=== PATIENT | female | born 2000 | race Caucasian/White ===

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

== ENCOUNTER 2021-01-16 14:47 | Outpatient (REF) | payer MEDICAID, SELFPAY ==
[2021-01-18 14:45] LABS: Chlamydia Result Negative (Negative); GC Result Negative (Negative)
== END 2021-01-16 14:48 | disposition home or self-care (01) ==
LOC: LBN 14:47
PROVIDERS: PCP Family Medicine; Visit Provider Nurse Practitioner Family
DX: R35.0 Frequency of micturition (principal); N89.8 Other specified noninflammatory disorders of vagina; R10.9 Unspecified abdominal pain
CPT/HCPCS: 87491; 87591; 87086; 87480; 87510; 87660

== ENCOUNTER 2021-01-18 20:39 | Emergency (ER) | payer MEDICAID, SELFPAY ==
[2021-01-18 20:44] VITALS: BP 127/77; PULSE 104; RESP 16; TEMP 36.8; O2SAT 100
--- NOTE | 2021-01-18 21:11 | ED.GENADUL_ITS ---
Discharge Plan Disposition Patient Disposition: HOME Condition: Stable Discharge Details Clinical Impression: UTI (urinary tract infection) Primary Care Provider: Danya Pulido V ED Provider: Isabelle Albert Home Meds and New Rx's Prescriptions: New cephalexin 500 mg tablet 500 mg PO BID 7 Days Qty: 14 RF: 0 phenazopyridine [Pyridium] 100 mg tablet 100 mg PO TID PRNQty: 6 RF: 0 No Action albuterol sulfate [ProAir HFA] 200 PUFF HFA aerosol inhaler 2 puff Inhalation Q4H PRN PRNRF: 0 ondansetron HCl [Zofran] 4 mg Tablet 4 mg PO PRN PRNRF: 0 Flovent HFA 110 mcg/actuation HFA aerosol inhaler 2 puff INHALATION DAILY RF: 0 Discharge Instructions Instructions: Urinary Tract Infection in Women (ED) Additional Instructions: Your urinalysis showed evidence for urinary tract infection today. Take the antibiotic twice daily as directed for 7 days. You are given the first dose here in the department. Take Pyridium 3 times daily as needed for urinary tract pain. It will turn your urine bright orange. Please take Tylenol or Ibuprofen with food every 4-6 hours as needed for pain and swelling. Follow up with primary care provider in 3-5 days. Return to ED sooner if any worsening or concerns. Increase oral fluids. Referrals: Danya Pulido MD [Primary Care Provider] - Medical Decision Making 20-year-old female presents to the ER with pelvic pain and urinary symptoms which have been ongoing since Friday night. Patient was seen at urgent care on Friday was given Pyridium was reported to have a negative urinalysis. Patient reports since then she has had what she describes as pressure on her bladder. She has not had a bowel movement since 6 days ago. Last known menstrual period was a week ago. Patient does have a history of UTIs, GERD, asthma. She does have an IUD. Urinalysis and urine test ordered at this time. Urine hCG negative, urinalysis shows positive nitrites trace leukocytes large blood. Culture is pending at this time. Will place patient on cephalexin 500 mg twice daily and give Pyridium here in the department. Instructed to follow-up with PCP. This text was generated using [employer] system, please disregard any oddities of phrase or misspellings. HPI General Mode of arrival: ambulatory . Date/Time Provider Initiated Documentation: 01/18/21 20:40 . Limitations to Documentation: no limitations . Information obtained by: patient . HPI Narrative: 20-year-old female presents to the ER with pelvic pain and urinary symptoms which have been ongoing since Friday night. Patient was seen at urgent care on Friday was given Pyridium was reported to have a negative urinalysis. Patient reports since then she has had what she describes as pressure on her bladder. She has not had a bowel movement since 6 days ago. Last known menstrual period was a week ago. Patient does have a history of UTIs, GERD, asthma. She does have an IUD. Related Data Home Medications Medication Instructions Recorded Confirmed albuterol sulfate [ProAir HFA] 2 puff INHALATION Q4H PRN PRN 08/26/17 01/18/21 ondansetron HCl [Zofran] 4 mg PO PRN PRN 08/08/20 01/18/21 Flovent HFA 2 puff INHALATION DAILY 11/11/20 01/18/21 cephalexin 500 mg PO BID 7 Days #14 tab 01/18/21 phenazopyridine [Pyridium] 100 mg PO TID PRN #6 tab 01/18/21 Previous Rx's Medication Instructions Recorded cephalexin 500 mg PO BID 7 Days #14 tab 01/18/21 phenazopyridine [Pyridium] 100 mg PO TID PRN #6 tab 01/18/21 Allergies Allergy/AdvReac Type Severity Reaction Status Date / Time Sulfa (Sulfonamide Allergy Intermediate red and Unverified 01/18/21 20:50 Antibiotics) itchy General Stated Complaint: Urinary TAMI: 4 Review of Systems All systems reviewed & are unremarkable except as noted in HPI and below Genitourinary Genitourinary: Reports dysuria and Reports pelvic pain [facility] Medical History (Updated 01/18/21 @ 22:19 by Isabelle Albert) Asthma GERD (gastroesophageal reflux disease) Hearing loss Bilateral hearing aids History of anxiety Situational anxiety History of depression History of otitis media History of second hand smoke exposure History of skull fracture Surgical intervention @ 3 years old IUD surveillance Mirena inserted 10/01/18 Migraine headache without aura Surgical History History of foot surgery History of placement of ear tubes History of tonsillectomy and adenoidectomy [place] teeth extracted Family History Mother Asthma Father Seizure disorder PUD (peptic ulcer disease) Paternal Grandmother PUD (peptic ulcer disease) Social History Smoking/Tobacco Use Status: Current every day Tobacco Type: cigarettes and e- cigarettes Smoking risk assessment performed?: Yes Alcohol Intake: never Drug use: Never Substance use type: does not use Housing: apartment Communication Needs: Hard of Hearing Education Level: high school 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 Appears stated age. Normal body habitus. Head: Normocephalic, no trauma. Eyes: Pupils PERRLA, Red reflex noted, EOM's intact. Eyelids symmetrical without lesions, discharge, or swelling. ENT: Bilateral TM's WNL, External ear normal to inspection, no mastoid TTP, swelling, or erythema, Nasal turbinates WNL, no nasal discharge. Normal dentition, Posterior pharynx WNL, no exudate. Chest: RRR, Normal S1, S2, distal pulses intact. Resp: Lungs clear to auscultation bilaterally, no wheezes, rales, or rhonchi. Abdomen: Soft, nondistended tender to palpation suprapubically. Musculoskeletal: Normal gait, 5/5 strength to all four extremities. Skin: No suspicious rashes or lesions. Capillary refill less than 2 sec. Neurologic: Cranial nerves II-XII intact. Alert and oriented x 3. Hematologic/Lymphatic: No ecchymosis, no lymphadenopathy. Course Vital Signs Vital signs: Vital Signs Temperature 36.8 C 01/18/21 20:44 Pulse 104 H 01/18/21 20:44 Respiratory Rate 16 01/18/21 20:44 Blood Pressure 127/77 01/18/21 20:44 Pulse Oximetry 100 01/18/21 20:44 Temperature 36.8 C 01/18/21 20:44 Temperature Source Tympanic 01/18/21 20:44 Pulse 104 H 01/18/21 20:44 Respiratory Rate 16 01/18/21 20:44 Respiratory Effort Non-Labored 01/18/21 20:51 Blood Pressure 127/77 01/18/21 20:44 Blood Pressure Position Sitting 01/18/21 20:44 Pulse Oximetry 100 01/18/21 20:44 Oxygen Delivery Method Room Air 01/18/21 20:44 Oxygen Flow Rate 0 01/18/21 20:44 Pain Level 8 01/18/21 20:44
[2021-01-18 22:12] LABS: Bilirubin Negative (Negative); Blood Large (Negative); Clarity Cloudy (Clear); Glucose Negative (Negative); Ketones Negative (Negative); Leukocyte Esterase Trace (Negative); Nitrite Positive (Negative); Specific Gravity 1.025 (1.005-1.025); pH 7.5 (5-8)
[2021-01-18 22:18] LABS: Bacteria Many HPF (Negative); C & S Indicated? Yes; Casts Negative LPF (Negative); Crystals Negative HPF (Negative); Epithelial Cells Negative HPF (Negative); Mucus Heavy (Negative); RBC >50 HPF (0-2); WBC >50 HPF (0-5)
[2021-01-18] MEDS: Cephalexin 500 MG CAP, 2 CAPS/BTL PO (22:23)
[2021-01-18] MEDS: Phenazopyridine 100 MG TAB PO (22:23)
[2021-01-18] MEDS: Cephalexin 500 MG CAP PO (22:23)
[2021-01-18] MEDS: Phenazopyridine 100 MG TAB, 2 TABS/BTL PO (22:24)
== END 2021-01-18 22:27 | disposition home or self-care (01) ==
PROVIDERS: Emergency Provider Registered Nurse Emergency; PCP Family Medicine
DX: N39.0 Urinary tract infection, site not specified (principal); B96.20 Unspecified Escherichia coli [E. coli] as the cause of diseases classified elsewhere
CPT/HCPCS: 81025; 87077; 99283; 81003; 81015; 87086; 87186

== ENCOUNTER 2021-05-04 12:56 | Emergency (ER) | payer MEDICAID, SELFPAY ==
[2021-05-04 13:00] VITALS: BP 104/58; PULSE 102; RESP 16; TEMP 36.6; O2SAT 99
--- NOTE | 2021-05-04 13:33 | ED.GENADUL_ITS ---
Discharge Plan Disposition Patient Disposition: HOME Condition: Stable Discharge Details Clinical Impression: URI with cough and congestion Primary Care Provider: Danya Pulido V ED Provider: Isabelle Albert Home Meds and New Rx's Prescriptions: No Action prenat.vits,kelby,gnb-esnk-objoq Tablet 1 tab PO DAILY RF: 0 albuterol sulfate [ProAir HFA] 200 PUFF HFA aerosol inhaler 2 puff Inhalation Q4H PRN PRNRF: 0 ondansetron HCl [Zofran] 4 mg Tablet 4 mg PO PRN PRNRF: 0 Flovent HFA 110 mcg/actuation HFA aerosol inhaler 2 puff INHALATION DAILY RF: 0 Discharge Instructions Instructions: How to Stop Smoking (ED), Viral Syndrome (ED) Additional Instructions: Some fblc-tgf-cpstzil medications that are safe for include Benadryl, Mucinex, Tylenol and Claritin. Please take a vitamin. Consider getting vaccinated for Covid. Try to quit smoking. Strep swab today is negative. Please continue to quarantine until negative Covid test. Follow up with primary care provider in 3-5 days. Return to ED sooner if any worsening or concerns. Increase oral fluids. Stand Alone Forms: PENDING COVID-19 TESTING, Work Release Referrals: Danya Pulido MD [Primary Care Provider] - 1 week Medical Decision Making 21-year-old female presents to the ER with URI type symptoms for the last few days. She reports that for the last 5 days she has nasal congestion, cough. She reports that she is she is 1 para 0. She denies any vaginal discharge or bleeding. She states that she had a negative Covid test on Friday. She is not vaccinated for Covid and did not receive her flu shot this year. She does have a history of asthma. She is a daily smoker which she states that she is trying to cut back. Send out Covid swab and rapid strep swab ordered. Discussed home care including taking vkjw-ckn-ybvqobz Claritin or Benadryl or Mucinex what is safe in . Discussed increasing fluids and following up with PCP. At this time patient is nontoxic appearing in no acute distress. I do not feel like she needs a chest x-ray at this time due to radiation exposure. Patient is satting 99% on room air.. Strep negative. Patient discharged with home care and strict return instructions. Patient remained hemodynamically stable alert and oriented throughout stay. Insert dragon HPI General Mode of arrival: ambulatory . Date/Time Provider Initiated Documentation: 05/04/21 12:59 . Limitations to Documentation: no limitations . Information obtained by: patient, RN notes reviewed and old records reviewed . HPI Narrative: 21-year-old female presents to the ER with URI type symptoms for the last few days. She reports that for the last 5 days she has nasal congestion, cough. She reports that she is she is 1 para 0. She denies any vaginal discharge or bleeding. She states that she had a negative Covid test on Friday. She is not vaccinated for Covid and did not receive her flu shot this year. She does have a history of asthma. She is a daily smoker which she states that she is trying to cut back. Related Data Home Medications Medication Instructions Recorded Confirmed albuterol sulfate [ProAir HFA] 2 puff INHALATION Q4H PRN PRN 08/26/17 05/04/21 ondansetron HCl [Zofran] 4 mg PO PRN PRN 08/08/20 05/04/21 Flovent HFA 2 puff INHALATION DAILY 11/11/20 05/04/21 prenat.vits,kelby,tod-fvyz-fwffc 1 tab PO DAILY 04/17/21 05/04/21 Allergies Allergy/AdvReac Type Severity Reaction Status Date / Time Sulfa (Sulfonamide Allergy Intermediate red and Verified 05/04/21 13:10 Antibiotics) itchy General Stated Complaint: RespSymp TAMI: 3 Review of Systems All systems reviewed & are unremarkable except as noted in HPI and below Cardiovascular Cardiovascular: Denies dyspnea Respiratory Respiratory: Reports cough, Denies hemoptysis, Denies excessive phlegm production, Reports pain with cough and Denies dyspnea Gastrointestinal Gastrointestinal: Reports as per HPI, Denies abdominal pain, Denies diarrhea, Denies nausea and Denies vomiting Genitourinary Genitourinary: Denies menorrhagia, Denies pelvic pain, Denies vaginal discharge and Denies vaginal pruritus PFSH All Active Problems (Updated 05/04/21 @ 13:54 by Isabelle Albert) URI with cough and congestion (Acute) Ear pain, left (Acute) Concussion (Acute) Gastritis (Acute) Hordeolum (Acute) UTI (urinary tract infection) (Acute) Sensorineural hearing loss, childhood onset (Acute) Nausea & vomiting (Acute) Sensorineural hearing loss, bilateral (Acute 06/01/15) Migraine (Acute 09/26/17) without aura per Neuro Contraception (Acute 09/26/17) Anxiety (Acute 10/10/17) Abdominal pain (Acute) Migraine headache without aura (Acute) History of anxiety (Chronic) Situational anxiety History of otitis media (Chronic) History of second hand smoke exposure (Chronic) History of depression (Chronic) Hearing loss (Chronic) Bilateral hearing aids GERD (gastroesophageal reflux disease) (Chronic) Medical History (Updated 05/04/21 @ 13:54 by Isabelle Albert) Asthma IUD surveillance Mirena inserted 10/01/18 Surgical History History of tonsillectomy and adenoidectomy Family History Mother Asthma Father Seizure disorder PUD (peptic ulcer disease) Paternal Grandmother PUD (peptic ulcer disease) Social History Smoking/Tobacco Use Status: Current every day Tobacco Type: cigarettes and e- cigarettes Smoking risk assessment performed?: Yes Alcohol Intake: never Drug use: Never Substance use type: does not use Housing: apartment Communication Needs: Hard of Hearing Education Level: high school 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 Appears stated age. Normal body habitus. Head: Normocephalic, no trauma. Eyes: Pupils PERRL, Red reflex noted, EOM's intact. Eyelids symmetrical without lesions, discharge, or swelling. ENT: Bilateral TM's WNL, External ear normal to inspection, no mastoid TTP, swelling, or erythema, Nasal turbinates WNL, no nasal discharge. Normal dentition, Posterior pharynx WNL, no exudate. Chest: RRR, Normal S1, S2, distal pulses intact. Resp: Lungs clear to auscultation bilaterally, no wheezes, rales, or rhonchi. Abdomen: Soft, non-distended, Normoactive bowel sounds all 4 quads. Musculoskeletal: Normal gait, 5/5 strength to all four extremities. Skin: No suspicious rashes or lesions. Capillary refill less than 2 sec. Neurologic: Cranial nerves II-XII intact. Alert and oriented x 3. Motor: No deficits noted. Sensory: Intact bilaterally all 4 extremities. Reflexes: DTR's intact bilaterally.. Hematologic/Lymphatic: No ecchymosis, no lymphadenopathy. Course Vital Signs Vital signs: Vital Signs Temperature 36.6 C 05/04/21 13:00 Pulse 102 H 05/04/21 13:00 Respiratory Rate 16 05/04/21 13:00 Blood Pressure 104/58 L 05/04/21 13:00 Pulse Oximetry 99 05/04/21 13:00 Temperature 36.6 C 05/04/21 13:00 Temperature Source Skin 05/04/21 13:00 Pulse 102 H 05/04/21 13:00 Respiratory Rate 16 05/04/21 13:00 Respiratory Effort 05/04/21 13:09 Blood Pressure 104/58 L 05/04/21 13:00 Blood Pressure Position Sitting 05/04/21 13:00 Pulse Oximetry 99 05/04/21 13:00 Oxygen Delivery Method Room Air 05/04/21 13:00 Oxygen Flow Rate 0 05/04/21 13:00 Pain Level 0 05/04/21 13:00
[2021-05-04 14:04] VITALS: BP 104/58; PULSE 102; RESP 16; TEMP 36.6; O2SAT 99
[2021-05-05 12:07] LABS: COVID-19 RT-PCR UVMMC Result Negative (Negative)
== END 2021-05-04 14:05 | disposition home or self-care (01) ==
PROVIDERS: Emergency Provider Registered Nurse Emergency; PCP Family Medicine
DX: O99.511 Diseases of the respiratory system complicating pregnancy, first trimester (principal); O99.331 Smoking (tobacco) complicating pregnancy, first trimester; J06.9 Acute upper respiratory infection, unspecified; R05.1 Acute cough; R09.81 Nasal congestion; F17.210 Nicotine dependence, cigarettes, uncomplicated
CPT/HCPCS: 87880; 99282; U0003; 87081

== ENCOUNTER 2021-05-22 02:34 | Outpatient (CLI) | payer MEDICAID, SELFPAY ==
[2021-05-22 15:28] LABS: Kit/Specimen SENT
[2021-05-22 15:36] LABS: Abs Immature Grans 0.03 10^3/uL (0.0-0.06); Absolute Basophil Count 0.02 10^3/uL (0.0-0.2); Absolute Eosinophil Count 0.08 10^3/uL (0.0-0.7); Absolute Lymphocyte Count 1.44 10^3/uL (1.2-3.4); Absolute Monocyte Count 0.42 10^3/uL (0.1-0.8); Absolute Neutrophil Count 5.93 10^3/uL (1.2-6.7); Basophils % 0.3; HCT 34.4 % (36.0-46.0); HGB 11.5 g/dL (11.2-15.7); Immature Grans % 0.4; Lymphocytes % 18.2; MCH 27.3 pg (27.0-33.0); MCHC 33.4 % (32.0-36.0); MCV 81.7 fL (80-95); MPV 12.3 fL (8.0-11.0); Monocytes % 5.3; Neutrophils % 74.8; Nucleated RBC 0 %; Platelet Count 196 10^3/uL (130-400); RBC 4.21 10^6/uL (3.93-5.22); RDW 13.1 % (11.7-14.6); RDW-SD 38.6 fL; WBC 7.92 10^3/uL (4.4-10.8)
[2021-05-22 16:47] LABS: *AMPHETAMINES SCREEN URINE Negative (Negative); *BARBITURATES SCREEN URINE Negative (Negative); *BENZODIAZEPINES SCREEN URINE Negative (Negative); Cannabinoids THC Negative (Negative); Cocaine Screen,Urine Negative (Negative); METHADONE URINE SCREEN Negative (Negative); OPIATES URINE SCREEN Negative (Negative); Tricyclic Antidepressants Negative (Negative)
[2021-05-23 09:47] LABS: Hepatitis B Surface Ag Negative (Negative)
[2021-05-23 10:28] LABS: Hepatitis C Ab w Rflx HCV PCR Negative (Negative)
[2021-05-23 10:48] LABS: HIV-1/2 Ag & Ab Screen Negative (Negative)
[2021-05-23 11:00] LABS: Varicella IgG Antibody Positive (See Note)
[2021-05-23 11:07] LABS: Rubella IgG Ab (UVM) Negative (See Note)
[2021-05-23 14:50] LABS: Chlamydia Result Negative (Negative); GC Result Negative (Negative)
[2021-05-23 23:13] LABS: Syphilis Total Ab w/Reflex Nonreactive (Nonreactive)
[2021-05-25 10:55] LABS: Buprenorphine Negative ng/mL (Cutoff: 5.0); Norbuprenorphine Negative ng/mL (Cutoff: 2.5)
[2021-05-30 16:54] LABS: Result Summary NEGATIVE; Specimen WB Whole Blood
== END 2021-05-22 02:35 | disposition home or self-care (01) ==
LOC: LBO 02:35
PROVIDERS: PCP Family Medicine; Visit Provider Advanced Practice Midwife
DX: Z34.01 Encounter for supervision of normal first pregnancy, first trimester (principal)
CPT/HCPCS: 36415; 80307; 86787; 86803; 86850; 86900; 86901; 87340; 87389; 87491; 87591; 81220; 85025; 86762; 86780; 87086

== ENCOUNTER 2021-07-24 01:21 | Outpatient (CLI) | payer MEDICAID, SELFPAY ==
--- NOTE | 2021-07-24 07:00 | DI.US_ITS ---
Exam(s) US OB 2-3 TRIMESTER EXAM: US OB 2-3 TRIMESTER CLINICAL HISTORY: anatomy survey,z34.92. TECHNIQUE: Transabdominal obstetrical ultrasound performed. COMPARISON: No exams were available for comparison FINDINGS: Transabdominal obstetrical ultrasound performed. FINDINGS: Number of fetuses: One. position: Vertex. Placental grade: 1 Placental location: Anterior no evidence of previa. BIOMETRIC DATA: BPD: 44 millimeters, 19+ 1 weeks HC: 162 millimeters, 19+ 0 weeks AC: 129 millimeters, 18+ 4 weeks FL: 28 millimeters, 18+ 4 weeks Cisterna Magna: 3.3 millimeters Cerebellum: 1.7 cm EFW: 250 grms 26 % Composite Age: 18+ 6 weeks EDC by US: 19 December 2021 Heart Rate: 175BPM Amniotic fluid: Amount of fluid is visually within normal limits. ANATOMICAL SURVEY: Four-chambered heart: Unremarkable. LVOT: Unremarkable. RVOT: Unremarkable. Left-sided stomach: Unremarkable. urinary bladder: Unremarkable. Bilateral kidneys: Unremarkable. Three-vessel cord: Unremarkable. Cord insertion: Unremarkable. Umbilical artery velocity: Unremarkable. Posterior fossa:Unremarkable. ventricles: Unremarkable. nose: Unremarkable. lips: Unremarkable. palate: Unremarkable. spine: Unremarkable. Two arms and two legs: Unremarkable. IMPRESSION: 1. Single live intrauterine gestation as above. 2. Normal anatomic survey. DATA REPOSITORY:
== END 2021-07-24 01:41 ==
PROVIDERS: PCP Family Medicine; Visit Provider Advanced Practice Midwife
DX: Z34.92 Encounter for supervision of normal pregnancy, unspecified, second trimester (principal)
CPT/HCPCS: 76805

== ENCOUNTER 2021-09-18 02:18 | Outpatient (CLI) | payer MEDICAID, SELFPAY ==
[2021-09-18 11:14] LABS: HCT 34.6 % (36.0-46.0); HGB 11.3 g/dL (11.2-15.7); MCH 27.6 pg (27.0-33.0); MCHC 32.7 % (32.0-36.0); MCV 84 fL (80-95); MPV 12.6 fL (8.0-11.0); Platelet Count 139 10^3/uL (130-400); RDW 12.3 % (11.7-14.6); RDW-SD 37.3 fL; WBC 11.42 10^3/uL (4.4-10.8)
[2021-09-18 11:24] LABS: Glucose,1 Hr (Glucola) 93 mg/dL (80-140)
== END 2021-09-18 02:19 | disposition home or self-care (01) ==
LOC: LBO 02:19
PROVIDERS: Advanced Practice Midwife; PCP Family Medicine; Visit Provider Advanced Practice Midwife
DX: Z34.92 Encounter for supervision of normal pregnancy, unspecified, second trimester (principal); Z3A.27 27 weeks gestation of pregnancy
CPT/HCPCS: 36415; 82950; 85027

== ENCOUNTER 2021-09-20 09:24 | Outpatient (CLI) | payer MEDICAID, SELFPAY ==
[2021-09-20 14:20] VITALS: BP 100/51; PULSE 112; RESP 12; TEMP 36.9; O2SAT 97
[2021-09-20 15:31] VITALS: BP 100/50; PULSE 96; RESP 12; TEMP 36.9; O2SAT 98
== END 2021-09-20 09:25 | disposition home or self-care (01) ==
LOC: INF 09:28
PROVIDERS: PCP Family Medicine; Visit Provider Family Medicine
DX: U07.1 COVID-19 (principal)
CPT/HCPCS: 96374; Q0222

== ENCOUNTER 2021-09-22 09:49 | Emergency (ER) | payer MEDICAID, SELFPAY ==
[2021-09-22 09:55] VITALS: BP 99/51; PULSE 86; RESP 16; TEMP 36.1; O2SAT 100
--- NOTE | 2021-09-22 10:02 | ED.GENADUL_ITS ---
Discharge Plan Disposition Patient Disposition: HOME Condition: Stable Discharge Details Clinical Impression: Acute right otitis media Primary Care Provider: Danya Pulido V ED Provider: Donny Oviedo Home Meds and New Rx's Prescriptions: New amoxicillin 500 mg capsule 500 mg PO TID 9 Days Qty: 27 0RF Continued PrePlus 27 mg iron- 1 mg tablet 1 tab PO DAILY Qty: 90 3RF Rx Instructions: give with food (meal/snack) famotidine 20 mg tablet 20 mg PO DAILY Qty: 60 3RF aspirin 81 mg tablet,delayed release (DR/EC) 81 mg PO DAILY Qty: 60 4RF Rx Instructions: alternating 1 tab daily with 2 tabs every other day albuterol sulfate [ProAir HFA] 200 PUFF HFA aerosol inhaler 2 puff Inhalation Q4H PRN PRN ondansetron HCl [Zofran] 4 mg Tablet 4 mg PO PRN PRN Flovent HFA 110 mcg/actuation HFA aerosol inhaler 2 puff INHALATION DAILY Discharge Instructions Instructions: Ear Infection (ED) Additional Instructions: May use Benadryl 25 mg at bedtime to help with decongestion. This is safe for use in . Continue Tylenol if needed for pain. Follow-up with regular doctor if not improved in 5 to 7 days time. Take amoxicillin as prescribed until finished Medical Decision Making 21-year-old female presents from home with hours of right ear pain similar to previous otitis media. She has had a recent COVID illness with dry cough and runny nose. On exam she has an early right otitis media that I will treat with amoxicillin. The patient is 27 weeks . She has no OB complaints. She is stable and appropriate for outpatient management at this time HPI General Mode of arrival: ambulatory . Date/Time Provider Initiated Documentation: 09/22/21 09:53 . Limitations to Documentation: no limitations . Information obtained by: patient . History of Present Illness 21 year old F presents to the emergency department with the chief complaint of Right ear pain, described as moderate and similar to prior episodes, Quality is described as dull and constant, and is localized to the right. Patient reports no radiation. Patient started experiencing this hour(s) and it has been constant. No relieving factors improve symptom(s), No exacerbating factors reported . Patient notes other (Recent mild URI symptoms with cough and runny nose). Patient did receive the following treatments prior to arrival, none Related Data Home Medications Medication Instructions Recorded Confirmed albuterol sulfate 90 mcg/actuation 2 puff inhalation Q4H PRN PRN 08/26/17 09/22/21 aerosol inhaler (ProAir HFA) ondansetron HCl 4 mg tablet 4 mg PO PRN PRN 08/08/20 09/22/21 (Zofran) fluticasone propionate 110 2 puff inhalation DAILY 11/11/20 09/22/21 mcg/actuation HFA aerosol inhaler (Flovent HFA) vitamin with calcium 1 tab PO DAILY #90 tabs 07/24/21 09/22/21 no.72-iron 27 mg-folic acid 1 mg tablet (PrePlus) aspirin 81 mg tablet,delayed 81 mg PO DAILY #60 tabs 09/18/21 09/22/21 release famotidine 20 mg tablet 20 mg PO DAILY GERD #60 tabs 09/18/21 09/22/21 amoxicillin 500 mg capsule 500 mg PO TID 9 days #27 caps 09/22/21 Previous Rx's Medication Instructions Recorded vitamin with calcium 1 tab PO DAILY #90 tabs 07/24/21 no.72-iron 27 mg-folic acid 1 mg tablet (PrePlus) aspirin 81 mg tablet,delayed 81 mg PO DAILY #60 tabs 09/18/21 release famotidine 20 mg tablet 20 mg PO DAILY GERD #60 tabs 09/18/21 amoxicillin 500 mg capsule 500 mg PO TID 9 days #27 caps 09/22/21 Allergies Allergy/AdvReac Type Severity Reaction Status Date / Time Sulfa (Sulfonamide Allergy Intermediate red and Verified 09/22/21 10:02 Antibiotics) itchy General Stated Complaint: EarProblem TAMI: 4 Review of Systems Narrative: 27 weeks . No other complaints. See HPI. 6 systems reviewed and otherwise negative PFSH All Active Problems (Updated 09/22/21 @ 10:04 by Donny Oviedo MD) Acute right otitis media (Acute) COVID-19 virus infection (Acute) Left sided sciatica (Acute) (Acute) Current smoker (Acute) Hordeolum (Acute) Nausea & vomiting (Acute) Medical History Abdominal pain Anxiety (10/10/17) Asthma Concussion Contraception (09/26/17) Ear pain, left Gastritis GERD (gastroesophageal reflux disease) Hearing loss Bilateral hearing aids History of anxiety Situational anxiety History of depression History of otitis media History of second hand smoke exposure History of skull fracture Surgical intervention @ 3 years old IUD surveillance Mirena inserted 10/01/18 Migraine (09/26/17) without aura per Neuro Migraine headache without aura Sensorineural hearing loss, bilateral (06/01/15) Sensorineural hearing loss, childhood onset URI with cough and congestion UTI (urinary tract infection) Surgical History History of foot surgery History of placement of ear tubes History of tonsillectomy and adenoidectomy [place] teeth extracted Family History Mother Asthma Depression Father Seizure disorder PUD (peptic ulcer disease) Paternal Grandmother PUD (peptic ulcer disease) Diabetes Paternal Uncle Cancer recovered from unknown type Self Depression no meds, has good coping skills, did have counseling at [facility] Maternal Grandfather No problems noted. 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 Pleasant, well groomed, interactive. HEAD: Normocephalic, atraumatic ENT: Mucous membranes moist, oropharynx unremarkable, left tympanic membrane distended and erythematous, left tympanic membrane external ear exam unremarkable EYES: PERRL, EOMI NECK: Full ROM, no SUNSHINE, no menigismus CHEST/RESP: No respiratory distress ABDOMEN: Gravid EXT: Full ROM, no edema, no rash Neuro: Grossly normal neurologic exam, conversant, interactive. Psych: Speech fluent, thoughts congruent, affect normal Course Vital Signs Vital signs: Vital Signs Temperature 36.1 C L 09/22/21 09:55 Pulse 86 09/22/21 09:55 Respiratory Rate 16 09/22/21 09:55 Blood Pressure 99/51 L 09/22/21 09:55 Pulse Oximetry 100 09/22/21 09:55 Temperature 36.1 C L 09/22/21 09:55 Temperature Source Temporal Artery Scan 09/22/21 09:55 Pulse 86 09/22/21 09:55 Respiratory Rate 16 09/22/21 09:55 Respiratory Effort Non-Labored 09/22/21 10:00 Blood Pressure 99/51 L 09/22/21 09:55 Blood Pressure Position Sitting 09/22/21 09:55 Pulse Oximetry 100 09/22/21 09:55 Oxygen Delivery Method Room Air 09/22/21 09:55 Oxygen Flow Rate 0 09/22/21 09:55 Pain Level 8 09/22/21 10:00
[2021-09-22] MEDS: Amoxicillin 500 MG CAP PO ×2 (10:06)
== END 2021-09-22 10:10 | disposition home or self-care (01) ==
LOC: ER 10:07
PROVIDERS: Emergency Provider Emergency Medicine; PCP Family Medicine
DX: H66.91 Otitis media, unspecified, right ear (principal)
CPT/HCPCS: 99283

== ENCOUNTER 2021-10-03 11:40 | Outpatient (CLI) | payer MEDICAID, SELFPAY ==
[2021-10-03 11:57] VITALS: BP 102/59; PULSE 97; TEMP 36.8
[2021-10-03 12:01] VITALS: BP 102/59; PULSE 97
--- NOTE | 2021-10-03 12:30 | W.OBNST ---
Date of service: 10/03/21 Time of Service: 12:20 NST Evaluation Reason for NST Reasons for Nonstress Test: OTHER, SEE COMMENT Reason for NST Other: Left abd pain Gestational Age Gestational Age in Weeks and Days: 29 Weeks and 1Days Test and Monitor Explained Test/Monitor Explained: Test Explained, Monitor Explained and Patient Verbalized Understanding Vital Signs Blood Pressure: 102/59 Pulse: 97 Temperature: 98.2 F NST Information Date on Monitor: 10/03/21 Time on Monitor: 11:56 Date off Monitor: 10/03/21 Time off Monitor: 12:17 Total Time on Monitor: 21 NST Interventions: PO Hydration NST Evaluation Patient States Movement: Present FHR Baseline: 135 Variability: Moderate 6-25 bpm Accelerations: 15x15 Decelerations: None NST Results: Reactive Note NST Note Note: Bonnie was seen at for NST after calling [facility] today and discussing with CNM that she had left side stomach pain and some nausea and vomiting starting after 5pm yesterday. States she was able to sleep last night after she rested in bed and zahida to work today when she started to have more pain that made her cry. She denies contractions, bleeding or LOF. Baby is active. She has a reactive NST today. She has decreased pain at rest now. She will go home today and if not feeling better tomorrow she will call for note to be out of work another day. She is comfortable with this plan and is discharged to home in satisfactory condition. TANYA NST Reviewed and Verified by: Kenna Hanson
[2021-10-03 12:33] VITALS: BP 102/59; PULSE 97; TEMP 36.8
== END 2021-10-03 12:25 | disposition home or self-care (01) ==
LOC: BCD 11:47 → OBS 11:50
PROVIDERS: PCP Family Medicine; Visit Provider Advanced Practice Midwife
DX: O26.893 Other specified pregnancy related conditions, third trimester (principal); R10.9 Unspecified abdominal pain; Z3A.29 29 weeks gestation of pregnancy
CPT/HCPCS: 59025

== ENCOUNTER 2021-10-31 23:28 | Outpatient (CLI) | payer MEDICAID, SELFPAY ==
[2021-10-31 23:12] VITALS: BP 110/62; PULSE 88; TEMP 36.8
--- NOTE | 2021-11-01 10:17 | PDOC.NST_ITS ---
Date of service: 10/31/21 Time of Service: 23:45 NST Evaluation Reason for NST Reasons for Nonstress Test: OTHER, SEE COMMENT Reason for NST Other: Rule Out Labor Gestational Age Gestational Age in Weeks and Days: 33 Weeks and 1Days Test and Monitor Explained Test/Monitor Explained: Test Explained, Monitor Explained and Patient Verbalized Understanding Vital Signs Blood Pressure: 110/62 Pulse: 88 Temperature: 98.2 F Urine Results Urine Protein: Negative Urine Ketones: Negative Urine Glucose: Negative Urine Blood: Negative NST Information Date on Monitor: 10/31/21 Time on Monitor: 23:10 Date off Monitor: 10/31/21 Time off Monitor: 23:41 Total Time on Monitor: 31 NST Interventions: PO Hydration Contraction Frequency: 0 NST Evaluation Patient States Movement: Present FHR Baseline: 130 Variability: Absent Accelerations: 15x15 Decelerations: None NST Results: Reactive Note NST Note Note: Bonnie called at 2230 and reported lower abdominal pain. She was uncertain if she was experiencing contractions so she was instructed to come to the center for rule out labor. There was no evidence of uterine contractions. Bonnie reported lower abdominal discomfort. She was not in acute distress and was discharged with instriuctions to follow up at [facility] if dicomfort persisted. Signs of labor were reviewed. Urine dip was negative. NST Reviewed and Verified by: Kenna Chang
[2021-11-01 10:20] VITALS: BP 110/62; PULSE 88; TEMP 36.8
== END 2021-10-31 23:47 | disposition home or self-care (01) ==
LOC: BCD 23:29 → OBS 23:36
PROVIDERS: PCP Family Medicine; Visit Provider Advanced Practice Midwife
DX: O26.893 Other specified pregnancy related conditions, third trimester (principal); R10.9 Unspecified abdominal pain; Z3A.33 33 weeks gestation of pregnancy
CPT/HCPCS: 59025

== ENCOUNTER 2021-11-06 12:26 | Emergency (ER) | payer MEDICAID, SELFPAY ==
[2021-11-06 12:42] VITALS: BP 105/64; PULSE 97; RESP 16; TEMP 36.6; O2SAT 100
[2021-11-06 13:29] LABS: Source Nasal/Nares
[2021-11-06 13:37] VITALS: RESP 16
[2021-11-06 14:31] LABS: COVID-19 PCR POSITIVE (Negative)
--- NOTE | 2021-11-06 14:39 | ED.GENADUL_ITS ---
Discharge Plan Disposition Patient Disposition: HOME Condition: Stable Discharge Details Clinical Impression: , URI (upper respiratory infection) Primary Care Provider: Danya Pulido V ED Provider: Ana Pinedo Home Meds and New Rx's Prescriptions: Continued PrePlus 27 mg iron- 1 mg tablet 1 tab PO DAILY Qty: 90 3RF Rx Instructions: give with food (meal/snack) famotidine 20 mg tablet 20 mg PO DAILY Qty: 60 3RF aspirin 81 mg tablet,delayed release (DR/EC) 81 mg PO DAILY Qty: 60 4RF Rx Instructions: alternating 1 tab daily with 2 tabs every other day albuterol sulfate [ProAir HFA] 200 PUFF HFA aerosol inhaler 2 puff Inhalation Q4H PRN PRN ondansetron HCl [Zofran] 4 mg Tablet 4 mg PO PRN PRN fluticasone propionate [Flovent HFA] 110 mcg/actuation HFA aerosol inhaler 2 puff INHALATION DAILY No Action amoxicillin 500 mg capsule 500 mg PO TID Qty: 21 0RF Discharge Instructions Instructions: (ED), Upper Respiratory Infection (ED) Additional Instructions: You may take [id number] phenylephrine as needed for congestion Tylenol as needed for discomfort Follow-up with your [facility] in 1 to 2 days for reassessment and return earlier should you have new or worsening complaints Referrals: Danya Pulido MD [Primary Care Provider] - Discharge Data Discharge Date/Time-TO BE ENTERED AT DEPARTURE: 11/06/21 13:33 Medical Decision Making heart rate 156 No abdominal tenderness COVID swab pending Vitals stable No hypoxia No indication for antibiotics instructed to take phenylephrine at home as needed for congestion and follow-up with [facility] and primary care physician Medical Records Medical records reviewed: Yes I reviewed the patient's medical records. HPI General Date/Time Provider Initiated Documentation: 11/06/21 13:01 . HPI Narrative: This 21-year-old female presents 34 weeks with upper respiratory symptoms and fullness in right ear. Denies any chest pain or shortness of breath. Denies any vaginal bleeding or abdominal pain. Denies fever or chills. Related Data Home Medications Medication Instructions Recorded Confirmed albuterol sulfate 90 mcg/actuation 2 puff inhalation Q4H PRN PRN 04/24/18 07/05/22 aerosol inhaler (ProAir HFA) ondansetron HCl 4 mg tablet 4 mg PO PRN PRN 08/08/20 11/06/21 (Zofran) fluticasone propionate 110 2 puff inhalation DAILY 11/11/20 11/06/21 mcg/actuation HFA aerosol inhaler (Flovent HFA) vitamin with calcium 1 tab PO DAILY #90 tabs 07/24/21 11/06/21 no.72-iron 27 mg-folic acid 1 mg tablet (PrePlus) aspirin 81 mg tablet,delayed 81 mg PO DAILY #60 tabs 09/18/21 11/06/21 release famotidine 20 mg tablet 20 mg PO DAILY GERD #60 tabs 09/18/21 11/06/21 amoxicillin 500 mg capsule 500 mg PO TID #21 caps 11/06/21 Previous Rx's Medication Instructions Recorded vitamin with calcium 1 tab PO DAILY #90 tabs 07/24/21 no.72-iron 27 mg-folic acid 1 mg tablet (PrePlus) aspirin 81 mg tablet,delayed 81 mg PO DAILY #60 tabs 09/18/21 release famotidine 20 mg tablet 20 mg PO DAILY GERD #60 tabs 09/18/21 amoxicillin 500 mg capsule 500 mg PO TID #21 caps 11/06/21 Allergies Allergy/AdvReac Type Severity Reaction Status Date / Time Sulfa (Sulfonamide Allergy Intermediate red and Verified 11/06/21 12:48 Antibiotics) itchy General Stated Complaint: GenMedical TAMI: 4 Review of Systems All systems reviewed & are unremarkable except as noted in HPI and below PFSH All Active Problems (Updated 11/07/21 @ 07:43 by Nani Barton) COVID-19 affecting in third trimester (Acute) History of herpes genitalis (Acute) Left sided sciatica (Acute) (Acute) Current smoker (Acute) Hordeolum (Acute) Nausea & vomiting (Acute) Medical History (Updated 11/07/21 @ 07:43 by Nani Barton) Abdominal pain Anxiety (10/10/17) Asthma Concussion Contraception (09/26/17) COVID-19 virus infection Ear pain, left Gastritis GERD (gastroesophageal reflux disease) Hearing loss Bilateral hearing aids History of anxiety Situational anxiety History of depression History of otitis media History of second hand smoke exposure History of skull fracture Surgical intervention @ 3 years old IUD surveillance Mirena inserted 10/01/18 Lesion of labia Migraine (09/26/17) without aura per Neuro Migraine headache without aura Sensorineural hearing loss, bilateral (06/01/15) Sensorineural hearing loss, childhood onset URI (upper respiratory infection) URI with cough and congestion UTI (urinary tract infection) Surgical History History of foot surgery History of placement of ear tubes History of tonsillectomy and adenoidectomy [place] teeth extracted Family History Mother Asthma Depression Father Seizure disorder PUD (peptic ulcer disease) Paternal Grandmother PUD (peptic ulcer disease) Diabetes Paternal Uncle Cancer recovered from unknown type Self Depression no meds, has good coping skills, did have counseling at [facility] Maternal Grandfather No problems noted. 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: female Do you feel safe at home: Yes Do you feel safe in your relationship?: Yes Female Reproductive History Menstrual Age of Menarche: 11 control method: none History History 1 Para 0 Hx # Term Pregnancies 0 Multiple births 0 Hx # Pregnancies 0 Ectopic pregnancies 0 AB induced 0 Hx Number of Living Children 0 AB spontaneous 0 Exam Const General: cooperative, comfortable and no acute distress HENMT Other: Right TM with fullness without erythema Uvula midline, no maxillary sinus tenderness Eyes Pupils: PERRL Resp Effort & Inspection: normal respiratory effort Cardio Rate: regular rate GI Other: Nontender abdominal exam Neuro General: patient alert and patient oriented x3 Extrem Other: No peripheral edema Course Vital Signs Vital signs: Vital Signs Temperature 36.6 C 11/06/21 12:42 Pulse 97 H 11/06/21 12:42 Respiratory Rate 16 11/06/21 12:42 Blood Pressure 105/64 11/06/21 12:42 Pulse Oximetry 100 11/06/21 12:42 Temperature 36.6 C 11/06/21 12:42 Temperature Source Skin 11/06/21 12:42 Pulse 97 H 11/06/21 12:42 Respiratory Rate 16 11/06/21 13:37 Respiratory Effort 11/06/21 13:37 Respiratory Depth Normal 11/06/21 13:37 Respiratory Pattern Normal 11/06/21 13:37 Blood Pressure 105/64 11/06/21 12:42 Blood Pressure Position Sitting 11/06/21 12:42 Pulse Oximetry 100 11/06/21 12:42 Oxygen Delivery Method Room Air 11/06/21 12:42 Oxygen Flow Rate 0 11/06/21 12:42 Pain Level 7 11/06/21 13:15 Lab/Test Results Lab/Test Results: Laboratory Tests Range/Units 11/06/21 13:20 COVID-19 Source Nasal/Nares SARS-CoV-2 (PCR) (Negative) POSITIVE A*
== END 2021-11-06 13:33 | disposition home or self-care (01) ==
PROVIDERS: Emergency Provider Physician Assistant; PCP Family Medicine
DX: O99.513 Diseases of the respiratory system complicating pregnancy, third trimester (principal); J06.9 Acute upper respiratory infection, unspecified; O98.513 Other viral diseases complicating pregnancy, third trimester; U07.1 COVID-19; J45.909 Unspecified asthma, uncomplicated; O99.333 Smoking (tobacco) complicating pregnancy, third trimester; F17.210 Nicotine dependence, cigarettes, uncomplicated; F17.290 Nicotine dependence, other tobacco product, uncomplicated; Z3A.34 34 weeks gestation of pregnancy; Z79.51 Long term (current) use of inhaled steroids
CPT/HCPCS: 87635; 99282

== ENCOUNTER → 2021-11-13 01:45 | Outpatient (CLI) | payer MEDICAID, SELFPAY ==
--- NOTE | 2021-11-13 07:15 | DI.US_ITS ---
Exam(s) US OB VELIA WEIGHT EXAM: US OB VELIA WEIGHT CLINICAL HISTORY: covid infection in ,U07.1,z34.90. TECHNIQUE: Transabdominal obstetrical ultrasound performed. COMPARISON: US US OB 2-3 TRIMESTER from 07/24/2021 FINDINGS: Transabdominal obstetrical ultrasound performed. FINDINGS: Number of fetuses: One. position: Cephalic. Placental location: There is a grade 2 anterior placenta. No evidence of previa. BIOMETRIC DATA: BPD: 86 mm = 34 weeks 5 days HC: 302 mm = 33 weeks 4 days AC: 288 mm = 32 weeks 5 days FL: 69 mm = 35 weeks 1 day EFW: 2263 grms 16% Composite Age: 34 weeks EDC: 12/25/2021 Heart Rate: 147BPM Amniotic fluid index: 10.4 cm. Visually, amount of fluid is within normal limits. Umbilical artery Doppler: Values are between the 50th and 95th percentile. S/D: 2.5 RI: 0.6 PI: 1.07 IMPRESSION: 1. Single live intrauterine gestation as above. 2. Estimated weight is 2263gms. This is the 16 percentile. 3. Amniotic fluid index is 10.4 cm. Visually within normal limits. DATA REPOSITORY:
== END ==
PROVIDERS: PCP Family Medicine; Visit Provider Advanced Practice Midwife
DX: U07.1 COVID-19 (principal); O98.513 Other viral diseases complicating pregnancy, third trimester; Z3A.34 34 weeks gestation of pregnancy
CPT/HCPCS: 76816

== ENCOUNTER 2021-11-13 02:53 | Outpatient (CLI) | payer MEDICAID, SELFPAY ==
[2021-11-19 20:26] LABS: HSV Type 1 Ab, IgG Positive (Negative); HSV Type 2 Ab, IgG Equivocal (Negative)
== END 2021-11-13 02:54 | disposition home or self-care (01) ==
LOC: LBO 02:53
PROVIDERS: PCP Family Medicine; Visit Provider Advanced Practice Midwife
DX: N90.89 Other specified noninflammatory disorders of vulva and perineum (principal)
CPT/HCPCS: 36415; 86695; 86696

== ENCOUNTER 2021-11-20 14:39 | Outpatient (REF) | payer MEDICAID, SELFPAY | END 2021-11-20 14:40 | disposition home or self-care (01) | LOC: LBN 14:39 | PROVIDERS: PCP Family Medicine; Visit Provider Advanced Practice Midwife ==

== ENCOUNTER 2021-11-20 14:42 | Outpatient (REF) | payer MEDICAID, SELFPAY ==
[2021-11-20 14:24] LABS: *AMPHETAMINES SCREEN URINE Negative (Negative); *BARBITURATES SCREEN URINE Negative (Negative); *BENZODIAZEPINES SCREEN URINE Negative (Negative); Cannabinoids THC Negative (Negative); Cocaine Screen,Urine Negative (Negative); METHADONE URINE SCREEN Negative (Negative); OPIATES URINE SCREEN Negative (Negative)
[2021-11-20 14:31] LABS: Tricyclic Antidepressants Negative (Negative)
[2021-11-23 10:25] LABS: Buprenorphine Negative ng/mL (Cutoff: 5.0); Norbuprenorphine Negative ng/mL (Cutoff: 2.5)
== END 2021-11-20 14:43 | disposition home or self-care (01) ==
LOC: LBN 14:42
PROVIDERS: PCP Family Medicine; Visit Provider Advanced Practice Midwife
DX: Z34.93 Encounter for supervision of normal pregnancy, unspecified, third trimester (principal); Z36.85 Encounter for antenatal screening for Streptococcus B; Z3A.36 36 weeks gestation of pregnancy
CPT/HCPCS: 80307; 87081

== ENCOUNTER 2021-11-30 13:40 | Outpatient (CLI) | payer MEDICAID, SELFPAY ==
[2021-11-30 13:48] VITALS: BP 116/74; PULSE 81; TEMP 36.7
[2021-11-30 14:04] VITALS: BP 116/74; PULSE 81
--- NOTE | 2021-11-30 17:17 | W.OBNST ---
Date of service: 11/30/21 Time of Service: 14:00 NST Evaluation Reason for NST Reasons for Nonstress Test: FALSE LABOR Reason for NST Other: Rule out Gestational Age Gestational Age in Weeks and Days: 37 Weeks and 3Days Test and Monitor Explained Test/Monitor Explained: Test Explained, Monitor Explained and Patient Verbalized Understanding Vital Signs Blood Pressure: 116/74 Pulse: 81 Temperature: 98.1 F Urine Results Urine Protein: Negative Urine Ketones: Positive Urine Glucose: Negative Urine Blood: Negative NST Information Date on Monitor: 11/30/21 Time on Monitor: 14:03 Date off Monitor: 11/30/21 Time off Monitor: 14:47 Total Time on Monitor: 44 NST Interventions: PO Hydration and Meal Given Contraction Frequency: None NST Evaluation Patient States Movement: Present FHR Baseline: 140 Variability: Moderate 6-25 bpm Accelerations: 15x15 Decelerations: None NST Results: Reactive Note NST Note Note: Cvx closed/50% posterior, vtx -3 Ketonuria+ NST Reviewed and Verified by: Nani Barton
[2021-11-30 17:18] VITALS: BP 116/74; PULSE 81; TEMP 36.7
== END 2021-11-30 14:45 | disposition home or self-care (01) ==
LOC: BCD 13:41 → OBS 13:44
PROVIDERS: PCP Family Medicine; Visit Provider Advanced Practice Midwife
DX: O47.1 False labor at or after 37 completed weeks of gestation (principal); Z3A.37 37 weeks gestation of pregnancy
CPT/HCPCS: 59025

== ENCOUNTER 2021-12-04 18:31 | Outpatient (REF) | payer MEDICAID, SELFPAY | END 2021-12-04 18:32 | disposition home or self-care (01) | LOC: LBN 18:31 | PROVIDERS: PCP Family Medicine; Visit Provider Advanced Practice Midwife | DX: O26.893 Other specified pregnancy related conditions, third trimester (principal); N89.8 Other specified noninflammatory disorders of vagina; Z3A.38 38 weeks gestation of pregnancy | CPT/HCPCS: 87480; 87510; 87660 ==

== ENCOUNTER → 2021-12-12 02:00 | Outpatient (CLI) | payer MEDICAID, SELFPAY ==
--- NOTE | 2021-12-12 07:59 | DI.US_ITS ---
Exam(s) US OB VELIA WEIGHT EXAM: US OB VELIA WEIGHT CLINICAL HISTORY: covid infection in labor,)98.513,u07.1 TECHNIQUE: Ultrasound performed using standard protocol. COMPARISON: US US OB VELIA WEIGHT from 11/13/2021 FINDINGS: Ob ultrasound was performed utilizing 3rd trimester protocol. biometry is consistent with gest ational age of 38 weeks and an EDC of December 26. Estimated weight is 3587 grams which is at the 61st percentile for predicted gestational age. Placenta is anterior with no placenta previa. There is visually a normal quantity of amniotic fluid and the VELIA is 15. Fetus is in cephalic presentation. heart rate 136 BPM IMPRESSION: DATA REPOSITORY:
== END ==
PROVIDERS: PCP Family Medicine; Visit Provider Advanced Practice Midwife
DX: O98.513 Other viral diseases complicating pregnancy, third trimester (principal); U07.1 COVID-19
CPT/HCPCS: 76816

== ENCOUNTER 2021-12-13 17:47 | Outpatient (CLI) | payer MEDICAID, SELFPAY ==
[2021-12-13 18:07] VITALS: BP 128/75; PULSE 75; TEMP 36.9
--- NOTE | 2021-12-14 09:27 | W.OBNST ---
Date of service: 12/13/21 Time of Service: 19:00 NST Evaluation Reason for NST Reasons for Nonstress Test: DECREASED MOVEMENT Gestational Age Gestational Age in Weeks and Days: 39 Weeks and 2Days Test and Monitor Explained Test/Monitor Explained: Test Explained and Monitor Explained Vital Signs Blood Pressure: 128/75 Pulse: 75 Temperature: 98.4 F Urine Results Urine Protein: Negative Urine Ketones: Positive Urine Glucose: Negative Urine Blood: Positive NST Information Date on Monitor: 12/13/21 Time on Monitor: 18:09 Date off Monitor: 12/13/21 NST Interventions: PO Hydration NST Evaluation Patient States Movement: Absent FHR Baseline: 150 Variability: Moderate 6-25 bpm Accelerations: 15x15 Decelerations: None NST Results: Reactive Note NST Note Note: Bonnie caled and reported decreased movement. The baby was active. throughout test. baseline difficult to determine due to movement. Irregular mild contractions noted. Bonnie is aware of movement. Reactive NST. NST Reviewed and Verified by: Kenna Chang
[2021-12-14 09:29] VITALS: BP 128/75; PULSE 75; TEMP 36.9
== END 2021-12-13 19:37 | disposition home or self-care (01) ==
LOC: BCD 17:48 → OBS 17:51
PROVIDERS: PCP Family Medicine; Visit Provider Advanced Practice Midwife
DX: O36.8130 Decreased fetal movements, third trimester, not applicable or unspecified (principal); Z3A.39 39 weeks gestation of pregnancy
CPT/HCPCS: 59025

== ENCOUNTER 2021-12-17 16:00 | Outpatient (CLI) | payer MEDICAID, SELFPAY ==
[2021-12-17 16:12] VITALS: BP 121/69; PULSE 71; RESP 16; TEMP 36.6; O2SAT 98
[2021-12-17 16:13] VITALS: BP 121/69; PULSE 71
[2021-12-17 16:43] LABS: ROM Plus Negative
--- NOTE | 2021-12-17 17:26 | HPE_ITS ---
Date of service: 12/17/21 Time of Service: 17:26 Assessment and Plan Assessment and plan (1) Suspected rupture of membranes not found for normal first : Status: Acute Assessment and plan: Signs of labor and ROM reviewed. return with active labor. OB-HPI Labor/Delivery History of Present Illness Reason for Visit: NST Chief Complaint: Uterine Contractions; Suspected Rupture of Membranes (no) , Associated Signs and Symptoms of Suspected ROM: no. LYNDA Calculator Estimated Delivery Date Method Current WG Current Estimate 12/18/21 Ultrasound #1 39w 6d Other Estimates 12/10/21 LMP (Certain) 41w 0d Comments: Bonnie reports regular contractions at home and vomiting. She was able to drink fluids well here. She reported a wet spot on her clothing and ROM plus is negative today. Neg pooling. Cervix posterior and closed. Vertex -1. Signs of labor reviewed. Return with signs of active labor. History of Present Expected Delivery Route/Plan - CNM FOB - Daniel Freeman- hard of hearing Rubella Non-Immune, offer MMR - Amber Esposito support team: FOB Daniel, uncertain of having her adopted mother or not (Maritza) GBS negative Specific Issues/Plan 1. Asthma well controlled 1a. Pt COVID+ @ 27 wks, MAB 09/20/21; asthma sx increased, consider pulmonology consult 1b. 35 wk growth scan 11/13/21 growth 16%, VELIA 10.4, repeat 12/12/21: nml VELIA @ 15.4, EFW in 61st percentile 2. Panorama LR, female, CF negative 3. Hard of hearing as is Daniel, she wears hearing aid, communicates very clearly - genetic testing offered & declined 3a. [facility] telegenetics consult done, no f/up indicated 4. Mother with Pre-E and Nullip will start low dose ASA at 12 wks 5. Pt and FOB are not vaccinated and do not plan to be 6. Rubella Non-Immune, children's counselor pt, offer MMR 7. Depression and anxiety- stopped medications 8. Nausea and vomiting - taking ondansetron 8a. 06/29 - taking ondansetron 2 x weekly. 8b. weight loss - discussed small frequent meals and more frequent use of medication to control nausea. 9. Vulvar lesion reported 10/16- no lesion visible- History of HSV - Valtrex for prophylaxis at 36 wks, Rx sent 11/20: HSV I + HSV II equivocal 10. Recurrent ear infections, responds to Amoxicillin 11. Plans to express colostrum at 37 wks for storage, met with SHANIA 11/13 [facility] All Active Problems (Updated 12/17/21 @ 17:28 by Kenna Chang CNM) Suspected rupture of membranes not found for normal first (Acute) COVID-19 affecting in third trimester (Acute) History of herpes genitalis (Acute) Left sided sciatica (Acute) (Acute) Current smoker (Acute) Hordeolum (Acute) Nausea & vomiting (Acute) Medical History (Updated 12/17/21 @ 17:28 by Kenna Chang CNM) Abdominal pain Anxiety (10/10/17) Asthma Concussion Contraception (09/26/17) COVID-19 virus infection Ear pain, left Gastritis GERD (gastroesophageal reflux disease) Hearing loss Bilateral hearing aids History of anxiety Situational anxiety History of depression History of otitis media History of second hand smoke exposure History of skull fracture Surgical intervention @ 3 years old IUD surveillance Mirena inserted 10/01/18 Lesion of labia Migraine (09/26/17) without aura per Neuro Migraine headache without aura Sensorineural hearing loss, bilateral (06/01/15) Sensorineural hearing loss, childhood onset URI (upper respiratory infection) URI with cough and congestion UTI (urinary tract infection) Surgical History History of foot surgery History of placement of ear tubes History of tonsillectomy and adenoidectomy [place] teeth extracted Family History Mother Asthma Depression Father Seizure disorder PUD (peptic ulcer disease) Paternal Grandmother PUD (peptic ulcer disease) Diabetes Paternal Uncle Cancer recovered from unknown type Self Depression no meds, has good coping skills, did have counseling at [facility] Maternal Grandfather No problems noted. 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: female Do you feel safe at home: Yes Do you feel safe in your relationship?: Yes Female Reproductive History Menstrual Age of Menarche: 11 control method: none History History 1 Para 0 Hx # Term Pregnancies 0 Multiple births 0 Hx # Pregnancies 0 Ectopic pregnancies 0 AB induced 0 Hx Number of Living Children 0 AB spontaneous 0 Meds Allergies and Home Medications Allergies Allergy/AdvReac Type Severity Reaction Status Date / Time Sulfa (Sulfonamide Allergy Intermediate red and Verified 12/12/21 13:02 Antibiotics) itchy Home Medications Medication Instructions Recorded Confirmed Type albuterol sulfate 90 mcg/actuation 2 puff inhalation Q4H PRN PRN 08/26/17 12/12/21 History aerosol inhaler (ProAir HFA) fluticasone propionate 110 2 puff inhalation DAILY 11/11/20 12/12/21 History mcg/actuation HFA aerosol inhaler (Flovent HFA) vitamin with calcium 1 tab PO DAILY #90 tabs 07/24/21 12/12/21 Rx no.72-iron 27 mg-folic acid 1 mg tablet (PrePlus) aspirin 81 mg tablet,delayed 81 mg PO DAILY #60 tabs 09/18/21 12/12/21 Rx release famotidine 20 mg tablet 20 mg PO DAILY GERD #60 tabs 09/18/21 12/12/21 Rx ondansetron HCl 4 mg tablet 8 mg PO Q8H PRN nausea and 11/15/21 12/12/21 Rx vomiting #30 tabs valacyclovir 1 gram tablet 1,000 mg PO DAILY #30 tabs 11/20/21 12/12/21 Rx (Valtrex) Exam Physical Exam Vital signs: Temp Pulse Resp BP Pulse Ox 97.9 F 71 16 121/69 98 12/17/21 16:12 12/17/21 16:13 12/17/21 16:12 12/17/21 16:13 12/17/21 16:12 Detailed Labor and Delivery Exam Dilation: 0 Effacement (%): 50 station: -1 Cervix position: posterior Consistency: soft Haji Score: Cervical Points Exam 0 1 2 3 Dilation Closed 1-2cm 3-4 cm 5-6cm Effacement 0-30% 40-50% 60-70% 80% Consistency Firm Medium Soft Station -3 -2 -1,0 +1,+2 Position Posterior Mid Anterior Amniotic Membrane Status: Intact Contraction Frequency(min): irregular Contraction Duration(sec): 50 Contraction Intensity: Mild Fetus A Heart Rate Baseline: 130 Monitor Accelerations: 15 X 15 Monitor Decelerations: None Variability: Moderate (6-25 BPM) Presentation: Vertex Categories: Category I Est. Weight: 6 lb Risk Assessment Risk for Shoulder Dystocia Historical/Initial OB: NEGATIVE FOR: Pelvic Abnormality, Pre- BMI>30, Previous Shoulder Dystocia or Previous Macrosomia Date/Initial: 05/22/21 TANYA Delivery Plan @ 36wks: spont labor, Risk for Pre-Eclampsia Date Initiated/Initials: 05/22/21: TANYA Yes, if one or more: NEGATIVE FOR: Hx Pre-E/Gest HTN, Chronic HTN, Multiple Gestation, Pre-gestational DM, Renal Disease, Systemic Lupus or APA Syndrome Yes, if 2 or more: POSITIVE FOR: Nulliparity and Mother/Sister w/ Pre-E; NEGATIVE FOR: Age>= 35 yrs, >10yr btwn pregnancies, BMI>30, ethinicty or Previous IUGR Risk for Post- Hemorrhage Initial: NEGATIVE FOR: Multiple Gestation, Previous PPH, Known Clotting Deficiency, Grand Multiparity or Anticoagulation Risks Reviewed Risks Reviewed Upon Admission: Yes
--- NOTE | 2021-12-17 17:29 | DSE_ITS ---
Date of service: 12/17/21 Time of Service: 17:29 DS: Diagnosis Discharge Diagnosis (1) Suspected rupture of membranes not found for normal first : Status: Acute Asessment and Plan: Bonnie reports regular contractions at home and vomiting. She was able to drink fluids well here. No evidence of ROM or active labor. Signs of labor reviewed. Return with signs of active labor. Discharge Plan Disposition Patient Disposition: HOME Condition: Stable Discharge Details Reason For Visit: NST Attending Provider: Kenna Chang Primary Care Provider: Danya Pulido V Home Meds and New Rx's Prescriptions: No Action PrePlus 27 mg iron- 1 mg tablet 1 tab PO DAILY Qty: 90 3RF Rx Instructions: give with food (meal/snack) famotidine 20 mg tablet 20 mg PO DAILY Qty: 60 3RF aspirin 81 mg tablet,delayed release (DR/EC) 81 mg PO DAILY Qty: 60 4RF Rx Instructions: alternating 1 tab daily with 2 tabs every other day valacyclovir [Valtrex] 1 gram tablet 1,000 mg PO DAILY Qty: 30 1RF ondansetron HCl 4 mg tablet 8 mg PO Q8H PRN (Reason: nausea and vomiting) Qty: 30 0RF albuterol sulfate [ProAir HFA] 200 PUFF HFA aerosol inhaler 2 puff Inhalation Q4H PRN PRN fluticasone propionate [Flovent HFA] 110 mcg/actuation HFA aerosol inhaler 2 puff INHALATION DAILY Discharge Instructions Instructions: Early Labor Signs (GEN) Activity:: Activity as Tolerated Activity:: Activity as Tolerated Diet:: As Tolerated Discharge Data Discharge Date/Time-TO BE ENTERED AT DEPARTURE: 12/17/21 17:00 Discharge Physician: Kenna Chang DS: Summary Time Spent with Patient providing and/or coordinating discharge services: Less than 30 minutes Status at Discharge Functional status at discharge: independent ambulation Overall status at discharge: patient is back to baseline Mental Status: mental status grossly normal Speech and Movement: speech and movement normal Mood: congruent mood Affect: normal affect Exam Psych Mental Status: mental status grossly normal Speech and Movement: speech and movement normal Mood: congruent mood Affect: normal affect DS: Data Vitals/I&O Vitals and I&O: Vital Signs Temperature 97.9 F 12/17/21 16:12 Pulse 71 12/17/21 16:13 Pulse Rhythm Regular 12/17/21 16:12 Respiratory Rate 16 12/17/21 16:12 Blood Pressure 121/69 12/17/21 16:13 Pulse Oximetry 98 12/17/21 16:12 Oxygen Delivery Method Room Air 12/17/21 16:12 Oxygen Flow Rate 0 12/17/21 16:12 Pain Level 2 12/17/21 16:12 Intake & Output 12/16/21 12/17/21 12/17/21 23:59 11:59 23:59 Intake Total 100 / 100 Balance 100 / 100 Weight 165 lb 5.644 oz Intake: Oral 100 / 100 Other: Urine Color Yellow Data Completed and Pending Labs on day of discharge: Labs from last 24 hours 12/17/21 16:00 Membranes Rupture Negative PFSH All Active Problems (Updated 12/17/21 @ 17:28 by Kenna Chang CNM) Suspected rupture of membranes not found for normal first (Acute) COVID-19 affecting in third trimester (Acute) History of herpes genitalis (Acute) Left sided sciatica (Acute) (Acute) Current smoker (Acute) Hordeolum (Acute) Nausea & vomiting (Acute) Medical History (Updated 12/17/21 @ 17:28 by Kenna Chang CNM) Abdominal pain Anxiety (10/10/17) Asthma Concussion Contraception (09/26/17) COVID-19 virus infection Ear pain, left Gastritis GERD (gastroesophageal reflux disease) Hearing loss Bilateral hearing aids History of anxiety Situational anxiety History of depression History of otitis media History of second hand smoke exposure History of skull fracture Surgical intervention @ 3 years old IUD surveillance Mirena inserted 10/01/18 Lesion of labia Migraine (09/26/17) without aura per Neuro Migraine headache without aura Sensorineural hearing loss, bilateral (06/01/15) Sensorineural hearing loss, childhood onset URI (upper respiratory infection) URI with cough and congestion UTI (urinary tract infection) Surgical History History of foot surgery History of placement of ear tubes History of tonsillectomy and adenoidectomy [place] teeth extracted Family History Mother Asthma Depression Father Seizure disorder PUD (peptic ulcer disease) Paternal Grandmother PUD (peptic ulcer disease) Diabetes Paternal Uncle Cancer recovered from unknown type Self Depression no meds, has good coping skills, did have counseling at [facility] Maternal Grandfather No problems noted. 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
== END 2021-12-17 17:00 | disposition home or self-care (01) ==
LOC: BCD 16:00 → OBS 16:03
PROVIDERS: PCP Family Medicine; Visit Provider Advanced Practice Midwife
DX: N90.89 Other specified noninflammatory disorders of vulva and perineum (principal); O26.893 Other specified pregnancy related conditions, third trimester; Z3A.40 40 weeks gestation of pregnancy
CPT/HCPCS: 84112; G0378

== ENCOUNTER 2021-12-18 23:16 | Outpatient (CLI) | payer MEDICAID, SELFPAY ==
[2021-12-18 23:12] VITALS: BP 121/80; PULSE 93; RESP 18
--- NOTE | 2021-12-20 12:06 | PDOC.NST_ITS ---
Date of service: 12/19/21 Time of Service: 03:00 NST Evaluation Reason for NST Reasons for Nonstress Test: OTHER, SEE COMMENT Reason for NST Other: Rule out labor Gestational Age Gestational Age in Weeks and Days: 40 Weeks and 2Days NST Information Date on Monitor: 12/18/21 Time on Monitor: 23:11 Date off Monitor: 12/19/21 Time off Monitor: 00:34 Total Time on Monitor: 83 Contraction Frequency: 3-5 NST Evaluation FHR Baseline: 125 Variability: Moderate 6-25 bpm Accelerations: 15x15 Decelerations: None NST Results: Reactive Note NST Note Note: Bonnie reported contractions at home. She was evaluated and cervical exam performed. cervix 1 cm/ 70%/-1. No cervical change in 2 hours. Signs of labor reviewed. Follow up at [facility]. NST Reviewed and Verified by: Kenna Chang
== END 2021-12-19 01:40 | disposition home or self-care (01) ==
LOC: OBS 12-19 10:57 → BCD 01-15 10:21
PROVIDERS: PCP Family Medicine; Visit Provider Advanced Practice Midwife
DX: O47.1 False labor at or after 37 completed weeks of gestation (principal); Z3A.40 40 weeks gestation of pregnancy
CPT/HCPCS: 59025; G0378

== ENCOUNTER 2021-12-19 23:33 | Outpatient (CLI) | payer MEDICAID, SELFPAY ==
[2021-12-20 00:15] VITALS: BP 136/72; PULSE 61; TEMP 36.8
--- NOTE | 2021-12-20 00:21 | HPE_ITS ---
Date of service: 12/20/21 Time of Service: 00:21 Assessment and Plan Assessment and plan (1) Uterine contractions: Status: Acute Assessment and plan: A: 21 yo G1 @ 40+2 wks prodromal labor for >24 hrs intolerance of contraction pain, poor coping @ 1-2cm dilation GBS neg, Rh+, Rubella non-immune Low risk for SD or PPH HSV prophylaxis since 36 wks, no lesions evident P: Center observation overnight Therapeutic rest with Nubain Supportive positioning and reassurance Observe for progression to active labor (2) 40 weeks gestation of : Status: Acute OB-HPI Labor/Delivery History of Present Illness Reason for Visit: NST Chief Complaint: Uterine Contractions; Maternal Discomfort , Associated Signs and Symptoms of Maternal Discomfort: moaning and crying during contractions ; Suspected Labor. LYNDA Calculator Estimated Delivery Date Method Current WG Current Estimate 12/18/21 Ultrasound #1 40w 2d Other Estimates 12/10/21 LMP (Certain) 41w 3d Comments: Pt has been taking HSV prophylaxis medication since 36 wks, denies HSV symptoms or lesions Emesis x1 prior to arrival in unit Contractions have been 5-6 minutes apart at home but getting stronger and painful in lower abd No bleeding or ROM History of Present Expected Delivery Route/Plan - CNM FOB - Daniel Freeman- hard of hearing Rubella Non-Immune, offer MMR - Amber Esposito support team: LUISA Sanchez, uncertain of having her adopted mother or not (Maritza) GBS negative Specific Issues/Plan 1. Asthma well controlled 1a. Pt COVID+ @ 27 wks, MAB 09/20/21; asthma sx increased, consider pulmonology consult 1b. 35 wk growth scan 11/13/21 growth 16%, VELIA 10.4, repeat 12/12/21: nml VELIA @ 15.4, EFW in 61st percentile 2. Panorama LR, female, CF negative 3. Hard of hearing as is Daniel, she wears hearing aid, communicates very clearly - genetic testing offered & declined 3a. [facility] telegenetics consult done, no f/up indicated 4. Mother with Pre-E and Nullip will start low dose ASA at 12 wks 5. Pt and FOB are not vaccinated and do not plan to be 6. Rubella Non-Immune, domestic violence counselor pt, offer MMR 7. Depression and anxiety- stopped medications 8. Nausea and vomiting - taking ondansetron 8a. 06/29 - taking ondansetron 2 x weekly. 8b. weight loss - discussed small frequent meals and more frequent use of medication to control nausea. 9. Vulvar lesion reported 10/16- no lesion visible- History of HSV - Valtrex for prophylaxis at 36 wks, Rx sent 11/20: HSV I + HSV II equivocal 10. Recurrent ear infections, responds to Amoxicillin 11. Plans to express colostrum at 37 wks for storage, met with LC 11/13 Assessment: History Reviewed & Current Review of Systems Narrative: ROS reviewed and noncontributory other then HPI ENT Comments: known hearing loss Gastrointestinal Comments: vomited x1 earlier this evening Psychiatric Comments: Hx depression and anxiety, unmedicated during PFSH All Active Problems 40 weeks gestation of (Acute) Uterine contractions (Acute) Rubella non-immune status, antepartum (Acute) History of herpes genitalis (Acute) (Acute) Current smoker (Acute) Medical History (Updated 12/20/21 @ 00:34 by Nani Barton) Anxiety (10/10/17) Asthma Concussion COVID-19 affecting in third trimester COVID-19 virus infection GERD (gastroesophageal reflux disease) Hearing loss Bilateral hearing aids History of anxiety Situational anxiety History of depression History of otitis media History of second hand smoke exposure History of skull fracture Surgical intervention @ 3 years old IUD surveillance Mirena inserted 10/01/18 Left sided sciatica Migraine (09/26/17) without aura per Neuro Migraine headache without aura Sensorineural hearing loss, bilateral (06/01/15) Sensorineural hearing loss, childhood onset Surgical History History of foot surgery History of placement of ear tubes History of tonsillectomy and adenoidectomy [place] teeth extracted Family History Mother Asthma Depression Father Seizure disorder PUD (peptic ulcer disease) Paternal Grandmother PUD (peptic ulcer disease) Diabetes Paternal Uncle Cancer recovered from unknown type Self Depression no meds, has good coping skills, did have counseling at [facility] Maternal Grandfather No problems noted. 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: female Do you feel safe at home: Yes Do you feel safe in your relationship?: Yes Female Reproductive History Menstrual Age of Menarche: 11 control method: none History History 1 Para 0 Hx # Term Pregnancies 0 Multiple births 0 Hx # Pregnancies 0 Ectopic pregnancies 0 AB induced 0 Hx Number of Living Children 0 AB spontaneous 0 Meds Allergies and Home Medications Allergies Allergy/AdvReac Type Severity Reaction Status Date / Time Sulfa (Sulfonamide Allergy Intermediate red and Verified 12/18/21 14:10 Antibiotics) itchy Home Medications Medication Instructions Recorded Confirmed Type albuterol sulfate 90 mcg/actuation 2 puff inhalation Q4H PRN PRN 08/26/17 12/18/21 History aerosol inhaler (ProAir HFA) fluticasone propionate 110 2 puff inhalation DAILY 11/11/20 12/18/21 History mcg/actuation HFA aerosol inhaler (Flovent HFA) vitamin with calcium 1 tab PO DAILY #90 tabs 07/24/21 12/18/21 Rx no.72-iron 27 mg-folic acid 1 mg tablet (PrePlus) aspirin 81 mg tablet,delayed 81 mg PO DAILY #60 tabs 09/18/21 12/18/21 Rx release famotidine 20 mg tablet 20 mg PO DAILY GERD #60 tabs 09/18/21 12/18/21 Rx ondansetron HCl 4 mg tablet 8 mg PO Q8H PRN nausea and 11/15/21 12/18/21 Rx vomiting #30 tabs valacyclovir 1 gram tablet 1,000 mg PO DAILY #30 tabs 11/20/21 12/18/21 Rx (Valtrex) Exam Physical Exam Vital signs: BP-136/72, HR-61, temp 36.8 Vital Signs Reviewed: Yes Constitutional Constitutional: moderate distress, average body habitus and cooperative Detailed Labor and Delivery Exam Dilation: 2 (exam by RN at MT) Effacement (%): 70 station: -2 Cervix position: anterior Consistency: soft RAMIREZ Score(Cervical Ripeness Score): 8 Amniotic Membrane Status: Intact Contraction Frequency(min): q5-7 Contraction Duration(sec): 60-80 Contraction Intensity: Moderate Fetus A Heart Rate Baseline: 120 Monitor Accelerations: 15 X 15 Monitor Decelerations: None Variability: Moderate (6-25 BPM) Presentation: Cephalic Categories: Category I Est. Weight: 8 lb 2.514 oz Est. Weight: 3700 gms HEENT Exam HEENT Exam: Normal Neck Exam Neck Exam: Normal Chest/Brest/Axilla Exam Chest Exam: Normal Breast Exam Breast Exam: Normal Cardiovascular Exam Cardiovascular Exam: Normal Abdominal Exam Abdominal Exam: Normal (Gravid) Rectal Exam Rectal Exam: Normal Exam Exam: Normal (no visible lesions on vulva, vagina or cvx) Extremities Exam Extremities Exam: Normal Back/Spine/Pelvis Exam Back Exam: Normal Pelvis Adequate: Yes Skin Exam Skin Exam: Normal Neurological Exam Neurological Exam: Normal Psychiatric Exam Psychiatric Exam: Normal (moaning and crying during contractions) Results Results Group Beta Strep: Negative Blood Type: O+ Rubella Status: Nonimmune Varicella Immunity: Immune Risk Assessment Risk for Shoulder Dystocia Historical/Initial OB: NEGATIVE FOR: Pelvic Abnormality, Pre- BMI>30, Previous Shoulder Dystocia or Previous Macrosomia 40 Weeks: NEGATIVE FOR: EFW> 4500 gms, Maternal Weight Gain >40lb or Post Dates Increased Risk?: No Date/Initial: 05/22/21 Delivery Plan @ 36wks: spont labor, Delivery Plan @ 40 wks: spont labor, Risk for Pre-Eclampsia Daily Dose ASA Indicated: Yes Date Initiated/Initials: 05/22/21: Yes, if one or more: NEGATIVE FOR: Hx Pre-E/Gest HTN, Chronic HTN, Multiple Gestation, Pre-gestational DM, Renal Disease, Systemic Lupus or APA Syndrome Yes, if 2 or more: POSITIVE FOR: Nulliparity and Mother/Sister w/ Pre-E; NEGATIVE FOR: Age>= 35 yrs, >10yr btwn pregnancies, BMI>30, ethinicty or Previous IUGR Risk for Post- Hemorrhage Initial: NEGATIVE FOR: Multiple Gestation, Previous PPH, Known Clotting Deficiency, Grand Multiparity or Anticoagulation At Risk?: No Interventions: PNV with iron for mild anemia prescribed Counseled re: Active Management: Yes Risks Reviewed Risks Reviewed Upon Admission: Yes
[2021-12-20 00:23] VITALS: BP 136/72; PULSE 61; RESP 17; TEMP 36.8
--- NOTE | 2021-12-20 00:47 | NUR.NOTE ---
Pt was here yesterday for eval. No cervical change. Tonight has had small cervical change and is having moderate contractions with some regularity. CNM to evaluate.Nursing Note:
== END 2021-12-19 23:34 | disposition home or self-care (01) ==
LOC: BCD 23:35
PROVIDERS: PCP Family Medicine; Visit Provider Advanced Practice Midwife

== ENCOUNTER 2021-12-20 00:37 | Inpatient (IN) | payer MEDICAID, SELFPAY ==
[2021-12-20] VITALS (46 sets, daily range): BP systolic 95–137; BP diastolic 50–78; PULSE 49–104; RESP 16–17; TEMP 36.5–36.9; O2SAT 96–100; BMI 31.7
[2021-12-20] MEDS: Nalbuphine 10 MG/ML AMP 15 MG IM ×2 (01:35→04:21)
--- NOTE | 2021-12-20 01:48 | NUR.NOTE ---
Pt up to void. Coping better with contractions since pain medication. Encouraged to sleelpNursing Note:
--- NOTE | 2021-12-20 04:36 | NUR.NOTE ---
Pt awake. Drinking well (900ml in) Up to void. Medicated with Nubain 15 mg IM. Pt is awake on her phone and communicating with her boyfriend. Encouraged patient to sleep. Moaning with contractions. Nursing Note:
--- NOTE | 2021-12-20 06:04 | NUR.NOTE ---
Pt resting well this am. Stated she has increased mucous when using the bathroom. Found patient to be moaning less -spacing out of contractions. Nursing Note:
--- NOTE | 2021-12-20 07:10 | W.PM.OBNL1 ---
Date of service: 12/20/21 Time of Service: 07:10 Pelvic Exam Dilation: 3 Effacement (%): 90 station: -1 Position: LOP Cervix Position: anterior Consistency: medium BISHOPS Score(Cervical Ripeness Score): 10 Contractions Monitor Mode: External Contraction Frequency(min): irregular, 1 or 2 in 10 minutes Intensity: Mild/Moderate Fetus A Heart Rate Baseline: 120 Variability: Moderate (6-25 BPM) Categories: Category I Accelerations: 15 X 15 Decelerations: None Amniotic Membrane Status: Intact Assessment and Plan Assessment and plan (1) Uterine contractions: Status: Acute Assessment and plan: A: Prodromal phase of primiparous labor Minor but palpable cvx change Category 1 tracing, GBS neg P: continue observation status until active labor vs w/FHT check q4H when awake encourage rest/sleep regular diet, Zofran 4 mg PO prn Nubain 15 mg IM prn q3H Objective Temp Pulse Resp BP Pulse Ox 98.1 F 64 17 128/75 97 12/20/21 06:27 12/20/21 07:01 12/20/21 04:36 12/20/21 07:01 12/20/21 06:03 Vital Signs Reviewed: Yes Objective Narrative Objective Narrative: Repeat SVE after 6 hrs overnight reveals palpable cvx change Haji score has advanced from 8 to 10, now 3/90% Membranes remain intact, normotensive, afebrile Category 1 tracing Pt prefers standing at bedside, coping with irreg contractions has improved Subjective Interval history since last seen: Pt slept for a few hours after 1st dose of Nubain, 2nd dose given at 0430 though pt has been up pacing in her room since then, emesis x1, states contractions are more manageable but still hurt in lower abdomen, also reports increased mucous discharge during the night, no bleeding, no ROM. FOB has arrived to be support, and pt's step-mother has been bedside all night.
--- NOTE | 2021-12-20 13:09 | W.PM.OBNL1 ---
Date of service: 12/20/21 Time of Service: 13:09 Informed Consent Informed Consent: Risk,Benefits,Alternatives Discussed and Other (IV and IM narcotics discussed, nitrous oxide offered, reviewed AROM to bring on active labor) Pelvic Exam Dilation: 3.5 Effacement (%): 90 station: -1 Position: LOP Cervix Position: anterior Consistency: medium Vaginal Exam Presentation: Cephalic Fetus A Monitor: External (US) Heart Rate Baseline: 115 Variability: Moderate (6-25 BPM) Categories: Category I Decelerations: None Amniotic Membrane Status: Intact Assessment and Plan Assessment and plan (1) Uterine contractions: Status: Acute Assessment and plan: A: Prodromal sx, approaching active status Poor tolerance of labor pains Maternal fatigue P: Change from obs to inpt status Pain management options discussed Pt advised PO intake is important, consider IV hydration Pt declines regional anesthesia Will try nitrous, agrees to AROM, Consider IM or IV Stadol if pt desires Anticipate Objective Temp Pulse Resp BP Pulse Ox 98.4 F 76 16 118/56 L 97 12/20/21 07:07 12/20/21 11:43 12/20/21 07:07 12/20/21 11:43 12/20/21 06:03 Vital Signs Reviewed: Yes Objective Narrative Objective Narrative: Pt in bed, states she is very tired, Vocalizes and breathes with contractions Encouraged to drink fluids, pt declines solid food Advised if she is unable to take in adequate oral fluid IV hydration is recommended Stepmother and FOB at bedside Vital signs are stable, cat 1 FHT Subjective Interval history since last seen: Ate breakfast and has been sipping water, contractions are getting stronger again and would like to discuss pain medication options, states she does not want to have an epidural, being in the tub or shower is helpful.
[2021-12-20 13:41] LABS: Source Nasal/Nares
[2021-12-20 13:44] LABS: HCT 33.3 % (36.0-46.0); HGB 10.4 g/dL (11.2-15.7); MCHC 31.2 % (32.0-36.0); MCV 77 fL (80-95); Platelet Count 167 10^3/uL (130-400); RBC 4.33 10^6/uL (3.93-5.22); RDW 13.8 % (11.7-14.6); RDW-SD 38.4 fL; WBC 11.11 10^3/uL (4.4-10.8)
[2021-12-20 14:03] LABS: MPV 13.3 fL (8.0-11.0)
[2021-12-20 14:17] LABS: COVID-19 PCR Negative (Negative)
--- NOTE | 2021-12-20 15:28 | PGE_ITS ---
Date of service: 12/20/21 Time of Service: 15:28 Informed Consent Informed Consent: Augmentation of Labor, Regional Anesthesia and Risk,Benefits,Alternatives Discussed Pelvic Exam Dilation: 4 Effacement (%): 90 station: -1 Position: LOP Cervix Position: anterior Contractions Monitor Mode: External Contraction Frequency(min): q5-7 Contraction Duration(sec): 60-80 Intensity: Moderate Fetus A Monitor: External (US) Heart Rate Baseline: 120 Variability: Moderate (6-25 BPM) Categories: Category I Accelerations: Present Decelerations: None Amniotic Membrane Status: Ruptured Rupture Method: Artifical Amniotic Fluid: Clear Assessment and Plan Assessment and plan (1) Uterine contractions: Status: Acute Assessment and plan: A: Inadequate labor pattern after AROM Need for pain management Pt now requesting epidural anesthesia P: Begin IV fluids, 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 Paged Pitocin augmentation when pt is more comfortable Anticipate Objective Abnormal lab results 12/20/21 Range/Units 13:27 WBC 11.11 H (4.4-10.8) 10^3/uL Hgb 10.4 L (11.2-15.7) g/dL Hct 33.3 L (36.0-46.0) % MCV 77 L (80-95) fL MCH 24.0 L (27.0-33.0) pg MCHC 31.2 L (32.0-36.0) % MPV 13.3 H (8.0-11.0) fL Temp Pulse Resp BP Pulse Ox 97.9 F 50 L 16 134/78 97 12/20/21 13:18 12/20/21 13:46 12/20/21 13:18 12/20/21 13:46 12/20/21 06:03 Laboratory Results WBC 11.11 10^3/uL (4.4-10.8) H 12/20/21 13:27 RBC 4.33 10^6/uL (3.93-5.22) 12/20/21 13:27 Hgb 10.4 g/dL (11.2-15.7) L 12/20/21 13:27 Hct 33.3 % (36.0-46.0) L 12/20/21 13:27 MCV 77 fL (80-95) L 12/20/21 13:27 MCH 24.0 pg (27.0-33.0) L 12/20/21 13:27 MCHC 31.2 % (32.0-36.0) L 12/20/21 13:27 RDW 13.8 % (11.7-14.6) 12/20/21 13:27 Plt Count 167 10^3/uL (130-400) 12/20/21 13:27 MPV 13.3 fL (8.0-11.0) H 12/20/21 13:27 COVID-19 Source Nasal/Nares 12/20/21 13:25 SARS-CoV-2 (PCR) Negative (Negative) 12/20/21 13:25 Patient ABO/Rh O Positive 12/20/21 13:27 Antibody Screen NEGATIVE 12/20/21 13:27 Objective Narrative Objective Narrative: Loud vocalization with contractions, Requesting pain medication, Has decided she would like an epidural Subjective Patient Reports: New Complaints Interval history since last seen: Contractions are getting stronger and more regular since AROM was done. Nitrous makes her nauseated, would like an epidural Results Hemoglobin/Hematocrit: Hgb 10.4 g/dL (11.2-15.7) L 12/20/21 13:27 Hct 33.3 % (36.0-46.0) L 12/20/21 13:27 Abnormal Lab Findings: Abnormal Labs 12/20/21 13:27 WBC 11.11 H Hgb 10.4 L Hct 33.3 L MCV 77 L MCH 24.0 L MCHC 31.2 L MPV 13.3 H
[2021-12-20] MEDS: Lactated Ringers 1,000 ML 125 ML IV (15:56)
--- NOTE | 2021-12-20 16:04 | W.ANESPRE ---
General Info Date of Service Date Performed: 12/20/21 Height: 5 ft 1 in Weight: 76.204 kg Body Mass Index (BMI): 31.7 Meds Allergies and Home Medications Allergies Allergy/AdvReac Type Severity Reaction Status Date / Time Sulfa (Sulfonamide Allergy Intermediate red and Verified 12/20/21 00:58 Antibiotics) itchy Home Medication Medication Instructions Recorded albuterol sulfate 90 mcg/actuation 2 puff inhalation Q4H PRN PRN 08/26/17 aerosol inhaler (ProAir HFA) fluticasone propionate 110 2 puff inhalation DAILY 11/11/20 mcg/actuation HFA aerosol inhaler (Flovent HFA) vitamin with calcium 1 tab PO DAILY #90 tabs 07/24/21 no.72-iron 27 mg-folic acid 1 mg tablet (PrePlus) aspirin 81 mg tablet,delayed 81 mg PO DAILY #60 tabs 09/18/21 release famotidine 20 mg tablet 20 mg PO DAILY GERD #60 tabs 09/18/21 ondansetron HCl 4 mg tablet 8 mg PO Q8H PRN nausea and 11/15/21 vomiting #30 tabs valacyclovir 1 gram tablet 1,000 mg PO DAILY #30 tabs 11/20/21 (Valtrex) Current Visit Medications: Current Medications Generic Name Dose Route Start Last Admin Trade Name Freq PRN Reason Stop Dose Admin Bupivacaine HCl 0 ml 12/20/21 16:01 Bupivacaine 0.25% Pres-Free 10 Ml Vial EP 12/20/21 16:02 NOW ONE Bupivacaine HCl 0 ml 12/20/21 16:03 Bupivacaine 0.25% Pres-Free 10 Ml Vial EP 12/20/21 16:04 NOW ONE Fentanyl 0 mcg 12/20/21 16:01 Fentanyl 100 Mcg/2 Ml Vial EP 12/20/21 16:02 NOW ONE Fentanyl 0 mcg 12/20/21 16:03 Fentanyl 100 Mcg/2 Ml Vial EP 12/20/21 16:04 NOW ONE Fentanyl/Ropivacaine 200 ml 12/20/21 16:15 Fentanyl/Ropivacaine 2 Mcg/Ml And 0.1% 200 Ml Cadd Cassette EP DIRECTED [facility] Fentanyl/Ropivacaine 200 ml 12/20/21 16:15 Fentanyl/Ropivacaine 2 Mcg/Ml And 0.1% 200 Ml Cadd Cassette EP DIRECTED [facility] Ringer's Solution 1,000 mls @ 125 mls/hr 12/20/21 15:30 12/20/21 15:56 IV 125 mls/hr INFUSION STEFFI Administration Sodium Chloride 500 mls @ 0 mls/hr 12/20/21 15:25 Saline 500ml Bag IV PRN PRN As Directed Oxytocin/Sodium Chloride 30 unit in 500 mls @ 2 mls/hr 12/20/21 15:30 Pitocin/Normal Saline IV INFUSION STEFFI Protocol 2 MILLIUNITS/MIN Ringer's Solution 500 mls @ 500 mls/hr 12/20/21 16:01 IV 12/20/21 17:00 BOLUS ONE Ringer's Solution 500 mls @ 500 mls/hr 12/20/21 16:03 IV 12/20/21 17:02 BOLUS ONE IV Miscellaneous Supplies 1 each 12/20/21 15:30 Iv Access IV DIRECTED STEFFI Ondansetron HCl 4 mg 12/20/21 07:31 Ondansetron O.D.T. 4 Mg Tabef PO Q6H PRN PRN Sodium Chloride 0 ml 12/20/21 15:25 Normal Saline Flush 10 Ml Syr IVP PRN PRN PFSH Active Problems Active Problems: Problem Status Onset Code 40 weeks gestation of Z3A.40 Uterine contractions O47.9 Rubella non-immune status, antepartum O09.899, Z28.39 History of herpes genitalis Z86.19 Z34.90 Current smoker F17.200 Medical History Medical History (Updated 12/20/21 @ 00:34 by Nani Barton) Anxiety (10/10/17) Asthma Concussion COVID-19 affecting in third trimester COVID-19 virus infection GERD (gastroesophageal reflux disease) Hearing loss Bilateral hearing aids History of anxiety Situational anxiety History of depression History of otitis media History of second hand smoke exposure History of skull fracture Surgical intervention @ 3 years old IUD surveillance Mirena inserted 10/01/18 Left sided sciatica Migraine (09/26/17) without aura per Neuro Migraine headache without aura Sensorineural hearing loss, bilateral (06/01/15) Sensorineural hearing loss, childhood onset Surgical History Surgical History History of foot surgery History of placement of ear tubes History of tonsillectomy and adenoidectomy [place] teeth extracted Tobacco Smoking/Tobacco Use Status: Never Alcohol Alcohol Intake: never Substance Use Substance use: Never Substance use type: does not use Prental History History 1 Para 0 Hx # Term Pregnancies 0 Multiple births 0 Hx # Pregnancies 0 Ectopic pregnancies 0 AB induced 0 Hx Number of Living Children 0 AB spontaneous 0 Vital Signs and Lab Results Vital Signs Most Recent Vital Signs in EMR: Most Recent Vital Signs Temp Pulse Resp BP Pulse Ox 36.6 C 50 L 16 134/78 97 12/20/21 13:18 12/20/21 13:46 12/20/21 13:18 12/20/21 13:46 12/20/21 06:03 Lab Results Result Diagrams: 12/20/21 13:27 Blood Type / Crossmatch: Patient ABO/Rh O Positive 12/20/21 Antibody Screen NEGATIVE 12/20/21 Complete Blood Count: White Blood Count 11.11 10^3/uL (4.4-10.8) H 12/20/21 13:27 Red Blood Count 4.33 10^6/uL (3.93-5.22) 12/20/21 13:27 Hemoglobin 10.4 g/dL (11.2-15.7) L 12/20/21 13:27 Hematocrit 33.3 % (36.0-46.0) L 12/20/21 13:27 Platelet Count 167 10^3/uL (130-400) 12/20/21 13:27 Complete Metabolic Panel: No Data to Display Liver Function Panel: No Data to Display Coagulation Panel: No Data to Display Cardiac Panel: No Data to Display Arterial Blood Gas: No Data to Display Venous Blood Gas: No Data to Display Pancreas Panel: No Data to Display Thyroid Panel: No Data to Display Infectious Disease: Coronavirus (COVID-19)(PCR) Negative (Negative) 12/20/21 13:25 Coronavirus 2019 Source Nasal/Nares 12/20/21 13:25 Blood Cultures: No Data to Display Toxicology Panel: No Data to Display Panel: No Data to Display Anesthesia Assessment and Plan Anesthesia History Personal History: No History of Anesthesia Complications Family History: No Family History of Anesthesia Complications Exercise Tolerance Exercise Tolerance: Metabolic Equivalents>4 Pertinent Negatives Pertinent Negatives: No Symptoms of GERD and No Major Pulmonary Symptoms or Complaints Cardiac & Pulmonary Exam Cardiac Exam: Normal S1/S2 Heart Sounds Pulmonary Exam: Clear Bilateral Breath Sounds Implantable Cardiac Device Does patient have a Pacemaker or an ICD?: No Airway Exam Known Difficult Airway: No Mallampati Class: 2 Mouth Opening: Normal (> 3cm) Thyromental Distance: Greater than 3 cm Neck Range of Motion: Full ROM Neck Circumference: Normal Teeth Condition: Normal Dentition ASA Classification ASA Score: ASA 2 Emergency Case?: No NPO Status NPO Status: Full Stomach Status Status: Confirmed Anesthesia Plan Resuscitation Status: Full Code Anesthesia Technique: Epidural Anesthesia Airway Planned: Natural Airway Pain Management: Epidural Monitors Used: Standard Monitors
--- NOTE | 2021-12-20 17:00 | W.ANESNEU ---
Epidural/Spinal Catheter Date Performed: 12/20/21 Procedure Start: 16:21 Procedure Stop: 16:55 Requesting Provider: Nani Barton Procedure Location: Obstetrics Reason Performed: Labor Epidural Standard Monitors Applied: ECG, Blood Pressure, SpO2 and See EMR for corresponding vital signs Patient Position: Sitting Sedation Given (Indicate Dose Given): No Sedation given Patient Mental Status: Awake Sterility: Hand Hygiene, Surgical Cap, Surgical Mask, Sterile Gloves, Sterile Drape/Sheet and Chlorhexidine Procedure Location: L2-L3 Interspace Epidural Needle: Tuohy 17 Guage Needle Length: 3.5 Inch Needle Approach: Midline Epidural Procedure: Skin Prepped, Sterile Drape Placed, 1% Lidocaine to skin and subcutaneous tissue with 25G needle, Tuohy Needle placed, SUSAN to Saline Used, Epidural Catheter Placed, Negative Heme, Negative CSF Flow and Tuohy Needle Removed Catheter Placed?: Catheter Placed Test Dose (Indicate Dose Given): 3ml 1.5% Lidocaine with 1:200K Epinephrine Given and Negative Test Dose Loss of Resistance Depth (cm): 7 Catheter depth at skin (cm): 12 Dressing: Tegaderm Applied, Mastisol Used and Dressing reinforced with Tape Epidural Provider Bolus (Indicate Dose Given): Total bolus dose given in 3-5 ml divided doses and Total Bupivacaine 0.25% Given (ml) Dose:: 6 ml Additives (Indicate Dose Given ): Fentanyl PF Dose:: 100 mcg Infusion Medication: Medication Infusion Began Medication Infusion: Ropivacaine 0.1% with Fentanyl 2mcg/ml Maintenance Infusion Rate (ml/hour): 10 PCEA Bolus Dose (ml): 5 Block Level: N/A Paresthesia: None Ultrasound: Not Used Number of Attempts (See previous attempts in note section): 2 Procedure Tolerated: No Complications Procedure Outcome: Successful Procedure Comment:: first attempt encountered bone despite repositioning Performed By: Leena Ochoa Supervised By: Sarah Cowan
[2021-12-20] MEDS: FentaNYL/ROPIvacaine 2 mcg/ml and 0.1% 200 ML CADD Cassette EP (17:12)
--- NOTE | 2021-12-20 18:26 | W.PM.OBNL1 ---
Date of service: 12/20/21 Time of Service: 18:26 Informed Consent Informed Consent: Augmentation of Labor Contractions Contraction Frequency(min): Q4-7 Intensity: Moderate Fetus A Heart Rate Baseline: 120 Variability: Moderate (6-25 BPM) Categories: Category I Accelerations: Present Decelerations: None Amniotic Membrane Status: Ruptured Assessment and Plan Assessment and plan (1) Uterine contractions: Status: Acute Assessment and plan: A: Inadequate pain relief Inadequate contraction pattern Early active labor in primipara Prolonged first stage; cat 1 FHT P: Consultation with JUNIOR ACCOUNT EXECUTIVE done: will d/c epidural Begin Pitocin augmentation Fentanyl 50 mcg IVP q1-2 hrs prn pain FOB & stepmother remain at bedside Pt's and family's questions addressed, options discussed Anticipate Objective Straight cath for 300 ml clear yellow urine Subjective Interval history since last seen: Epidural has not provided the relief the patient wanted, vocalizing and crying with contractions which remain irregular, now requesting the epidural be discontinued and removed, requesting IV narcotic analgesia. Results Hemoglobin/Hematocrit: Hgb 10.4 g/dL (11.2-15.7) L 12/20/21 13:27 Hct 33.3 % (36.0-46.0) L 12/20/21 13:27 Abnormal Lab Findings: Abnormal Labs 12/20/21 13:27 WBC 11.11 H Hgb 10.4 L Hct 33.3 L MCV 77 L MCH 24.0 L MCHC 31.2 L MPV 13.3 H
[2021-12-20] MEDS: Oxytocin/Normal Saline 30 UNIT/500 ML BAG 2 UNITS IV (18:41)
[2021-12-20] MEDS: fentaNYL 100 MCG/2 ML VIAL 50 MCG IVP ×3 (19:04→21:10)
[2021-12-20] MEDS: Oxytocin 10 UNITS/ML VIAL IM (22:15)
--- NOTE | 2021-12-20 22:45 | OBVDS_ITS ---
Date of service: 12/20/21 Time of Service: 22:45 OB Labor/ Delivery Information Baby A Delivery Delivery Method: Spontaneaous Presentation: Cephalic Cephalic Position: Vertex Vertex Position: Left Occipital Anterior Breech Position: N/A Cord Description-Baby A: 3 Vessels Amniotic Fluid: Clear Estimated Blood Loss: 200 ml Delivery Outcome: Liveborn Transferred: Remains with Mother Note: After epidural was d/c'ed, pt given fentanyl 50 mcg IV and pitocin augmentation begun. Pt received a total of 3 doses of fentanyl IVP, pitocin up to 10 units/min to acheive and maintain adequate contraction pattern, category 1 tracing throughout. Pt shifting between bed and commode as her control over leg movements returned, began pushing during contractions while on the commode saying she had to have a BM. SVE revealed vtx @ +2 and cvx 8 cm at 2145. Manipulation of cvx during involuntary pushing through subsequent contractions facilitated dilation rapidly over 15 minutes to full dilation. 2nd stage huddle completed, preparations in place for increased risk of PPH due to long first stage of labor, of a vigorous female infant over intact perineum accomplished shortly thereafter. Infant bulb suctioned on field then placed in mother's arms. Pitocin IV bolus started and 10 units also given IM, cord ceased pulsations and was clamped then cut by FOB, cord blood collected, Rodriguez placenta intact with 3VC, fundus firm below umbilicus. Strong family bonding observed, with good latch by 25 minutes of age. Apgars 9/9, weight 3215 gms. Providers Nurse Mc Kay Machine Operator: Nani Barton Nurse: Fiordaliza Mc Nurse: Alisha Robertson Labor/Delivery Information Number of Babies in Womb: 1 Steroids Given: None Reason Steroids Not Administered: N/A Group Beta Strep: Negative Antibiotics Administered: No Rubella Status: Nonimmune Blood Type: O+ Varicella Immunity: Immune Shoulder Dystocia: No Stages of Labor Onset of Labor Date: 12/20/21 Onset of Labor Time: 07:07 Complete Dilatation Date: 12/20/21 Complete Dilatation Time: 22:01 Labor - Stage 1 Duration: 0 minutes ROM Baby A: 12/20/21 ROM Baby A: 13:42 ROM Total Time- Baby A: [id number] Infant Delivery Date-Baby A: 08/18/22 Infant Delivery Time-Baby A: 22:06 Labor Stage 2 Duration: 5 minutes Placenta Delivery Date-Baby A: 12/20/21 Placenta Delivery Time-Baby A: 22:12 Labor-Stage 3 Duration: 6 minutes Total Length of Labor-Baby A: 14 hours and 59 minutes Placenta Status: Delivered Baby A Infant Gender: Female Gestational Status: Term (39-41.6 wks) Gestational Age in Weeks/Days: 40 Weeks and 2 Days weight: 7 lb 1.406 oz Weight Comment: 3215 gms Score-1 Minute Interval(Baby A) Heart Rate-1 minute: 100 BPM or Greater Respiratory Effort- 1 minute: Spontaneous/Strong Cry Muscle Tone-1 minute: Active Movement Reflex Response-1 minute: Prompt Response Color-1 minute: Bluish Hands or Feet Total Score-1 minute: 9 Score-5 Minute Interval(Baby A) Heart Rate- 5 minute: 100 BPM or Greater Respiratory Effort-5 minute: Spontaneous/Strong Cry Muscle Tone-5 minute: Active Movement Reflex Response-5 minute: Prompt Response Color-5 minute: Bluish Hands or Feet Total Score- 5 minute: 9
[2021-12-21 00:17] VITALS: BP 114/54; PULSE 48
[2021-12-21 01:18] VITALS: BP 92/51; PULSE 51; RESP 17; TEMP 36.8
[2021-12-21 01:39] VITALS: BP 120/61; PULSE 51; RESP 17; TEMP 36.6; O2SAT 99
--- NOTE | 2021-12-21 07:08 | W.PM.OBPNV1 ---
Date of service: 12/21/21 Time of Service: 07:09 Assessment and Plan Assessment and plan (1) Term delivered: Status: Acute Assessment and plan: A: PPD#1, nml recovery off to a good start Satisfied with experience P: Expect discharge tomorrow Rtne PP care and support MMR ordered Pt desires Nexplanon insertion at 2 wk PP appt Subjective Subjective Patient comments: No complaints, Pain well controlled, Incisional pain, Tolerating diet and Flatus present Patient's Mood: tired, happy baby status: Doing well, Nursing well, Rooming in and Strong Bonding Observed feeding status: Exclusively breast feeding Exam Physical Exam Vital signs: Temp Pulse Resp BP Pulse Ox 97.9 F 51 L 17 120/61 99 12/21/21 01:39 12/21/21 01:39 12/21/21 01:39 12/21/21 01:39 12/21/21 01:39 Vital Signs Reviewed: Yes Constitutional Constitutional: no acute distress, average body habitus and cooperative HEENT Exam HEENT Exam: Normal Neck Exam Neck Exam: Normal Breast Exam Bilateral: Breast Exam: Normal and Soft Nipple Exam: Normal and Uninjured Respiratory Exam Respiratory Exam: Normal Cardiovascular Exam Cardiovascular Exam: Normal Abdominal Exam Abdomen: Other (soft, nontender) Fundal Exam Fundus: Below Umbilicus and Firm Rectal Exam Rectal Exam: Normal Exam Perineum: Intact and Normal Extremities Exam Extremity Exam: Normal, Full ROM and Warm to Touch Back/Spine/Pelvis Exam Back Exam: Normal Skin Exam Skin Exam: Normal Neurological Exam Neurological Exam: Normal Psychiatric Exam Psychiatric Exam: Normal
[2021-12-21 07:20] VITALS: BP 103/61; PULSE 68; RESP 16; TEMP 36.9; O2SAT 95
[2021-12-21] MEDS: Docusate Sodium 100 MG CAP PO ×2 (07:29→18:14)
[2021-12-21] MEDS: Ibuprofen 600 MG TAB PO ×2 (07:29→18:15)
[2021-12-21 12:15] VITALS: BP 115/77; PULSE 74; RESP 16; TEMP 36.7; O2SAT 100
--- NOTE | 2021-12-21 14:16 | W.ANESPOSTOP ---
Postoperative Evaluation Date, Time and Location Date Performed: 12/21/21 Time Performed: 14:17 Patient Location: Obstetrics Assessment Mental Status: Awake (Alert & Oriented to Patient Baseline) Airway and Respiratory Function: Patent airway with normal (patient baseline) respiratory exam Cardiovascular Function: Hemodynamically Stable Hydration Status: Adequately Hydrated Nausea & Vomiting: No Nausea or Vomiting Pain: Pt. Denies Any Pain Peripheral Nerve Block: Other (Epidural appropriately resolved, denied complaint, denied headache, denied backpain. Per RN catheter removed with tip intact.)
[2021-12-21] MEDS: Acetaminophen 325 MG TAB 650 MG PO (18:14)
[2021-12-21] MEDS: Measles, Mumps, & Rubella Vaccine 0.5 ML VIAL SC (18:48)
[2021-12-22 00:05] VITALS: BP 110/77; PULSE 65; RESP 17; TEMP 36.8; O2SAT 99
[2021-12-22] MEDS: Acetaminophen 325 MG TAB 650 MG PO (04:45)
[2021-12-22] MEDS: Ibuprofen 600 MG TAB PO (04:45)
[2021-12-22 08:50] VITALS: BP 108/72; PULSE 68; RESP 16; TEMP 36.6; O2SAT 99
[2021-12-22] MEDS: Docusate Sodium 100 MG CAP PO (08:59)
--- NOTE | 2021-12-22 10:22 | W.PM.OBDISCH ---
Date of service: 12/22/21 Time of Service: 10: DS: Diagnosis Discharge Diagnosis (1) Term delivered: Status: Acute Asessment and Plan: Caring for baby independently. Pain is managed well with oral analgesics. Voiding without difficulty. well. A - stable mother and baby , Post day 2, history of anxiety and depression. Good family and partner support. P - Discharge to home. Routine post instructions. [facility] signs of post depression and baby blues reviewed Discharge Plan Disposition Patient Disposition: HOME Condition: Good Discharge Details Reason For Visit: R/O Labor at Term Admit Date/Time: 12/20/21 13:08 Admit Provider: Nani Barton Attending Provider: Nani Barton Primary Care Provider: Danya Pulido V Home Meds and New Rx's Prescriptions: No Action PrePlus 27 mg iron- 1 mg tablet 1 tab PO DAILY Qty: 90 3RF Rx Instructions: give with food (meal/snack) famotidine 20 mg tablet 20 mg PO DAILY Qty: 60 3RF aspirin 81 mg tablet,delayed release (DR/EC) 81 mg PO DAILY Qty: 60 4RF Rx Instructions: alternating 1 tab daily with 2 tabs every other day valacyclovir [Valtrex] 1 gram tablet 1,000 mg PO DAILY Qty: 30 1RF ondansetron HCl 4 mg tablet 8 mg PO Q8H PRN (Reason: nausea and vomiting) Qty: 30 0RF albuterol sulfate [ProAir HFA] 200 PUFF HFA aerosol inhaler 2 puff Inhalation Q4H PRN PRN fluticasone propionate [Flovent HFA] 110 mcg/actuation HFA aerosol inhaler 2 puff INHALATION DAILY Discharge Instructions Stand Alone Forms: Instructions, Post Vaginal Deliver Activity:: Activity as Tolerated Equipment/Supplies:: No Equipment Needed Diet:: As Tolerated Discharge Orders Discharge Orders: Discharge Order (Routine); Ordered 12/22/21 Ordered By: Kenna Chang OB:DS Summary Summary Vaginal Delivery Method: Spontaneaous Episiotomy Description: None Laceration Description: None Laceration Extension: N/A Contraception Discussed Contraception Discussed: Yes Contraceptive Plan: Undecided, [place] Infant Gender-Baby A: Female weight: 7 lb 1.406 oz Status at Discharge Functional status at discharge: independent ambulation Overall status at discharge: patient is back to baseline Mental Status: mental status grossly normal Speech and Movement: speech and movement normal Mood: congruent mood Affect: normal affect Exam Physical Exam Vital signs: Temp Pulse Resp BP Pulse Ox 98.2 F 65 17 110/77 99 12/22/21 00:05 12/22/21 00:05 12/22/21 00:05 12/22/21 00:05 12/22/21 00:05 Respiratory Exam Respiratory Exam: Normal Cardiovascular Exam Cardiovascular Exam: Normal Abdominal Exam Comments: nontender Fundal Exam Fundus: Below Umbilicus Exam Comments: intact perineum Extremities Exam Extremity Exam: Normal Skin Exam Skin Exam: Normal Psychiatric Exam Psychiatric Exam: Normal PFSH All Active Problems Term delivered (Acute) Rubella non-immune status, antepartum (Acute) History of herpes genitalis (Acute) Current smoker (Acute) Medical History (Updated 12/21/21 @ 07:11 by Nani Barton) 40 weeks gestation of Anxiety (10/10/17) Asthma Concussion COVID-19 affecting in third trimester COVID-19 virus infection GERD (gastroesophageal reflux disease) Hearing loss Bilateral hearing aids History of anxiety Situational anxiety History of depression History of otitis media History of second hand smoke exposure History of skull fracture Surgical intervention @ 3 years old IUD surveillance Mirena inserted 10/01/18 Left sided sciatica Migraine (09/26/17) without aura per Neuro Migraine headache without aura Sensorineural hearing loss, bilateral (06/01/15) Sensorineural hearing loss, childhood onset Uterine contractions Surgical History History of foot surgery History of placement of ear tubes History of tonsillectomy and adenoidectomy [place] teeth extracted Family History Mother Asthma Depression Father Seizure disorder PUD (peptic ulcer disease) Paternal Grandmother PUD (peptic ulcer disease) Diabetes Paternal Uncle Cancer recovered from unknown type Self Depression no meds, has good coping skills, did have counseling at [facility] Maternal Grandfather No problems noted. 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: female Do you feel safe at home: Yes Do you feel safe in your relationship?: Yes Female Reproductive History Menstrual Age of Menarche: 11 control method: none History History 1 Para 0 Hx # Term Pregnancies 0 Multiple births 0 Hx # Pregnancies 0 Ectopic pregnancies 0 AB induced 0 Hx Number of Living Children 0 AB spontaneous 0 DS: Data Vitals/I&O Vitals and I&O: Vital Signs Temperature 98.2 F 12/22/21 00:05 Pulse 65 12/22/21 00:05 Pulse Rhythm Regular 12/21/21 19:30 Respiratory Rate 17 12/22/21 00:05 Respiratory Depth Normal 12/20/21 13:18 Blood Pressure 110/77 12/22/21 00:05 Blood Pressure Mean 88 12/22/21 00:05 Pulse Oximetry 99 12/22/21 00:05 Oxygen Delivery Method Room Air 12/20/21 13:18 Oxygen Flow Rate 0 12/20/21 13:18 Pain Level 5 12/21/21 18:15 Comment 12/20/21 06:27 Intake & Output 12/21/21 12/21/21 12/22/21 11:59 23:59 11:59 Output Total 960 / 960 Balance -960 / -960 Output: Urine 800 / 800 Blood 160 / 160 Other: Urine Color Pale
== END 2021-12-22 12:15 | disposition home or self-care (01) | DRG 806 ==
PROVIDERS: Admitting Provider Advanced Practice Midwife; PCP Family Medicine; Visit Provider Advanced Practice Midwife
DX: O98.32 Other infections with a predominantly sexual mode of transmission complicating childbirth (principal); O99.354 Diseases of the nervous system complicating childbirth; Z37.0 Single live birth; O63.0 Prolonged first stage (of labor); A60.00 Herpesviral infection of urogenital system, unspecified; O99.334 Smoking (tobacco) complicating childbirth; F17.210 Nicotine dependence, cigarettes, uncomplicated; F17.290 Nicotine dependence, other tobacco product, uncomplicated; Z3A.40 40 weeks gestation of pregnancy; J45.909 Unspecified asthma, uncomplicated; G43.009 Migraine without aura, not intractable, without status migrainosus; F41.8 Other specified anxiety disorders; F41.9 Anxiety disorder, unspecified; F32.A Depression, unspecified; K21.9 Gastro-esophageal reflux disease without esophagitis; M54.32 Sciatica, left side; Z86.16 Personal history of COVID-19; O99.52 Diseases of the respiratory system complicating childbirth; O99.62 Diseases of the digestive system complicating childbirth; O99.344 Other mental disorders complicating childbirth
CPT/HCPCS: 36415; 85027; 86850; 86900; 86901; 87635; J2590; J3010; J3490

== ENCOUNTER 2022-02-16 20:15 | Emergency (ER) | payer MEDICAID, SELFPAY ==
--- OUTSIDE RECORDS SUMMARY | 2022-02-16 20:19 | XMS_ITS | Encounter Summary ---
:2000 Author Organization [facility] [place] [address] Care Team Providers Name Role Phone Danya Pulido MD Primary Care Provider Encounter Details Date Type Department Care Team Description 08/25/2019 Telephone Gastroenterology at [facility] [place] [address] Social History Tobacco Use Types Packs/Day Years Used Date Current Every Day Smoker 0.25 Smokeless Tobacco: Never Used Sex Assigned at Date Recorded Not on file documented as of this encounter Miscellaneous Notes Telephone Encounter - Estefanía Lyn - 08/31/2019 8:34 AM EDT Attempted X 3 to contact the patient but had to leave a voice message. A reminder letter is being sent to the patient. Telephone Encounter - Estefanía Lyn - 08/30/2019 9:02 AM EDT Left message for patient to contact the office to a schedule one month telephone conference per Tracia IB but no voicemail picked up Telephone Encounter - Estefanía Lyn - 08/25/2019 3:28 PM EDT Attempted phoning patient to schedule one month telephone conference per Tracia IB but no voicemail picked up. documented in this encounter Plan of Treatment Not on filedocumented as of this encounter Visit Diagnoses Not on filedocumented in this encounter Care Teams Elementary School Teacher Relationship Specialty Start Date End Date Danya Pulido MD PCP - General 03/27/10 [address] [place] [address] documented as of this encounter
--- OUTSIDE RECORDS SUMMARY | 2022-02-16 20:19 | XMS_ITS | Encounter Summary ---
:2000 Author Organization [facility] [place] [address] Care Team Providers Name Role Phone Danya Pulido MD Primary Care Provider Encounter Details Date Type Department Care Team Description 06/05/2018 Telephone [place] [facility] [place] [address] Social History Tobacco Use Types Packs/Day Years Used Date Never Assessed Sex Assigned at Date Recorded Not on file documented as of this encounter Miscellaneous Notes Telephone Encounter - Celeste Rouse - 06/05/2018 4:46 PM EST I tried calling family to schedule HAF appointment, keep getting message stat there are calling restrictions on this number preventing the completions of this call. Sending letter in mail with appointment information. documented in this encounter Plan of Treatment Not on filedocumented as of this encounter Visit Diagnoses Not on filedocumented in this encounter Care Teams Instructional Facilitator Relationship Specialty Start Date End Date Danya Pulido MD PCP - General 03/27/10 [address] [place] [address] documented as of this encounter
--- OUTSIDE RECORDS SUMMARY | 2022-02-16 20:19 | XMS_ITS | Encounter Summary ---
:2000 Author Organization [facility] [place] [address] Care Team Providers Name Role Phone Dnaya Pulido MD Primary Care Provider Encounter Details Date Type Department Care Team Description 06/19/2018 Telephone Otolaryngology at [facility] [place] [address] Social History Tobacco Use Types Packs/Day Years Used Date Never Assessed Sex Assigned at Date Recorded Not on file documented as of this encounter Plan of Treatment Not on filedocumented as of this encounter Visit Diagnoses Not on filedocumented in this encounter Care Teams Disaster Recovery Consultant Relationship Specialty Start Date End Date Danya Pulido MD PCP - General 03/27/10 [address] [place] [address] documented as of this encounter
--- OUTSIDE RECORDS SUMMARY | 2022-02-16 20:19 | XMS_ITS | Encounter Summary ---
:2000 [place] [address] Care Team Providers Name Role Phone Danya Pulido MD Primary Care Provider Encounter Details Date Type Department Care Team Description 06/26/[address] [facility] [place] Shankar [facility] [place] [address] AUDIOLOGY DEPT [phone] [place], [place] [address] (Wo rk) Social History Tobacco Use Types Packs/Day Years Used Date Never Assessed Sex Assigned at Date Recorded Not on file documented as of this encounter Miscellaneous Notes Telephone Encounter - Genna Shankar MEd - 06/26/2018 10:58 AM EST Audiology Section: Returned call to Nadege Chamorro from [facility]; release of info on file. We reviewed the planfor new HAFitting and that family had moved their fitting appt to August. Don't anticipate any problems with their health insurance covering the hearing aids/Connectclip request. Nadege is aware the FM is replaced/updated through school and that we had advised after the new hearing aid fitting; suggested she connect with Ayana Tripp [facility] to talk further about that. Nadege mentioned inher role with [facility] there may be funds available to purchase things as well should Bonnie need them for work, school, etc. documented in this encounter Plan of Treatment Not on filedocumented as of this encounter Visit Diagnoses Not on filedocumented in this encounter Care Teams Record Retrieval Specialist Relationship Specialty Start Date End Date Danya Pulido MD PCP - General 03/27/10 [address] [place] [address] documented as of this encounter
--- OUTSIDE RECORDS SUMMARY | 2022-02-16 20:19 | XMS_ITS | Encounter Summary ---
:2000 Author Organization [facility] [place] [address] Care Team Providers Name Role Phone Danya Pulido MD Primary Care Provider Reason for Visit Reason Comments Family History Bonnie and Daniel are both hard of hearing Consultation (Routine) - Authorized Specialty Diagnoses / Procedures Referred By Contact Refer red To Contact Obstetrics and Diagnoses Sensorineural hearing loss, bilateral , unspecified gestational age Kenna Chang, [facility] Compilation Clerk 5l Gynecology [address] [place] [id number] Referral ID Status Reason Start Date Expiration Visits Visits Date Requested Authorized [id number] Authorized Consult, 08/22/2021 08/22/2022 6 6 Test & Treat Encounter Details Date Type Department Care Team Description 08/27/2021 TH Visit Obstetrics and Juan Mena Encounter for (TeleHealth) Gynecology at [facility] M, [facility] procreative genetic [facility] [address] [place] OBSTETRICS & [id number] GYNECOLOGY [phone] [place], [place] [address] Social History Tobacco Use Types Packs/Day Years Used Date Current Every Day Smoker 0.25 Smokeless Tobacco: Never Used Sex Assigned at Date Recorded Not on file documented as of this encounter Progress Notes Trina Juan Александр, [facility] - 08/27/2021 10:00 AM EDT Reproductive Genetic Counseling Bonnie Wu is a 21 y.o. female currently at 23w6d gestation. I met with Bonnie for a 60 minute telehealth video visit. She was located in [place] at the time of the visit. Her boyfriend, Elver ( 11/28/1998), was present for parts of the visit. Referring Provider: Kenna Chang, [facility] [address] [place] [address] Chief Concern Patient presents with ??? Family History Bonnie and Daniel are both hard of hearing Patient Active Problem List Diagnosis ??? Wears hearing aid Overview Note: bilateral ??? Sensorineural hearing loss, bilateral Overview Note: Bonnie presents with bilateral, moderate to moderate-severe, sensorineural hearing loss for which she uses two hearing aids. Her hearing loss was identified in 2002 (age 3 years) but is suspected to becongenital having referred upon her hearing screen. She has a previous history of PE tubes (2002 and 2003; extruded). She communicates via spoken [place]. Past Medical History: Diagnosis Date ??? Head injury due to trauma 12/06/2004 Right posterior fossa epidural hematoma ??? History of recurrent urinary tract infection 04/15/2007 Normal renal ultrasound and [facility] ??? Myopia of both eyes Moderate (-4.5 diopters) ??? Sensorineural hearing loss, bilateral 10/07/2002 history: Bonnie reports that her mother stopped drinking alcohol with a positive test (gestation age unknown) but continued to use drugs (type unknown) during the . Bonnie isunaware of any or infections. She was born at 32+6/7 weeks after her mother was involved in a motor vehicle accident that resulted in labor. Her course was complicated by hyperbilirubinemia treated with phototherapy and failed hearing screening. Past Surgical History: Procedure Laterality Date ??? ADENOIDECTOMY 10/31/2003 ??? CRANIECTOMY Right 12/07/2004 Right posterior fossa craniectomy and evacuation of epidural hematoma ??? TYMPANOSTOMY TUBE PLACEMENT Bilateral 12/17/2002 ??? TYMPANOSTOMY TUBE PLACEMENT Bilateral 10/31/2003 Family History Problem (# of Occurrences) Relation (Name,Age of Onset) Allergic Rhinitis (1) Paternal Grandmother Asthma (2) Mother, Paternal Grandmother Autism Spectrum Disorder (1) Maternal Half-Brother Cataracts (1) Father (42): unilateral Celiac Disease (1) Maternal Half-Sister Myopia (2) Father, Mother Bonnie's boyfriend, Daniel, is 22 years old ( 11/28/1998). He is also hard of hearing. His medical records are not available for review. Daniel reports that he was diagnosed with high-frequency hearing loss in 2005 (age 6-7 years). He states that the hair follicles in my ears are too short. His last evaluation was in 2011. He does not currently wear hearing aids because his last pair [facility]. Bonnie reports that her mother has a patch of unpigmented hair, but she is certain that it was not congenital and that the roots were permanently damaged by the direct application of bleach. Daniel reports that his sister has worn glasses since the age of two years. The reported family history was otherwise unremarkable for pigmentary abnormalities, external ear anomalies, ear tumors, vision loss, cleftpalate, renal anomalies, limb anomalies, precocious arthritis, thyroid disease (specifically goiter), arrhythmia, sudden cardiac , or SIDS. OB History # Outcome Date GA Lbr Lb/2nd Weight Sex Delivery Anes PTL Lv 1 Current Estimated Date of Delivery: 12/18/2021 based on ultrasound dating. Screening Results Test Result ??? Aneuploidy screen (Panorama) Low Risk ??? Cystic fibrosis carrier screen Negative ??? Spinal muscular atrophy carrier screen Declined ??? Thalassemia carrier screen Within normal limits (MCV 81.7 fL) Assessment 1. Hearing loss: In developed countries, approximately 20% of prelingual hearing loss is due to environmental (acquired) causes. Acquired hearing loss in children commonly results from or infections. In developed countries, the most common environmental cause of congenital sensorineural hearing loss is cytomegalovirus (CMV) infection. The diagnosis of CMV hearing loss can be difficult to make and often goes unrecognized as the majority of affected individuals are otherwise asymptomatic. Approximately 80% of prelingual hearing loss is genetic. More than 400 genetic syndromes that include hearing loss have been described. However, most causes of hereditary hearing loss are nonsyndromic,with no visible abnormalities of the external ear or malformation/medical problems of other organ systems. I do not recognize any hearing loss syndrome based on the couple's self-reported personal and medical histories. About 80% of nonsyndromic hereditary hearing loss is inherited in an autosomal recessive manner. The remaining 20% is mostly autosomal dominant, with about 1% due to other modes of inheritance (X-linked, mitochondrial, etc.). The empiric recurrence risk to the children of one or two parents with congenital hearing loss is 10-15%. In order to determine if specific risks are available for this couple, they could consider evaluation by a stick welder and a molecular genetic testing panel targeted to the numerous causes of hereditary hearing loss. Jeanmarie Nicole declines a medical genetics consult and genetic hearing loss panel. She is aware that hearing screening is recommended for all newborns. documented in this encounter Plan of Treatment Scheduled Referrals Name Type Priority Associated Diagnoses Order S chedule Referral to Outpatient Referral Routine Sensorineural hearing Ordered: Maternal loss, bilateral 08/22/2021 Medicine , unspecified gestational age documented as of this encounter Visit Diagnoses Diagnosis Encounter for procreative genetic ghada kelley documented in this encounter Care Teams Production Control Clerk Relationship Specialty Start Date End Date Danya Pulido MD PCP - General 03/27/10 [address] [place] [address] documented as of this encounter
--- OUTSIDE RECORDS SUMMARY | 2022-02-16 20:19 | XMS_ITS | Encounter Summary ---
:2000 Author Organization [facility] [place] [address] Care Team Providers Name Role Phone Danya Pulido MD Primary Care Provider Reason for Visit Consultation (Routine) - Specialty Diagnoses / Procedures Referred By Contact Refer red To Contact Gastroenterology Diagnoses Cyclical vomiting, in migraine, not intractable Danya Pulido MD [facility] [address] [place] [address] [place] [address] Phone: Fax: Referral ID Status Reason Start Date Expiration Date Visits V isits Requested Authorized [id number] Consult, Test 06/23/2019 12/22/2019 [facility] PCP Updated and/or Approved Encounter Details Date Type Department Care Team Description 08/25/2019 TH Visit G[place]ology [place] [facility] Pranay Gray, Dyspepsia (TeleHealth) [facility] [place] [address] [facility] [phone] GASTROENTEROLOGY DEPT. [place], [place] [address] Social History Tobacco Use Types Packs/Day Years Used Date Current Every Day Smoker 0.25 Smokeless Tobacco: Never Used Sex Assigned at Date Recorded Not on file documented as of this encounter Progress Notes Pranay Gray, RN - 08/25/2019 10:00 AM EDT Section of Gastroenterology and Hepatology [address] [place], [place] [id number] .Bonnie Wu : 2000 Patient is here for further evaluation of gastrointestinal symptoms at the request of Danya Pulido. HPI: The patient is being referred for n/v and weight loss. Sx began about 5 months ago. No changes at that time. Was having daily sx but now she is having n/v, every other day. Sx occur randomly. No correlation with eating/foods. Pt is taking zofran 8mg qd. She finds helpful at times. At times vomitus can be food she has eaten hours prior. No symptoms during the night. She has unintentionally has lost 49 pounds in the last 3 months. She indicates one episode of blood in vomit. Went to local ED. Was given ativan prn. At times has early satiety. No post-prandial distention or bloating. Hx of nsaid use. She stopped about one month ago. Now takes tylenol. Per pt; she is having the mirena removed. her and pcp are wondering if sx due to control. Ihave been on four different ones for the last 2.5 years. Hx of heartburn. Use to have sx qd. Sx began 4 years ago. Omeprazole was helpful. She stopped ppi assx improved. She has heartburn at least 3 times per week. No dysphagia, odynophagia. 2019 abdominal u/s, normal exam. Smokes mj; twice a month. No correlation with n/v and heartburn or constipation. Hx of constipation. Can go a few days without a bowel movement. miralax with no relief. Stools are hard. Some straining. At times some lower abdominal cramping. Sometimes improve with passage of stool or flatus. No blood in stool. Taking metamucil qd. 1 capsule qd; no relief. Social History Socioeconomic History ??? Marital status: Single Spouse name: Not on file ??? Number of children: Not on file ??? Years of education: Not on file ??? Highest education level: Not on file Occupational History ??? Not on file Social Needs ??? Financial resource strain: Not on file ??? Food insecurity Worry: Not on file Inability: Not on file ??? Transportation needs Medical: Not on file Non-medical: Not on file Tobacco Use ??? Smoking status: Current Every Day Smoker Packs/day: 0.25 ??? Smokeless tobacco: Never Used Substance and Sexual Activity ??? Alcohol use: Not on file ??? Drug use: Not on file ??? Sexual activity: Not on file Lifestyle ??? Physical activity Days per week: Not on file Minutes per session: Not on file ??? Stress: Not on file Relationships ??? Social connections Talks on phone: Not on file Gets together: Not on file Attends buddhism service: Not on file Active member of club or organization: Not on file Attends meetings of clubs or organizations: Not on file Relationship status: Not on file ??? Intimate partner violence Fear of current or ex partner: Not on file Emotionally abused: Not on file Physically abused: Not on file Forced sexual activity: Not on file Other Topics Concern ??? Not on file Social History Narrative ??? Not on file Medical History: migraines; gerd; asthma; depression, anxiety Surgical History: tonsillectomy Family History: no gi etiologies Allergies Allergen Reactions ??? Sulfa (Sulfonamide Antibiotics) Current Outpatient Medications: ??? DULoxetine DR (Cymbalta) 60 mg Capsule, Delayed Release(E.C.), Take 60 mg by mouth daily., Disp:, Rfl: ??? omeprazole (PriLOSEC) 20 mg Capsule, Delayed Release(E.C.), Take 20 mg by mouth daily., Disp: , Rfl: ??? ondansetron ODT (Zofran-ODT) 8 mg Tablet, Rapid Dissolve, Take 8 mg by mouth every 8 hours as needed., Disp: , Rfl: ??? ProAir HFA 90 mcg/actuation HFA Aerosol Inhaler, Inhale 2 puffs into the lungs every 6 hours as needed for Wheezing, Shortness of Breath or Cough., Disp: , Rfl: ??? triamcinolone (NASACORT or NASACORT OTC) 55 mcg Aerosol, Mantoloking, 2 sprays by Nasal route daily., Disp: 1 Inhaler, Rfl: 12 Review of Systems - negative except General: Cardiac: Resp: GI: see above : MS: Neuro: Skin: Psyche: Sleep: Endo: Impression: 1. Dyspepsia: Sx are slowly improving. She stopped nsaids about a month ago. ?correlation. She continues with frequent heartburn. ?correlation with sx. Begin omeprazole 20mg bid, 30 minutes before breakfast and supper. gerd diet and lifestyle modifications. Small frequent meals. After covid threat consider an upper endoscopy. Then from there and after trying above, consider the role of gastric and small bowel testing. 2. Constipation: not clear if correlates with sx. pericolace 1-2 tablets qhs. 3. F/u telephone call in one month I spent a total of 52 minute telephone call with this patient; pt aware phone call billable. 31 minutes were spent counseling the patient in the medical problems described above. Sincerely, Pranay Gray NP Section of Gastroenterology and Hepatology documented in this encounter Plan of Treatment Not on filedocumented as of this encounter Visit Diagnoses Diagnosis Dyspepsia Dyspepsia and other specified disorders of function of stomach documented in this encounter Care Teams Liner Reroll Tender Relationship Specialty Start Date End Date Danya Pulido MD PCP - General 03/27/10 [address] [place] [address] documented as of this encounter
--- OUTSIDE RECORDS SUMMARY | 2022-02-16 20:19 | XMS_ITS | Encounter Summary ---
:2000 Author Organization [facility] [place] [address] Care Team Providers Name Role Phone Danya Pulido MD Primary Care Provider Reason for Visit Reason Comments Childhood Sensorineural Hearing Loss Encounter Details Date Type Department Care Team Description 06/02/2017 Office Visit Audiology at [facility] Genna Shankar Sensorineural hearing [facility] S, MEd loss, bilateral [facility] [address] AUDIOLOGY DEPT [phone] [place], [place] [address] Social History Tobacco Use Types Packs/Day Years Used Date Never Assessed Sex Assigned at Date Recorded Not on file documented as of this encounter Progress Notes Genna Shankar MEd - 06/02/2017 10:15 AM EST Please see report of the same date 06/02/17. documented in this encounter Plan of Treatment Not on filedocumented as of this encounter Visit Diagnoses Diagnosis Sensorineural hearing loss, bilateral documented in this encounter Care Teams Self Defense Instructor Relationship Specialty Start Date End Date Danya Pulido MD PCP - General 03/27/10 [address] [place] [address] documented as of this encounter
--- OUTSIDE RECORDS SUMMARY | 2022-02-16 20:19 | XMS_ITS | Encounter Summary ---
:2000 Author Organization [facility] [place] [address] Care Team Providers Name Role Phone Danya Pulido MD Primary Care Provider Encounter Details Date Type Department Care Team Description 10/07/2018 Office Visit Audiology at [facility] Alma Richardson, Sensorineural hearing [facility] AUD loss, bilateral [place], [place] CENTER [address] AUDIOLOGY DEPT [phone] [place], [place] [address] Social History Tobacco Use Types Packs/Day Years Used Date Never Assessed Sex Assigned at Date Recorded Not on file documented as of this encounter Progress Notes Alma Richardson, AUD - 10/07/2018 12:00 PM EDT AUDIOLOGY SECTION [facility] Name: Bonnie Wu Age: 18 years Managing design maintenance engineer: Genna Shankar Reason for Visit: she would like the right aid adjusted to turn down construction noise happening atschool. She reports that she cannot hear well in class because of the competing noise and she would prefer not to wait until her next scheduled appointment on October 20 to address it. Note: Her left aid is out for repair. Actions taken: ?? Added a second program with a fixed dmic. Advised her that she will not hear well from the rear and the sides when she is in the second program. ?? During the listening check, there appeared to be third program in the rotation. This was not apparent in the programming. It could be that the Oticon aid makes a third indicator tone to indicate it is sending the user back to the home setting. We were not certain and did not have time to call Oticon. Bonnie was advised to disregard that third program indicator tone until the next visit. EQUIPMENT TABLE: HEARING AID RIGHT LEFT Make/Model/Style Oticon Opn 3 13 BTE PP Oticon Opn 3 13 BTE PP Casing Color Chroma beige Chroma beige Serial Number [id number] Battery Size 13 13 Invoice number / date [id number] 07/27/18 [id number] 07/27/18 PROGRAM/SETTINGS Fitting Algorithm DSL child DSL child Verification Method REM; post repair SREM REM; post repair SREM Programs Everyday Everyday Disabled Features jingle jingle Other Volume on; auto MT on Volume on; auto MT on HEARING AID WARRANTY Original Fit Date 08/07/18 08/07/18 Current Status 09/02/20 09/02/20 EARMOLD (if BTE MCKEON) Lab [facility] Earmold specifics 1/2 shell/otoblast/purple & blue swyrl/ med canal / no vent / 13T thru??tube/ red dot 1/2 shell/otoblast/purple & blue swyrl/ med canal / no vent / 13T thru??tube/ blue dot Impression Date 06/05/18 06/05/18 Invoice # ACCESSORIES Make/Model FM capable battery doors ConnectClip Color Chroma Beige Serial Number [id number] Warranty date 09/03/19 Invoice number/date [id number] 07/27/18 HEARING AID??back ups RIGHT?? LEFT?? Make/Model/Style?? Oticon Sensei Pro BTE?? Oticon Sensei Pro BTE?? Casing Color?? red?? red?? Serial Number?? [id number]?? Invoice number / date?? [id number]?? 05/01/15?? 05/01/15?? PROGRAM/SETTINGS? Fitting Algorithm?DSL child DSL child Verification Method?? REM; SREM for post repair REM; SREM for post repair Programs?>P1=Basic (auto tri mode; NR on) >Auto phone (M) >P1=Basic (auto tri mode; NR on) >Auto phone (M) Other?? Active volume control?? Active volume control ACCESSORIES? Make/Model?Oticon Streamer ? Color?n/a ? Serial Number?[id number] ?Warranty date?06/30/16 per Lauren Dobsonwell ? FM EQUIP - SCHOOL: [employer] ?? TRANSMITTER ?? HOG KILLER #1 ?? HOG KILLER #2 ?? MAKE/MODEL ?? Phonak / Inspiro ?? Phonak / MLxi ?? Phonak / MLxi ?? SERIAL NUMBER ?? [id number] ?? [id number] (missing) [id number] (missing) CHANNEL ?? N02 ?? N02 ?? N02 ?? FM SETTINGS ? TATE / AUDIO SHOE ?? [place] Tate ?? Oticon FM9 ?? Oticon FM9 ?? VERIFICATION DATE ?? 01/08/2013 ?? 01/08/2013 ?? 01/08/2013 ?? FIT DATE ? OTHER/COMMENTS ? documented in this encounter Plan of Treatment Not on filedocumented as of this encounter Visit Diagnoses Diagnosis Sensorineural hearing loss, bilateral documented in this encounter Care Teams Mussel Opener Relationship Specialty Start Date End Date Danya Pulido MD PCP - General 03/27/10 [address] [place] [address] documented as of this encounter
--- OUTSIDE RECORDS SUMMARY | 2022-02-16 20:19 | XMS_ITS | Encounter Summary ---
:2000 Author Organization [facility] [place] [address] Care Team Providers Name Role Phone Danya Pulido MD Primary Care Provider Encounter Details Date Type Department Care Team Description 06/05/2018 Office Visit Audiology at [facility] Genna Shankar Sensorineural hearing [facility] S, MEd loss, bilateral [facility] [address] AUDIOLOGY DEPT [phone] [place] [address] Social History Tobacco Use Types Packs/Day Years Used Date Never Assessed Sex Assigned at Date Recorded Not on file documented as of this encounter Progress Notes Genna Shankar, MEd - 06/05/2018 8:00 AM EST AUDIOLOGY SECTION HISTORY: Name: Bonnie Wu Age: 18 years Date of Visit: 06/05/2018 Reason for Visit: audiologic re-evaluation and check of hearing aids; hearing aid selection Accompanied by: grandmother, Li Odonnell, who, along with Bonnie, contributed to the followinginformation: Bonnie presents with bilateral moderate to severe sensorineural hearing loss for which she uses two hearing aids (since May 2003). Her most recent audiologic evaluation was in May 2017. Hearing loss wasidentified in 2002 (age 3 years) but is suspected to be congenital having referred upon her hearing screen. History includes PE tubes (2002 and 2003; known extruded). Please refer to patient's medical record for any additional background information as needed. Educational Supports and Services: Bonnie attends 11th grade at the [employer] in [place], [place], with a 504 [address]. This is a change in schools from last year; Bonnie shares that it is [employer] and things are going well. Bonnie is unsure if hearing supports are provided through [facility]-it appears the mining consultant for [facility] should be Ayana Tripp. Bonnie explains she has been unable to use her FM equipment as the audio shoes and receivers were lost (as well as the pair of hearing aids that her previous school had purchased for Bonnie) when she changed schoolsas of Dec 2017. We will have the [facility]'s Minibus Driver, Chanda Schaefer,touch base with school to help tease out what is in place, and make sure school understands the needfor FM equipment to hear well in distance and competing noise situations. Once the FM equipment is back in place and Bonnie has been fit with her new hearing aids, the FM system would be due for verification. Interim information: ?? Bonnie has been in good general health save for episodes of ear infections and strep throat in Apr 2018. The question has been raised about whether she is a candidate for having her tonsils out. A change in hearing was not suspected. ?? The hearing aids are working well; however Bonnie is currently missing her right one. 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 Bonnie's earmolds are due for replacement and she is eligible for updated hearing aid technology. ?? Bonnie has been connected with the [place] [facility] program. She has plans to begin classes at [employer] next year when she is a senior, and shares that she has interest in speech therapy. EVALUATION: (see audiogram) ?? Audiologic evaluation - results consistent with bilateral, moderate to severe hearing loss, stable. Tympanograms were consistent with normal middle ear compliance bilaterally, with some negative earpressure noted on the left side. Hearing Aid Check: See EQUIPMENT TABLE below: ?? Earmolds: Bonnie is due for replacement earmolds. She has preferred the half shell molds and wantsto stay with them. Binaural ear impressions were taken with the canals clear pre/post. The new moldswill be mailed home; we discussed they should contact us if there is any concern about fit or retention. The current left earmold was re-tubed. ?? A hearing aid selection was completed in light of the missing right hearing aid and that Bonnie was eligible at this time. Please see 'Amplification Selection' below. ?? Hearing aids: verification of programmed settings was done via simulated real-ear measures (SREM)using today's audiological results. The frequency responses of the hearing aids nicely approximated the Desired Sensation Level (DSL) aided response targets without exceeding the maximum output limits as programmed. Bonnie desired no fine tuning adjustments today. ?? Functional aided benefit - not assessed in the absence of two working hearing aids; will do following the fitting of new hearing aids. Amplification selection: Discussion of current hearing aid technology was completed briefly with thefamily. We are going to request Oticon Opn 3 BTE 13 PP hearing aids; Bonnie chose chroma beige for the hearing aid case colors. A Connect Clip was also requested for Bluetooth acess to various inputs. Ap pointments for hearing aid fitting have been requested. Today's findings were shared with the familyand the following recommendations made: RECOMMENDATIONS: 1. Continue medical management. Return for a hearing aid fitting as planned. 2. Resume regular use of binaural hearing aids full-time during waking hours save for water activities (e.g. Bathing, swimming). Family encouraged to ask PCP's office for an annual prescription for size 13 hearing aid batteries (12 packages per aid, per year for a total of 24 packages). 3. Return to audiology in one year for ongoing monitoring of hearing and amplification; sooner if concerns arise before that time (reminder requested for Jun 2019). 4. Given this student's educationally significant hearing loss, it is recommended that a co founder and chairman and/or educational administration teacher be part of their educational program through consultative and/or direct services. These professionals provide services that may include the following: observation, consultation, training to the school staff on technology, recommendations for acoustical modifications and best practices in educating students with hearing loss, technical support for equipment, whenneeded, and/or direct instruction to the student. 5. Although Bonnie benefits from using amplification, it is important to remember that hearing aids do not restore hearing to normal. With this in mind, strategies to aid in communication access, along with consistent hearing aid use, are recommended including: ?? preferential seating in all settings, near to the teacher/speaker, and away from sources of noise(e.g. ventilation blowers/fans, open windows/doorways). ?? reduction in overall classroom background noise and reverberation levels. ?? re/direction of attention toward the speaker before a spoken message is given. ?? use of visual cues/ visual language to supplement spoken communication. ?? positioning of speakers [id number] with listener. ?? use of FM amplification to address difficulties of listening in background noise, reverberation and across distance, particularly while in the classroom; FM technology should be verified annually and can be arranged at [facility] upon receipt of a purchase order for the service. Please contact us with questions regarding today's visit. Genna Shankar M.Ed., [facility] [place] [phone] (v) / [phone] (f) Attachment: audiogram CC: ?? Family of Bonnie Wu [address] [facility] [address] DANYA PULIDO MD / PCP [facility], attn: [place] Singh [address] [facility] [address] [place] [address], attn: Ayana Tripp [address] [place] [id number] [place] [facility], attn: Nadege Chamorro [address], [address] [place] [id number] EQUIPMENT TABLE: HEARING AID?? RIGHT?? LEFT?? Make/Model/Style?? Oticon Sensei Pro BTE?? Oticon Sensei Pro BTE?? Casing Color?? red?? red?? Serial Number?? [id number]?? Battery Size?? 13?? 13?? Invoice number / date?? [id number]?? 05/01/15?? 05/01/15?? PROGRAM/SETTINGS? Fitting Algorithm?DSL child DSL child Verification Method?? REM; SREM for post repair REM; SREM for post repair Programs?>P1=Basic (auto tri mode; NR on) >Auto phone (M) >P1=Basic (auto tri mode; NR on) >Auto phone (M) Disabled Features?LED LED Other?? Active volume control?? Active volume control HEARING AID WARRANTY? Original Fit Date?? 05-24-15 05-24-15 Current Status?? 06-01-18 repair??only, L/D Used?? 06-01-18?? EARMOLD (if BTE MCKEON)? Lab?? [facility] Earmold specifics?? 1/2 shell/otoblast/purple & blue swyrl/ med canal / no vent / 13T thru??tube/ red dot 1/2 shell/otoblast/purple & blue swyrl/ med canal / no vent / 13T thru tube/ blue dot Impression Date?? 06/05/18 06/05/18 Invoice #? ACCESSORIES? Make/Model?Oticon Streamer ? Color?n/a ? Serial Number?[id number] ?Warranty date?06/30/16 per Lauren Jaramillo ? Invoice number/date? FM EQUIP - SCHOOL: [employer] ?? TRANSMITTER ?? BURNER TECHNICIAN #1 ?? BURNER TECHNICIAN #2 ?? MAKE/MODEL ?? Phonak / Inspiro ?? Phonak / MLxi ?? Phonak / MLxi ?? SERIAL NUMBER ?? [id number] ?? [id number] (missing) [id number] (missing) CHANNEL ?? N02 ?? N02 ?? N02 ?? FM SETTINGS ? TATE / AUDIO SHOE ?? [place] [employer] ?? Oticon FM9 ?? Oticon FM9 ?? VERIFICATION DATE ?? 01/08/2013 ?? 01/08/2013 ?? 01/08/2013 ?? FIT DATE ? OTHER/COMMENTS ? documented in this encounter Plan of Treatment Not on filedocumented as of this encounter Procedures Procedure Name Priority Date/Time Associated Comments Diagnosis COMPREHENSIVE HEARING Routine 06/05/2018 8:30 AM Results for this TEST EST procedure are i n the results section. documented in this encounter Results Comprehensive hearing test (06/05/2018 8:30 AM EST) Specimen (Source) Anatomical Collection Method Collection Time Re ceived Time Location / / Volume Laterality 06/05/2018 8:30 AM EST Narrative [facility] - 06/05/2018 8:30 AM EST 17 yo female seen for monitoring of hear ing and amplification needs; please see report. Procedure Note Unknown - 06/08/2018Formatting of this n ote might be different from the original. 17 yo female seen for monitoring of hear ing and amplification needs; please see report. Unknown AUDIOLOGY SERVICES ORDERABLE S Performing Organization Address City/State/ZIP Code Phon e Number [facility] documented in this encounter Visit Diagnoses Diagnosis Sensorineural hearing loss, bilateral documented in this encounter Care Teams Plastic Surgery Assistant Relationship Specialty Start Date End Date Danya Pulido MD PCP - General 03/27/10 [address] [place] [address] documented as of this encounter
--- OUTSIDE RECORDS SUMMARY | 2022-02-16 20:19 | XMS_ITS | Clinical Summary ---
:2000 Author Organization [facility] [place] [address] Care Team Providers Name Role Phone Danya Pulido MD Primary Care Provider Allergies Active Allergy Reactions Severity Noted Date Comments Sulfa (Sulfonamide Antibiotics) 0 Medications Medication Sig Dispensed Refills Start Date End Date Status DULoxetine DR Take 60 mg by 0 04/23/2019 A ctive (Cymbalta) 60 mg mouth daily. Capsule, Delayed Release(E.C.) ondansetron ODT Take 8 mg by mouth 0 05/20/2019 Active (Zofran-ODT) 8 mg every 8 hours as Tablet, Rapid Dissolve needed. ProAir HFA 90 Inhale 2 puffs 0 07/15/2019 Active mcg/actuation HFA into the lungs Aerosol Inhaler every 6 hours as needed for Wheezing, Shortness of Breath or Cough. triamcinolone 2 sprays by Nasal 1 Inhaler 12 07/23/2019 Active (NASACORT or NASACORT route daily. OTC) 55 mcg Aerosol, SprayIndications: Chronic rhinitis Additional Information Patient not taking. Reported on 08/25/2019 omeprazole (PriLOSEC) 20 mg Take 1 capsule by 60 capsule 11 Active Capsule, Delayed mouth 2 times daily. Release(E.C.) senna-docusate (Pericolace) Take 1-2 tablets by 60 tablet 11 Active 8.6-50 mg Tablet mouth daily. Active Problems Problem Noted Date Wears hearing aid 02/09/2014 Overview: bilateral Sensorineural hearing loss, bilateral 04/05/2011 Overview: Bonnie presents with bilateral, moderate to moderate-severe, sensorineural hearing loss for which she uses two hearing aids. Her hearing loss was identified in 2002 (age 3 years) but is suspected to be c ongenital having referred upon her olivier rn hearing screen. She has a previous history of PE tubes (2002 and 2003; extruded). She communicates via spoken [place]. Estimated Date of Delivery Comments Yes 12/18/2021 Family History Medical History Relation Comments Cataracts Father unilateral Autism Spectrum Disorder Maternal Half-Brother Celiac Disease Maternal Half-Sister Asthma Mother Allergic Rhinitis Paternal Grandmother Asthma Paternal Grandmother Relation Status Comments Father Alive Maternal Half-Brother Alive Maternal Half-Sister Alive Mother Alive Paternal Grandmother Social History Tobacco Use Types Packs/Day Years Used Date Current Every Day Smoker 0.25 Smokeless Tobacco: Never Used Estimated Date of Delivery Comments Yes 12/18/2021 Sex Assigned at Date Recorded Not on file Last Filed Vital Signs Vital Sign Reading Time Taken Comments Blood Pressure 111/55 07/23/2019 11:15 AM EDT Pulse 65 07/23/2019 11:15 AM EDT Temperature 37 ??C (98.6 ??F) 07/23/2019 11:15 AM EDT Respiratory Rate - - Oxygen Saturation 100% 07/23/2019 11:15 AM EDT Inhaled Oxygen Concentration - - Weight 64.8 kg (142 lb 12.8 oz) 07/23/2019 11:15 AM EDT Height 154.9 cm (5' 1) 07/23/2019 11:15 AM EDT Body Mass Index 26.98 07/23/2019 11:15 AM EDT Plan of Treatment Health Maintenance Due Date Last Done Comments Covid-19 Vaccine (#1) 2001 Pneumococcal Vaccine: At-Risk 5-64yrs (1 - PCV) 2007 HPV vaccine (1 - 2-dose series) 02/28/2012 Chlamydia Screening, female 15-25 02/28/2016 HIV screen 2019 Hepatitis C Screening 2019 Lipid Screening 2019 Tdap adult 02/28/2020 Tetanus vaccine 02/28/2020 Influenza (Flu) vaccine (1 of 1 - Influenza standard 01/03/2022 series) Insurance Payer Benefit Plan / Subscriber ID Effective Dates Phone Addre ss Type [place] [id number] 2016-Ab [phone] [address] [facility] [place], [place] [id number] [employer] Sales Consultant Relationship Specialty Start Date End Date Danya Pulido MD PCP - General 03/27/10 [address] [place], [place] [id number]
--- OUTSIDE RECORDS SUMMARY | 2022-02-16 20:19 | XMS_ITS | Encounter Summary ---
:2000 Author Organization [facility] [place] [address] Care Team Providers Name Role Phone Danya Pulido MD Primary Care Provider Encounter Details Date Type Department Care Team Description 07/23/2019 [place] [facility] Nabil, Chronic rhinitis; [facility] Court Nieto MD Nausea and vomiting, intractability of v omiting not specified, unspecified vomiting type Drive [facility] [id number] ALLERGY DEPT [phone] [place] [id number] Social History Tobacco Use Types Packs/Day Years Used Date Current Every Day Smoker 0.25 Smokeless Tobacco: Never Used Sex Assigned at Date Recorded Not on file documented as of this encounter Last Filed Vital Signs Vital Sign Reading [...] Mass Index 26.98 07/23/2019 11:15 AM EDT Body Mass Index Percentile 88.82 % 07/23/2019 11:15 AM EDT Growth Chart: CDC (Girls, 2-20 Years) documented in this encounter Patient Instructions Patient InstructionsCourt Bernabe MD - 07/23/2019 11:30 AM EDT Start triamcinolone nasal spray 2 sprays per nostril daily documented in this encounter Progress Notes Court Bernabe MD - 07/23/2019 11:30 AM EDT Images from the original note were not included. [facility] Section of Allergy and Clinical Immunology Primary Care Provider: Danya Pulido MD Patient Age: 19 y.o. Patient : 2000 Reason for Evaluation: vomiting Historian: self and mother Subjective: Patient ID: Bonnie Wu is a 19 y.o. female seen for consultation regarding possible food allergies. She reports having nausea/vomting since January. Her paternal grandmother accompanied her today. Bonnie reports she has lost 46 pounds unintentionally since then due to the nausea/vomting/early satiety. She is awaiting a GI consult. On Friday, around 11:30 am, the patient reports she had emesis. She last recalled eating ramen the night before. She did not have any nausea after ingestion of ramen. She has not had much of an appetite. On Friday, she did not feel ill after ingestion of peanut and jelly sandwich. She also had pizza on without issue. She recalls there was a period of timing when she had daily GI symptoms. She reports a history of cracking her skull at the age of 2.5 years old. She had cracked her head off back of toilet. She had a headache last week, but it is not associated with her vomiting episodes. She denies any abdominal pain, and no diarrhea. She is no longer on carafate. When she was a child, she developed urticaria and angioedema after ingesting a sulfa antibiotic. She has been smoking for the past 3 months, about 1/2 pack a day. Outpatient Medications Marked as Taking for the 07/23/19 encounter (Office Visit) with Court Bernabe MD Medication Sig Dispense Refill ??? DULoxetine DR (Cymbalta) 60 mg Capsule, Delayed Release(E.C.) Take 60 mg by mouth daily. ??? omeprazole (PriLOSEC) 20 mg Capsule, Delayed Release(E.C.) Take 20 mg by mouth daily. ??? ondansetron ODT (Zofran-ODT) 8 mg Tablet, Rapid Dissolve Take 8 mg by mouth every 8 hours as needed. ??? ProAir HFA 90 mcg/actuation HFA Aerosol Inhaler Inhale 2 puffs into the lungs every 6 hours as needed for Wheezing, Shortness of Breath or Cough. Allergies Allergen Reactions ??? Sulfa (Sulfonamide Antibiotics) No family history on file. Social History Tobacco Use ??? Smoking status: Current Every Day Smoker Packs/day: 0.25 ??? Smokeless tobacco: Never Used Substance Use Topics ??? Alcohol use: Not on file ??? Drug use: Not on file Review of Systems Constitutional: Positive for appetite change and unexpected weight change. HENT: Positive for hearing loss. Eyes: Negative. Respiratory: Negative. Cardiovascular: Negative. Gastrointestinal: Positive for diarrhea, nausea and vomiting. Heartburn Endocrine: Negative. Genitourinary: Negative. Musculoskeletal: Negative. Neurological: Positive for headaches. Hematological: Negative. Psychiatric/Behavioral: Positive for dysphoric mood. Environmental History: Pets in the home: fish Objective: BP 111/55 (BP Location (NBP): Right arm, Patient Position: Sitting, BP Cuff Sizes: Adult (25-34 cm)) Pulse 65 Temp 37 ??C (98.6 ??F) (Oral) Ht 154.9 cm (5' 1) Wt 64.8 kg (142 lb 12.8 oz) SpO2 100% BMI 26.98 kg/m?? No flowsheet data found. Wt Readings from Last 3 Encounters: 07/23/19 64.8 kg (142 lb 12.8 oz) (77 %)* * Growth percentiles are based on CDC (Girls, 2-20 Years) data. Physical Exam Vitals signs reviewed. Constitutional: Appearance: She is not toxic-appearing. HENT: Head: Normocephalic and atraumatic. Mouth/Throat: Mouth: Mucous membranes are moist. Pharynx: Oropharynx is clear. Eyes: Extraocular Movements: Extraocular movements intact. Conjunctiva/sclera: Conjunctivae normal. Pupils: Pupils are equal, round, and reactive to light. Neck: Musculoskeletal: Normal range of motion and neck supple. No muscular tenderness. Cardiovascular: Rate and Rhythm: Normal rate and regular rhythm. Pulses: Normal pulses. Heart sounds: Normal heart sounds. Pulmonary: Effort: Pulmonary effort is normal. Abdominal: General: Bowel sounds are normal. There is distension. Palpations: Abdomen is soft. Musculoskeletal: Normal range of motion. Skin: General: Skin is warm and dry. Neurological: General: No focal deficit present. Mental Status: She is alert and oriented to person, place, and time. Review of Medical Records: I reviewed records from [facility] Labs: 06/02/2019 Ref Range & Units Value Tissue Transglutaminase Antibody IGA <4.0 U/mL <1.2 Comment: A negative result may be due to IgA deficiency and does not rule out celiac disease. ? Negative: ??<4.0 U/mL ? Weak Positive: ??4.0 - 10.0 U/mL ? Positive: ??>10.0 U/mL Results were obtained with the 1Cast QUANTA Lite R h-tTG IgA SLIVANO assay on the [employer] DSX. IgA 61 - 348 mg/dL 139 Assessment and Plan: Bonnie Wu is a 19 y.o. female with a history of nausea/vomiting and chronic rhinitis. For chronic rhinitis, start generic Nasacort (triamincinolone) 2 sprays per nostril daily. Regarding her episodes of early satiety, nausea/vomiting, I agree with a symptom diary. It is unclear if it specifically food triggered. I recommend GI consultation. All questions were answered, and the patient and her grandmother expressed understanding of the plan. Thank you for the opportunity to participate in the care of your patient. Ongoing follow-up with thepatient's primary care physician is recommended and encouraged. If I can provide any further assistance, please do not hesitate to contact me. Next visit (studies planned): 2 months follow-up visit Court Ferrer MD [facility], Allergy [place] [address] [email or web address] documented in this encounter Plan of Treatment Not on filedocumented as of this encounter Procedures Procedure Name Priority Date/Time Associated Diagnosis Comme nts HC ALLERGEN (IGE), Routine 07/23/2019 12:41 Chronic rhinitis R esults for this LEVEL 1 PM EDT procedure are i n the results section. HC ALLERGEN (IGE), Routine 07/23/2019 12:41 Chronic rhinitis R esults for this LEVEL 1 PM EDT procedure are i n the results section. HC IGE, TOTAL Routine 07/23/2019 12:41 Chronic rhinitis Result s for this PM EDT procedure are i n the results section. HC ALLERGEN (IGE), Routine 07/23/2019 12:41 Chronic rhinitis R esults for this LEVEL 1 PM EDT procedure are i n the results section. HC ALLERGEN (IGE), Routine 07/23/2019 12:41 Chronic rhinitis R esults for this LEVEL 1 PM EDT procedure are i n the results section. HC ALLERGEN (IGE), Routine 07/23/2019 12:41 Chronic rhinitis R esults for this LEVEL 1 PM EDT procedure are i n the results section. HC ALLERGEN (IGE), Routine 07/23/2019 12:41 Chronic rhinitis R esults for this LEVEL 1 PM EDT procedure are i n the results section. HEMOGRAM Routine 07/23/2019 12:41 Nausea and vomiting, Res ults for this PM EDT intractability of procedure are in vomiting not specified, the results unspecified vomiting section . type DIFFERENTIAL, Routine 07/23/2019 12:41 Nausea and vomiting, Re sults for this AUTOMATED PM EDT intractability of procedure are in vomiting not specified, the results unspecified vomiting section . type HC ALLERGEN (IGE), Routine 07/23/2019 12:41 Chronic rhinitis R esults for this LEVEL 1 PM EDT procedure are i n the results section. HC ALLERGEN (IGE), Routine 07/23/2019 12:41 Chronic rhinitis R esults for this LEVEL 1 PM EDT procedure are i n the results section. HC ALLERGEN (IGE), Routine 07/23/2019 12:41 Chronic rhinitis R esults for this LEVEL 1 PM EDT procedure are i n the results section. HC ALLERGEN (IGE), Routine 07/23/2019 12:41 Chronic rhinitis R esults for this LEVEL 1 PM EDT procedure are i n the results section. HC ALLERGEN (IGE), Routine 07/23/2019 12:41 Chronic rhinitis R esults for this LEVEL 1 PM EDT procedure are i n the results section. HC ALLERGEN (IGE), Routine 07/23/2019 12:41 Chronic rhinitis R esults for this LEVEL 1 PM EDT procedure are i n the results section. HC ALLERGEN (IGE), Routine 07/23/2019 12:41 Chronic rhinitis R esults for this LEVEL 1 PM EDT procedure are i n the results section. HC ALLERGEN (IGE), Routine 07/23/2019 12:41 Chronic rhinitis R esults for this LEVEL 1 PM EDT procedure are i n the results section. HC ALLERGEN (IGE), Routine 07/23/2019 12:41 Chronic rhinitis R esults for this LEVEL 1 PM EDT procedure are i n the results section. HC ALLERGEN (IGE), Routine 07/23/2019 12:41 Chronic rhinitis R esults for this LEVEL 1 PM EDT procedure are i n the results section. HC ALLERGEN (IGE), Routine 07/23/2019 12:41 Chronic rhinitis R esults for this LEVEL 1 PM EDT procedure are i n the results section. HC ALLERGEN (IGE), Routine 07/23/2019 12:41 Chronic rhinitis R esults for this LEVEL 1 PM EDT procedure are i n the results section. HC ALLERGEN (IGE), Routine 07/23/2019 12:41 Chronic rhinitis R esults for this LEVEL 1 PM EDT procedure are i n the results section. HC ALLERGEN (IGE), Routine 07/23/2019 12:41 Chronic rhinitis R esults for this LEVEL 1 PM EDT procedure are i n the results section. HC ALLERGEN (IGE), Routine 07/23/2019 12:41 Chronic rhinitis R esults for this LEVEL 1 PM EDT procedure are i n the results section. HC ALLERGEN (IGE), Routine 07/23/2019 12:41 Chronic rhinitis R esults for this LEVEL 1 PM EDT procedure are i n the results section. HC ALLERGEN (IGE), Routine 07/23/2019 12:41 Chronic rhinitis R esults for this LEVEL 1 PM EDT procedure are i n the results section. HC ALLERGEN (IGE), Routine 07/23/2019 12:41 Chronic rhinitis R esults for this LEVEL 1 PM EDT procedure are i n the results section. HC CBC,PLT & AUTO Routine 07/23/2019 12:41 Nausea and vomiting , DIFF PM EDT intractability of vomiting not specified, unspecified vomiting type documented in this encounter Results Differential, Automated (07/23/2019 12:41 PM EDT) athologist Signature Neutrophils % 65.3 % [facility] Neutr Abs (ANC) 3.82 1.70 - [facility] 6.10 [facility] x10(3)/[facility] LABORATORY Lymphocytes % 25.1 % [facility] Lymphocytes Abs 1.5 0.9 - 3.2 [facility] x10(3)/[facility] LABORATORY Monocytes % 7.5 % [facility] Monocyte Abs 0.4 0.3 - 0.9 [facility] x10(3)/[facility] LABORATORY Eosinophils % 1.7 % [facility] Eosinophils Abs 0.1 0.0 - 0.4 [facility] x10(3)/[facility] LABORATORY Basophils % 0.2 % [facility] Basophils Abs 0.0 0.0 - 0.1 [facility] x10(3)/[facility] LABORATORY Immature Gran % 0.20 % [facility] Comment: Immature granulocytes(IG's)percentage an d absolute count will include metamyelocytes, myelocytes, and promyelo cytes. Blood smears from CBCs yielding IG's will be scanned manually for concor dance. If this scan disagrees with the automated IG or if promyelocytes are not ed, a manual differential will be performed. Mary Gran Abs 0.01 0.00 - 0.04 x10(3)/[facility] Specimen Anatomical Collection Method Collection Time Receive d Time (Source) Location / / Volume Laterality Blood specimen 07/23/2019 12:41 0 (specimen) PM EDT 12:44 PM EDT Resulting Agency Comment Spec In Lab Court Ferrer MD HEMATOLOGY ORDERABLES Performing Organization Address City/State/ZIP [place] [address] Hemogram (07/23/2019 12:41 PM EDT) P athologist Signature WBC 5.8 4.0 - 9.5 [facility] LAB[facility]ATORY RBC 4.77 4.00 - ANNY BHAKTI 5.21 [facility] x10(6)/[facility] LABORATORY Hemoglobin 13.8 11.7 [facility] 15.[facility] gm/dL [facility] Hematocrit 42.5 35.7 [facility] 45.8 % [facility] MCV 89.1 82.6 [facility] 94.4 [facility] LABORATORY MCH 28.9 27.1 - NANY BHAKTI 32.0 pg [facility] MCHC 32.5 31.7 - NANY BHAKTI 35.0 gm/dL [facility] Platelets 197 145 - 357 [facility] x10(3)/[facility] LABORATORY RDWSD 39.5 37.0 - NANY BHAKTI 46.0 [facility] LABORATORY RDWCV 12.0 11.5 - [facility] BHAKTI 14.1 % [facility] MPV 12.0 7.6 - 12.9 [facility] LABORATORY nRBC % Auto 0.0 % [facility] nRBC Abs Auto 0.000 0.000 - [facility] BHAKTI 0.000 [facility] x10(3)/[facility] LABORATORY Specimen Anatomical Collection Method Collection Time Receive d Time (Source) Location / / Volume Laterality Blood specimen 07/23/2019 12:41 0 (specimen) PM EDT 12:44 PM EDT Resulting Agency Comment Spec In Lab Court Ferrer MD HEMATOLOGY ORDERABLES Performing Organization Address City/State/ZIP [place] [address] Immunoglobulin E (IgE) (07/23/2019 12:41 PM EDT) athologist Signature IgE 7 <=101 kU/L [facility] Comment: Pediatric age-specific reference ranges are reflected in result ranges. Adult reference ranges: <25 kU/L ??Normal 25-100 kU/L Equivocal >100 kU/L ??Elevated Specimen Anatomical Collection Method Collection Time Receive d Time (Source) Location / / Volume Laterality Blood specimen 07/23/2019 12:41 0 7:31 (specimen) PM EDT AM EDT Resulting Agency Comment Spec In Lab Court Ferrer MD IMMUNOLOGY ORDERABLES Performing Organization Address City/[facility]/ZIP [place] [address] Rere Grass IgE (07/23/2019 12:41 PM EDT) athologist Signature Rere grass, <0.35 kU/L [facility] LABORATORY Comment: Reference Ranges <0.35 kU/L Class 0: ??Normal 0.35-0.69 kU/L Class 1: ??Low level of allergy, indicat pedro of ongoing sensitization 0.70-3.49 kU/L Class 2: ??Moderate level of allergy, in dicative of stronger ongoing sensitization 3.50-17.49 kU/L Class 3: ??High level of allergy, indica tive of high level sensitization 17.5-49.9 kU/L Class 4: Very high level of allergy, ind icative of very high level sensitization 50.0-100 kU/L Class 5: Very high level of allergy, ind icative of very high level sensitization >100 kU/L Class 6: Very high level of allergy, ind icative of very high level sensitization Specimen Anatomical Collection Method Collection Time Receive d Time (Source) Location / / Volume Laterality Blood specimen 07/23/2019 12:41 0 7:31 (specimen) PM EDT AM EDT Resulting Agency Comment Spec In Lab Court Ferrer MD IMMUNOLOGY ORDERABLES Performing Organization Address City/[facility]/ZIP [place] [address] F[place], IgE (07/23/2019 12:41 PM EDT) athologist Signature Connie IgE <0.35 kU/L [facility] Comment: Reference Ranges <0.35 kU/L Class 0: ??Normal 0.35-0.69 kU/L Class 1: ??Low level of allergy, indicat pedro of ongoing sensitization 0.70-3.49 kU/L Class 2: ??Moderate level of allergy, in dicative of stronger ongoing sensitization 3.50-17.49 kU/L Class 3: ??High level of allergy, indica tive of high level sensitization 17.5-49.9 kU/L Class 4: Very high level of allergy, ind icative of very high level sensitization 50.0-100 kU/L Class 5: Very high level of allergy, ind icative of very high level sensitization Specimen Anatomical Collection Method Collection Time Receive d Time (Source) Location / / Volume Laterality Blood specimen 07/23/2019 12:41 0 7:31 (specimen) PM EDT AM EDT Resulting Agency Comment Spec In Lab Court Ferrer MD IMMUNOLOGY ORDERABLES Performing Organization Address City/State/ZIP Code Phon e Number [place] [phone] HOSPITAL LAB[address] Drive Nepali Plantain, IgE (07/23/2019 12:41 PM EDT) athologist Signature Nepali <0.35 kU/L [facility] LABORATORY Comment: Reference Ranges <0.35 kU/L Class 0: ??Normal 0.35-0.69 kU/L Class 1: ??Low level of allergy, indicat pedro of ongoing sensitization 0.70-3.49 kU/L Class 2: ??Moderate level of allergy, in dicative of stronger ongoing sensitization 3.50-17.49 kU/L Class 3: ??High level of allergy, indica tive of high level sensitization 17.5-49.9 kU/L Class 4: Very high level of allergy, ind icative of very high level sensitization 50.0-100 kU/L Class 5: Very high level of allergy, ind icative of very high level sensitization Specimen Anatomical Collection Method Collection Time Receive d Time (Source) Location / / Volume Laterality Blood specimen 07/23/2019 12:41 0 7:31 (specimen) PM EDT AM EDT Resulting Agency Comment Spec In Lab Court Ferrer MD IMMUNOLOGY ORDERABLES Performing Organization Address City/[facility]/ZIP Code Phon e Number [address] Samson's Quarter IgE (07/23/2019 12:41 PM EDT) P athologist Signature Samson's Manuel <0.35 kU/L [facility] LABORATORY Comment: Reference Ranges <0.35 kU/L Class 0: ??Normal 0.35-0.69 kU/L Class 1: ??Low level of allergy, indicat pedro of ongoing sensitization 0.70-3.49 kU/L Class 2: ??Moderate level of allergy, in dicative of stronger ongoing sensitization 3.50-17.49 kU/L Class 3: ??High level of allergy, indica tive of high level sensitization 17.5-49.9 kU/L Class 4: Very high level of allergy, ind icative of very high level sensitization 50.0-100 kU/L Class 5: Very high level of allergy, ind icative of very high level sensitization Specimen Anatomical Collection Method Collection Time Receive d Time (Source) Location / / Volume Laterality Blood specimen 07/23/2019 12:41 0 7:31 (specimen) PM EDT AM EDT Resulting Agency Comment Spec In Lab Court Ferrer MD IMMUNOLOGY ORDERABLES Performing Organization Address City/[facility]/ZIP Code Phon e Number [address] Pigweed, Rough IgE (07/23/2019 12:41 PM EDT) P athologist Signature Rough Pigweed <0.35 kU/L [facility] LABORATORY Comment: Reference Ranges <0.35 kU/L Class 0: ??Normal 0.35-0.69 kU/L Class 1: ??Low level of allergy, indicat pedro of ongoing sensitization 0.70-3.49 kU/L Class 2: ??Moderate level of allergy, in dicative of stronger ongoing sensitization 3.50-17.49 kU/L Class 3: ??High level of allergy, indica tive of high level sensitization 17.5-49.9 kU/L Class 4: Very high level of allergy, ind icative of very high level sensitization 50.0-100 kU/L Class 5: Very high level of allergy, ind icative of very high level sensitization Specimen Anatomical Collection Method Collection Time Receive d Time (Source) Location / / Volume Laterality Blood specimen 07/23/2019 12:41 0 7:31 (specimen) PM EDT AM EDT Resulting Agency Comment Spec In Lab Court Ferrer MD IMMUNOLOGY ORDERABLES Performing Organization Address City/[facility] Phon e Number [address] Mugwort IgE (07/23/2019 12:41 PM EDT) P athologist Signature Mugwort IgE <0.35 kU/L [facility] Comment: Reference Ranges <0.35 kU/L Class 0: ??Normal 0.35-0.69 kU/L Class 1: ??Low level of allergy, indicat pedro of ongoing sensitization 0.70-3.49 kU/L Class 2: ??Moderate level of allergy, in dicative of stronger ongoing sensitization 3.50-17.49 kU/L Class 3: ??High level of allergy, indica tive of high level sensitization 17.5-49.9 kU/L Class 4: Very high level of allergy, ind icative of very high level sensitization 50.0-100 kU/L Class 5: Very high level of allergy, ind icative of very high level sensitization >100 kU/L Class 6: Very high level of allergy, ind icative of very high level sensitization Specimen Anatomical Collection Method Collection Time Receive d Time (Source) Location / / Volume Laterality Blood specimen 07/23/2019 12:41 0 7:31 (specimen) PM EDT AM EDT Resulting Agency Comment Spec In Lab Court Ferrer MD IMMUNOLOGY ORDERABLES Performing Organization Address City/[facility] Phon e Number [address] Helminthosporium Halodes, IgE (07/23/2019 12:41 PM EDT) athologist Signature H halodes, IgE <0.35 kU/L [facility] Comment: Reference Ranges <0.35 kU/L Class 0: ??Normal 0.35-0.69 kU/L Class 1: ??Low level of allergy, indicat pedro of ongoing sensitization 0.70-3.49 kU/L Class 2: ??Moderate level of allergy, in dicative of stronger ongoing sensitization 3.50-17.49 kU/L Class 3: ??High level of allergy, indica tive of high level sensitization 17.5-49.9 kU/L Class 4: Very high level of allergy, ind icative of very high level sensitization 50.0-100 kU/L Class 5: Very high level of allergy, ind icative of very high level sensitization >100 kU/L Class 6: Very high level of allergy, ind icative of very high level sensitization Specimen Anatomical Collection Method Collection Time Receive d Time (Source) Location / / Volume Laterality Blood specimen 07/23/2019 12:41 0 7:31 (specimen) PM EDT AM EDT Resulting Agency Comment Spec In Lab Court Ferrer MD IMMUNOLOGY ORDERABLES Performing Organization Address City/State/ZIP Code Phon e Number [address] Penicillium IgE (07/23/2019 12:41 PM EDT) athologist Signature Penicillium IgE <0.35 kU/L [facility] Comment: Reference Ranges <0.35 kU/L Class 0: ??Normal 0.35-0.69 kU/L Class 1: ??Low level of allergy, indicat pedro of ongoing sensitization 0.70-3.49 kU/L Class 2: ??Moderate level of allergy, in dicative of stronger ongoing sensitization 3.50-17.49 kU/L Class 3: ??High level of allergy, indica tive of high level sensitization 17.5-49.9 kU/L Class 4: Very high level of allergy, ind icative of very high level sensitization 50.0-100 kU/L Class 5: Very high level of allergy, ind icative of very high level sensitization >100 kU/L Class 6: Very high level of allergy, ind icative of very high level sensitization Specimen Anatomical Collection Method Collection Time Receive d Time (Source) Location / / Volume Laterality Blood specimen 07/23/2019 12:41 0 7:31 (specimen) PM EDT AM EDT Resulting Agency Comment Spec In Lab Court Ferrer MD IMMUNOLOGY ORDERABLES Performing Organization Address City/[facility] [place] [address] Cladosporium IgE (07/23/2019 12:41 PM EDT) athologist Signature Cladospor IgE <0.35 kU/L [facility] Comment: Reference Ranges <0.35 kU/L Class 0: ??Normal 0.35-0.69 kU/L Class 1: ??Low level of allergy, indicat pedro of ongoing sensitization 0.70-3.49 kU/L Class 2: ??Moderate level of allergy, in dicative of stronger ongoing sensitization 3.50-17.49 kU/L Class 3: ??High level of allergy, indica tive of high level sensitization 17.5-49.9 kU/L Class 4: Very high level of allergy, ind icative of very high level sensitization 50.0-100 kU/L Class 5: Very high level of allergy, ind icative of very high level sensitization >100 kU/L Class 6: Very high level of allergy, ind icative of very high level sensitization Specimen Anatomical Collection Method Collection Time Receive d Time (Source) Location / / Volume Laterality Blood specimen 07/23/2019 12:41 0 7:31 (specimen) PM EDT AM EDT Resulting Agency Comment Spec In Lab Court Ferrer MD IMMUNOLOGY ORDERABLES Performing Organization Address City/[facility] [place] [address] Aspergillus fumigatus IgE (07/23/2019 12:41 PM EDT) athologist Signature A Fumigatus <0.35 kU/L [facility] LABORATORY Comment: Reference Ranges <0.35 kU/L Class 0: ??Normal 0.35-0.69 kU/L Class 1: ??Low level of allergy, indicat pedro of ongoing sensitization 0.70-3.49 kU/L Class 2: ??Moderate level of allergy, in dicative of stronger ongoing sensitization 3.50-17.49 kU/L Class 3: ??High level of allergy, indica tive of high level sensitization 17.5-49.9 kU/L Class 4: Very high level of allergy, ind icative of very high level sensitization 50.0-100 kU/L Class 5: Very high level of allergy, ind icative of very high level sensitization >100 kU/L Class 6: Very high level of allergy, ind icative of very high level sensitization Specimen Anatomical Collection Method Collection Time Receive d Time (Source) Location / / Volume Laterality Blood specimen 07/23/2019 12:41 0 7:31 (specimen) PM EDT AM EDT Resulting Agency Comment Spec In Lab Court Ferrer MD IMMUNOLOGY ORDERABLES Performing Organization Address City/State/ZIP Code Phon e Number [address] Alternaria Tenuis, IgE (07/23/2019 12:41 PM EDT) athologist Signature Alt Tenuis IgE <0.35 kU/L [facility] LABORATORY Comment: Reference Ranges <0.35 kU/L Class 0: ??Normal 0.35-0.69 kU/L Class 1: ??Low level of allergy, indicat pedro of ongoing sensitization 0.70-3.49 kU/L Class 2: ??Moderate level of allergy, in dicative of stronger ongoing sensitization 3.50-17.49 kU/L Class 3: ??High level of allergy, indica tive of high level sensitization 17.5-49.9 kU/L Class 4: Very high level of allergy, ind icative of very high level sensitization 50.0-100 kU/L Class 5: Very high level of allergy, ind icative of very high level sensitization >100 kU/L Class 6: Very high level of allergy, ind icative of very high level sensitization Specimen Anatomical Collection Method Collection Time Receive d Time (Source) Location / / Volume Laterality Blood specimen 07/23/2019 12:41 0 7:31 (specimen) PM EDT AM EDT Resulting Agency Comment Spec In Lab Court Ferrer MD IMMUNOLOGY ORDERABLES Performing Organization Address City/[facility]/ZIP Code Phon e Number [address] House Dust Mites/D.P., IgE (07/23/2019 12:41 PM EDT) P athologist Signature Mites/D.P. IgE <0.35 kU/L [facility] LABORATORY Comment: Reference Ranges <0.35 kU/L Class 0: ??Normal 0.35-0.69 kU/L Class 1: ??Low level of allergy, indicat pedro of ongoing sensitization 0.70-3.49 kU/L Class 2: ??Moderate level of allergy, in dicative of stronger ongoing sensitization 3.50-17.49 kU/L Class 3: ??High level of allergy, indica tive of high level sensitization 17.5-49.9 kU/L Class 4: Very high level of allergy, ind icative of very high level sensitization 50.0-100 kU/L Class 5: Very high level of allergy, ind icative of very high level sensitization >100 kU/L Class 6: Very high level of allergy, ind icative of very high level sensitization Specimen Anatomical Collection Method Collection Time Receive d Time (Source) Location / / Volume Laterality Blood specimen 07/23/2019 12:41 0 7:31 (specimen) PM EDT AM EDT Resulting Agency Comment Spec In Lab Court Ferrer MD IMMUNOLOGY ORDERABLES Performing Organization Address City/[facility]/ZIP [facility] [place], [place] Phon e Number [address] House Dust Mites/D.F., IgE (07/23/2019 12:41 PM EDT) athologist Signature Mites/D.F. IgE <0.35 kU/L [facility] LABORATORY Comment: Reference Ranges <0.35 kU/L Class 0: ??Normal 0.35-0.69 kU/L Class 1: ??Low level of allergy, indicat pedro of ongoing sensitization 0.70-3.49 kU/L Class 2: ??Moderate level of allergy, in dicative of stronger ongoing sensitization 3.50-17.49 kU/L Class 3: ??High level of allergy, indica tive of high level sensitization 17.5-49.9 kU/L Class 4: Very high level of allergy, ind icative of very high level sensitization 50.0-100 kU/L Class 5: Very high level of allergy, ind icative of very high level sensitization >100 kU/L Class 6: Very high level of allergy, ind icative of very high level sensitization Specimen Anatomical Collection Method Collection Time Receive d Time (Source) Location / / Volume Laterality Blood specimen 07/23/2019 12:41 0 7:31 (specimen) PM EDT AM EDT Resulting Agency Comment Spec In Lab Court Ferrer MD IMMUNOLOGY ORDERABLES Performing Organization Address City/State/ZIP Code Phon e Number [place] [phone] Ragweed, short/ common IgE (07/23/2019 12:41 PM EDT) athologist Signature Ragweed IgE <0.35 kU/L [facility] LABOR[facility]ORY Comment: Reference Ranges <0.35 kU/L Class 0: ??Normal 0.35-0.69 kU/L Class 1: ??Low level of allergy, indicat pedro of ongoing sensitization 0.70-3.49 kU/L Class 2: ??Moderate level of allergy, in dicative of stronger ongoing sensitization 3.50-17.49 kU/L Class 3: ??High level of allergy, indica tive of high level sensitization 17.5-49.9 kU/L Class 4: Very high level of allergy, ind icative of very high level sensitization 50.0-100 kU/L Class 5: Very high level of allergy, ind icative of very high level sensitization >100 kU/L Class 6: Very high level of allergy, ind icative of very high level sensitization Specimen Anatomical Collection Method Collection Time Receive d Time (Source) Location / / Volume Laterality Blood specimen 07/23/2019 12:41 0 7:31 (specimen) PM EDT AM EDT Resulting Agency Comment Spec In Lab Court Ferrer MD IMMUNOLOGY ORDERABLES Performing Organization Address City/[facility]/ZIP Code Phon e Number [address] Tyrese Grass IgE (07/23/2019 12:41 PM EDT) athologist Signature Tyrese Grass <0.35 kU/L [facility] LABORATORY Comment: Reference Ranges <0.35 kU/L Class 0: ??Normal 0.35-0.69 kU/L Class 1: ??Low level of allergy, indicat pedro of ongoing sensitization 0.70-3.49 kU/L Class 2: ??Moderate level of allergy, in dicative of stronger ongoing sensitization 3.50-17.49 kU/L Class 3: ??High level of allergy, indica tive of high level sensitization 17.5-49.9 kU/L Class 4: Very high level of allergy, ind icative of very high level sensitization 50.0-100 kU/L Class 5: Very high level of allergy, ind icative of very high level sensitization >100 kU/L Class 6: Very high level of allergy, ind icative of very high level sensitization Specimen Anatomical Collection Method Collection Time Receive d Time (Source) Location / / Volume Laterality Blood specimen 07/23/2019 12:41 0 7:31 (specimen) PM EDT AM EDT Resulting Agency Comment Spec In Lab Court Ferrer MD IMMUNOLOGY ORDERABLES Performing Organization Address City/[facility]/ZIP Code Phon e Number [address] Dog Epithelium IgE (07/23/2019 12:41 PM EDT) P athologist Signature Dog Epi IgE <0.35 kU/L [facility] LABORATORY Comment: Reference Ranges <0.35 kU/L Class 0: ??Normal 0.35-0.69 kU/L Class 1: ??Low level of allergy, indicat pedro of ongoing sensitization 0.70-3.49 kU/L Class 2: ??Moderate level of allergy, in dicative of stronger ongoing sensitization 3.50-17.49 kU/L Class 3: ??High level of allergy, indica tive of high level sensitization 17.5-49.9 kU/L Class 4: Very high level of allergy, ind icative of very high level sensitization 50.0-100 kU/L Class 5: Very high level of allergy, ind icative of very high level sensitization >100 kU/L Class 6: Very high level of allergy, ind icative of very high level sensitization Specimen Anatomical Collection Method Collection Time Receive d Time (Source) Location / / Volume Laterality Blood specimen 07/23/2019 12:41 0 7:31 (specimen) PM EDT AM EDT Resulting Agency Comment Spec In Lab Court Ferrer MD IMMUNOLOGY ORDERABLES Performing Organization Address City/State/ZIP Code Phon e Number [place] [phone] Cat Epithelium IgE (07/23/2019 12:41 PM EDT) P athologist Signature Cat Epi IgE <0.35 kU/L [facility] LABORATORY Comment: Reference Ranges <0.35 kU/L Class 0: ??Normal 0.35-0.69 kU/L Class 1: ??Low level of allergy, indicat pedro of ongoing sensitization 0.70-3.49 kU/L Class 2: ??Moderate level of allergy, in dicative of stronger ongoing sensitization 3.50-17.49 kU/L Class 3: ??High level of allergy, indica tive of high level sensitization 17.5-49.9 kU/L Class 4: Very high level of allergy, ind icative of very high level sensitization 50.0-100 kU/L Class 5: Very high level of allergy, ind icative of very high level sensitization >100 kU/L Class 6: Very high level of allergy, ind icative of very high level sensitization Specimen Anatomical Collection Method Collection Time Receive d Time (Source) Location / / Volume Laterality Blood specimen 07/23/2019 12:41 0 7:31 (specimen) PM EDT AM EDT Resulting Agency Comment Spec In Lab Court Ferrer MD IMMUNOLOGY ORDERABLES Performing Organization Address City/[facility]/ZIP Code Phon e Number [address] Beech IgE (07/23/2019 12:41 PM EDT) P athologist Signature Beech IgE <0.35 kU/L [facility] LABORATORY Comment: Reference Ranges <0.35 kU/L Class 0: ??Normal 0.35-0.69 kU/L Class 1: ??Low level of allergy, indicat pedro of ongoing sensitization 0.70-3.49 kU/L Class 2: ??Moderate level of allergy, in dicative of stronger ongoing sensitization 3.50-17.49 kU/L Class 3: ??High level of allergy, indica tive of high level sensitization 17.5-49.9 kU/L Class 4: Very high level of allergy, ind icative of very high level sensitization 50.0-100 kU/L Class 5: Very high level of allergy, ind icative of very high level sensitization >100 kU/L Class 6: Very high level of allergy, ind icative of very high level sensitization Specimen Anatomical Collection Method Collection Time Receive d Time (Source) Location / / Volume Laterality Blood specimen 07/23/2019 12:41 0 7:31 (specimen) PM EDT AM EDT Resulting Agency Comment Spec In Lab Court Ferrer MD IMMUNOLOGY ORDERABLES Performing Organization Address City/[facility]/ZIP Code Phon e Number [address] Elm IgE (07/23/2019 12:41 PM EDT) P athologist Signature Elm IgE <0.35 kU/L [facility] LABORATORY Comment: Reference Ranges <0.35 kU/L Class 0: ??Normal 0.35-0.69 kU/L Class 1: ??Low level of allergy, indicat pedro of ongoing sensitization 0.70-3.49 kU/L Class 2: ??Moderate level of allergy, in dicative of stronger ongoing sensitization 3.50-17.49 kU/L Class 3: ??High level of allergy, indica tive of high level sensitization 17.5-49.9 kU/L Class 4: Very high level of allergy, ind icative of very high level sensitization 50.0-100 kU/L Class 5: Very high level of allergy, ind icative of very high level sensitization >100 kU/L Class 6: Very high level of allergy, ind icative of very high level sensitization Specimen Anatomical Collection Method Collection Time Receive d Time (Source) Location / / Volume Laterality Blood specimen 07/23/2019 12:41 0 7:31 (specimen) PM EDT AM EDT Resulting Agency Comment Spec In Lab Court Ferrer MD IMMUNOLOGY ORDERABLES Performing Organization Address City/[facility]/ZIP [place] [address] [place]ckard IgE (07/23/2019 12:41 PM EDT) athologist Signature [place]ard IgE <0.35 kU/L [facility] LABOR[facility]ORY Comment: Reference Ranges <0.35 kU/L Class 0: ??Normal 0.35-0.69 kU/L Class 1: ??Low level of allergy, indicat pedro of ongoing sensitization 0.70-3.49 kU/L Class 2: ??Moderate level of allergy, in dicative of stronger ongoing sensitization 3.50-17.49 kU/L Class 3: ??High level of allergy, indica tive of high level sensitization 17.5-49.9 kU/L Class 4: Very high level of allergy, ind icative of very high level sensitization 50.0-100 kU/L Class 5: Very high level of allergy, ind icative of very high level sensitization >100 kU/L Class 6: Very high level of allergy, ind icative of very high level sensitization Specimen Anatomical Collection Method Collection Time Receive d Time (Source) Location / / Volume Laterality Blood specimen 07/23/2019 12:41 0 7:31 (specimen) PM EDT AM EDT Resulting Agency Comment Spec In Lab Court Ferrer MD IMMUNOLOGY ORDERABLES Performing Organization Address City/[facility]/ZIP [place] [address] Ratna Roche IgE (07/23/2019 12:41 PM EDT) athologist Signature Ratna Roche <0.35 kU/L [facility] LABORATORY Comment: Reference Ranges <0.35 kU/L Class 0: ??Normal 0.35-0.69 kU/L Class 1: ??Low level of allergy, indicat pedro of ongoing sensitization 0.70-3.49 kU/L Class 2: ??Moderate level of allergy, in dicative of stronger ongoing sensitization 3.50-17.49 kU/L Class 3: ??High level of allergy, indica tive of high level sensitization 17.5-49.9 kU/L Class 4: Very high level of allergy, ind icative of very high level sensitization 50.0-100 kU/L Class 5: Very high level of allergy, ind icative of very high level sensitization >100 kU/L Class 6: Very high level of allergy, ind icative of very high level sensitization Specimen Anatomical Collection Method Collection Time Receive d Time (Source) Location / / Volume Laterality Blood specimen 07/23/2019 12:41 0 7:31 (specimen) PM EDT AM EDT Resulting Agency Comment Spec In Lab Court Ferrer MD IMMUNOLOGY ORDERABLES Performing Organization Address City/State/ZIP Code Phon e Number [address] Ratna Marte IgE (07/23/2019 12:41 PM EDT) athologist Signature Ratna Marte IgE <0.35 kU/L [facility] LABORATORY Comment: Reference Ranges <0.35 kU/L Class 0: ??Normal 0.35-0.69 kU/L Class 1: ??Low level of allergy, indicat pedro of ongoing sensitization 0.70-3.49 kU/L Class 2: ??Moderate level of allergy, in dicative of stronger ongoing sensitization 3.50-17.49 kU/L Class 3: ??High level of allergy, indica tive of high level sensitization 17.5-49.9 kU/L Class 4: Very high level of allergy, ind icative of very high level sensitization 50.0-100 kU/L Class 5: Very high level of allergy, ind icative of very high level sensitization >100 kU/L Class 6: Very high level of allergy, ind icative of very high level sensitization Specimen Anatomical Collection Method Collection Time Receive d Time (Source) Location / / Volume Laterality Blood specimen 07/23/2019 12:41 0 7:31 (specimen) PM EDT AM EDT Resulting Agency Comment Spec In Lab Court Ferrer MD IMMUNOLOGY ORDERABLES Performing Organization Address City/State/ZIP Code Phon e Number [address] Radha / [place] IgE (07/23/2019 12:41 PM EDT) athologist Signature Box <0.35 kU/L [facility] LABORATORY Comment: Reference Ranges <0.35 kU/L Class 0: ??Normal 0.35-0.69 kU/L Class 1: ??Low level of allergy, indicat pedro of ongoing sensitization 0.70-3.49 kU/L Class 2: ??Moderate level of allergy, in dicative of stronger ongoing sensitization 3.50-17.49 kU/L Class 3: ??High level of allergy, indica tive of high level sensitization 17.5-49.9 kU/L Class 4: Very high level of allergy, ind icative of very high level sensitization 50.0-100 kU/L Class 5: Very high level of allergy, ind icative of very high level sensitization >100 kU/L Class 6: Very high level of allergy, ind icative of very high level sensitization Specimen Anatomical Collection Method Collection Time Receive d Time (Source) Location / / Volume Laterality Blood specimen 07/23/2019 12:41 0 7:31 (specimen) PM EDT AM EDT Resulting Agency Comment Spec In Lab Court Ferrer MD IMMUNOLOGY ORDERABLES Performing Organization Address City/[facility]/ZIP Code Phon e Number [address] christal Mcnair IgE (07/23/2019 12:41 PM EDT) athologist Signature Christal Mcnair <0.35 kU/L [facility] LABORATORY Comment: Reference Ranges <0.35 kU/L Class 0: ??Normal 0.35-0.69 kU/L Class 1: ??Low level of allergy, indicat pedro of ongoing sensitization 0.70-3.49 kU/L Class 2: ??Moderate level of allergy, in dicative of stronger ongoing sensitization 3.50-17.49 kU/L Class 3: ??High level of allergy, indica tive of high level sensitization 17.5-49.9 kU/L Class 4: Very high level of allergy, ind icative of very high level sensitization 50.0-100 kU/L Class 5: Very high level of allergy, ind icative of very high level sensitization >100 kU/L Class 6: Very high level of allergy, ind icative of very high level sensitization Specimen Anatomical Collection Method Collection Time Receive d Time (Source) Location / / Volume Laterality Blood specimen 07/23/2019 12:41 0 7:31 (specimen) PM EDT AM EDT Resulting Agency Comment Spec In Lab Court Ferrer MD IMMUNOLOGY ORDERABLES Performing Organization Address City/State/ZIP Code Phon e Number [place] [phone] documented in this encounter Visit Diagnoses Diagnosis Chronic rhinitis Nausea and vomiting, intractability of v omiting not specified, unspecified vomiting type documented in this encounter Care Teams Promotions Intern Relationship Specialty Start Date End Date Danya Pulido MD PCP - General 03/27/10 [address] [place] [address] documented as of this encounter
--- OUTSIDE RECORDS SUMMARY | 2022-02-16 20:19 | XMS_ITS | Encounter Summary ---
:2000 Author Organization [facility] [place] [address] Care Team Providers Name Role Phone Danya Pulido MD Primary Care Provider Encounter Details Date Type Department Care Team Description 11/29/2016 Office Visit Audiology [place] [facility] [place]na Shankar Sensorineural hearing [facility] S, MEd loss, bilateral Drive [facility] [id number] AUDIOLOGY DEPT [phone] [place] [id number] Social History Tobacco Use Types Packs/Day Years Used Date Never Assessed Sex Assigned at Date Recorded Not on file documented as of this encounter Progress Notes Genna Shankar MEd - 11/29/2016 9:30 AM EDT AUDIOLOGY SECTION HISTORY: Name: Bonnie Wu Age: 16 years Date of Visit: 11/29/2016 Reason for Visit: earmold impressions Accompanied by: grandmother, Li Nicole presents with bilateral moderate to moderate-severe sensorineural hearing loss for which she uses two hearing aids (since May 2003). Her most recent audiologic evaluation was in May 2016 with some interim contact for her amplification needs. Hearing loss was identified in 2002 (age 3 years) but is suspected to be congenital having referred upon her hearing screen. History includes PE tubes (2002 and 2003; known extruded). Please refer to patient's medical record for any additional background information as needed. Educational Supports and Services: (not updated today) Bnonie begins 10th grade in the fall at the [employer] in [place], [place], with an IEP in place. This was a new school for Bonnie this past year and things went well overall after some social challenges at the beginning of the year. Hearing supports are provided through [facility]; the trial consultant was Zenaida Doyle. Bonine got new FM receivers last year. We discussed at the last visit that it was unclear when the FM equipment was last verified (possibly 2012?); annual verification of FM equipment to the student's hearing aids is recommended.??Family also known to [facility] Merchandise Presentation Manager in Audiology. Updated releases were sent home. Interim information: ?? Bonnie contacted our office as she is in need of new earmolds; she is noticing some unexplained feedback from her hearing aids. Hearing Aid Check: See EQUIPMENT TABLE below: ?? Otoscopic inspection was unremarkable; there was no redness or broken skin visible in either ear. ?? Earmolds: impressions were taken for each ear with the canals clear pre and post; the new earmolds will be sent to the family at home and we reminded Bonnie she should contact us with any concerns about fit. Family would like to order two pair of molds. RECOMMENDATIONS: 1. Continue medical management. 2. Keep up the good work with regular use of binaural hearing aids full-time during waking hours save for water activities (e.g. Bathing, swimming). Family has been encouraged last visit to ask PCP's office for a prescription for size 13 hearing aid batteries (2 packages per month, with 11 refills). 3. Return to audiology annually for ongoing monitoring of hearing and amplification; sooner if concerns arise before that time (reminder pending for May 2017). 4. Given this student's educationally significant hearing loss, it is recommended that a administrative supervisor and/or bean weigher be part of their educational program through [...] supplement spoken communication. ?? positioning of speakers [id number] with listener. ?? use of FM amplification to address difficulties of listening in background noise, reverberation and across distance, particularly while in the classroom; FM technology should be verified annually and can be arranged at [facility] Audiology upon receipt of a purchase order for the service. Please contact us with questions regarding today's visit. Genna Shankar M.Ed., ALPA-A Weed Science Research Technician [place] [phone] (v) / [phone] (f) CC: ?? Parents of Bonnie Wu [address] [place] [address] DANYA PULIDO MD / PCP [facility] attn: Jossy Mejias, Epic Kaleidoscope Analyst [address] [place] [address] [facility], attn: Zenaida Doyle [address] [place] [address] EQUIPMENT TABLE: HEARING AID?? RIGHT?? LEFT?? Make/Model/Style?? Oticon Sensei Pro BTE?? Oticon Sensei Pro BTE?? Casing Color?? red?? red?? Serial Number?? [id number]?? Battery Size?? 13?? 13?? Invoice number / date?? [id number]?? 05/01/15?? 05/01/15?? PROGRAM/SETTINGS? Fitting Algorithm?DSL child DSL child Verification Method?? REM; SREM for post repair REM; SREM for post repair Programs?>P1=Basic (auto tri mode; NR on) >Auto phone (M) >P1=Basic (auto tri mode; NR on) >Auto phone (M) Disabled Features?LED LED Other? HEARING AID WARRANTY? Original Fit Date?05-24-15 05-24-15 Current Status?? 06-01-18?? 06-01-18?? EARMOLD (if BTE MCKEON)? Lab?? [facility]??(2 pair) [facility]??(2 pair) Earmold specifics?? 1/2 shell/otoblast/hot pinkcat-eye/ med canal / no vent / 13T thru?? 1/2 shell/otoblast/hot pinkcat-eye/ med canal / no vent / 13T thru Impression Date?? 11/29/16 11/29/16?? Invoice #? ACCESSORIES? Make/Model?Oticon Streamer ?? Color?n/a ?? Serial Number?[id number] ? Warranty date?06/30/16 per Lauren Jaramillo ?? Invoice number/date? HEARING AID ([place]) RIGHT ?? LEFT ?? Make/Model/Style ?? Oticon Sensei P ?? Oticon Sensei P ?? Casing Color ?? purple ?? purple ?? Serial Number ?? [id number] ?? [id number] ?? Battery Size ?? 13 ?? 13 ?? Invoice number / date ?? [id number] 04/14/14 ?? [id number] 04/14/14 ?? PROGRAM/SETTINGS ? Fitting Algorithm ?? DSL child ?? same ?? Verification Method ?? SREM w/personal RECD (updated 02.09.2014); SREM on file ?? same ?? Programs ?? >P1=Basic (dir ant tri mode; NR on) >Auto phone (M) ?? same ?? Disabled Features ?? lights ?? same ?? Other ? HEARING AID WARRANTY ? Original Fit Date ?? 04/18/14 ?? 04/18/14 ?? Current Status ?? 05/15/17 ?? 05/15/17 ? HEARING AID (personal)?? RIGHT ?? LEFT ?? MAKE/MODEL/STYLE ?? Oticon / Safari 600 P / BTE ?? Oticon / Safari 600 P / BTE ?? CASING COLOR ?? Parkin ?? Parkin ?? SERIAL NUMBER ?? [id number] (missing x 6 mo)?? [id number] ?? BATTERY SIZE ?? 13 ?? 13 ?? PROGRAM/SETTINGS ? FITTING ALGORITHM ?? DSL Child ?? same ?? VERIFICATION METHOD ?? REM w/personal RECD (updated 02.09.2014); SREM on file ?? same ?? PROGRAMS ?? >P1=Basic (dir ant tri mode; NR on) >Auto phone (M) ?? same ?? DISABLED FEATURES ?? lights ?? same ?? OTHER COMMENTS ?? >VC active (sync) >low battery and change battery indicator ?? same ?? WARRANTY ? ORIGINAL FIT DATE ?? 05/11/12 ?? 05/11/12 ?? CURRENT STATUS ?? 05/23/15-Repair only ?? 05/23/15 ?? FM EQUIP - SCHOOL: [place], [place] ?? TRANSMITTER ?? FIELD SAMPLING TECHNICIAN #1 ?? FIELD SAMPLING TECHNICIAN #2 ?? MAKE/MODEL ?? Phonak / Inspiro ?? Phonak / MLxi ?? Phonak / MLxi ?? SERIAL NUMBER ?? [id number] ?? [id number] ?? [id number] ?? CHANNEL ?? N02 ?? N02 ?? N02 ?? FM SETTINGS ? ANT / AUDIO SHOE ?? [place] Ant ?? Oticon FM9 ?? Oticon FM9 ?? VERIFICATION DATE ?? 01/08/2013 ?? 01/08/2013 ?? 01/08/2013 ?? FIT DATE ? OTHER/COMMENTS ? documented in this encounter Plan of Treatment Not on filedocumented as of this encounter Visit Diagnoses Diagnosis Sensorineural hearing loss, bilateral documented in this encounter Care Teams Senior Sales Assistant Relationship Specialty Start Date End Date Danya Pulido MD PCP - General 03/27/10 [address] [place] [address] documented as of this encounter
--- OUTSIDE RECORDS SUMMARY | 2022-02-16 20:19 | XMS_ITS | Encounter Summary ---
:2000 [place] [address] Care Team Providers Name Role Phone Danya Pulido MD Primary Care Provider Reason for Visit Reason Comments Childhood Sensorineural Hearing Loss Encounter Details Date Type Department Care Team Description 06/02/2017 Office Visit Audiology at [facility] Genna Shankar Sensorineural hearing [facility] S, MEd loss, bilateral [place], [place] [address] AUDIOLOGY DEPT [phone] [place] [id number] Social History Tobacco Use Types Packs/Day Years Used Date Never Assessed Sex Assigned at Date Recorded Not on file documented as of this encounter Progress Notes Genna Shankar, MEd - 06/02/2017 9:30 AM EST AUDIOLOGY SECTION HISTORY: Name: Bonnie Wu Age: 17 years Date of Visit: 06/02/2017 Reason for Visit: audiologic re-evaluation and check of hearing aids Accompanied by: grandmother, Li Odonnell, who, along with Bonnie, contributed to the followinginformation: Bonnie presents with bilateral moderate to moderate-severe sensorineural hearing loss for which she uses two hearing aids (since May 2003). Her most recent audiologic evaluation was in May 2016 with some interim contact for her amplification needs. Hearing loss was identified in 2002 (age 3 years) but is suspected to be congenital having referred upon her hearing screen. History includes PE tubes (2002 and 2004; known extruded). Please refer to patient's medical record for any additional background information as needed. Educational Supports and Services: attends 10th grade at the [employer] in [place], [place], with an IEP in place. She relays things are going well now after some social challenges at the beginning of the year. Hearing supports are provided through [facility]; the last sales and service consultant on recordis Zenaida Doyle. It is unclear when the FM equipment was last verified (possibly 2012?) but Bonnie reported it is working well. She brought it with her but we had no purchase order on file nor an appointment for its verification. Annual verification of FM equipment to the student's hearing aids recommended.??Family known to [facility] Airplane Pilot Helper in Audiology. Interim information: ?? Bonnie has been in good overall health; a change in hearing was not suspected. She does note intermittent unexplained feedback from the hearing aids left more than right, to the point she has been evaluated for severe headaches. ?? 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 Previously she used a Bluetooth Streamer but it has been out of use since the family left a previous home (it is thought still there). Bonnie's earmolds are due for replacement. She also noted that her school hearing aids are in need of fine tuning as they are too soft compared to the home ones. EVALUATION: (see audiogram) ?? Audiologic evaluation - results consistent with bilateral, moderate to moderate-severe hearing loss, stable. Tympanograms were consistent with normal middle ear function bilaterally. Hearing Aid Check: See EQUIPMENT TABLE below: ?? Earmolds: Bonnie is due for replacement earmolds. She has preferred the half shell molds. Binauralear impressions were taken with the canals clear pre/post. The new molds will be mailed home; we discussed they should contact us if there is any concern about fit or retention. The current earmolds were re-tubed and the left earhook replaced. ?? Hearing aids: verification of programmed settings was done via real-ear measures using today's audiological results. The frequency responses of the hearing aids nicely approximated the Desired Sensation Level (DSL) aided response targets without exceeding the maximum output limits as programmed. Min or fine tuning adjustments were made and the feedback network operations manager run. Post repair SREMs were also completed. ?? Functional aided benefit - see audiogram: (completed in the binaural condition prior to the hearing aid adjustments; not repeated due to time constraints); good functional gain with aided word recognition ability at 100% in quiet when recorded speech was presented at an 'average' conversational level (45 dBHL); this diminished to 73% when assessed in competing noise (+5dB signal:noise), which helps illustrate the continued need for using the FM system regularly in school. ?? Bonnie's school hearing aids: verification of programmed settings was done via real-ear measures using today's audiological results and compared with her own aids. Minor fine tuning adjustments were made; the frequency responses of the hearing aids nicely approximated the Desired Sensation Level (DSL) aided response targets without exceeding the maximum output limits as programmed. Bonnie found these to be improved and more comparable to her regularly worn instruments. RECOMMENDATIONS: 1. Continue medical management. 2. Keep up the good work with regular use of new hearing aids full-time during waking hours save forwater activities (e.g. Bathing, swimming). Family encouraged to ask PCP's office for a prescription for size 13 hearing aid batteries (12 packages per aid, per year for a total of 24 packages). 3. Return to audiology in one year for ongoing monitoring of hearing and amplification; sooner if concerns arise before that time (reminder requested for May 2018). 4. Given this student's educationally significant hearing loss, it is recommended that a balance wheel hand filer and/or forest firefighter be part of their educational program through [...] supplement spoken communication. ?? positioning of speakers [id number] with listener. ?? use of FM amplification to address difficulties of listening in background noise, reverberation and across distance, particularly while in the classroom; FM technology should be verified annually and can be arranged at [facility] Audiology upon receipt of a purchase order for the service. Please contact us with questions regarding today's visit. Genna Shankar M.Ed., CCC-A Business Education Instructor [place] [phone] (v) / [phone] (f) Attachment: audiogram CC: ?? Parents of Bonnie Wu [address] [place] [address] DANYA PULIDO MD / PCP (signed release of info forms rec'd 06/10/17:) [facility] attn: Jossy Mejias/Chilo , Cardiac Cath Lab Radiology Technologist [address] [place] [id number] [place] [address], attn: Zenaida Doyle [address] [place] [address] EQUIPMENT TABLE: HEARING AID?? RIGHT?? LEFT?? Make/Model/Style?? Oticon Sensei Pro BTE?? Oticon Sensei Pro BTE?? Casing Color?? red?? red?? Serial Number?? [id number]?? Battery Size?? 13?? 13?? Invoice number / date?? [id number]?? 05/01/15?? 05/01/15?? PROGRAM/SETTINGS? Fitting Algorithm?DSL child DSL [...] Used?? 06-01-18?? EARMOLD (if BTE MCKEON)? Lab?? [facility]??(2 pair) [facility]??(2 pair) Earmold specifics?? 1/2 shell/otoblast/purple & pink swyrl/ med canal / no vent / 13T thru?? 1/2shell/otoblast/purple & pink swyrl/ med canal / no vent / 13T thru Impression Date?? 06/02/17 06/02/17?? Invoice #? ACCESSORIES? Make/Model?Oticon Streamer ? Color?n/a ? Serial Number?[id number] ?Warranty date?06/30/16 per Lauren Jaramillo ? Invoice number/date? HEARING AID ([employer] Secretary [employer]) RIGHT ?? LEFT ?? Make/Model/Style ?? Oticon Sensei P ?? Oticon Sensei P ?? Casing Color ?? purple ?? purple ?? Serial Number ?? [id number] ?? [id number] ?? Battery Size ?? 13 ?? 13 ?? Invoice number / date ?? [id number] 04/14/14 ?? [id number] 04/14/14 ?? PROGRAM/SETTINGS ? Fitting Algorithm ?? [...] ?? Current Status ?? 05/15/17 ?? 05/15/17 ?? EARMOLD (if BTE MCKEON) ? Lab ?? [facility] ?? [facility] ?? Earmold specifics ?? 6/ otoblast (cateye green) / med canal / no vent / 13T thru ?? 6/ otoblast (cateyegreen) / med canal / no vent / 13T thru ?? Impression Date ?? 02/09/14 ?? 02/09/14 ?? Invoice # ? ACCESSORIES ? FM EQUIP - SCHOOL: [employer] [place], [place] ?? TRANSMITTER ?? COPYHOLDER #1 ?? COPYHOLDER #2 ?? MAKE/MODEL ?? Phonak / Inspiro ?? Phonak / MLxi ?? Phonak / MLxi ?? SERIAL NUMBER ?? [id number] ?? [id number] ?? [id number] ?? CHANNEL ?? N02 ?? N02 ?? N02 ?? FM SETTINGS ? ANT / AUDIO SHOE ?? [place] Ant ?? Oticon FM9 ?? Oticon FM9 ?? VERIFICATION DATE ?? 01/08/2013 ?? 01/08/2013 ?? 01/08/2013 ?? FIT DATE ? OTHER/COMMENTS ? documented in this encounter Plan of Treatment Not on filedocumented as of this encounter Procedures Procedure Name Priority Date/Time Associated Comments Diagnosis COMPREHENSIVE HEARING Routine 06/02/2017 9:57 AM Results for this TEST EST procedure are i n the results section. documented in this encounter Results Comprehensive hearing test (06/02/2017 9:57 AM EST) Specimen (Source) Anatomical Collection Method Collection Time Re ceived Time Location / / Volume Laterality 06/02/2017 9:57 AM EST Narrative [facility] - 06/02/2017 9:57 AM EST 17 yo female seen for monitoring of hear ing and amplification needs; please see report. Procedure Note Unknown - 06/02/2017Formatting of this n ote might be different from the original. 17 yo female seen for monitoring of hear ing and amplification needs; please see report. Unknown AUDIOLOGY SERVICES ORDERABLE S Performing Organization Address City/State/ZIP Code Phon e Number [facility] documented in this encounter Visit Diagnoses Diagnosis Sensorineural hearing loss, bilateral documented in this encounter Care Teams Mural Artist Relationship Specialty Start Date End Date Danya Pulido MD PCP - General 03/27/10 [address] [place] [address] documented as of this encounter
--- OUTSIDE RECORDS SUMMARY | 2022-02-16 20:19 | XMS_ITS | Encounter Summary ---
:2000 Author Organization [facility] [place] [address] Care Team Providers Name Role Phone Danya Pulido MD Primary Care Provider Reason for Visit Audiology Exam (Routine) - Closed Specialty Diagnoses / Procedures Referred By Contact Refer red To Contact Audiology Diagnoses Return for HAF Danya Pulido MD Mosenthal, Leah S, MEd Procedures HEARING AID FITTING [address] [facility] [place] [place] [address] [place] [address] Phone: Fax: Referral ID Status Reason Start Date Expiration Date Visits Requ ested Visits Authorized [id number] Closed 07/16/2018 07/16/2019 1 1 Encounter Details Date Type Department Care Team Description 08/07/2018 Office Visit Audiology at [facility] Genna Shankar Sensorineural hearing [facility] S MEd loss, bilateral [address] [place], [place] [address] AUDIOLOGY DEPT [phone] [place], [place] [address] Social History Tobacco Use Types Packs/Day Years Used Date Never Assessed Sex Assigned at Date Recorded Not on file documented as of this encounter Progress Notes Genna Shankar MEd - 08/07/2018 9:30 AM EDT AUDIOLOGY SECTION HISTORY: Name: Bonnie Wu Age: 18 years Date of Visit: 06/05/2018 Reason for Visit: fitting/orientation of new hearing aids Accompanied by: grandmother, Li Nicole presents with bilateral moderate to severe sensorineural hearing loss for which she uses two hearing aids (since May 2003). Her most recent audiologic evaluation was in Jun 2018. Hearing loss wasidentified in 2002 (age 3 years) but is suspected to be congenital having referred upon her hearing screen. History includes PE tubes (2002 and 2003; known extruded). Please refer to patient's medical record for any additional background information as needed. Educational Supports and Services: (from last visit) Bonnie attends 11th grade at the [employer] in [place], [place], with a [address]. This is a change in schools from last year; she shares that it is a small school and things are going well. Bonnie was unsure if hearing supports were provided through [facility]- the business sales consultant for [facility] is Ayana Tripp. Last visit Bonnie explained she had been unable to use her FM equipment as the audio shoes and receivers were lost (as well as the pair of hearing aids that her previous school had purchased for Bonnie) when she changed schools as of Dec 2017. [facility] Pediatric Audiology's Heritage Consultant, Chanda Schaefer, touched base with school to help tease out what was in place, and make sure school understoodthe need for FM equipment to hear well in distance and competing noise situations. Bonnie reports theaudio shoes were replaced but not yet the bottom part (receivers?). Of note, given the new hearing aid fitting, the audio shoe size is now FM10; likely these would need to be ordered (in chroma beige) if not already done. Also, Bonnie is due for FM/DM verification if not yet planned. Interim information: ?? Bonnie got her tonsils out on Friday of this week; she is just starting to get her voice back. A change in hearing was not suspected. Hearing Aid Fitting: See EQUIPMENT TABLE below ?? Bonnie's new earmolds fit well; the tubing was trimmed. ?? The Oticon Opn 3 PP hearing aids were programmed ahead of time via simulated real-ear measures using the most recent audiological results with??average RECD applied to the measure. Fine tuning adjustments were completed using real-ear measures during today's visit. The frequency responses of the hearing aids nicely approximated the Desired Sensation Level (DSL) aided response targets without exceeding the maximum output limits as programmed. A post repair SREM was completed. There was no concern for loudness discomfort nor unexplained feedback. However, later family called to tell us there was intermittent squealing coming from the right aid-initially in the car and then in other settings too. We had not noticed that during our visit. An in trial check appointment was requested to try and determine what the problem might be. ?? Bonnie was counseled briefly regarding the use, care, and maintenance of the hearing aids; as a previous user, much of this was familiar. The percussion welding machine operator's instructional booklets were given. Family is familiar with warnings regarding battery ingestion. The Ozsale courtesy kit was given. The warranty was reviewed with the family and paperwork completed. ?? We briefly reviewed the ConnectClip accessory which Bonnie may use as desired for listening to music, TV/movies/computer, and the phone. It can also serve as a remote control device for the hearing aids and for partner listening. We paired to the hearing aids and did a demonstration of the remote microphone feature (which has a 60 foot range of distance). Family will review the manual to get betteracquainted with it at home; there are also online demonstration videos available. RECOMMENDATIONS: 1. Continue medical management. 2. Begin regular use of the new hearing aids full-time during waking hours save for water activities(e.g. Bathing, swimming). 3. Return to audiology in one year for ongoing monitoring of hearing and amplification; sooner if concerns arise before that time (reminder requested for Jun 2019). 4. Given this student's educationally significant hearing loss, it is recommended that a header setup operator and/or transmission system operator be part of their educational program through [...] supplement spoken communication. ?? positioning of speakers qylb-[id number]-hryl with listener. ?? use of FM/DM amplification to address difficulties of listening in background noise, reverberation and across distance, particularly while in the classroom; FM/DM technology should be verified annually and can be arranged at [facility] Audiology upon receipt of a purchase order for the service. Please contact us with questions regarding today's visit. Genna Shankar M.Ed., CCC-A Housekeeper Manager [place] [phone] (v) / [phone] (f) CC: ?? Family of Bonnie Wu [address] [facility] [address] DANYA PULIDO MD / PCP [facility] [employer], attn: [place] Singh [address] [facility] [id number] [place] [address], attn: Ayana Tripp [address] [place] [address] [place] [facility], attn: Nadege Chamorro [address], [address] [facility] [address] EQUIPMENT TABLE: HEARING AID RIGHT LEFT Make/Model/Style Oticon Opn 3 13 BTE PP Oticon Opn 3 13 BTE PP Casing Color Chroma beige Chroma beige Serial Number [id number] Battery Size 13 13 Invoice number / date [id number] 07/27/18 [id number] 07/27/18 PROGRAM/SETTINGS Fitting Algorithm DSL child DSL child Verification Method REM; post repair SREM REM; post repair SREM Programs Everyday Everyday Disabled Features waylongle alex Other Volume on; auto MT on Volume on; auto MT on HEARING AID WARRANTY Original Fit Date 08/07/18 08/07/18 Current Status 09/02/20 09/02/20 EARMOLD (if BTE MCKEON) Lab [facility] Earmold specifics 1/2 shell/otoblast/purple & blue swyrl/ med canal / no vent / 13T thru??tube/ red dot 1/2 shell/otoblast/purple & blue swyrl/ med canal / no vent / 13T thru??tube/ blue dot Impression Date 06/05/18 06/05/18 Invoice # ACCESSORIES Make/Model FM capable battery doors ConnectClip Color Chroma Beige Serial Number [id number] Warranty date 09/03/19 Invoice number/date [id number] 07/27/18 HEARING AID??back ups RIGHT?? LEFT?? Make/Model/Style?? Oticon Sensei Pro BTE?? Oticon Sensei Pro BTE?? Casing Color?? red?? red?? Serial Number?? [id number]?? Invoice number / date?? [id number]?? 05/01/15?? 05/01/15?? PROGRAM/SETTINGS? Fitting Algorithm?DSL child DSL child Verification Method?? REM; SREM for post repair REM; SREM for post repair Programs?>P1=Basic (auto tri mode; NR on) >Auto phone (M) >P1=Basic (auto tri mode; NR on) >Auto phone (M) Other?? Active volume control?? Active volume control ACCESSORIES? Make/Model?Oticon Streamer ? Color?n/a ? Serial Number?[id number] ?Warranty date?06/30/16 per Lauren Jaramillo ? FM EQUIP - SCHOOL: [employer], [place] ?? TRANSMITTER ?? CHIEF INTERNAL AUDITOR #1 ?? CHIEF INTERNAL AUDITOR #2 ?? MAKE/MODEL ?? Phonak / Inspiro ?? Phonak / MLxi ?? Phonak / MLxi ?? SERIAL NUMBER ?? [id number] ?? [id number] (missing) [id number] (missing) CHANNEL ?? N02 ?? N02 ?? N02 ?? FM SETTINGS ? TATE / AUDIO SHOE ?? Avella Tate ?? Oticon FM9 ?? Oticon FM9 ?? VERIFICATION DATE ?? 01/08/2013 ?? 01/08/2013 ?? 01/08/2013 ?? FIT DATE ? OTHER/COMMENTS ? documented in this encounter Plan of Treatment Not on filedocumented as of this encounter Visit Diagnoses Diagnosis Sensorineural hearing loss, bilateral documented in this encounter Care Teams Assembly Mechanic Relationship Specialty Start Date End Date Danya Pulido MD PCP - General 03/27/10 [address] [place] [address] documented as of this encounter
--- OUTSIDE RECORDS SUMMARY | 2022-02-16 20:19 | XMS_ITS | Encounter Summary ---
:2001 Author Organization [facility] [place] [address] Care Team Providers Name Role Phone Danya Pulido MD Primary Care Provider Reason for Referral Consultation (Routine) - Authorized Specialty Diagnoses / Procedures Referred By Contact Refer red To Contact Obstetrics and Diagnoses Sensorineural hearing loss, bilateral , unspecified gestational age Kenna Chang, [facility] Buffer Copper 5l Gynecology [address] [place] [id number] Referral ID Status Reason Start Date Expiration Visits Visits Date Requested Authorized [id number] Authorized Consult, 08/22/2021 08/22/2022 6 6 Test & Treat Encounter Details Date Type Department Care Team Description 08/22/2021 Transcribe Orders eDH Incoming Krystle Changineu ral hearing loss, bilateral; Referrals CALEB Pierson , unspecified gestational age [phone] [place] [address] [address] [place] [place], [place] [phone] Social History Tobacco Use Types Packs/Day Years Used Date Current Every Day Smoker 0.25 Smokeless Tobacco: Never Used Sex Assigned at Date Recorded Not on file documented as of this encounter Plan of Treatment Scheduled Referrals Name Type Priority Associated Diagnoses Order S chedule Referral to Outpatient Referral Routine Sensorineural hearing Ordered: Maternal loss, bilateral 08/22/2021 Medicine , unspecified gestational age documented as of this encounter Visit Diagnoses Diagnosis Sensorineural hearing loss, bilateral , unspecified gestational age documented in this encounter Care Teams Satellite Instruction Facilitator Relationship Specialty Start Date End Date Danya Pulido MD PCP - General 03/27/10 [address] [place] [address] documented as of this encounter
--- OUTSIDE RECORDS SUMMARY | 2022-02-16 20:19 | XMS_ITS | Encounter Summary ---
:2001 Author Organization [facility] [place] [address] Care Team Providers Name Role Phone Danya Pulido MD Primary Care Provider Encounter Details Date Type Department Care Team Description 10/20/2018 Office Visit Audiology at [facility] Genna Shankar Sensorineural hearing [facility] S, MEd loss, bilateral Drive [facility] [address] AUDIOLOGY DEPT [phone] [place] [address] Social History Tobacco Use Types Packs/Day Years Used Date Never Assessed Sex Assigned at Date Recorded Not on file documented as of this encounter Progress Notes Genna Shankar, MEd - 10/20/2018 7:30 AM EDT AUDIOLOGY SECTION HISTORY: Name: Bonnie Wu Age: 18 years Date of Visit: 10/20/2018 Reason for Visit: hearing aid check Accompanied by: grandmother, Li Nicole presents with [...] as needed. Educational Supports and Services: Bonnie just completed 11th grade at the [employer] in [place], [place], with a [address]; she begins her senior year in the fall. This was a change in schools from last year; it is a small school and things went well; Bonnie noted she begins college courses next year. She had been unsure if hearing supports were provided through [facility]-the trial consultant for [facility] is Ayana Tripp. In addition to the hearing aid problems, Bonnie came today with her FM/DM equipment, explaining that the receivers were not connecting properly and wondered if I could look into it. We did not have a purchase order for the equipment's verification and gave information how school can pursue this though the Audiology department if desired. Otherwise, given the hearing aids are going in for service, we hoped this might resolve the problem. We can do a brief listening check at the follow up visit, or an FM/DM verification can be arranged. [facility] Pediatric Audiology's Consulting Services Manager, Chanda Schaefer, can help answer questions if school is unsure what is needed. Hearing Aid Check: See EQUIPMENT TABLE below ?? Bonnie was fit with new hearing aids in Jun 2018, and family came to [facility] earlier in October for a work-in check with my colleague, Jaron Stacy, to try and address construction noise in school. Today, Bonnie explained that the left instrument has been making an intermittent staticky noise pretty much since the fitting. Also, the left aid sounds louder than the right but when using the ConnectClip, sounds softer and doesn't seem to adjust using the volume. ?? The Oticon Opn 3 PP hearing aids were re-programmed which Bonnie found helpful and they sounded more balanced. However, they were not streaming properly and consistently with the Bluetooth/ConnectClip, even when trouble shooting with our clinic stock device. Unpairing and repairing the device did not resolve the problem. Ultimately, we felt it was important the hearing aids go in for repair. We would like to have Bonnie return for a hearing aid check to verify the equipment is working well togetherfollowing the repair. ?? Loaner Oticon Sensei Pro BTE hearing aids were programmed for Bonnie and paperwork completed. RECOMMENDATIONS: 1. Continue medical management. 2. Resume regular use of the new hearing aids post repair (using loaners in the interim), full-time during waking hours save for water activities (e.g. bathing, swimming). 3. Return to audiology in one year for ongoing monitoring of hearing and amplification needs; soonerif concerns arise before that time (reminder requested for Jun 2019). 4. Given this student's educationally significant hearing loss, it is recommended that a traffic police officer and/or educational sign language interpreter be part of their educational program through [...] supplement spoken communication. ?? positioning of speakers xtvi-or-ekbj with listener. ?? use of FM/DM amplification to address difficulties of listening in background noise, reverberation and across distance, particularly while in the classroom; FM/DM technology should be verified annually and can be arranged at [facility] Audiology upon receipt of a purchase order for the service. Please contact us with questions regarding today's visit. Genna Shankar M.Ed., [facility]-[place] [address] (v) / [phone] (f) CC: ?? Family of Bonnie Wu [address] [facility] [address] DANYA PULIDO MD / PCP [facility], attn: Florida Singh [address] [place] [address] [facility], attn: Ayana Tripp [address] [facility] [address] [place] [employer], attn: Nadege Chamorro [address], [address] [facility] [address] EQUIPMENT TABLE: HEARING AID RIGHT LEFT Make/Model/Style Oticon Opn 3 13 BTE PP Oticon Opn 3 13 BTE PP Casing Color Chroma beige Chroma beige Serial Number [id number] Battery Size 13 13 Invoice number / date [id number] 07/27/18 [id number] 07/27/18 PROGRAM/SETTINGS Fitting Algorithm DSL child DSL child Verification Method REM; post repair SREM REM; post repair SREM Programs Default-Everyday P1-speech in noise Default-Everyday P1-speech in noise Disabled Features Jingle off Jingle off Other Volume on; auto MT on Volume on; auto MT on HEARING AID WARRANTY Original Fit Date 08/07/18 08/07/18 Current Status 09/02/20 09/02/20 EARMOLD (if BTE MCKEON) Lab [facility] Earmold specifics 1/2 shell/otoblast/purple & blue swyrl/ med canal / no vent / 13T thru??tube/ red dot 1/2 shell/otoblast/purple & blue swyrl/ med canal / no vent / 13T thru??tube/ blue dot Impression Date 06/05/18 06/05/18 Invoice # ACCESSORIES Make/Model FM capable battery doors ConnectClip Color Chroma Beige Serial Number [id number] Warranty date 09/03/19 Invoice number/date [id number] 07/27/18 HEARING AID??back ups RIGHT?? LEFT?? Make/Model/Style?? Oticon Sensei Pro BTE?? Oticon Sensei Pro BTE?? Casing Color?? red?? red?? Serial Number?? [id number]?? Invoice number / date?? [id number]?? 05/01/15?? 05/01/15?? PROGRAM/SETTINGS? Fitting Algorithm?DSL child DSL child Verification Method?? REM; SREM for post repair REM; SREM for post repair Programs?>P1=Basic (auto tri mode; NR on) >Auto phone (M) >P1=Basic (auto tri mode; NR on) >Auto phone (M) Other?? Active volume control?? Active volume control ACCESSORIES? Make/Model?Oticon Streamer ? Color?n/a ? Serial Number?[id number] ?Warranty date?06/30/16 per Lauren Lowerydwell ? FM EQUIP - SCHOOL: [employer] ?? TRANSMITTER ?? ADMINISTRATIVE NURSING SUPERVISOR #1 ?? ADMINISTRATIVE NURSING SUPERVISOR #2 ?? MAKE/MODEL ?? Phonak / Inspiro ?? Phonak / MLxi ?? Phonak / MLxi ?? SERIAL NUMBER ?? [id number] ?? [id number] (missing) [id number] (missing) CHANNEL ?? N02 ?? N02 ?? N02 ?? FM SETTINGS ? TATE / AUDIO SHOE ?? Hayden Tate ?? Oticon FM9 ?? Oticon FM9 ?? VERIFICATION DATE ?? 01/08/2013 ?? 01/08/2013 ?? 01/08/2013 ?? FIT DATE ? OTHER/COMMENTS ? documented in this encounter Plan of Treatment Not on filedocumented as of this encounter Visit Diagnoses Diagnosis Sensorineural hearing loss, bilateral documented in this encounter Care Teams Warehouse Order Selector Relationship Specialty Start Date End Date Danya Pulido MD PCP - General 03/27/10 [address] [place] [address] documented as of this encounter
--- OUTSIDE RECORDS SUMMARY | 2022-02-16 20:19 | XMS_ITS | Encounter Summary ---
:2001 Author Organization [facility] [place] [address] Care Team Providers Name Role Phone Danya Pulido MD Primary Care Provider Encounter Details Date Type Department Care Team Description 07/10/2020 Office Visit Audiology at [facility] Genna Shankar Sensorineural hearing [facility] S, MEd loss, bilateral Drive [facility] [address] AUDIOLOGY DEPT [phone] [place] [id number] Social History Tobacco Use Types Packs/Day Years Used Date Current Every Day Smoker 0.25 Smokeless Tobacco: Never Used Sex Assigned at Date Recorded Not on file documented as of this encounter Progress Notes Genna Shankar MEd - 07/10/2020 8:00 AM EST AUDIOLOGY SECTION HISTORY: Name: Bonnie Wu Age: 20 years Date of Visit: 07/10/2020 Reason for Visit: audiologic re-assessment and hearing aid check Bonnie presents with bilateral moderate to severe sensorineural hearing loss for which she has used two hearing aids (since May 2003). Her most recent audiologic evaluation was in Jun 2018. Hearing losswas identified in 2002 (age 3 years) but is suspected to be congenital having referred upon her hearing screen. History includes PE tubes (2002 and 2003; known extruded). Please refer to patient's medical record for any additional background information as needed. Interim information: ?? Bonnie has been in good overall health; a change in hearing was not suspected. She notes occasional ear pain, occasional tinnitus right more than left; no ear infections or drainage. ?? Bonnie continues to wear binaural hearing aids though had some difficulty with a previous job's headset requiring her to remove a hearing aid from one ear. 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 Bonnie denied loudness discomfort or problems with unexplained hearing aid feedback. On occasion Bonnie has been seen for in office hearing aid repairs at a local provider in [facility], where she can pursue updated hearing aid technology through her health insurance. ?? Bonnie graduated from [employer] in [place], [place], where she had a 504 [address] in [address]. During her senior year, she began an online college course through [employer], though did notquite complete it. She has been connected with [employer] and [place] [facility] locally, and has some interest in pursuing in person college through [employer] as discussed with [facility] (not working with this program at present but aware of it as a resource). Evaluation: (see audiogram) ?? Bonnie's hearing appears stable with moderate to severe sensorineural hearing loss bilaterally; very good word recognition when presented via recorded MEEI words at comfortable levels in quiet; and normal tympanograms bilaterally. Hearing Aid Check: See EQUIPMENT TABLE below ?? Bonnie's earmolds appeared small; they were cleaned and we noted the right has had its tubing replaced recently; we re-tubed the left today. Ultimately we took binaural ear impressions with canals clear pre/post for replacement half shell earmolds. These will be sent to Bonnie at home; she was advised to contact us with any fit concerns. ?? Visual inspection and listening check of Bonnie's hearing aids was satisfactory. The OtRazorsight Opn 3 PP hearing aids were fine tuned on ear via real- ear measures to Desired Sensation Level (DSL) aided response and maximum output targets. The feedback information technology account manager was run and fine tuning adjustments completed, which Bonnie tolerated without difficulty. When asked Bonnie noted she does not use the Speech in Noise program and this was removed; the tcoil+ant option remained. ?? Bonnie is due for updated hearing aid technology and has plans to pursue that locally in [place], [place]. Toward that end she asked for her last few audiograms/reports which was printed for her to bring, along with today's audiogram. RECOMMENDATIONS: 1. Continue medical management. Pursue updated hearing aid technology as planned more locally. 2. 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 Bonnie is due to updated amplification technology at this time. 3. Ongoing monitoring of hearing and amplification needs is advised (locally) on an annual basis; sooner if concerns arise before that time. 4. Although Bonnie benefits from using amplification, it is important to remember that hearing aids do not restore hearing to normal. With this in mind, strategies to aid in communication access, along with consistent hearing aid use, are recommended including: ?? preferential seating in all settings, near to the teacher/speaker, and away from sources of noise(e.g. ventilation blowers/fans, open windows/doorways). ?? reduction in overall background noise and reverberation levels. ?? re/direction of attention toward the speaker before a spoken message is given. ?? use of visual cues/ visual language to supplement spoken communication. ?? positioning of speakers [id number] with listener. ?? use of hearing assistive technology (HAT) to address difficulties of listening in background noise, reverberation and across distance, particularly while in the classroom/other setting. Please contact us with questions regarding today's visit. Genna Shankar M.Ed., [facility] Gas Or [place] [address] (v) / [phone] (f) CC: ?? Bonnie Wu, [address] [place] [address], [place] [address] DANYA PULIDO MD / PCP EQUIPMENT TABLE: HEARING AID RIGHT LEFT Make/Model/Style Oticon Opn 3 13 BTE PP Oticon Opn 3 13 BTE PP Casing Color Chroma beige Chroma beige Serial Number [id number] Battery Size 13 13 Invoice number / date [id number] 07/27/18 [id number] 07/27/18 PROGRAM/SETTINGS Fitting Algorithm DSL child DSL child Verification Method REM; post repair SREM REM; post repair SREM Programs Default-Everyday P1-tcoil+ant Default-Everyday P1-tcoil+ant Speech Intelligibility Index (SII) Unaided: 8/100; aided: 61/100 Unaided: 8/100; aided: 63/100 Disabled Features Jingle off Jingle off Other Volume on; auto MT on; Bluetooth paired directly through yaya Volume on; auto MT on; Bluetooth paired directly through yaya HEARING AID WARRANTY Original Fit Date 08/07/18 08/07/18 Current Status 09/02/20 09/02/20 EARMOLD (if BTE MCKEON) Lab [facility] Earmold specifics #8, 1/2 shell/otoblast/red, clear & pink swyrl/ med canal / no vent / 13T thru??tube/ red dot #8, 1/2 shell/otoblast/red, clear & pink swyrl/ med canal / no vent / 13T thru??tube/ blue dot Impression Date 07/10/20 07/10/20 Comments 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 documented in this encounter Results Comprehensive hearing test (07/10/2020 8:33 AM EST) Specimen (Source) Anatomical Collection Method Collection Time Re ceived Time Location / / Volume Laterality 07/10/2020 8:33 AM EST Narrative AUDBASE COMP - 07/10/2020 8:33 AM EST 20 yo female seen for monitoring of hearing and amplification needs. 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 Occasional right tinnitus; reviewed coping strategies; occasional ear pain b ut reports no infections/otorrhea. Graduated from high school; began some college online throug h [employer]; may resume in person through [employer] as has discussed with [place] [facility] though not working with them presently. Plans to pursue updated amplification locally which we e johnie, as well. Today moderate to severe bilateral senso rineural hearing loss stable; very good word recognition when assessed at comfortable listening levels in quiet; normal tympanograms bilaterally. Advise pursuing updated amp lification technology locally as planned; then annual monitoring of hearing and amplification needs. Procedure Note Unknown - 07/10/2020Formatting of this n ote might be different from the original. 20 yo female seen for monitoring of hear ing and amplification needs. 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 Occasional right tinnitus; reviewed coping strategies; occasional ear pain b ut reports no infections/otorrhea. Graduated from high school; began some college [facility] [employer]; may resume in person through [employer] as has discussed with [place] [facility] though not working with them presently. Plans to pursue updated amplification locally which we e johnie, as well. Today moderate to severe bilateral senso rineural hearing loss stable; very good word recognition when assessed at comfortable listening levels in quiet; normal tympanograms bilaterally. Advise pursuing updated amp lification technology locally as planned; then annual monitoring of hearing and amplification needs. Unknown AUDIOLOGY SERVICES ORDERABLE S Performing Organization Address City/State/ZIP Code Phon e Number AUDBASE COMP documented in this encounter Visit Diagnoses Diagnosis Sensorineural hearing loss, bilateral documented in this encounter Care Teams Grand Scribe Relationship Specialty Start Date End Date Danya Pulido MD PCP - General 03/27/10 [address] [place] [address] documented as of this encounter
--- OUTSIDE RECORDS SUMMARY | 2022-02-16 20:19 | XMS_ITS | Encounter Summary ---
:2001 Author Organization [facility] [place] [address] Care Team Providers Name Role Phone Danya Pulido MD Primary Care Provider Reason for Visit Reason Onset Date Comments Prior Authorization 08/30/2019 Encounter Details Date Type Department Care Team Description 08/30/2019 Telephone Gastroenterology at [facility] Leslie Hines Prior Authorization [facility] [place] [address] Social History Tobacco Use Types Packs/Day Years Used Date Current Every Day Smoker 0.25 Smokeless Tobacco: Never Used Sex Assigned at Date Recorded Not on file documented as of this encounter Miscellaneous Notes [facility]30[facility] 2:40 PM EDT Medication Prior Authorization 4L Gastroenterology / [place] [address] Subscriber Insurance: [place] Medicaid Phone: Fax: Physician: Pranay Gray Return Pharmacy: Phone: Fax: Medication Requested: Omeprazole Strength: 20mg Frequency: Take 1 capsule by mouth 2 times daily Disp.: 60 Refills: 11 Currently taking: Diagnosis for this medication: GERD, Heartburn ICD-10 code: (K21.9) Prior medications trialed in this patient: Omeprazole 20mg once daily Medication: Outcome/Adverse Reactions:Treatment Failure Decision: Approved Tracking number/Case number/Reference number:[id number] Effective date: Start: 08/30/2019 End:11/29/2019 documented in this encounter Plan of Treatment Not on filedocumented as of this encounter Visit Diagnoses Not on filedocumented in this encounter Care Teams University Relations Recruiter Relationship Specialty Start Date End Date Danya Pulido MD PCP - General 03/27/10 [address] [place] [address] documented as of this encounter
--- OUTSIDE RECORDS SUMMARY | 2022-02-16 20:19 | XMS_ITS | Encounter Summary ---
:2001 [place] [address] Care Team Providers Name Role Phone Danya Pulido MD Primary Care Provider Encounter Details Date Type Department Care Team Description 09/30/2018 Telephone [place] [facility] [place] [address] Social History Tobacco Use Types Packs/Day Years Used Date Never Assessed Sex Assigned at Date Recorded Not on file documented as of this encounter Plan of Treatment Not on filedocumented as of this encounter Visit Diagnoses Not on filedocumented in this encounter Care Teams Bar Steward Relationship Specialty Start Date End Date Danya Pulido MD PCP - General 03/27/10 [address] [place] [address] documented as of this encounter
--- OUTSIDE RECORDS SUMMARY | 2022-02-16 20:19 | XMS_ITS | Encounter Summary ---
:2001 Author Organization [facility] [place] [address] Care Team Providers Name Role Phone Danya Pulido MD Primary Care Provider Encounter Details Date Type Department Care Team Description 11/17/2018 Office Visit Audiology at [facility] Genna Shankar Sensorineural hearing [facility] S, MEd loss, bilateral Drive [facility] [address] AUDIOLOGY DEPT [phone] [place] [id number] Social History Tobacco Use Types Packs/Day Years Used Date Never Assessed Sex Assigned at Date Recorded Not on file documented as of this encounter Progress Notes Genna Shankar, MEd - 11/17/2018 9:45 AM EDT AUDIOLOGY SECTION HISTORY: Name: Bonnie Wu Age: 18 years Date of Visit: 11/17/2018 Reason for Visit: post repair hearing aid check Accompanied by: grandmother, Li [...] needed. Educational Supports and Services: (not updated today, save for Bonnie confirming she has the updatedFM 10 audio shoes to connect the FM/DM to her new hearing aids) Bonnie completed 11th grade at the [employer] in [place], [place], with a 504 [address]; she begins her senior year in the fall. This was a change in schools from last year; it is a small school and things went well; Bonnie mccarty begins college courses next year. She had been unsure if hearing supports were provided through [employer]-the it security consultant for [facility] is Ayana Tripp. Bonnie brought her FM/DM equipment, explaining that the receivers were not connecting properly last visit. We did not have a purchase order for the equipment's verification and gave information how school can pursue this though the Audiology department if desired. Otherwise, given the hearing aids are going in for service, we hoped this might resolve the problem. We can do a brief listening check at the follow up visit, or an FM/DM verification can be arranged. [facility] Pediatric Audiology's Printing Roller Polisher, Chanda Schaefer, can help answer questions if school is unsure what is needed. Hearing Aid Check: See EQUIPMENT TABLE below ?? Bonnie's hearing aids had been sent for repair given problems with an intermittent staticky noise and problems when using the ConnectClip. ?? The Oticon Opn 3 PP hearing aids were fine tuned on ear via real-ear measures. Then we tried to check they were pairing and streaming properly and consistently with the Bluetooth/ConnectClip using our clinic stock device as Bonnie left hers home. Ultimately we had to clear the ConnectClip and then re- pair the device per Oticon Audiology support which resolved the problem. ?? The loaner Oticon Sensei Pro BTE hearing aids were returned in good condition. RECOMMENDATIONS: 1. Continue medical management. 2. Resume regular use of the new hearing aids full-time during waking hours save for water activities (e.g. bathing, swimming). Bonnie will contact us if she has any trouble with pairing her hearing aids to her ConnectClip at home. 3. Return to audiology in one year for ongoing monitoring of hearing and amplification needs; soonerif concerns arise before that time (reminder requested for Jun 2019). 4. Given this student's educationally significant hearing loss, it is recommended that a meat processing center manager and/or rn psychiatric be part of their educational program through [...] supplement spoken communication. ?? positioning of speakers [id number]-hz-[id number] with listener. ?? use of FM/DM amplification to address difficulties of listening in background noise, reverberation and across distance, particularly while in the classroom; FM/DM technology should be verified annually and can be arranged at [facility] Audiology upon receipt of a purchase order for the service. Please contact us with questions regarding today's visit. Genna Shankar M.Ed., CCC-A [place] [address] (v) / [phone] (f) CC: ?? Family of Bonnie Wu [address] [facility] [address] DANYA PULIDO MD / PCP [facility] [facility], attn: Florida Singh [address] [facility] [place] [facility] [id number] [place] [address], attn: Ayana Tripp [address] [place] [address] [place] [facility], attn: Nadege Chamorro [address], [address] [facility] [address] EQUIPMENT TABLE: HEARING AID RIGHT LEFT Make/Model/Style Oticon Opn 3 13 BTE PP Oticon Opn 3 13 BTE PP Casing Color Chroma beige Chroma beige Serial Number [id number] Battery Size 13 13 Invoice number / date [id number] 07/27/18 [id number] 07/27/18 PROGRAM/SETTINGS Fitting Algorithm DSL child DSL child Verification Method REM; post repair SREM REM; post repair SREM Programs Default-Everyday P1-speech in noise Default-Everyday P1-speech in noise Disabled Features Jingle off Jingle off Other Volume on; auto MT on Volume on; auto MT on HEARING AID WARRANTY Original Fit Date 08/07/18 08/07/18 Current Status 09/02/20 09/02/20 EARMOLD (if BTE MCKEON) Lab [facility] Earmold specifics 1/2 shell/otoblast/purple & pink swyrl/ med canal / no vent / 13T thru??tube/ red dot 1/2 shell/otoblast/purple & pink swyrl/ med canal / no vent / 13T thru??tube/ blue dot Impression Date 11/17/18 11/17/18 Invoice # ACCESSORIES Make/Model FM capable battery doors ConnectClip Color Chroma Beige Serial Number [id number] Warranty date 09/03/19 Invoice number/date [id number] 07/27/18 HEARING AID??back ups RIGHT?? LEFT?? Make/Model/Style?? Oticon Sensei Pro BTE?? Oticon Sensei Pro BTE?? Casing Color?? red?? red?? Serial Number?? [id number]?? Invoice number / date?? [id number]?? 05/01/15?? 05/01/15?? PROGRAM/SETTINGS? Fitting Algorithm?DSL child DSL child Verification Method?? REM; SREM for post repair REM; SREM for post repair Programs?>P1=Basic (auto tri mode; NR on) >Auto phone (M) >P1=Basic (auto tri mode; NR on) >Auto phone (M) Other?? Active volume control?? Active volume control ACCESSORIES? Make/Model?Oticon Streamer ? Color?n/a ? Serial Number?[id number] ?Warranty date?06/30/16 per Lauren Jaramillo ? FM EQUIP - SCHOOL: [employer], [place] ?? TRANSMITTER ?? RECREATIONAL THERAPY TECHNICIAN #1 ?? RECREATIONAL THERAPY TECHNICIAN #2 ?? MAKE/MODEL ?? Phonak / Inspiro ?? Phonak / MLxi ?? Phonak / MLxi ?? SERIAL NUMBER ?? [id number] ?? [id number] (missing) [id number] (missing) CHANNEL ?? N02 ?? N02 ?? N02 ?? FM SETTINGS ? TATE / AUDIO SHOE ?? [place] Tate ?? Oticon FM9 ?? Oticon FM9 ?? VERIFICATION DATE ?? 01/08/2013 ?? 01/08/2013 ?? 01/08/2013 ?? FIT DATE ? OTHER/COMMENTS ? documented in this encounter Plan of Treatment Not on filedocumented as of this encounter Visit Diagnoses Diagnosis Sensorineural hearing loss, bilateral documented in this encounter Care Teams Faucets Assembler Relationship Specialty Start Date End Date Danya Pulido MD PCP - General 03/27/10 [address] [place] [address] documented as of this encounter
--- OUTSIDE RECORDS SUMMARY | 2022-02-16 20:19 | XMS_ITS | Encounter Summary ---
:2001 Author Organization [facility] [place] [address] Care Team Providers Name Role Phone Danya Pulido MD Primary Care Provider Encounter Details Date Type Department Care Team Description 06/05/2018 Office Visit Audiology at [facility] Genna Shankar Sensorineural hearing [facility] S MEd loss, bilateral Drive [facility] [address] AUDIOLOGY DEPT [phone] [place], [place] [address] Social History Tobacco Use Types Packs/Day Years Used Date Never Assessed Sex Assigned at Date Recorded Not on file documented as of this encounter Progress Notes Genna Shankar MEd - 06/05/2018 8:45 AM EST Please see report of the same date Jun 05, 2018. documented in this encounter Plan of Treatment Not on filedocumented as of this encounter Visit Diagnoses Diagnosis Sensorineural hearing loss, bilateral documented in this encounter Care Teams Meat Stuffer Relationship Specialty Start Date End Date Danya Pulido MD PCP - General 03/27/10 [address] [place] [address] documented as of this encounter
--- OUTSIDE RECORDS SUMMARY | 2022-02-16 20:20 | XMS_ITS | Encounter Summary ---
:2001 Author Organization [facility] [place] [address] Care Team Providers Name Role Phone Danya Pulido MD Primary Care Provider Encounter Details Date Type Department Care Team Description 06/03/2013 Telephone Otolaryngology at [facility] [place] [address] Social History Tobacco Use Types Packs/Day Years Used Date Never Assessed Sex Assigned at Date Recorded Not on file documented as of this encounter Miscellaneous Notes Telephone Encounter - Hosea Segundo - 06/03/2013 8:26 AM EST Reminder List Notes: SENT CARD 04/12/2013 01:58PM [email or web address] 3RD CARD 05/06/2013 12:53PM WHITEIsaias documented in this encounter Plan of Treatment Not on filedocumented as of this encounter Visit Diagnoses Not on filedocumented in this encounter Care Teams Dba Developer Relationship Specialty Start Date End Date Danya Pulido MD PCP - General 03/27/10 [address] [place] [address] documented as of this encounter
--- OUTSIDE RECORDS SUMMARY | 2022-02-16 20:20 | XMS_ITS | Encounter Summary ---
:2001 Author Organization [facility] [place] [address] Care Team Providers Name Role Phone Danya Pulido MD Primary Care Provider Encounter Details Date Type Department Care Team Description 03/26/2013 Notes Only Audiology at [facility] Dea Merino [facility] [place] [address] Social History Tobacco Use Types Packs/Day Years Used Date Never Assessed Sex Assigned at Date Recorded Not on file documented as of this encounter Progress Notes Dea Merino - 03/26/2013 11:38 AM EST Left loaner was programmed to patient's settings and verified via S-REM. Loaner form was signed by the patient's father at the websphere commerce consultant desk. The patient's left hearing aid was sent in for repair. Mail the repaired hearing aid to the patient's school and then the school will mail back the loaner. School address is: [address] [address]. HEARING AID RIGHT LEFT MAKE/MODEL/STYLE Oticon Safari 600 P Oticon Safari 600 P CASING COLOR [place] SERIAL NUMBER [id number] BATTERY SIZE 13 13 PROGRAM/SETTINGS FITTING ALGORITHM DSL Child DSL Child VERIFICATION METHOD SREM w/RECD; REM SREM w/RECD; REM PROGRAMS P1=Basic P2= P3= P1=Basic P2= P3= DISABLED FEATURES Limited Volume range Limited Volume range OTHER COMMENTS WARRANTY ORIGINAL FIT DATE 05/11/12 05/11/12 CURRENT STATUS 05/23/15 05/23/15 EARMOLD/COUPLING (if BTE) LAB [facility] EM (style / material / vent / color) 6/Shell/Otoblast/[place]&Green S 6/Shell/Otoblast/[place]&Green IMPRESSION DATE 11/30/12 11/30/12 INVOICE # TUBE/RICKY (length / dome size) 13 13 FM EQUIPMENT - SCHOOL: [place], [place] FM EQUIPMENT TRANSMITTER OIL MIXER #1 OIL MIXER #2 MAKE/MODEL Phonak Inspiro MLxi MLxi SERIAL NUMBER [id number] CHANNEL 2 2 2 FM SETTINGS TATE / AUDIO SHOE [place] Tate Oticon FM9 Oticon FM9 VERIFICATION DATE FIT DATE OTHER/COMMENTS documented in this encounter Plan of Treatment Not on filedocumented as of this encounter Visit Diagnoses Not on filedocumented in this encounter Care Teams J2Ee Android Developer Relationship Specialty Start Date End Date Danya Pulido MD PCP - General 03/27/10 [address] [place] [address] documented as of this encounter
--- OUTSIDE RECORDS SUMMARY | 2022-02-16 20:20 | XMS_ITS | Encounter Summary ---
:2001 Author Organization [place] [address] Care Team Providers Name Role Phone Danya Pulido MD Primary Care Provider Encounter Details Date Type Department Care Team Description 01/31/2014 Procedure visit Audiology at [facility] Mireya Alas Unspecified hearing loss (Pr imary Dx); [facility] A Sensorine ural [place] [id number] Social History Tobacco Use Types Packs/Day Years Used Date Never Assessed Sex Assigned at Date Recorded Not on file documented as of this encounter Progress Notes Mireya Alas A - 01/31/2014 4:44 PM EDT AUDIOLOGY - AMPLIFICATION REPAIR NOTE REPAIR WORK HEARING AID (right, left or both) Right SERIAL NUMBER CHANGED? Yes WARRANTY CHANGED? Yes REPAIR WORK PERFORMED? (repair company/invoice number) Replacement under Loss & Damage. Oticon [id number] 01/28/14 CHARGE TO PATIENT? Yes S-REM VERIFICATION PERFORMED? RE-PROGRAMMED? ([facility] session date) PROGRAMS AND V/C STATUS CHANGED? PHYSICAL AND ACOUSTIC INSPECTION PERFORMED? DELIVERY (patient pick-up, patient seen, aid mailed or handed off) Given to Front Window Cashier [facility] LOANER OUT? OTHER HEARING AID RIGHT LEFT MAKE/MODEL/STYLE Oticon Safari 600 P Oticon Safari 600 P CASING COLOR [place] SERIAL NUMBER [id number] BATTERY SIZE 13 13 PROGRAM/SETTINGS FITTING ALGORITHM DSL Child DSL Child VERIFICATION METHOD SREM w/RECD; REM SREM w/RECD; REM PROGRAMS P1=Basic P2= P3= P1=Basic P2= P3= DISABLED FEATURES Limited Volume range Limited Volume range OTHER COMMENTS WARRANTY ORIGINAL FIT DATE 05/11/12 05/11/12 CURRENT STATUS 05/23/15-Repair only 05/23/15 EARMOLD/COUPLING (if BTE) LAB [facility] Nusrat EM (style / material / vent / color) 6/Shell/Otoblast/[place]&Green S 6/Shell/Otoblast/[place]&Green IMPRESSION DATE 11/30/12 11/30/12 INVOICE # TUBE/RICKY (length / dome size) 13 13 FM EQUIPMENT - SCHOOL: [place], [place] FM EQUIPMENT TRANSMITTER SECURITY ASSURANCE ANALYST #1 SECURITY ASSURANCE ANALYST #2 MAKE/MODEL Phonak Inspiro MLxi MLxi SERIAL NUMBER [id number] CHANNEL 2 2 2 FM SETTINGS TATE / AUDIO SHOE Charlotte Tate Oticon FM9 Oticon FM9 VERIFICATION DATE FIT DATE OTHER/COMMENTS documented in this encounter Plan of Treatment Not on filedocumented as of this encounter Visit Diagnoses Diagnosis Unspecified hearing loss - Primary Sensorineural hearing loss, bilateral documented in this encounter Care Teams Master Steam Yacht Relationship Specialty Start Date End Date Danya Pulido MD PCP - General 03/27/10 [address] [place] [address] documented as of this encounter
--- OUTSIDE RECORDS SUMMARY | 2022-02-16 20:20 | XMS_ITS | Encounter Summary ---
:2001 Author Organization [facility] [place] [address] Care Team Providers Name Role Phone Danya Pulido MD Primary Care Provider Reason for Visit Reason Onset Date Comments Prior Authorization 05/12/2015 HEARING AID BENEFITS Encounter Details Date Type Department Care Team Description 05/12/[address] [facility] Genna Shankar, Prior Authorization [facility] MEd (HEARING AID BENEFITS) [place] [address] AUDIOLOGY DEPT [place], [place] [address] Social History Tobacco Use Types Packs/Day Years Used Date Never Assessed Sex Assigned at Date Recorded Not on file documented as of this encounter Miscellaneous Notes Telephone Encounter - Ariane Barrow - 05/12/2015 7:41 AM EST Per [place] Medicaid website: patient has active coverage. Fit code V5011, dispensing code V5160 and MCKEON code V5261 are covered on the plan. No auth required. documented in this encounter Plan of Treatment Not on filedocumented as of this encounter Visit Diagnoses Not on filedocumented in this encounter Care Teams Landcare Facilitator Relationship Specialty Start Date End Date Danya Pulido MD PCP - General 03/27/10 [address] [place], [place] [address] documented as of this encounter
--- OUTSIDE RECORDS SUMMARY | 2022-02-16 20:20 | XMS_ITS | Encounter Summary ---
:2001 [place] [address] Care Team Providers Name Role Phone Danya Pulido MD Primary Care Provider Encounter Details Date Type Department Care Team Description 01/10/2014 Telephone Audiology at [facility] Dea Merino [facility] [place] [address] Social History Tobacco Use Types Packs/Day Years Used Date Never Assessed Sex Assigned at Date Recorded Not on file documented as of this encounter Miscellaneous Notes Telephone Encounter - AngeliqueRigoDea - 01/10/2014 11:05 AM EDT Received a phone call from Destiny [facility]ver[facility] regarding the patient's hearing aids. School is concerned that the patient is using one back- up hearing aid at this time, which is not utilizing FM. The family thought that [facility] had her hearing aids, which I reported was not correct. The school would like to schedule a follow-up appointment on behalf of the family so the patient can use her hearing aids and FM. I encouraged Destiny to have the family contact the clinic should the hearing aids be lost, so we can process and loss claim. She will provide a few possible appointment dates to the family to have them confirm with the clinic when they can come in. HEARING AID RIGHT LEFT MAKE/MODEL/STYLE Oticon Safari 600 P Oticon Safari 600 P CASING COLOR [place] Kap[place]ua SERIAL NUMBER [id number] BATTERY SIZE 13 13 PROGRAM/SETTINGS FITTING ALGORITHM DSL Child DSL Child VERIFICATION METHOD SREM w/RECD; REM SREM w/RECD; REM PROGRAMS P1=Basic P2= P3= P1=Basic P2= P3= DISABLED FEATURES Limited Volume range Limited Volume range OTHER COMMENTS WARRANTY ORIGINAL FIT DATE 05/11/12 05/11/12 CURRENT STATUS 05/23/15 05/23/15 EARMOLD/COUPLING (if BTE) LAB [facility] Westone EM (style / material / vent / color) 6/Shell/Otoblast/[place]&Green S 6/Shell/Otoblast/[place]&Green IMPRESSION DATE 11/30/12 11/30/12 INVOICE # TUBE/RICKY (length / dome size) 13 13 FM EQUIPMENT - SCHOOL: [place], [place] FM EQUIPMENT TRANSMITTER VIDEO SOFTWARE ENGINEER #1 VIDEO SOFTWARE ENGINEER #2 MAKE/MODEL Phonak Inspiro MLxi MLxi SERIAL NUMBER [id number] CHANNEL 2 2 2 FM SETTINGS TATE / AUDIO SHOE [place] Tate Oticon FM9 Oticon FM9 VERIFICATION DATE FIT DATE OTHER/COMMENTS documented in this encounter Plan of Treatment Not on filedocumented as of this encounter Visit Diagnoses Not on filedocumented in this encounter Care Teams Grades 1 Thru 6 Home Teacher Relationship Specialty Start Date End Date Danya Pulido MD PCP - General 03/27/10 [address] [place] [address] documented as of this encounter
--- OUTSIDE RECORDS SUMMARY | 2022-02-16 20:20 | XMS_ITS | Encounter Summary ---
:2001 Author Organization [facility] [place] [address] Care Team Providers Name Role Phone Danya Pulido MD Primary Care Provider Encounter Details Date Type Department Care Team Description 12/09/2012 Notes Only Audiology at [facility] Dea Merino [facility] [place] [address] Social History Tobacco Use Types Packs/Day Years Used Date Never Assessed Sex Assigned at Date Recorded Not on file documented as of this encounter Progress Notes Dea Merino - 12/09/2012 4:43 PM EDT FM transmitter and receivers sent to [place] Attn: PCR department for repair. The FM equipment is owned by the [facility] and under warranty. Hearing Aid Information: HEARING AID RIGHT LEFT Make/Model/Style Oticon Safari 600 P Same for all Casing Color pink Serial Number [id number] Battery Size 13; year's supply dispensed 05/11/12 Other Care Kit PROGRAM/SETTINGS Fitting Algorithm DSL child Same for all Verification Method SREM w/ RECD; REM Programs basic Disabled Features Limited volume range Other HEARING AID WARRANTY Original Fit Date 05/11/2012 05/11/2012 Current Status 05/23/2015 05/23/2015 EARMOLD (if BTE MCKEON) Lab [facility] Same for all Earmold specifics 6/shell/Otoblast/pink&green swyrl Impression Date 11/30/2012 Invoice # OTHER FM Verification: School: [place], [place] FM EQUIPMENT TRANSMITTER RIGHT SORORITY MOTHER LEFT SORORITY MOTHER MAKE Phonak Phonak Phonak MODEL Inspiro MLxi MLxi SERIAL NUMBER [id number] triangle (new) [id number] triangle (new) CHANNEL 02 02 02 AUDIOSHOES -- Oticon FM9 Oticon FM9 OTHER/ COMMENTS William cain Not able to assess today. documented in this encounter Plan of Treatment Not on filedocumented as of this encounter Visit Diagnoses Not on filedocumented in this encounter Care Teams Contact Center Rep Relationship Specialty Start Date End Date Danya Pulido MD PCP - General 03/27/10 [address] [place] [address] documented as of this encounter
--- OUTSIDE RECORDS SUMMARY | 2022-02-16 20:20 | XMS_ITS | Encounter Summary ---
:2001 [place] [address] Care Team Providers Name Role Phone Danya Pulido MD Primary Care Provider Reason for Visit Reason Comments Childhood Sensorineural Hearing Loss Encounter Details Date Type Department Care Team Description 05/31/2015 Office Visit Audiology at [facility] Genna Shankar Sensorineural hearing [facility] S, MEd loss, bilateral [place], [place] CENTER [address] AUDIOLOGY DEPT [phone] [place] [id number] Social History Tobacco Use Types Packs/Day Years Used Date Never Assessed Sex Assigned at Date Recorded Not on file documented as of this encounter Progress Notes Genna Shankar S, MEd - 05/31/2015 1:11 PM EST AUDIOLOGY SECTION HISTORY: Name: Bonnie Wu Age: 14 years Date of Visit: 05/31/2015 Reason for Visit: in trial check after fitting of new hearing aids last week Accompanied by: father, Matthew Nicole presents with bilateral moderate to moderate-severe, sensorineural hearing loss for which she uses two hearing aids (beginning May 2003). Her most recent audiologic evaluation was in Feb 2015 with some interim contact for her amplification needs. Her hearing loss was identified in 2002 (age 3 years) but is suspected to be congenital having referred upon her hearing screen. She has a previous history of PE tubes (2002 and 2003; known extruded).?? Please refer to patient's medical recordfor any additional background information as needed. ?? Educational Supports and Services: attends 8th grade at the [employer] in [place], [place], with an IEP in place; Bonnie transitions to [employer] next year for 9th grade. wine consultant service supports are now offered through [employer] [facility] [employer]; the account consultant for [employer] is thought to be Diana Reyes. Bonnie continues to use her FM system with good success in school; it is unclear when the FM equipment was last verified (possibly 2012?); annual verification of FM equipment to the student's hearing aids is recommended.??Family also known to [facility] Hydro Pneumatic Tester [employer], Irene Soares.?? Hearing Aid Check: See EQUIPMENT TABLE below ?? Bonnie's new earmolds fit well left, however the right is causing a sore spot in the helix area. Aright impression was taken with the canal clear pre/post; this will be sent to the family at home who will contact us with any continued problems with discomfort. In the interim, we trimmed off the helix area on the right mold and Bonnie found this to be an improvement. ?? Overall, Bonnie likes her new hearing aids very much. One thing she has noticed is that when doinglaundry, her hearing aids seem to make a quick 'beep- beep' sound and temporarily turn down when the sound of the water pump (a loud shushing) comes on; the 'beep-beep' tone repeats when the aids revertback to their primary setting. We checked in with Oticon audiology support what this might be as Bonnie has only one program in her hearing aids settings. None of the automated settings explain this phenomena (directionality or noise management). We did inactivate the auto-phone setting to be sure thiswas not in any way contributing, though it would not be expected to. We also increased MPO settings in case the aid seemed to be going into compression in an unexpected way. We will touch base by phonein a few weeks to see if these changes have helped resolve the issue. ?? Bonnie inquired if there was a means to connect her cell phone to her hearing aids because at present, she takes an aid out to use an ear bud and is afraid she may lose one. We had an Oticon StreamerPro in house that she could take home to try. We reviewed that it needed charged, the neck loop antenna, and the written instructions for how to pair with phone and music (up to 7 Blue tooth devices) were briefly reviewed and sent home with her. We will ask how this has gone during our phone call in afew weeks, and if Bonnie likes it, we can order one for her through her insurance. RECOMMENDATIONS: 1. Continue medical management. 2. Begin use of new hearing aids full-time during [...] arise before that time (reminder requested for November 2015 to try and complete during the summerto avoid missing school). 4. Given this student's educationally significant hearing loss, it is recommended that a pharmacy benefits coordinator and/or security consultant be part of their educational program through [...] supplement spoken communication. ?? positioning of speakers [id number] with listener. ?? use of FM amplification to address difficulties of listening in background noise, reverberation and across distance, particularly while in the classroom; FM technology should be verified annually and can be arranged at [facility] Aud[facility] upon receipt of a purchase order for the service. Please contact us with questions regarding today's visit. Genna Shankar M.Ed., CCC-[place] [address] (v) / [phone] (f) CC: ?? Parents of Bonnie Wu [address] [place] [address] DANYA PULIDO MD / PCP [employer] [facility] attn: Mrs. Mejias, Dormitory Supervisor; and Lily Cherise [address] [place], [place] [id number] [place] [address], attn: Diana Reyes [address] [place] [phone] ? EQUIPMENT TABLE: HEARING AID? RIGHT? LEFT? Make/Model/Style? Oticon Sensei Pro BTE? Oticon Sensei Pro BTE? Casing Color? red? red? Serial Number? [id number]? [id number]? Battery Size? 13? 13? Invoice number / date? [id number]?? 05/01/15? 05/01/15? PROGRAM/SETTINGS? Fitting Algorithm?DSL child?? DSL child?? Verification Method? REM; SREM for post repair?? REM; SREM for post repair?? Programs?>P1=Basic (auto tri mode; NR on) >P1=Basic (auto tri mode; NR on) Disabled Features?LED, auto phone LED, auto phone Other? HEARING AID WARRANTY? Original Fit Date?05-24-15?? 05-24-15?? Current Status? 06-01-18? 06-01-18? EARMOLD (if BTE MCKEON)? Lab? [facility]? [facility]? Earmold specifics? 3/4 or 1/2 shell/ otoblast (blue cat-eye) / med canal / no vent / 13T thru?6// otoblast (blue cat-eye) / med canal / no vent / 13T thru? Impression Date? 05/31/15 02/20/15? Invoice #? [id number] / 2015? ACCESSORIES? Make/Model? Color? Serial Number? Warranty date? Invoice number/date? HEARING AID (Buzzoola's)?? RIGHT ? LEFT ? Make/Model/Style ? Oticon Sensei P ? Oticon Sensei P ? Casing Color ? purple ? purple ? Serial Number ? [id number] ? [id number] ? Battery Size ? 13 ? 13 ? Invoice number / date ? [id number] 04/14/14 ? [id number] 04/14/14 ? PROGRAM/SETTINGS ? Fitting Algorithm ? DSL child ? same ? Verification Method ? SREM w/personal RECD (updated 02.09.2014); SREM on file ? same ? Programs ? >P1=Basic (dir tate tri mode; NR on) >Auto phone (M) ? same ? Disabled Features ? lights ? same ? Other ? HEARING AID WARRANTY ? Original Fit Date ? 04/18/14 ? 04/18/14 ? Current Status ? 05/15/17 ? 05/15/17 ? EARMOLD (if BTE MCKEON) ? Lab ? [facility] ? [facility] ? Earmold specifics ? 6/ otoblast (cateye green) / med canal / no vent / 13T thru ? 6/ otoblast (cateyegreen) / med canal / no vent / 13T thru ? Impression Date ? 02/09/14 ? 02/09/14 ? Invoice # ? ACCESSORIES ? HEARING AID (personal)? RIGHT ? LEFT ? MAKE/MODEL/STYLE ? Oticon / Safari 600 P / BTE ? Oticon / Safari 600 P / BTE ? CASING COLOR ? [place] ? SERIAL NUMBER ? [id number] (missing x 6 mo)? [id number] ? BATTERY SIZE ? 13 ? 13 ? PROGRAM/SETTINGS ? FITTING ALGORITHM ? DSL Child ? same ? VERIFICATION METHOD ? REM w/personal RECD (updated 02.09.2014); SREM on file ? same ? PROGRAMS ? >P1=Basic (dir tate tri mode; NR on) >Auto phone (M) ? same ? DISABLED FEATURES ? lights ? same ? OTHER COMMENTS ? >VC active (sync) >low battery and change battery indicator ? same ? WARRANTY ? ORIGINAL FIT DATE ? 05/11/12 ? 05/11/12 ? CURRENT STATUS ? 05/23/15-Repair only ? 05/23/15 ? EARMOLD/COUPLING (if BTE) ? LAB ? [facility] ? same ? EM (style / material / vent / color) ? 6/ otoblast (blue cat-eye) / med canal / no vent / 13T thru ? Same ? IMPRESSION DATE ? 02.20.15? same ? INVOICE # ? OTHER COMMENTS ? same ? FM EQUIP - SCHOOL: [employer] ? TRANSMITTER ? MOBILITY ARCHITECT MANAGER #1 ? MOBILITY ARCHITECT MANAGER #2 ? MAKE/MODEL ? Phonak / Inspiro ? Phonak / MLxi ? Phonak / MLxi ? SERIAL NUMBER ? [id number] ? [id number] ? [id number] ? CHANNEL ? N02 ? N02 ? N02 ? FM SETTINGS ? TATE / AUDIO SHOE ? Roscoe Tate ? Oticon FM9 ? Oticon FM9 ? VERIFICATION DATE ? 01/08/2013 ? 01/08/2013 ? 01/08/2013 ? FIT DATE ? OTHER/COMMENTS ? documented in this encounter Plan of Treatment Not on filedocumented as of this encounter Visit Diagnoses Diagnosis Sensorineural hearing loss, bilateral documented in this encounter Care Teams Tooth Cutter Clutch Relationship Specialty Start Date End Date Danya Pulido MD PCP - General 03/27/10 [address] [place] [address] documented as of this encounter
--- OUTSIDE RECORDS SUMMARY | 2022-02-16 20:20 | XMS_ITS | Encounter Summary ---
:2001 Author Organization [facility] [place] [address] Care Team Providers Name Role Phone Danya Pulido MD Primary Care Provider Encounter Details Date Type Department Care Team Description 02/16/2015 Telephone Audiology [place] [facility] [place] [address] Social History Tobacco Use Types Packs/Day Years Used Date Never Assessed Sex Assigned at Date Recorded Not on file documented as of this encounter Miscellaneous Notes Telephone Encounter - Celeste Rouse - 02/16/2015 8:34 AM EDT Tricia Pappas ([facility] nurse/ [facility] nurse) called. Bonnie has an appointment on Thursday 12/21 w/ Genna Shankar. The school needs to send the hearing aids to here for the visit. Debstates she will bring the hearing aids to [facility] and have the public affairs director pick them up to deliverto [employer]. She got our data reviewer desk and the freight dispatcher and the Manufacturing Engineer Chief names. Someone from should bring them up here. After the Appointment Tricia states the Hearing aids should bebrought back down to [employer] to have delivered back to [place], [place]. documented in this encounter Plan of Treatment Not on filedocumented as of this encounter Visit Diagnoses Not on filedocumented in this encounter Care Teams Beading Installer Relationship Specialty Start Date End Date Danya Pulido MD PCP - General 03/27/10 [address] [place] [address] documented as of this encounter
--- OUTSIDE RECORDS SUMMARY | 2022-02-16 20:20 | XMS_ITS | Encounter Summary ---
:2000 [place] [address] Care Team Providers Name Role Phone Danya Pulido MD Primary Care Provider Reason for Visit Reason Comments Childhood Sensorineural Hearing Loss Encounter Details Date Type Department Care Team Description 05/11/2012 Office Visit Audiology at [facility] Genna Shankar Sensorineural hearing [facility] S, MEd loss, bilateral Drive [facility] (Primary Dx) [place], [place] CENTER [address] AUDIOLOGY DEPT [phone] [place], [place] [address] Social History Tobacco Use Types Packs/Day Years Used Date Never Assessed Sex Assigned at Date Recorded Not on file documented as of this encounter Progress Notes Genna Shankar MEd - 05/11/2012 12:02 PM EST AUDIOLOGY SECTION Background Information: Bonnie Wu, 12 years of age, was seen in the Audiology Department at [facility] on May 11, 2012 for fitting/orientation of her new hearing aids; she wasalso scheduled for verification of the educational FM however family did not have the equipment withthem as the new audio shoes had not yet come in at school. Bonnie was accompanied by her father, Matthew Wu, who served as informant, and sister Sonja. History includes: Bonnie was last seen for her audiologic follow up in Apr 2012. verification of her educational FM was done in Mar 13; Bonnie is known to [facility] Otolaryngology. Today, family reports: Bonnie arrived not wearing her left hearing aid as she has been having some discomfort in that ear and wonders if she may be getting an ear infection. See below. For additional background information, please refer to the previous report. Educational Supports/Services: (reviewed last visit) Bonnie attends 5th grade at the [place], [place], where she has an IEP in place. Family has been happy with her support and Bonnie has been having a good school year. Educational support services were thought to include speech therapy, 1:1 academic support and periodic [facility] (clarified today witha member of the school team that this was a one time check in at the start of the school year; thereare not plans for a contract but they may have one more check in after the new hearing aids and FM are in place). Bonnie has been a successful user of an educational FM system in the past; we discussed that the system would need verification upon fitting of the new hearing aids. We reviewed with the school team by phone how they can order the new FM9 audio shoes (through Phonak or Oticon). Of note, family has met with our Passport Support Manager for [facility] Audiology, Irene Soares, previously; we would lik e to have her touch base with the school team regarding the hearing support services. For further background information, please refer to the medical record. Hearing Aid Information: HEARING AID RIGHT LEFT Make/Model/Style Oticon Safari 600 P Same for all Casing Color pink Serial Number [id number] Battery Size 13; year's supply dispensed 05/11/12 Other Care Kit PROGRAM/SETTINGS Fitting Algorithm DSL child Same for all Verification Method SREM w/ RECD; REM Programs basic Disabled Features Limited volume range Other HEARING AID WARRANTY Original Fit Date 05/11/2012 05/11/2012 Current Status 05/23/2015 05/23/2015 EARMOLD (if BTE MCKEON) Lab [place] Same for all Earmold specifics 6/shell/Otoblast/cat-eye with bright pink Impression Date 04/17/2012 Invoice # [id number] OTHER Hearing Aid Fitting: Simulated real-ear measures were used to set both instruments ahead of time using the most recent audiological results with personal real-ear to apron worker measures. The frequency responses of the hearingaids nicely approximated the Desired Sensation Level (DSL) aided response targets without exceeding the maximum output targets as programmed. Minor changes were made to address Bonnie's subjective preferences regarding overall loudness and loudness for high pitch sounds such as a whistle. Bonnie was counseled briefly regarding the use, care, and maintenance of the hearing aids; as a previous user, much of this was familiar. The faculty head's instructional booklets were given. Family is familiar with warnings regarding battery ingestion. A pediatric hearing aid supply kit was given, as well as the Oticon courtesy kit. The warranty was reviewed with the family. Otoscopic inspection noted the left ear to appear pink but without drainage or broken skin; tympanometry revealed reduced eardrum compliance. Family was advised to limit hearing aid use in the left earto school hours for the next few days, and to follow up with their PCP if the ear does not feel better within a few days. Aided audiologic assessment revealed good aided benefit. Word recognition was good when in quiet butdiminished by about 50% when in competing noise; this emphasizes the importance of consistent FM usein the educational setting. An in trial hearing aid check appointment was not yet scheduled; we discussed completing the hearingaid check in conjunction with verification of the educational FM system at the follow up as family did not have the transmitter with them. This was able to be scheduled on 06/02/2012; we discussed the option of sending the FM with Bonnie's new hearing aids as family may find it to be a financial hardship to return to [facility] so soon, even with the assistance of a gas card from [employer]. We discussed that Bonnie's old hearing aids may be stored without batteries for back up use; in lightof their condition, service would be appropriate once the FM verification is completed so they are available for back up use in the event that the equipment is mailed. SUMMARY: As previously reviewed, Bonnie presents with bilateral hearing loss which is both communicatively and educationally significant. Given the configuration of the hearing loss, in the unaided condition, Bonnie may detect that speech is taking place but the accuracy or clarity will be greatly reduced. While Bonnie is expected to have better access to speech with the consistent use of optimally programmed hearing aids, they will not 'restore' her hearing to 'normal' nor will they prevent further hearing loss. Even with consistent use of amplification, Bonnie will rely upon visual cues to fill in the gaps of that which is not audible in running speech. When communicating with Bonnie, it is important to first get her attention, face her and speak in a well-projected yet clear voice. Reductions in background noise and reverberation (echoes) levels are critical as these further degrade the speech signal. Bonnie should receive preferential seating in all settings; close to the person speaking and away from any obvious noise sources (e.g. ventilation blowers/fans, open windows/doorways). In school, FM amplification provides improved access to the teacher's voice in the classroom setting. The following recommendations were shared. Recommendations: 1. Continue medical management; in the event the left ear does not feel better within a few days, family should follow up with their PCP regarding it. 2. Return for hearing aid check/FM verification as planned on Jun 02, 2012, unless arrangements are made to ship the FM and new hearing aids to us in time for that appt. 3. Begin trial with use of new binaural hearing aids, multimedia services manager during waking hours with the exception of water activities. We did discuss limiting the left ear hearing aid use to in school until the ear is feeling better. 4. Return to monitor hearing and hearing aid function in 12 months, or sooner if a concern arises about a decrease in hearing or hearing aid function (appt request submitted). 5. Avoid noise exposure; use hearing protection when in excessive noise. 6. Continue educational support services given the educationally significant hearing loss including use of an FM system use, as well as monitoring support from the [place] real estate listing consultant. Results of hearing support consultation explore classroom acoustics, provide staff inservicing, and monitor Bonnie's FM system needs for addressing listening in distance and message competition situations. Please feel free to contact me with questions regarding test results or recommendations. Genna Shankar M.Ed., [facility] Clinical Clinical Research Administrator cc: Dr. Danya Pulido-[employer], [address], [facility] [address] family of Bonnie Wu [facility]ianne Gupta, [address] [facility] [place] [address] [facility], attn: Shira Valverde, [address] [address] Irene Soares M.Ed., Passport Support Manager documented in this encounter Plan of Treatment Not on filedocumented as of this encounter Visit Diagnoses Diagnosis Sensorineural hearing loss, bilateral - Primary documented in this encounter Care Teams Gag Writer Relationship Specialty Start Date End Date Danya Pulido MD PCP - General 03/27/10 [address] [place] [address] documented as of this encounter
--- OUTSIDE RECORDS SUMMARY | 2022-02-16 20:20 | XMS_ITS | Encounter Summary ---
:2001 Author Organization [facility] [place] [address] Care Team Providers Name Role Phone Danya Pulido MD Primary Care Provider Encounter Details Date Type Department Care Team Description 01/06/2013 Notes Only Audiology at [facility] [place] [address] Social History Tobacco Use Types Packs/Day Years Used Date Never Assessed Sex Assigned at Date Recorded Not on file documented as of this encounter Progress Notes Mireya Alas - 01/06/2013 2:58 PM EDT AUDIOLOGY - AMPLIFICATION REPAIR NOTE REPAIR WORK HEARING AID (right, left or both) [facility] SERIAL NUMBER CHANGED? Yes WARRANTY CHANGED? No REPAIR WORK PERFORMED? (repair company/invoice number) Electronics replaced Phonak [id number] 01/05/13 CHARGE TO PATIENT? No S-REM VERIFICATION PERFORMED? N/A RE-PROGRAMMED? ([facility] session date) Given to Drapery Examiner PROGRAMS AND V/C STATUS CHANGED? PHYSICAL AND ACOUSTIC INSPECTION PERFORMED? DELIVERY (patient pick-up, patient seen, aid mailed or handed off) [facility] LOANER OUT? OTHER HEARING AID RIGHT LEFT MAKE/MODEL/STYLE Oticon Safari 600 P Oticon Safari 600 P CASING COLOR Naper Naper SERIAL NUMBER [id number] BATTERY SIZE 13 13 PROGRAM/SETTINGS FITTING ALGORITHM DSL Child DSL Child VERIFICATION METHOD SREM w/RECD; REM SREM w/RECD; REM PROGRAMS P1=Basic P2= P3= P1=Basic P2= P3= DISABLED FEATURES Limited Volume range Limited Volume range OTHER COMMENTS WARRANTY ORIGINAL FIT DATE 05/11/12 05/11/12 CURRENT STATUS 05/23/15 05/23/15 EARMOLD/COUPLING (if BTE) LAB Nusrat Silverio EM (style / material / vent / color) 6/Shell/Otoblast/Naper&Green S 6/Shell/Otoblast/Naper&Green IMPRESSION DATE 11/30/12 11/30/12 INVOICE # TUBE/RICKY (length / dome size) 13 13 FM EQUIPMENT - SCHOOL: [place], [place] FM EQUIPMENT TRANSMITTER CLEANER AND PRESSER #1 CLEANER AND PRESSER #2 MAKE/MODEL Phonak Inspiro MLxi MLxi SERIAL NUMBER [id number] CHANNEL 2 2 2 FM SETTINGS TATE / AUDIO SHOE Palco Tate Oticon FM9 Oticon FM9 VERIFICATION DATE FIT DATE OTHER/COMMENTS documented in this encounter Plan of Treatment Not on filedocumented as of this encounter Visit Diagnoses Not on filedocumented in this encounter Care Teams Friction Welding Machine Operator Relationship Specialty Start Date End Date Danya Pulido MD PCP - General 03/27/10 [address] [place] [address] documented as of this encounter
--- OUTSIDE RECORDS SUMMARY | 2022-02-16 20:20 | XMS_ITS | Encounter Summary ---
:2001 Author Organization [facility] [address] Care Team Providers Name Role Phone Danya Pulido MD Primary Care Provider Encounter Details Date Type Department Care Team Description 02/22/2015 External Results Otolaryngology at [facility] Genna Shankar, [facility] [place] [address] [facility] [phone] AUDIOLOGY [place], [place] [address] (Wo rk) Social History Tobacco Use Types Packs/Day Years Used Date Never Assessed Sex Assigned at Date Recorded Not on file documented as of this encounter Plan of Treatment Not on filedocumented as of this encounter Procedures Procedure Name Priority Date/Time Associated Diagnosis Comme nts AUDIOLOGY SCAN Routine 02/20/2015 documented in this encounter Results Scan Doc: Audiology (02/20/2015) Narrative This result has an attachment that is no t available. Genna Shankar MEd MEDIA MGR SCAN EXT ORDR/RSLT documented in this encounter Visit Diagnoses Not on filedocumented in this encounter Care Teams Vp Care Management Relationship Specialty Start Date End Date Danya Pulido MD PCP - General 03/27/10 [address] [place] [address] documented as of this encounter
--- OUTSIDE RECORDS SUMMARY | 2022-02-16 20:20 | XMS_ITS | Encounter Summary ---
:2001 Author Organization [facility] [place] [place] [address] Care Team Providers Name Role Phone Danya Pulido MD Primary Care Provider Encounter Details Date Type Department Care Team Description 05/12/2012 External Results Audiology at [facility] Genna Shankar, [facility] [place] [address] [facility] [phone] AUDIOLOGY [place], [place] [address] (Wo rk) Social History Tobacco Use Types Packs/Day Years Used Date Never Assessed Sex Assigned at Date Recorded Not on file documented as of this encounter Plan of Treatment Not on filedocumented as of this encounter Procedures Procedure Name Priority Date/Time Associated Diagnosis Comme nts AUDIOLOGY SCAN Routine 05/11/2012 documented in this encounter Results Scan Doc: Audiology (05/11/2012) Narrative This result has an attachment that is no t available. Genna Shankar MEd MEDIA MGR SCAN EXT ORDR/RSLT documented in this encounter Visit Diagnoses Not on filedocumented in this encounter Care Teams Forming Tube Selector Relationship Specialty Start Date End Date Danya Pulido MD PCP - General 03/27/10 [address] [place] [address] documented as of this encounter
--- OUTSIDE RECORDS SUMMARY | 2022-02-16 20:20 | XMS_ITS | Encounter Summary ---
:2001 Author Organization [facility] Address [facility] [place] [address] Care Team Providers Name Role Phone Danya Pulido MD Primary Care Provider Encounter Details Date Type Department Care Team Description 02/21/2014 Orders Only Otolaryngology at [facility] Denisa De La Cruz Sensorineural hearing loss, bilateral; [facility] Carolee Aguiar RN [place] [address] Social History Tobacco Use Types Packs/Day Years Used Date Never Assessed Sex Assigned at Date Recorded Not on file documented as of this encounter Plan of Treatment Not on filedocumented as of this encounter Visit Diagnoses Diagnosis Sensorineural hearing loss, bilateral Wears hearing aid Other postprocedural status documented in this encounter Care Teams Regulatory Compliance Manager Relationship Specialty Start Date End Date Dayna Pulido MD PCP - General 03/27/10 [address] [place] [address] documented as of this encounter
--- OUTSIDE RECORDS SUMMARY | 2022-02-16 20:20 | XMS_ITS | Encounter Summary ---
:2001 Author Organization [facility] [place] [address] Care Team Providers Name Role Phone Danya Pulido MD Primary Care Provider Encounter Details Date Type Department Care Team Description 05/13/2016 Notes Only Care Management Jayne Colon, [place] [address] Social History Tobacco Use Types Packs/Day Years Used Date Never Assessed Sex Assigned at Date Recorded Not on file documented as of this encounter Progress Notes Jayne Colon MSW - 05/13/2016 11:10 AM EST Office of Care Management/Outpatient Social Work Note Patient: 16 yo female Pt. Father mentioned at appt last week that her SSDI had been cut off. Relevant Information: Ryan Quinonez, I???m the relatively new Cathodic Protection Technician with Pediatric Audiology Miguel Shankar asked that I get in touch with you regarding your daughter???s Social Security. I left you a message on your telephone just now but also think it???s probably best that I send the attached to you. My experience tells me that finding one???s way through the insurance maze is usually best done in person with 1 of the Social Security staff. My understanding from other families that calling to make a time and coming in with all the documents they will need will help make the process somewhat easier! Good luck and if there is anything else you think I might be able to help with just get in touch. Plan: Letter sent today as copied in above. PLACIDO Hillman Cathodic Protection Technician, Care Management Pediatric Audiology, Diabetes, Nephrology [phone] documented in this encounter Plan of Treatment Not on filedocumented as of this encounter Visit Diagnoses Not on filedocumented in this encounter Care Teams Asset Specialist Relationship Specialty Start Date End Date Danya Pulido MD PCP - General 03/27/10 [address] [place] [address] documented as of this encounter
--- OUTSIDE RECORDS SUMMARY | 2022-02-16 20:20 | XMS_ITS | Encounter Summary ---
:2000 [place] [address] Care Team Providers Name Role Phone Danya Pulido MD Primary Care Provider Encounter Details Date Type Department Care Team Description 01/08/2013 Procedure visit Audiology at [facility] Genna Shankar Sensorineural hearing [facility] S, MEd loss, bilateral Drive [facility] (Primary Dx) [place], [place] CENTER [address] AUDIOLOGY DEPT [phone] [place] [address] Social History Tobacco Use Types Packs/Day Years Used Date Never Assessed Sex Assigned at Date Recorded Not on file documented as of this encounter Progress Notes Genna Shankar, MEd - 01/08/2013 9:22 AM EDT AUDIOLOGY SECTION Summary: Bonnie Wu, 12 years of age, is followed by the Audiology Department at [facility] for management of her bilateral mild to moderate hearing loss for which she uses two hearing aids. Her FM equipment was seen for re-verification post repair by Rachana. Of note, this FM equipment, owned by the [facility], has been serviced repeatedly since Jun of this year. In Jun 2012 the receivers electronics were replaced with a repair warranty to Jun 2013; in July and October 2012 the service note read 'clean/service'; and in December 2012 game trapper electronics were replaced again. This was reviewed with Julianne Reich FM support, and Shira Valverde of the [facility]. FM Verification: School: [place], [place] FM EQUIPMENT TRANSMITTER RIGHT MEDICAL REGISTRAR LEFT MEDICAL REGISTRAR MAKE Phonak Phonak Phonak MODEL Inspiro MLxi MLxi SERIAL NUMBER [id number] triangle (new) [id number] triangle (new) CHANNEL 02 02 02 AUDIOSHOES -- Oticon FM9 Oticon FM9 OTHER/ COMMENTS [place] [facility] Listening check: of each FM game trapper with each FM 9 audio shoe was satisfactory when checked with L'Idealist 600 clinic loaner aid. Electroacoustic check: Neither game trapper required any gain adjustment to meet transparency today. Adequate function of FM system. The equipment was mailed back to school and a message left to this effect. CC: [facility], attn: Destiny Valverde, [address] [place] [phone] documented in this encounter Plan of Treatment Not on filedocumented as of this encounter Visit Diagnoses Diagnosis Sensorineural hearing loss, bilateral - Primary documented in this encounter Care Teams Heavy Line Technician Relationship Specialty Start Date End Date Danya Pulido MD PCP - General 03/27/10 [address] [place] [address] documented as of this encounter
--- OUTSIDE RECORDS SUMMARY | 2022-02-16 20:20 | XMS_ITS | Encounter Summary ---
:2001 Author Organization [facility] [place] [address] Care Team Providers Name Role Phone Danya Pulido MD Primary Care Provider Reason for Visit Reason Comments Childhood Sensorineural Hearing Loss Encounter Details Date Type Department Care Team Description 07/28/2012 Procedure [address] Audiology at [facility] Genna Shankar MEd [facility] [place] [address] Sensorineural hearing [facility] Carlton Villegas MD [facility] [place] [address] loss, bilateral Drive (Primary Dx) [place] [address] Social History Tobacco Use Types Packs/Day Years Used Date Never Assessed Sex Assigned at Date Recorded Not on file documented as of this encounter Progress Notes Genna Shankar MEd - 07/28/2012 2:19 PM EDT AUDIOLOGY SECTION Visit Summary: Bonnie Wu, 12 years of age, is followed by the Audiology Department at [facility] for management of her bilateral mild to moderate hearing loss for which she uses two hearing aids. Her hearing aids and FM equipment were dropped off on July 28, 2012 for re-verification of the educational FM following repair of the receivers. See below. FM Verification: School: [place], [place] FM EQUIPMENT TRANSMITTER RIGHT HYPERBARIC TECHNOLOGIST LEFT HYPERBARIC TECHNOLOGIST MAKE Phonak Phonak Phonak MODEL Inspiro MLxi MLxi SERIAL NUMBER [id number] ([id number] old) [id number] triangle (new) [id number] triangle (old) [id number] triangle (new) CHANNEL 01 05 05 AUDIOSHOES -- Oticon FM9 Oticon FM9 OTHER/COMMENTS Superior ant ?? Listening check: of the hearing aids alone was satisfactory for both instruments, as was electroacoustic evaluation using the Audioscan Verifit. ?? Electroacoustic check: formal electroacoustic evaluation was satisfactory (one mechanical facilities technician ([id number] triangle) required no gain adjustment; the other mechanical facilities technician ([id number] triangle) required a plus 8 gain adjustment to meet transparency). ?? Adequate FM function; FM and hearing aids left for staff roller picker at 4F biochemistry technologist. CC: [facility]-Julianne Gupta, [address] [place] [address] [place] [id number] [facility], attn: Destiny Valverde, [address] [place] [address] documented in this encounter Plan of Treatment Not on filedocumented as of this encounter Visit Diagnoses Diagnosis Sensorineural hearing loss, bilateral - Primary documented in this encounter Care Teams Engagement Manager Relationship Specialty Start Date End Date Danya Pulido MD PCP - General 03/27/10 [address] [place] [address] documented as of this encounter
--- OUTSIDE RECORDS SUMMARY | 2022-02-16 20:20 | XMS_ITS | Encounter Summary ---
:2001 Author Organization [facility] [place] [address] Care Team Providers Name Role Phone Danya Pulido MD Primary Care Provider Encounter Details Date Type Department Care Team Description 05/29/2015 External Results Otolaryngology at [facility] Genna Shankar, [facility] [place] [address] [facility] [phone] AUDIOLOGY [place], [place] [address] (Wo rk) Social History Tobacco Use Types Packs/Day Years Used Date Never Assessed Sex Assigned at Date Recorded Not on file documented as of this encounter Plan of Treatment Not on filedocumented as of this encounter Procedures Procedure Name Priority Date/Time Associated Diagnosis Comme nts AUDIOLOGY SCAN Routine 05/24/2015 documented in this encounter Results Scan Doc: Audiology (05/24/2015) Narrative This result has an attachment that is no t available. Genna Shankar MEd MEDIA MGR SCAN EXT ORDR/RSLT documented in this encounter Visit Diagnoses Not on filedocumented in this encounter Care Teams Front Office Secretary Relationship Specialty Start Date End Date Danya Pulido MD PCP - General 03/27/10 [address] [place] [address] documented as of this encounter
--- OUTSIDE RECORDS SUMMARY | 2022-02-16 20:20 | XMS_ITS | Encounter Summary ---
:2001 [place] [address] Care Team Providers Name Role Phone Danya Pulido MD Primary Care Provider Encounter Details Date Type Department Care Team Description 03/04/2011 Abstract Audiology at [facility] [place] [place] [address] Social History Tobacco Use Types Packs/Day Years Used Date Never Assessed Sex Assigned at Date Recorded Not on file documented as of this encounter Progress Notes Irene Soares MEd - 03/04/2011 4:34 PM EDT AUDIOLOGY SECTION SENIOR UI SOFTWARE ENGINEER - AUDIOLOGY PHONE CONSULT [place], [place] Patient: Bonnie Wu Date: March 04, 2011 On March 04, 2011 , I spoke with Zuleima Jackson, educational manager concerning Bonnie Wu Regarding issues with her equipment. She reported that Bonnie has a broken hearing aid, her ear molds need to be replaced, and her father told them he can not afford to take her to [facility]. I spoke with Bonnie's kitchen help handyman, Genna Shankar who said the family could mail us the hearing aids and have earmolds made locally. Bonnie is due to be seen by Genna on 04/05/11 for her yearly check-up. I also suggested that the family investigate transportation using their Medicaid support. Zuleima said the family said Fridays were the best day for them to come to [facility]. She will investigate all options and get backto us with a response from the family. I did tell her that Genna had limited time on Fridays but Bonnie could be seen by other audiologists as soon as this week. Follow-up activities agreed to were: Zuleima will get back to me on 03/05/11. Zuleima called me back on 03/05, 03/07, and I called her on 03/12. Zuleima has still not received a response from the parents about scheduling an appointment with Genna sooner than 04/15/11. Zuleima did say thatBonnie is wearing both of her hearing aids at school and they believe they do have enough batteries to last until early April. Madelyn Mendoza Ed., Direct [place] [address] (direct line) [phone] (office), (fax) [email or web address] documented in this encounter Plan of Treatment Not on filedocumented as of this encounter Visit Diagnoses Not on filedocumented in this encounter Care Teams Timber Deadener Relationship Specialty Start Date End Date Danya Pulido MD PCP - General 03/27/10 [address] [place] [address] documented as of this encounter
--- OUTSIDE RECORDS SUMMARY | 2022-02-16 20:20 | XMS_ITS | Encounter Summary ---
:2001 [place] [address] Care Team Providers Name Role Phone Danya Pulido MD Primary Care Provider Reason for Visit Reason Comments Childhood Sensorineural Hearing Loss Encounter Details Date Type Department Care Team Description 02/20/2015 Clinical Support Aud[facility] [place] [facility] [place]na Shankar Sensorineural hearing [facility] S, MEd loss, bilateral [facility] [address] AUDIOLOGY DEPT [phone] [place] [address] Social History Tobacco Use Types Packs/Day Years Used Date Never Assessed Sex Assigned at Date Recorded Not on file documented as of this encounter Progress Notes Genna Shankar MEd - 02/20/2015 10:49 AM EDT See report of the same date 02/20/15. documented in this encounter Plan of Treatment Not on filedocumented as of this encounter Visit Diagnoses Diagnosis Sensorineural hearing loss, bilateral documented in this encounter Care Teams Camp Tender Relationship Specialty Start Date End Date Danya Pulido MD PCP - General 03/27/10 [address] [place] [address] documented as of this encounter
--- OUTSIDE RECORDS SUMMARY | 2022-02-16 20:20 | XMS_ITS | Encounter Summary ---
:2001 Author Organization [facility] [place] [address] Care Team Providers Name Role Phone Danya Pulido MD Primary Care Provider Reason for Visit Reason Onset Date Comments Prior Authorization 05/07/2012 Covered benefit Encounter Details Date Type Department Care Team Description 05/07/2012 Telephone Audiology at [facility] Genna Shankar, Prior Authorization [facility] MEd (Covered benefit) [place] [address] AUDIOLOGY DEPT [place], [place] [address] Social History Tobacco Use Types Packs/Day Years Used Date Never Assessed Sex Assigned at Date Recorded Not on file documented as of this encounter Miscellaneous Notes Telephone Encounter - Corie Cohn - 05/07/2012 1:01 PM EST The patient currently has active coverage with [place] Medicaid with aid category A6 which does cover hearing aids. Per the [place] Medicaid fee schedule cpt:V5261 does not require prior authorization. documented in this encounter Plan of Treatment Not on filedocumented as of this encounter Visit Diagnoses Not on filedocumented in this encounter Care Teams Stack Supervisor Relationship Specialty Start Date End Date Danya Pulido MD PCP - General 03/27/10 [address] [place] [address] documented as of this encounter
--- OUTSIDE RECORDS SUMMARY | 2022-02-16 20:20 | XMS_ITS | Encounter Summary ---
:2001 Author Organization [facility] [place] [address] Care Team Providers Name Role Phone Danya Pulido MD Primary Care Provider Encounter Details Date Type Department Care Team Description 05/07/2015 Telephone Audiology at [facility] [place] Portillo AUD [facility] [place] [address] AUDIOLOGY DEPT [phone] [place], [place] [address] (Wo rk) Social History Tobacco Use Types Packs/Day Years Used Date Never Assessed Sex Assigned at Date Recorded Not on file documented as of this encounter Miscellaneous Notes Telephone Encounter - [place] Portillo MA - 05/07/2015 12:24 PM EST Friday05.07.2014 - Called patient's home to relayed that appt tomorrow with managing analog ic design architect, Genna Shankar, will need to be rescheduled due to her being out of the clinic given a family need. Although I suspect that our scheduling staff will attempt to contact the family to reschedule, I did request that the family also contact the department next week to reschedule. documented in this encounter Plan of Treatment Not on filedocumented as of this encounter Visit Diagnoses Not on filedocumented in this encounter Care Teams Building Admin Relationship Specialty Start Date End Date Danya Pulido MD PCP - General 03/27/10 [address] [place] [address] documented as of this encounter
--- OUTSIDE RECORDS SUMMARY | 2022-02-16 20:20 | XMS_ITS | Encounter Summary ---
:2001 [place] [address] Care Team Providers Name Role Phone Danya Pulido MD Primary Care Provider Reason for Visit Reason Comments Childhood Sensorineural Hearing Loss Encounter Details Date Type Department Care Team Description 05/08/2016 Office Visit Audiology at [facility] Genna Shankar Sensorineural hearing [facility] S, MEd loss, bilateral [place], [place] [facility]ENTER [address] AUDIOLOGY DEPT [phone] [place] [id number] Social History Tobacco Use Types Packs/Day Years Used Date Never Assessed Sex Assigned at Date Recorded Not on file documented as of this encounter Progress Notes Genna Shankar, MEd - 05/08/2016 9:45 AM EST AUDIOLOGY SECTION HISTORY: Name: Bonnie Wu Age: 16 years Date of Visit: 05/08/2016 Reason for Visit: audiologic re-evaluation and check of hearing aids Accompanied by: grandmother, Li Wu who, along with Bonnie, contributed to the following information: Bonnie presents with bilateral moderate to moderate-severe [...] as needed. Educational Supports and Services: attends 9th grade at the [employer] in [place], [place], with an IEP in place. This is a new school for Bonnie and things are going well now after some social challenges at the beginning of the year. Hearing supports are provided through [facility]; the business intelligence consultant is Zenaida Doyle. Bonnie explained the receivers from her FM system went missing and have just recently been replaced. She thought we would need to program her hearing aids for them but we clarified that is not needed with her model hearing aids. It is unclear when the FM equipment was last verified (possibly 2012?); annual verification of FM equipment to the student's hearing aids is recommend ed.??Family also known to [facility] Laborer in Audiology. Interim information: ?? Bonnie has been in good overall health; a change in hearing was not suspected. She did note her left ear sometimes hurts when she swallows, and she's had a little stuffy nose. ?? 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 Her earmolds are due for replacement. The right mold has continued to rub in the helix area of her ear. We discussed trying half shell molds this time around to try and avoid that area in the future. When asked, Bonnie explained the cord for her Streamer was damaged by the cat; we will see if we can order a new one. ?? 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 She has interest in fashion as a possible career and likes to sew. EVALUATION: (see audiogram) ?? Audiologic evaluation - results consistent with bilateral, moderate to moderate-severe hearing loss, stable. Tympanograms were consistent with normal middle ear function bilaterally. Hearing Aid Check: See EQUIPMENT TABLE below: ?? Earmolds: Bonnie is due for replacement earmolds. She noted the right one continues to rub (in thehelix area) and we discussed trying half shell molds this time around. Binaural ear impressions weretaken with the canals clear pre/post. The new molds will be mailed home (family to send us the new mailing address); we discussed they should contact us if there is any concern about fit or retention. The current left earmold was re-tubed. ?? Hearing aids: verification of programmed settings was done via real-ear measures using today's audiological results. The frequency responses of the hearing aids nicely approximated the Desired Sensation Level (DSL) aided response targets without exceeding the maximum output limits as programmed. Min or fine tuning adjustments were made to maximize gain around 3k-6k Hz which Bonnie tolerated without difficulty. She had no difficulty with feedback or loudness tolerance. ?? Functional aided benefit - see audiogram: (completed in the binaural condition prior to the hearing aid adjustments; not repeated due to time constraints); good functional gain with aided word recognition ability at 100% in quiet when recorded speech was presented at an 'average' conversational level (45 dBHL); this diminished to 80% when assessed in competing noise (+5dB signal:noise), which helps illustrate the continued need for using the FM system regularly in school. RECOMMENDATIONS: 1. Continue medical management. 2. Keep [...] before that time (reminder requested for May 2017). 4. Given this student's educationally significant hearing loss, it is recommended that a pipelaying fitter and/or string studies director be part of their educational program through [...] supplement spoken communication. ?? positioning of speakers [id number] with listener. ?? use of FM amplification to address difficulties of listening in background noise, reverberation and across distance, particularly while in the classroom; FM technology should be verified annually and can be arranged at [facility] Audiology upon receipt of a purchase order for the service. Please contact us with questions regarding today's visit. Genna Shankar M.Ed., [facility] Prosthetic Dentist [place] [phone] (v) / [phone] (f) Attachment: audiogram CC: ?? Parents of Bonnie Wu [address] [facility] [address] DANYA PULIDO MD / PCP [facility] attn: Jossy Mejias, Bull Driver [address] [place] [address] [facility], attn: Zenaida Doyle [address] [place] [address] EQUIPMENT TABLE: HEARING AID?? RIGHT?? LEFT?? Make/Model/Style?? Oticon Sensei Pro BTE?? Oticon Sensei Pro BTE?? Casing Color?? red?? red?? Serial Number?? [id number]?? [id number]?? Battery Size?? 13?? 13?? Invoice number / date?? [id number]?? 05/01/15?? 05/01/15?? PROGRAM/SETTINGS? Fitting Algorithm?DSL child DSL child Verification Method?? REM; SREM for post repair REM; SREM for post repair Programs?>P1=Basic (auto tri mode; NR on) >Auto phone (M) >P1=Basic (auto tri mode; NR on) >Auto phone (M) Disabled Features?LED LED Other? HEARING AID WARRANTY? Original Fit Date?05-24-15 05-24-15 Current Status?? 06-01-18?? 06-01-18?? EARMOLD (if BTE [facility])? Lab?? [facility]?? Earmold specifics?? 1/2 shell/ otoblast (camo cat-eye) / med canal / no vent / 13T thru?? /2 shell/otoblast (camo cat-eye) / med canal / no vent / 13T thru?? Impression Date?? 05/08/16 05/08/16?? Invoice #? ACCESSORIES? Make/Model?Oticon Streamer ?? Color?n/a ?? Serial Number?[id number] ? Warranty date?06/30/16 per Lauren Jaramillo ?? Invoice number/date? HEARING AID ([place]) RIGHT ?? LEFT ?? Make/Model/Style ?? Oticon Sensei P ?? Oticon Sensei P ?? Casing Color ?? purple ?? purple ?? Serial Number ?? [id number] ?? [id number] ?? Battery Size ?? 13 ?? 13 ?? Invoice number / date ?? [id number] 04/14/14 ?? [id number] 04/14/14 ?? PROGRAM/SETTINGS ? Fitting Algorithm ?? [...] 02/09/14 ?? Invoice # ? ACCESSORIES ? HEARING AID (personal)?? RIGHT ?? LEFT ?? MAKE/MODEL/STYLE ?? Oticon / Safari 600 P / BTE ?? Oticon / Safari 600 P / BTE ?? CASING COLOR ?? Markle ?? Markle ?? SERIAL NUMBER ?? [id number] (missing x 6 mo)?? [id number] ?? BATTERY SIZE ?? 13 ?? 13 [...] STATUS ?? 05/23/15-Repair only ?? 05/23/15 ?? EARMOLD/COUPLING (if BTE) ? LAB ?? [facility] ?? same ?? EM (style / material / vent / color) ?? 6/ otoblast (blue cat-eye) / med canal / no vent / 13T thru ?? Same ?? IMPRESSION DATE ?? 02.20.15?? same ?? INVOICE # ? OTHER COMMENTS ? same ?? EQUIP - SCHOOL: [place], [place] ?? TRANSMITTER ?? KINDER TEACHER #1 ?? KINDER TEACHER #2 ?? MAKE/MODEL ?? Phonak / Inspiro ?? Phonak / MLxi ?? Phonak / MLxi ?? SERIAL NUMBER ?? [id number] ?? [id number] ?? [id number] ?? CHANNEL ?? N02 ?? N02 ?? N02 ?? FM SETTINGS ? ANT / AUDIO SHOE ?? [place] Ant ?? Oticon FM9 ?? Oticon FM9 ?? VERIFICATION DATE ?? 01/08/2013 ?? 01/08/2013 ?? 01/08/2013 ?? FIT DATE ? OTHER/COMMENTS ? documented in this encounter Plan of Treatment Not on filedocumented as of this encounter Procedures Procedure Name Priority Date/Time Associated Comments Diagnosis COMPREHENSIVE HEARING Routine 05/08/2016 10:31 Re sults for this TEST AM EST procedure are i n the results section. documented in this encounter Results Comprehensive hearing test (05/08/2016 10:31 AM EST) Specimen (Source) Anatomical Collection Method Collection Time Re ceived Time Location / / Volume Laterality 05/08/2016 10:31 AM EST Narrative [facility] - 05/08/2016 10:31 AM EST 16 yo seen for audiologic re-evaluation and hearing aid check; stable sensorineural hearing loss; good function gain with hearing ai ds. See report. Procedure Note Unknown - 05/08/2016Formatting of this n ote might be different from the original. 16 yo seen for audiologic re-evaluation and hearing aid check; stable sensorineural hearing loss; good function gain with hearing ai ds. See report. Unknown AUDIOLOGY SERVICES ORDERABLE S Performing Organization Address City/State/ZIP Code Phon e Number [facility] documented in this encounter Visit Diagnoses Diagnosis Sensorineural hearing loss, bilateral documented in this encounter Care Teams Tufting Creeler Relationship Specialty Start Date End Date Danya Pulido MD PCP - General 03/27/10 [address] [place] [address] documented as of this encounter
--- OUTSIDE RECORDS SUMMARY | 2022-02-16 20:20 | XMS_ITS | Encounter Summary ---
:2001 [place] [address] Care Team Providers Name Role Phone Danya Pulido MD Primary Care Provider Encounter Details Date Type Department Care Team Description 05/07/2010 [place] [facility] [place] [address] AUDIOLOGY DEPT [phone] [place], [place] [address] (Wo rk) Social History Tobacco Use Types Packs/Day Years Used Date Never Assessed Sex Assigned at Date Recorded Not on file documented as of this encounter Plan of Treatment Not on filedocumented as of this encounter Visit Diagnoses Not on filedocumented in this encounter Care Teams Conservation Educator Relationship Specialty Start Date End Date Danya Pulido MD PCP - General 03/27/10 [address] [place] [address] documented as of this encounter
--- OUTSIDE RECORDS SUMMARY | 2022-02-16 20:20 | XMS_ITS | Encounter Summary ---
:2001 [place] [address] Care Team Providers Name Role Phone Danya Pulido MD Primary Care Provider Encounter Details Date Type Department Care Team Description 03/05/2012 Notes Only Audiology at [facility] [place] [place] [address] Social History Tobacco Use Types Packs/Day Years Used Date Never Assessed Sex Assigned at Date Recorded Not on file documented as of this encounter Progress Notes Irene Soares MEd - 03/05/2012 9:08 AM EDT AUDIOLOGY SECTION PET NUTRITION SPECIALIST - AUDIOLOGY PHONE CONSULT [place], [place] Patient: Bonnie Wu Date: March 05, 2012 On March 05, 2012 , I spoke with Shira Valverde, Suction Dredge Dumping Supervisor at the [facility] concerning Bonnie Wu concerning the upcoming appointment for Bonnie for FM verification on 03/09/12. I had discovered on 03/04/12 that Bonnie had an appointment but we had not received a purchase order for the verification. Our scheduling carpentry foreman called Bonnie's father who confirmed thathe would be bringing Bonnie to the appointment on 03/09/12 and she needed assistance with her equipment. On 03/05/12, I first called the [employer] [facility] and was told that Bonnie had moved. Shira reported thatBonnie was using an FM system that had been previously used by another student. It was only working sporadically and they thought it was due to excessive moisture in her hearing aids. (Bonnie's father told Shira that he could not find the dry aid kits for her hearing aids and hoped to get a new kit whenhe came on 03/09/12.) I explained the FM verification process and Shira agreed to have a purchase order faxed to us as soon as possible. (In fact it arrived within minutes of our phone call.) We also discussed how the FM system could get to us by Friday afternoon. She was considering mailing it to us but I counseled her that there was very limited time between now and Friday and maybe sending it with the family or her accompanying them to the visit were more timely options. (Note: In a later phone call, Shira said they would be sending it with the family.) Shira also reported that Bonnie was doing very well in school this year. Her reading skills were close to age appropriate and her math skills were also much improved. She receives speech/language therapy three times a week and daily support from Shira in reading and math but her in-class support has been decreased as she is doing much better in the smaller school with smaller classes. Shira also shared that she hopes that Bonnie will remain at their school as there are issues at home and she is not sure where Bonnie and her father will live. Reportedly, Bonnie's father and his girlfriend are splitting up but can not afford to make any housing changes at this time so they are still living in the same apartment. Follow-up activities agreed to were: New school contact information is: Shira Valverde, [place] [address] Madelyn Mendoza Ed., Airbrush [place] [address] (direct line) [phone] (office), (fax) [email or web address] documented in this encounter Plan of Treatment Not on filedocumented as of this encounter Visit Diagnoses Not on filedocumented in this encounter Care Teams Crime Scene Analyst Relationship Specialty Start Date End Date Danya Pulido MD PCP - General 03/27/10 [address] [place] [address] documented as of this encounter
--- OUTSIDE RECORDS SUMMARY | 2022-02-16 20:20 | XMS_ITS | Encounter Summary ---
:2001 Author Organization [facility] [place] [address] Care Team Providers Name Role Phone Danya Pulido MD Primary Care Provider Encounter Details Date Type Department Care Team Description 04/20/2012 External Results Audiology at [facility] Genna Shankar, [facility] [place] [address] [facility] [phone] AUDIOLOGY [place], [place] [address] (Wo rk) Social History Tobacco Use Types Packs/Day Years Used Date Never Assessed Sex Assigned at Date Recorded Not on file documented as of this encounter Plan of Treatment Not on filedocumented as of this encounter Procedures Procedure Name Priority Date/Time Associated Diagnosis Comme nts AUDIOLOGY SCAN Routine 04/17/2012 documented in this encounter Results Scan Doc: Audiology (04/17/2012) Narrative This result has an attachment that is no t available. Genna Shankar MEd MEDIA MGR SCAN EXT ORDR/RSLT documented in this encounter Visit Diagnoses Not on filedocumented in this encounter Care Teams Manager Family Relationship Specialty Start Date End Date Danya Pulido MD PCP - General 03/27/10 [address] [place] [address] documented as of this encounter
--- OUTSIDE RECORDS SUMMARY | 2022-02-16 20:20 | XMS_ITS | Encounter Summary ---
:2000 [place] [address] Care Team Providers Name Role Phone Danya Pulido MD Primary Care Provider Encounter Details Date Type Department Care Team Description 01/19/2014 Telephone Audiology at [facility] Genna Shankar [address] [place] [address] AUDIOLOGY DEPT [phone] [place], [place] [address] (Wo rk) Social History Tobacco Use Types Packs/Day Years Used Date Never Assessed Sex Assigned at Date Recorded Not on file documented as of this encounter Miscellaneous Notes Telephone Encounter - Genna Shankar MEd - 01/19/2014 4:16 PM EDT 01/19/14 Audiology Phone Note: Received a phonecall from Shira Valvered of the [employer] in [place], [place], where pt attends([phone]). She explained that pt has not come to school w/ her regular hearing aids but is using an old one that is not loud enough and can't be used w/ her FM equipment; hearing aids are presumedlost. Shira is aware from having called our HIS team that the aids are under warranty for loss, but t hat family has to call to report them lost. School feels she is not able to access her education andwould like to buy a back up set of aids; they asked for a quote. I faxed it along with a release of info for family to sign as ours is outdated. I also informed her that I have appts available from having put a day back into the schedule on Jan 27 if there's anyway family could come. Our office called home to offer this and school will send a note home as well. Info faxed to: [phone]. documented in this encounter Plan of Treatment Not on filedocumented as of this encounter Visit Diagnoses Not on filedocumented in this encounter Care Teams Detective And Intelligence Analyst Relationship Specialty Start Date End Date Danya Pulido MD PCP - General 03/27/10 [address] [place] [address] documented as of this encounter
--- OUTSIDE RECORDS SUMMARY | 2022-02-16 20:20 | XMS_ITS | Encounter Summary ---
:2000 [place] [address] Care Team Providers Name Role Phone Danya Pulido MD Primary Care Provider Reason for Visit Reason Comments Childhood Sensorineural Hearing Loss Encounter Details Date Type Department Care Team Description 06/02/2012 Office Visit Audiology at [facility] Genna Shankar Sensorineural hearing [facility] Center S, MEd loss, bilateral Drive [facility] (Primary Dx) [place], [place] CENTER [address] AUDIOLOGY DEPT [phone] [place] [id number] Social History Tobacco Use Types Packs/Day Years Used Date Never Assessed Sex Assigned at Date Recorded Not on file documented as of this encounter Progress Notes Genna Shankar, MEd - 06/03/2012 9:24 AM EST AUDIOLOGY SECTION Background Information: Bonnie Wu, 12 years of age, was seen in the Audiology Department at [facility] on Jun 02, 2012 for verification of the educational FM. She was accompanied by her father, Matthew Wu. History includes: Bonnie was last seen for her audiologic follow up in Apr 2012, and new hearing aid fitting in May 2012. verification of her educational FM was last done in Mar 13. Bonnie is known to [facility] Otol[facility]ology. Today, family reports: Father noted last visit and today that the repeated travel to [facility] is a financial hardship; we discussed that in the future, many equipment-only issues can be handled through the mail or via staff drop-off as was arranged with today's FM equipment. Bonnie has at least one back-up hearing aid at home rem aining of her older instruments. For additional background information, please refer to the previous report. Educational Supports/Services: Bonnie attends 5th grade at the [employer] in [place], [place], where she has an IEP in place. Family has been happy with her support and Bonnie has been having a good school year. Educational support services were thought to include speech therapy, 1:1 academic supportand periodic monitoring by [facility] (clarified at a previous visit that this was a one time check-in at the start of the school year; there are not plans for a contract but they may have one more check-in after the new hearing aids and FM are in place). Bonnie has been a successfuluser of an educational FM system in the past; she has reported ongoing issues with her FM not working properly this year which had been attributed to the poor condition (broken battery compartments) ofher older hearing aids. Now that she has new hearing aids in place, the function of the FM can be explored as arranged for today. Family has met with our Autographer for [facility] Audiology, Irene Soares. For further background information, please refer to the medical record. Hearing Aid Information: HEARING AID RIGHT LEFT Make/Model/Style Oticon Safari 600 P Same for all Casing Color pink Serial Number [id number] Battery Size 13; year's supply dispensed 05/11/12 Other Care Kit PROGRAM/SETTINGS Fitting Algorithm DSL child Same for all Verification Method SREM w/ RECD; REM Programs basic Disabled Features Limited volume range Other HEARING AID WARRANTY Original Fit Date 05/11/2012 05/11/2012 Current Status 05/23/2015 05/23/2015 EARMOLD (if BTE MCKEON) [facility] Same for all Earmold specifics 6/shell/Otoblast/cat-eye with bright pink Impression Date 04/17/2012 Invoice # [id number] OTHER ?? FM Verification: School: [employer], [place], [place] FM EQUIPMENT TRANSMITTER RIGHT JOB ORDER CLERK LEFT JOB ORDER CLERK MAKE Phonak Phonak Phonak MODEL Inspiro MLxi MLxi SERIAL NUMBER [id number] CHANNEL 02 02 02 AUDIOSHOES -- Oticon FM9 Oticon FM9 OTHER/COMMENTS lapel ant in need of replacement Listening check: of the hearing aids alone was satisfactory for both instruments, as was electroacoustic evaluation using the Audioscan Verifit. Visual inspection: of the FM system found that the microphone clip was broken and knotted through the lavalier neck cord and then clipped to that cord; this set-up impairs the function of the microphone antenna and care should be taken to avoid knotting the ant antenna. Additionally, the microphone was found to be unplugged from the transmitter and did not stay plugged in when replaced. Subsequent listening check of the microphone found it to be distorted. A replacement microphone is advised at thistime. FM troubleshooting: attempts to verify the remaining parts of the FM system using FM components fromthe [facility] clinic stock was then completed. Both MLXi receivers did not appear to be receiving the FM signal from Bonnie's Inspiro transmitter, nor a [facility] Inspiro transmitter. A [facility] MLXi meter installer was able to receive the FM signal both from the [facility] and [facility]'s transmitters, however as noted above, Bonnie's microphone sound quality was distorted. Discussion with [employer] customer service advised repair of both of the MLXi receivers at this time. The FM system should return to [facility] for verification with Bonnie's new hearing aids following the meter installer repairs and replacement of the microphone (there is no additional charge for the re-verification within one year). This information was relayed to Bonnie Srinivasan's top case assembler at the [facility] [employer]. SUMMARY: As previously reviewed, Bonnie presents with [...] recommendations were shared. Recommendations: 1. Continue medical management. There were no reports of any ear discomfort today. 2. Return for FM re-verification post repair of the equipment and replacement of the microphone; as noted, arrangements can be made to ship the FM and Bonnie's new hearing aids to us or be dropped and picked up by a staff member as arranged this time around. 3. Keep up the good work with use of the new hearing aids, multimedia technician during waking hours with the exception of water activities. 4. Return to monitor hearing and hearing aid function in 12 months, or sooner if a concern arises about a decrease in hearing or hearing aid function (appt request submitted for Dec 2012 in hopes of timing annual visits to avoid missing school). 5. Avoid noise exposure; use hearing protection when in excessive noise. 6. Continue educational support services given the educationally significant hearing loss including use of an FM system use, as well as monitoring support from the [place] integrity consultant. Results of hearing support consultation explore classroom acoustics, provide staff inservicing, and monitor Simi FM system needs for addressing listening in distance and message competition situations. Please feel free to contact me with questions regarding today's visit or recommendations. Genna Shankar M.Ed., [facility] Clinical Patient Partner cc: Dr. Danya Pulido-[facility], [address], [facility] [address] family of Bonnie Wu [facility], [address] [place] [address] [employer], attn: Destiny Valverde, [address], [place], [place] [address] Irene Soares M.Ed., Autographer documented in this encounter Plan of Treatment Not on filedocumented as of this encounter Visit Diagnoses Diagnosis Sensorineural hearing loss, bilateral - Primary documented in this encounter Care Teams Vendor Analyst Relationship Specialty Start Date End Date Danya Pulido MD PCP - General 03/27/10 [address] [place] [address] documented as of this encounter
--- OUTSIDE RECORDS SUMMARY | 2022-02-16 20:20 | XMS_ITS | Encounter Summary ---
:2000 [place] [address] Care Team Providers Name Role Phone Danya Pulido MD Primary Care Provider Reason for Visit Reason Comments Childhood Sensorineural Hearing Loss Encounter Details Date Type Department Care Team Description 11/30/2012 Office Visit Audiology at [facility] Genna Shankar Sensorineural hearing [facility] Center S, MEd loss, bilateral Drive [facility] (Primary Dx) [place], [place] CENTER [address] AUDIOLOGY DEPT [phone] [place] [id number] Social History Tobacco Use Types Packs/Day Years Used Date Never Assessed Sex Assigned at Date Recorded Not on file documented as of this encounter Progress Notes Genna Shankar S, MEd - 11/30/2012 12:10 PM EDT AUDIOLOGY SECTION Visit Summary: Bonnie Wu, 12 years of age, was seen on November 30, 2012, for re- verification of her FM system post repair of the receivers. She has been followed by the Audiology Department at [facility] for management of her bilateral mild/moderate hearing loss for which she uses two hearing aids since 2001. Unfortunately, her FM equipment was not sent/delivered to [facility] by the school in time for today's visit. A phone call to school found they had the equipment ready to go and were aware of the pending appointment but there was apparently a miscommunication between staff members about getting the correct address. They were apologetic. We discussed checking student's hearing aids today and the FM equipment with stock hearing aids when it is received. Hearing Aid Information: HEARING AID RIGHT LEFT Make/Model/Style Oticon Safari 600 P Same for all Casing Color pink Serial Number [id number] Battery Size 13; year's supply dispensed 05/11/12 Other Care Kit PROGRAM/SETTINGS Fitting Algorithm DSL child Same for all Verification Method SREM w/ RECD; REM Programs basic Disabled Features Limited volume range Other HEARING AID WARRANTY Original Fit Date 05/11/2012 05/11/2012 Current Status 05/23/2015 05/23/2015 EARMOLD (if BTE MCKEON) Lab [facility] Same for all Earmold specifics 6/shell/Otoblast/pink&green swyrl Impression Date 11/30/2012 Invoice # OTHER Hearing aid check: Visual inspection found the tubing of one of Bonnie's earmolds to be brittle; it was re-tubed. Otoscopic inspection was unremarkable. Impressions were taken of both ears for new earmolds with thecanals clear pre/post; these will be sent to the family at home who will call with any fit concerns. Verification of the hearing aid settings was completed on the Audioscan; DSL targets were being nicely met; no adjustments were made. FM Verification: School: [employer], [place] FM EQUIPMENT TRANSMITTER RIGHT MEDICAL DATA ANALYST LEFT MEDICAL DATA ANALYST MAKE Phonak Phonak Phonak MODEL Inspiro MLxi MLxi SERIAL NUMBER [id number] triangle (new) [id number] triangle (new) CHANNEL 02 02 02 AUDIOSHOES -- Oticon FM9 Oticon FM9 OTHER/ COMMENTS [facility] Not able to assess today. documented in this encounter Plan of Treatment Not on filedocumented as of this encounter Visit Diagnoses Diagnosis Sensorineural hearing loss, bilateral - Primary documented in this encounter Care Teams Wastewater Treatment Plant Supervisor Relationship Specialty Start Date End Date Danya Pulido MD PCP - General 03/27/10 [address] [place] [address] documented as of this encounter
--- OUTSIDE RECORDS SUMMARY | 2022-02-16 20:20 | XMS_ITS | Encounter Summary ---
:2000 Author Organization [facility] [place] [address] Care Team Providers Name Role Phone Danya Pulido MD Primary Care Provider Reason for Visit Reason Comments Other Encounter Details Date Type Department Care Team Description 02/02/2014 Telephone Audiology at [facility] [place] [address] Social History Tobacco Use Types Packs/Day Years Used Date Never Assessed Sex Assigned at Date Recorded Not on file documented as of this encounter Miscellaneous Notes Telephone Encounter - Dianne Rouse - 02/02/2014 4:55 PM EDT I called Bonnie's dad to inform him per Tommy Harvey Bonnie needed a full workup (F20). I informed him we don't need to change the date we see Bonnie but we need them to come in for 3:15 NOT 4:00 on 02/09. He stated he can make this appointment. The appointment has been adjusted. Telephone Encounter - Dianne Rouse - 02/02/2014 4:55 PM EDT Message copied by DIANNE ROUSE on FriFeb 02, 2014 4:55 PM ------ Message from: TOMMY HARVEY Created: FriFeb 02, 2014 4:05 PM Regarding: RE: Feb 09 pt scheduled for HAC only w/ CN but is overdue for F20 I think this will work. On 02/09, reschedule CN's 3:15 pt who is unlinked and age 12 typical chino to Jenna (open from 3:30-5pm, I think frozen for DM?) and have Merly see Bonnie at 3:15, however I'd strongly suggest you encourage the family to come early as there will be a lot to do and SHAE is nottheir regular provider. If they're here early, I can try to do her impressions or update their releases in between my other patients. ----- Message ----- From: Dianne Rouse Sent: 02/02/2014 3:10 PM To: VAISHALI Marquez, [place] Portillo MA Subject: RE: Feb 09 pt scheduled for HAC only w/ CN # Okay, I can set her up. Besides that February 17 can you help me find time on your schedule? From the sounds of it she needs an appointment kavin and the soonest I can find on your schedule is 03/23 @9:45. Thank you. ----- Message ----- From: Tommy Harvey MED Sent: 02/02/2014 2:12 PM To: [place] Portillo MA, Dianne Rouse Subject: RE: Feb 09 pt scheduled for HAC only w/ CN # Okay. Bonnie will still need a 90 min F20 appt please. ----- Message ----- From: Dianne Rouse Sent: 02/02/2014 2:11 PM To: VAISHALI Marquez, Priti Harrell, # Subject: RE: Feb 09 pt scheduled for HAC only w/ CN # I called Priti and she said you have a patient for February 17. She is looking into it right now. ----- Message ----- From: Tommy Harvey MED Sent: 02/02/2014 11:43 AM To: [place] Portillo MA, Dianne Rouse Subject: RE: Feb 09 pt scheduled for HAC only w/ CN # I think the HIS team didn't realize she was so overdue for her audio when they requested earmold only (I think that's how it happened). She needs a current audio to program the replacement hearing aid, and school wants to purchase MCKEON's so that's why the HAS in the comment line (actually 'HAS school' would be better). Whether the MVO spot can be used depends on resource availability (please check this) and if we don't have someone Hosea or Priti are thinking want that spot for MVO. Hope that makessense. Tommy ----- Message ----- From: Dianne Rouse Sent: 02/02/2014 11:06 AM To: VAISHALI Marquez, [place] Portillo MA Subject: RE: Feb 09 pt scheduled for HAC only w/ CN # So if family agrees then you want me to use the SABR spot on your 02/17 schedule? ----- Message ----- From: Tommy Harvey MED Sent: 02/02/2014 10:45 AM To: [place] Portillo MA, Dianne Rouse Subject: Feb 09 pt scheduled for HAC only w/ CN but # Will definitely need more time; she's also missing a hearing aid and really needs hers replaced. AnF20 w/ 'MCKEON selection' in the comment line is what she needs. Typically I manage her. Family is difficult to get here. Please contact them to schedule at least 90 min.-I currently have an open MVO spot on Feb 17- can that be used for her? Thanks for checkingTommy documented in this encounter Plan of Treatment Not on filedocumented as of this encounter Visit Diagnoses Not on filedocumented in this encounter Care Teams Brick Chimney Supervisor Relationship Specialty Start Date End Date Danya Pulido MD PCP - General 03/27/10 [address] [place] [address] documented as of this encounter
--- OUTSIDE RECORDS SUMMARY | 2022-02-16 20:20 | XMS_ITS | Encounter Summary ---
:2000 Author Organization [facility] [address] Care Team Providers Name Role Phone Danya Pulido MD Primary Care Provider Encounter Details Date Type Department Care Team Description 04/08/2011 External Results Audiology at [facility] Genna Shankar, [facility] [place] [address] [facility] [phone] AUDIOLOGY [place], [place] [address] (Wo rk) Social History Tobacco Use Types Packs/Day Years Used Date Never Assessed Sex Assigned at Date Recorded Not on file documented as of this encounter Plan of Treatment Not on filedocumented as of this encounter Procedures Procedure Name Priority Date/Time Associated Diagnosis Comme nts AUDIOLOGY SCAN Routine 04/05/2011 documented in this encounter Results Scan Doc: Audiology (04/05/2011) Narrative This result has an attachment that is no t available. Genna Shankar MEd MEDIA MGR SCAN EXT ORDR/RSLT documented in this encounter Visit Diagnoses Not on filedocumented in this encounter Care Teams Mortgage Loan Interviewer Relationship Specialty Start Date End Date Danya Pulido MD PCP - General 03/27/10 [address] [place] [address] documented as of this encounter
--- OUTSIDE RECORDS SUMMARY | 2022-02-16 20:20 | XMS_ITS | Encounter Summary ---
:2000 [place] [address] Care Team Providers Name Role Phone Danya Pulido MD Primary Care Provider Encounter Details Date Type Department Care Team Description 07/25/2015 Notes Only [place] [facility] [place] Shank[place] [facility] [place] [address] AUDIOLOGY DEPT [phone] [place], [place] [address] (Wo rk) Social History Tobacco Use Types Packs/Day Years Used Date Never Assessed Sex Assigned at Date Recorded Not on file documented as of this encounter Progress Notes Genna Shankar MEd - 07/25/2015 1:48 PM EDT AUDIOLOGY SECTION Received word from Oticon rep, Lauren Jaramillo, that the Streamer promo could be reassigned to this patient; details below in equipment table. EQUIPMENT TABLE: HEARING AID? RIGHT? LEFT? Make/Model/Style? Oticon Sensei Pro BTE? Oticon Sensei Pro BTE? Casing Color? red? red? Serial Number? [id number]? [id number]? Battery Size? 13? 13? Invoice number / date? [id number]?? 05/01/15? 05/01/15? PROGRAM/SETTINGS? Fitting Algorithm?DSL child? DSL child? Verification Method? REM; SREM for post repair? REM; SREM for post repair? Programs?>P1=Basic (auto tri mode; NR on)?? >P1=Basic (auto tri mode; NR on)?? Disabled Features?LED, auto phone?? LED, auto phone?? Other? HEARING AID WARRANTY? Original Fit Date?05-24-15? 05-24-15? Current Status? 06-01-18? 06-01-18? EARMOLD (if BTE MCKEON)? Lab? [facility]? Earmold specifics? 3/4 or 1/2 shell/ otoblast (blue cat-eye) / med canal / no vent / 13T thru? 6// otoblast (blue cat-eye) / med canal / no vent / 13T thru? Impression Date? 05/31/15?? 02/20/15? Invoice #? [id number] / 2015? ACCESSORIES? Make/Model?Oticon Streamer ? Color?n/a ? Serial Number?[id number] ? Warranty date?06/30/16 per Lauren Dobsonwell ? Invoice number/date? documented in this encounter Plan of Treatment Not on filedocumented as of this encounter Visit Diagnoses Not on filedocumented in this encounter Care Teams Auto Body Shop Manager Relationship Specialty Start Date End Date Danya Pulido MD PCP - General 03/27/10 [address] [place] [address] documented as of this encounter
--- OUTSIDE RECORDS SUMMARY | 2022-02-16 20:20 | XMS_ITS | Encounter Summary ---
:2000 Author Organization [facility] [place] [address] Care Team Providers Name Role Phone Danya Pulido MD Primary Care Provider Encounter Details Date Type Department Care Team Description 09/15/2012 Telephone Audiology at [facility] Rigo Merinoisti [facility] [place] [address] Social History Tobacco Use Types Packs/Day Years Used Date Never Assessed Sex Assigned at Date Recorded Not on file documented as of this encounter Miscellaneous Notes Telephone Encounter - Dea Merino - 09/15/2012 3:04 PM EDT The FM system is not working even with the change to channel 2. The school will contact the family and let them know they will need an appointment. A task was sent to the care team coordinator scheduler to have an appointment made. The school will have someone drop off the FM early next week and we will troubleshoot it prior to the appointment. We will then contact the school to have the FM picked up as it won't be given to the family following the visit. Hearing Aid Information: HEARING AID RIGHT LEFT Make/Model/Style Oticon Safari 600 P Same for all Casing Color pink Serial Number [id number] Battery Size 13; year's supply dispensed 05/11/12 [...] bright pink Impression Date 04/17/2012 Invoice # [id number] OTHER FM Verification: School: [employer], [place] FM EQUIPMENT TRANSMITTER RIGHT EQUIPMENT ANALYST LEFT EQUIPMENT ANALYST MAKE Phonak Phonak Phonak MODEL Inspiro MLxi MLxi SERIAL NUMBER [id number] CHANNEL 02 02 02 AUDIOSHOES -- Oticon FM9 Oticon FM9 OTHER/COMMENTS lapel ant in need of replacement documented in this encounter Plan of Treatment Not on filedocumented as of this encounter Visit Diagnoses Not on filedocumented in this encounter Care Teams Fire Fighter Relationship Specialty Start Date End Date Danya Pulido MD PCP - General 03/27/10 [address] [place] [address] documented as of this encounter
--- OUTSIDE RECORDS SUMMARY | 2022-02-16 20:20 | XMS_ITS | Encounter Summary ---
:2001 Author Organization [facility] [place] [address] Care Team Providers Name Role Phone Danya Pulido MD Primary Care Provider Encounter Details Date Type Department Care Team Description 09/02/2016 Clinical Support Audiology at [facility] Mireya Alas Sensorineural hearing [facility] A loss, [place] [phone] Social History Tobacco Use Types Packs/Day Years Used Date Never Assessed Sex Assigned at Date Recorded Not on file documented as of this encounter Progress Notes Mireya Alas A - 09/02/2016 4:00 PM EDT Power Supply mailed to pt. EQUIPMENT TABLE: HEARING AID?? RIGHT?? LEFT?? Make/Model/Style?? Oticon Sensei Pro BTE?? Oticon Sensei Pro BTE?? Casing Color?? red?? red?? Serial Number?? [id number]?? Battery Size?? 13?? 13?? Invoice number / date?? [id number]?? 05/01/15?? 05/01/15?? PROGRAM/SETTINGS? Fitting Algorithm?DSL child DSL child Verification Method?? REM; SREM for post repair REM; SREM for post repair Programs?>P1=Basic (auto tri mode; NR on) >Auto phone (M) >P1=Basic (auto tri mode; NR on) >Auto phone (M) Disabled Features?LED LED Other? HEARING AID WARRANTY? Original Fit Date?05-24-15 05-24-15 Current Status?? 06-01-18-repair only, L/D Used?? 06-01-18?? EARMOLD (if BTE MCKEON)? Lab?? [facility]?? Earmold specifics?? 1/2 shell/ otoblast (camo cat-eye) / med canal / no vent / 13T thru?? /2 shell/otoblast (camo cat-eye) / med canal / no vent / 13T thru?? Impression Date?? 05/08/16 05/08/16?? Invoice #? ACCESSORIES? Make/Model?Oticon Streamer ? Color?n/a ? Serial Number?[id number] ? Warranty date?06/30/16 per Lauren Jaramillo ? Invoice number/date? HEARING AID ([facility]) RIGHT ?? LEFT ?? Make/Model/Style ?? Oticon Sensei P ?? Oticon Sensei P ?? Casing Color ?? purple ?? purple ?? Serial Number ?? [id number] ?? [id number] ?? Battery Size ?? 13 ?? 13 ?? Invoice number / date ?? [id number] 04/14/14 ?? [id number] 04/14/14 ?? PROGRAM/SETTINGS ? Fitting Algorithm ?? [...] P / BTE ?? CASING COLOR ?? Meridian ?? Meridian ?? SERIAL NUMBER ?? [id number] (missing x 6 mo)?? [id number] ?? BATTERY SIZE ?? 13 ?? 13 [...] ? same ? FM EQUIP - SCHOOL: [place] ?? TRANSMITTER ?? TRUCK DRIVER INSTRUCTOR #1 ?? TRUCK DRIVER INSTRUCTOR #2 ?? MAKE/MODEL ?? Phonak / Inspiro ?? Phonak / MLxi ?? Phonak / MLxi ?? SERIAL NUMBER ?? [id number] ?? [id number] ?? [id number] ?? CHANNEL ?? N02 ?? N02 ?? N02 ?? FM SETTINGS ? ANT / AUDIO SHOE ?? [place] Ant ?? Oticon FM9 ?? Oticon FM9 ?? VERIFICATION DATE ?? 01/08/2013 ?? 01/08/2013 ?? 01/08/2013 ?? FIT DATE ? OTHER/COMMENTS ? documented in this encounter Plan of Treatment Not on filedocumented as of this encounter Visit Diagnoses Diagnosis Sensorineural hearing loss, bilateral documented in this encounter Care Teams Invoicing Specialist Relationship Specialty Start Date End Date Danya Pulido MD PCP - General 03/27/10 [address] [place] [address] documented as of this encounter
--- OUTSIDE RECORDS SUMMARY | 2022-02-16 20:20 | XMS_ITS | Encounter Summary ---
:2001 Author Organization [place] [address] Care Team Providers Name Role Phone Danya Pulido MD Primary Care Provider Encounter Details Date Type Department Care Team Description 03/25/2013 Notes Only Audiology at [facility] [place] Dea Merino [facility] [place] [address] Social History Tobacco Use Types Packs/Day Years Used Date Never Assessed Sex Assigned at Date Recorded Not on file documented as of this encounter Progress Notes Dea Merino - 03/25/2013 1:40 PM EST Left hearing aid sent to Oticon for in warranty repair. Repair reason: broken casing. Patient's ear mold held in HIS office. HEARING AID RIGHT LEFT MAKE/MODEL/STYLE Oticon Safari 600 P Oticon Safari 600 P CASING COLOR [place] SERIAL NUMBER [id number] BATTERY SIZE 13 13 PROGRAM/SETTINGS FITTING ALGORITHM DSL Child DSL Child VERIFICATION METHOD SREM w/RECD; REM SREM w/RECD; REM PROGRAMS P1=Basic P2= P3= P1=Basic P2= P3= DISABLED FEATURES Limited Volume range Limited Volume range OTHER COMMENTS WARRANTY ORIGINAL FIT DATE 05/11/12 05/11/12 CURRENT STATUS 05/23/15 05/23/15 EARMOLD/COUPLING (if BTE) LAB [facility] EM (style / material / vent / color) 6/Shell/Otoblast/[place]&Green S 6/Shell/Otoblast/[place]&Green IMPRESSION DATE 11/30/12 11/30/12 INVOICE # TUBE/RICKY (length / dome size) 13 13 FM EQUIPMENT - SCHOOL: [place], [place] FM EQUIPMENT TRANSMITTER PRINTING PRESS OPERATOR #1 PRINTING PRESS OPERATOR #2 MAKE/MODEL Phonak Inspiro MLxi MLxi SERIAL NUMBER [id number] CHANNEL 2 2 2 FM SETTINGS TATE / AUDIO SHOE Gilmer Tate Oticon FM9 Oticon FM9 VERIFICATION DATE FIT DATE OTHER/COMMENTS documented in this encounter Plan of Treatment Not on filedocumented as of this encounter Visit Diagnoses Not on filedocumented in this encounter Care Teams Machine Setter And Repairer Relationship Specialty Start Date End Date Danya Pulido MD PCP - General 03/27/10 [address] [place] [address] documented as of this encounter
--- OUTSIDE RECORDS SUMMARY | 2022-02-16 20:20 | XMS_ITS | Encounter Summary ---
:2001 Author Organization [facility] [place] [address] Care Team Providers Name Role Phone Danya Pulido MD Primary Care Provider Encounter Details Date Type Department Care Team Description 09/14/[address] [facility] Lisaallie Dea [facility] [place] [address] Social History Tobacco Use Types Packs/Day Years Used Date Never Assessed Sex Assigned at Date Recorded Not on file documented as of this encounter Miscellaneous Notes Telephone Encounter - LisaallieRigoDea - 09/14/2012 3:49 PM EDT [facility] requesting some troubleshooting advice. The FM system is currently not working and one of the patient's hearing aids (not sure which one, thinks leftside) is having quite a bit of feedback. I asked her to troubleshoot the ear mold by attaching the he aring aid that is having feedback to the opposite ear mold. If this helps then the patient may need a new ear mold. She said that the FM is set on channel 1. The school recentlysent it to [employer] for repair. She will set it to channel 2 tomorrow and see if this helps. We discussed that if the patient needs a new ear mold and if the FM system is not working that it is recommended that the patient come in for an appointment. Destiny will contact the clinic tomorrow to follow-up. Hearing Aid Information: HEARING AID RIGHT LEFT Make/Model/Style Oticon Safari 600 P Same for all Casing Color pink Serial Number [id number] Battery Size 13; year's supply dispensed 05/11/12 [...] bright pink Impression Date 04/17/2012 Invoice # [id number] OTHER FM Verification: School: [employer], [place], [place] FM EQUIPMENT TRANSMITTER RIGHT COMMUNITY DEVELOPMENT WORKER LEFT COMMUNITY DEVELOPMENT WORKER MAKE Phonak Phonak Phonak MODEL Inspiro MLxi MLxi SERIAL NUMBER [id number] CHANNEL 02 02 02 AUDIOSHOES -- Oticon FM9 Oticon FM9 OTHER/COMMENTS [facility] documented in this encounter Plan of Treatment Not on filedocumented as of this encounter Visit Diagnoses Not on filedocumented in this encounter Care Teams Salvage Cutter Relationship Specialty Start Date End Date Danya Pulido MD PCP - General 03/27/10 [address] [place] [address] documented as of this encounter
--- OUTSIDE RECORDS SUMMARY | 2022-02-16 20:20 | XMS_ITS | Encounter Summary ---
:2001 [place] [address] Care Team Providers Name Role Phone Danya Pulido MD Primary Care Provider Encounter Details Date Type Department Care Team Description 06/03/2016 Telephone Audiology at [facility] Genna Shankar [facility] [place] [address] AUDIOLOGY DEPT [phone] [place], [place] [address] (Wo rk) Social History Tobacco Use Types Packs/Day Years Used Date Never Assessed Sex Assigned at Date Recorded Not on file documented as of this encounter Miscellaneous Notes Telephone Encounter - Genna Shankar MEd - 06/03/2016 9:37 AM EST Audiology Section: Called father, Cristiano Wu, re: we are awaiting the updated address before we can send the new earmolds or reports. He said he still gets mail at the old address so to send them there. Also reminded him we were waiting for the release of info forms to be signed and returned to us-he said he hadn't gotten a chance to fill them out yet. I explained he doesn't need to fill anything out, just sign them and return in the envelope provided; asked if he still has them or should we send another copy? He said Bonnie has them and he will get them in the mail. documented in this encounter Plan of Treatment Not on filedocumented as of this encounter Visit Diagnoses Not on filedocumented in this encounter Care Teams Rn Spine Relationship Specialty Start Date End Date Danya Pulido MD PCP - General 03/27/10 [address] [place] [address] documented as of this encounter
--- OUTSIDE RECORDS SUMMARY | 2022-02-16 20:20 | XMS_ITS | Encounter Summary ---
:2001 Author Organization [facility] [place] [address] Care Team Providers Name Role Phone Danya Pulido MD Primary Care Provider Encounter Details Date Type Department Care Team Description 08/15/2016 Clinical Support Audiology at [facility] Mireya Alas Sensorineural hearing [facility] A loss, [place] [address] Social History Tobacco Use Types Packs/Day Years Used Date Never Assessed Sex Assigned at Date Recorded Not on file documented as of this encounter Progress Notes Mireya Alas A - 08/15/2016 2:00 PM EDT AUDIOLOGY - AMPLIFICATION REPAIR NOTE REPAIR WORK HEARING AID (right, left or both) Right SERIAL NUMBER CHANGED? Yes WARRANTY CHANGED? Yes-L&D Used REPAIR WORK PERFORMED? (repair company/invoice number) Replaced under Loss/Damage. Oticon [id number] 08/13/16 CHARGE TO PATIENT? Yes S-REM VERIFICATION PERFORMED? Yes-By Genna Shankar RE-PROGRAMMED? (ORTEGA session date) PROGRAMS AND V/C STATUS CHANGED? PHYSICAL AND ACOUSTIC INSPECTION PERFORMED? DELIVERY (patient pick-up, patient seen, aid mailed or handed off) Mailed to pt [facility] LOANER OUT? OTHER EQUIPMENT TABLE: HEARING AID?? RIGHT?? LEFT?? Make/Model/Style?? Oticon Sensei Pro BTE?? Oticon Sensei Pro BTE?? Casing Color?? red?? red?? Serial Number?? [id number]?? Battery Size?? 13?? 13?? Invoice number / date?? [id number]?? 05/01/15?? 05/01/15?? PROGRAM/SETTINGS? Fitting Algorithm?DSL child DSL [...] / no vent / 13T thru?? 1/2 shell/otoblast (camo cat-eye) / med canal / no vent / 13T thru?? Impression Date?? 05/08/16 05/08/16?? Invoice #? ACCESSORIES? Make/Model?Oticon Streamer ?? Color?n/a ?? Serial Number?[id number] ? Warranty date?06/30/16 per Lauren Jaramillo ?? Invoice number/date? HEARING AID ([employer] [facility]) RIGHT ?? LEFT ?? Make/Model/Style ?? Oticon Sensei P ?? Oticon Sensei P ?? Casing Color ?? purple ?? purple ?? Serial Number ?? [id number] ?? [id number] ?? Battery Size ?? 13 ?? 13 ?? Invoice number / date ?? [id number] 04/14/14 ?? [id number] 04/14/14 ?? PROGRAM/SETTINGS ? Fitting Algorithm ?? [...] P / BTE ?? CASING COLOR ?? Mosses ?? Mosses ?? SERIAL NUMBER ?? [id number] (missing x 6 mo)?? [id number] ?? BATTERY SIZE ?? 13 ?? 13 [...] ? same ? FM EQUIP - SCHOOL: [employer] [place] ?? TRANSMITTER ?? SUPERVISOR BORDER DEPARTMENT #1 ?? SUPERVISOR BORDER DEPARTMENT #2 ?? MAKE/MODEL ?? Phonak / Inspiro ?? Phonak / MLxi ?? Phonak / MLxi ?? SERIAL NUMBER ?? [id number] ?? [id number] ?? [id number] ?? CHANNEL ?? N02 ?? N02 ?? N02 ?? FM SETTINGS ? ANT / AUDIO SHOE ?? [place] Ant ?? Oticon FM9 ?? Oticon FM9 ?? VERIFICATION DATE ?? 01/08/2013 ?? 01/08/2013 ?? 01/08/2013 ?? FIT DATE ? OTHER/COMMENTS ? documented in this encounter Plan of Treatment Not on filedocumented as of this encounter Visit Diagnoses Diagnosis Sensorineural hearing loss, bilateral documented in this encounter Care Teams Software Engineer Mobile Relationship Specialty Start Date End Date Danya Pulido MD PCP - General 03/27/10 [address] [place] [address] documented as of this encounter
--- OUTSIDE RECORDS SUMMARY | 2022-02-16 20:20 | XMS_ITS | Encounter Summary ---
:2001 Author Organization [facility] [place] [address] Care Team Providers Name Role Phone Danya Pulido MD Primary Care Provider Encounter Details Date Type Department Care Team Description 02/21/2014 Notes Only Audiology at [facility] [place] [address] Social History Tobacco Use Types Packs/Day Years Used Date Never Assessed Sex Assigned at Date Recorded Not on file documented as of this encounter Progress Notes Mireya Alas A - 02/21/2014 2:16 PM EDT New earmolds arrived and given to managing veterans employment representative. Both sets were mailed to [facility] so one set was then mailed to pt. EQUIPMENT LIST: HEARING AID RIGHT LEFT MAKE/MODEL/STYLE Oticon / Safari 600 P / BTE Oticon / Safari 600 P / BTE CASING COLOR [place] SERIAL NUMBER [id number] BATTERY SIZE 13 13 PROGRAM/SETTINGS FITTING ALGORITHM DSL Child DSL Child VERIFICATION METHOD REM w/personal RECD (updated 02.09.2014); SREM on file REM w/personal RECD (updated 02.09.2014); SREM on file PROGRAMS >P1=Basic (dir ant tri mode; NR on) >Auto phone (M) >P1=Basic (dir ant tri mode; NR on) >Auto phone (M) DISABLED FEATURES lights lights OTHER COMMENTS >VC active (sync) >low battery and change battery indicator >VC active (sync) >low battery and change battery indicator WARRANTY ORIGINAL FIT DATE 05/11/12 05/11/12 CURRENT STATUS 05/23/15-Repair only 05/23/15 EARMOLD/COUPLING (if BTE) LAB [facility] Silverio EM (style / material / vent / color) 6/ otoblast (pink glitter) / med canal / no vent / 13T thru 6/ otoblast (pink glitter) / med canal / no vent / 13T thru IMPRESSION DATE 02.09.2014 02.09.2014 INVOICE # Green- [id number] 02/18/14 [place]- [id number] 02/18/14 OTHER COMMENTS >two sets ordered - one for home and one for school (green cat's eye for anticipated HAF for instrument to be kept at school) EQUIP - SCHOOL: [place], [place] TRANSMITTER SNAKER DRIVING HORSES #1 SNAKER DRIVING HORSES #2 MAKE/MODEL Phonak / Inspiro Phonak / MLxi Phonak / MLxi SERIAL NUMBER [id number] CHANNEL N02 N02 N02 FM SETTINGS ANT / AUDIO SHOE [place] Oticon FM9 Oticon FM9 VERIFICATION DATE 01/08/2013 01/08/2013 01/08/2013 FIT DATE OTHER/COMMENTS documented in this encounter Plan of Treatment Not on filedocumented as of this encounter Visit Diagnoses Not on filedocumented in this encounter Care Teams Car Wash Attendant Relationship Specialty Start Date End Date Danya Pulido MD PCP - General 03/27/10 [address] [place] [address] documented as of this encounter
--- OUTSIDE RECORDS SUMMARY | 2022-02-16 20:20 | XMS_ITS | Encounter Summary ---
:2001 [place] [address] Care Team Providers Name Role Phone Danya Pulido MD Primary Care Provider Reason for Visit Reason Comments Childhood Sensorineural Hearing Loss Encounter Details Date Type Department Care Team Description 04/17/2012 Office Visit Audiology at [facility] Genna Shankar Sensorineural hearing [facility] S, MEd loss, bilateral Drive [facility] (Primary Dx) [place], [place] CENTER [address] AUDIOLOGY DEPT [phone] [place] [address] Social History Tobacco Use Types Packs/Day Years Used Date Never Assessed Sex Assigned at Date Recorded Not on file documented as of this encounter Progress Notes Genna Shankar MEd - 04/17/2012 3:03 PM EST FM verification post-poned pending fitting of new hearing aids; see note of the same date. documented in this encounter Plan of Treatment Not on filedocumented as of this encounter Visit Diagnoses Diagnosis Sensorineural hearing loss, bilateral - Primary documented in this encounter Care Teams Sulfonator Operator Relationship Specialty Start Date End Date Danya Pulido MD PCP - General 03/27/10 [address] [place] [address] documented as of this encounter
--- OUTSIDE RECORDS SUMMARY | 2022-02-16 20:20 | XMS_ITS | Encounter Summary ---
:2001 Author Organization [facility] [place] [address] Care Team Providers Name Role Phone Danya Pulido MD Primary Care Provider Reason for Visit Reason Comments Childhood Sensorineural Hearing Loss Encounter Details Date Type Department Care Team Description 04/18/2014 Procedure visit Audiology at [facility] Genna Shankar Sensorineural hearing [facility] S, MEd loss, bilateral [place], [place] CENTER [address] AUDIOLOGY DEPT [phone] [place] [address] Social History Tobacco Use Types Packs/Day Years Used Date Never Assessed Sex Assigned at Date Recorded Not on file documented as of this encounter Progress Notes Genna Shankar S, MEd - 04/18/2014 4:50 PM EST AUDIOLOGY SECTION BACKGROUND: Name: Bonnie Wu Age: 14 years of age Date: 04/18/2014 Reason for note: programming/dispensing of hearing aids for [employer] to be used as back up to ensure Bonnie's access to her educational programming. History includes: ?? Bonnie is followed for management of her bilateral moderate/severe sensorineural hearing loss for which she uses two hearing aids. She was last seen for her audiologic follow up by my colleague, [place] Portillo, in Feb 2014, at which time hearing was stable. ?? Bonnie is known to [facility] Otolaryngology. ?? Educational Supports and Services: attends 7th grade at [employer] in [place], [place]. Current supports include speech-language services and use of FM technology. Historically supports also included a deaf/hard of hearing dog trainer; this would now be through [facility]. Bonnie uses an FMsystem in school with good success. Family also known to [facility] Primary School Teacher in Audiology, Arnold Mendoza. ?? Over the years Bonnie has had periods without working hearing aids or well fitting earmolds. Getting to [facility] can be challenging for family given numerous stressors. After Bonnie relied on a single hearing aid for several months this fall, her school team felt it was prudent to obtain a pair of hearing aids to be used at school as part of her FM system to provide her consistent access to auditory information. HEARING AIDS: See EQUIPMENT TABLE below SUMMARY: ?? The Oticon Sensei P hearing aids were programmed via simulated real-ear measures using the most recent audiological results with personal RECD applied to the measure. The frequency responses of the hearing aids nicely approximated the Desired Sensation Level (DSL) aided response targets without exceeding the maximum output limits as programmed. ?? The mutuel teller's booklets regarding the use, care, and maintenance of the hearing aids was sentwith the equipment, as well as the Otikids courtesy care kit. Bonnie is very adept at using hearing aids as she is a long time wearer. Dispensing paperwork was completed, along with a return envelope for the school team to return for Bonnie's [facility] audiology records. ?? School may contact us with any questions about the new hearing aid equipment. Of note, they carrya 3 year warranty; this covers loss one time per aid in the three year period, and repair as often as needed. See EQUIPMENT TABLE below. Arnold Clarke [facility] [place] [phone] (v) / [phone] (f) EQUIPMENT TABLE: ([employer] [facility] [employer]'s hearing aids) HEARING AID RIGHT LEFT Make/Model/Style Oticon Sensei P Oticon Sensei P Casing Color purple purple Serial Number [id number] Battery Size 13 13 Invoice number / date [id number] 04/14/14 [id number] 04/14/14 PROGRAM/SETTINGS Fitting Algorithm DSL child same Verification Method SREM w/personal RECD (updated 02.09.2014); SREM on file same Programs >P1=Basic (dir ant tri mode; NR on) >Auto phone (M) same Disabled Features lights same Other HEARING AID WARRANTY Original Fit Date 04/18/14 04/18/14 Current Status 05/15/17 05/15/17 EARMOLD (if BTE [facility]ON) Lab [facility] Earmold specifics 6/ otoblast (cateye green) / med canal / no vent / 13T thru 6/ otoblast (cateyegreen) / med canal / no vent / 13T thru Impression Date 02/09/14 02/09/14 Invoice # [id number] EQUIPMENT TABLE: (patient's personal hearing aids) HEARING AID RIGHT LEFT MAKE/MODEL/STYLE Oticon / Safari 600 P / BTE Oticon / Safari 600 P / BTE CASING COLOR [place] SERIAL NUMBER [id number] BATTERY SIZE 13 13 PROGRAM/SETTINGS FITTING ALGORITHM DSL Child same VERIFICATION METHOD REM w/personal RECD (updated 02.09.2014); SREM on file same PROGRAMS >P1=Basic (dir ant tri mode; NR on) >Auto phone (M) same DISABLED FEATURES lights same OTHER COMMENTS >VC active (sync) >low battery and change battery indicator same WARRANTY ORIGINAL FIT DATE 05/11/12 05/11/12 CURRENT STATUS 05/23/15-Repair only 05/23/15 EARMOLD/COUPLING (if BTE) LAB [facility] same EM (style / material / vent / color) 6/ otoblast (pink glitter) / med canal / no vent / 13T thru Same IMPRESSION DATE 02.09.2014 same INVOICE # OTHER COMMENTS same EQUIP - SCHOOL: [place], [place] TRANSMITTER METAL OR WOOD BLOCKER #1 METAL OR WOOD BLOCKER #2 MAKE/MODEL Phonak / Inspiro Phonak / MLxi Phonak / MLxi SERIAL NUMBER [id number] CHANNEL N02 N02 N02 FM SETTINGS ANT / AUDIO SHOE [place] Ant Oticon FM9 Oticon FM9 VERIFICATION DATE 01/08/2013 01/08/2013 01/08/2013 FIT DATE OTHER/COMMENTS documented in this encounter Plan of Treatment Not on filedocumented as of this encounter Visit Diagnoses Diagnosis Sensorineural hearing loss, bilateral documented in this encounter Care Teams Chief Of Pediatric Urology Relationship Specialty Start Date End Date Danya Pulido MD PCP - General 03/27/10 [address] [place] [address] documented as of this encounter
--- OUTSIDE RECORDS SUMMARY | 2022-02-16 20:20 | XMS_ITS | Encounter Summary ---
:2000 Author Organization [facility] [place] [address] Care Team Providers Name Role Phone Danya Pulido MD Primary Care Provider Encounter Details Date Type Department Care Team Description 02/09/2014 Office Visit Audiology at [facility] [place] Portillo Sensorineural hearing loss, bilateral; [facility] AYE Alanis Wears hearing aid [facility] [id number] AUDIOLOGY DEPT [phone] [place] [id number] Social History Tobacco Use Types Packs/Day Years Used Date Never Assessed Sex Assigned at Date Recorded Not on file documented as of this encounter Progress Notes [place] Portillo MA - 02/09/2014 3:05 PM EDT AUDIOLOGY SECTION HISTORY: Name: Bonnie Wu Age: 13 y.o. Reason for Visit: monitor hearing and amplification. Her most recent audiologic evaluation was in Apr 2012 with some interim contact for her amplification needs. Bonnie presents with bilateral, moderate to moderate-severe, sensorineural hearing loss for which sheuses two hearing aids. Her hearing loss was identified in 2002 (age 3 years) but is suspected to be congenital having referred upon her hearing screen. She has a previous history of PE tubes (2002 and 2003; extruded). She communicates via spoken Serbian. Please refer to patient's medical record for any additional background information as needed. Bonnie's managing paid search marketing strategist is my colleague, Arnold Clarke, who also met with the family briefly today regarding a set of hearing aids to bekept at school. Please refer to Ms. Shankar's note for any additional information regarding this em erging plan. Accompanied by: father, who, along with Bonnie, contributed to the following information. ?? Bonnie feels that her hearing has been stable. ?? She reported that generally she uses her hearing aids 'full-time' at school and home but finds taking them out on the bus ride home helpful for as it can be quite noisy on the bus but also for a little 'downtime' after school. Typically she will resume use once at home. ?? Currently she is using her Oticon hearing aid in the left ear and an older Siemens instrument in the right pending the replacement of the right Oticon instrument under L&D warranty. She reportedthat her earmolds are getting loose. ?? No interim ear infections/fluid. Bonnie denied any ear pain/fullness. Father reported that Bonnie'sgeneral health has been good. ?? Educational Supports and Services: attends 7th grade; current supports include speech-language services. Historically supports also included a deaf/hard of data virtualization consultant through the [facility]. Family also known to [facility] Office Supervisor in Audiology, Arnold Mendoza. Today father informed that [facility] closed last month but that another agency has been named to provide those same supports in the near future. Bonnie reported that her FM system has been working well at school (has been using with the left instrument only recently). EVALUATION: ?? Audiologic evaluation - see audiogram: results consistent with bilateral, moderate to moderate-severe hearing loss. The nature of the loss appeared primarily sensorineural although some conductive overlay was measured in the right at 500 Hz today. Hearing appeared stable. Tympanograms were suggestive of normal middle ear function bilaterally. ?? Hearing aid check - see equipment list below: ?? Earmolds: Current set fabricated in 2012; required re-tubing (tube hard and not retaining well; family knows how to change tubing at home and reported that they do have some spare tubes at home) butalso the earmold fit is getting loose. Impressions for new earmolds taken today. Ear canals appearedclear pre- and post-impression. As per managing paid search marketing strategist, two sets to be fabricated; one will be for new hearing aids. One set will be sent to home and the other set will return from the lab to Ms. Shankar's attention. ?? Hearing aids: arrived wearing left Oticon instrument and older Siemens instrument on the right. Did not assess the right Siemens instrument today. Left with some scratches on the casing and minor debris within the battery compartment and door was removed. Right MCKEON which was replaced under L&D was programmed for use today. With the Oticon instruments, settings updated per REM measures (with updated RECD measures as well). SREM on file. ?? Functional aided benefit - see audiogram: aided word recognition ability was 88% for each aided ear separately when speech presented at an 'averaged' conversational intensity level (50 dBHL). When soft speech (at 35 dBHL) presented, and using both hearing aids together, Bonnie achieved a score of 8/10. Please note that these measures were completed in a quiet setting of a sound calabrese. IMPRESSIONS: Today's results supported stable, moderate to moderate-severe hearing loss in each ear.Right Oticon hearing aid replaced today under L&D warranty and the left instrument appeared to be working well. New earmolds on order. Today's findings were shared with Bonnie, her father, and her managing paid search marketing strategist, Genna Shankar. The following recommendations were shared with the family. RECOMMENDATIONS: Hearing aid use with goal being 'full-time' during all waking hours save for water activities (e.g. Bathing, swimming). PENDING: new earmold(s) on order with one set to ship to family's home directly from the lab (the other will come to the clinic to Ms. Shankar's attention for the proposed set of hearing aids to be purchased and kept by school). Family agreed to contact the clinic upon receipt if there are any questions / concerns regarding the fit. Return to audiology in one year for ongoing monitoring of hearing and amplification; sooner if concerns arise before that time or as per Ms. Shankar's recommendation. ?? Given this child's educationally significant hearing loss, it is recommended that a insole bottom filler and/or employment educational coord be part of their educational program through consultative and/or direct services. These professionals provide services that may include the following: observation, c onsultation, training to the school staff on technology, recommendations for acoustical modifications and best practices in educating students with hearing loss, technical support for equipment, when needed, and/or direct instruction to the student. Although Bonnie benefits from using amplification, it is important to remember that hearing aids do not restore hearing to normal. With this in mind, strategies to aid in communication access, along with consistent hearing aid use, are recommended including: preferential seating in all settings, near to the teacher/speaker, and away from sources of noise (e.g. ventilation blowers/fans, open windows/doorways). reduction in overall classroom background noise and reverberation levels. re/direction of attention toward the speaker before a spoken message is given. use of visual cues/ visual language to supplement spoken communication. positioning of speakers [id number] with listener. use of FM amplification to address difficulties of listening in background noise, reverberation and across distance, particularly while in the classroom. [place] Portillo MA, CCC-A, [facility] [place] [address] (v) / [phone] (f) Attachment: audiogram CC: Parents of Bonnie Wu [address] [place] [address] DANYA PULIDO MD / PCP Arnold CLARKE / Managing paid search marketing strategist attn: Carlton Dill, Drive Tester; and [address] [address] EQUIPMENT LIST: HEARING AID RIGHT LEFT MAKE/MODEL/STYLE Oticon / Safari 600 P / BTE Oticon / Safari 600 P / BTE CASING COLOR [place] SERIAL NUMBER [id number] BATTERY SIZE 13 13 PROGRAM/SETTINGS FITTING ALGORITHM [...] 05/23/15-Repair only 05/23/15 EARMOLD/COUPLING (if BTE) LAB Nusrat same EM (style / material / vent / color) 6/ otoblast (pink glitter) / med canal / no vent / 13T thru Same IMPRESSION DATE 02.09.2014 same INVOICE # OTHER COMMENTS >two sets ordered - one for home and one for school (green cat's eye for anticipated HAF for instrument to be kept at school) same FM EQUIP - SCHOOL: [place], [place] TRANSMITTER DENTAL NURSE #1 DENTAL NURSE #2 MAKE/MODEL Phonak / Inspiro Phonak / MLxi Phonak / MLxi SERIAL NUMBER [id number] CHANNEL N02 N02 N02 FM SETTINGS ANT / AUDIO SHOE Frederick Ant Oticon FM9 Oticon FM9 VERIFICATION DATE 01/08/2013 01/08/2013 01/08/2013 FIT DATE OTHER/COMMENTS documented in this encounter Plan of Treatment Not on filedocumented as of this encounter Visit Diagnoses Diagnosis Sensorineural hearing loss, bilateral Wears hearing aid Other postprocedural status documented in this encounter Care Teams Sql Bi Developer Relationship Specialty Start Date End Date Danya Pulido MD PCP - General 03/27/10 [address] [place] [address] documented as of this encounter
--- OUTSIDE RECORDS SUMMARY | 2022-02-16 20:20 | XMS_ITS | Encounter Summary ---
:2000 [place] [address] Care Team Providers Name Role Phone Danya Pulido MD Primary Care Provider Encounter Details Date Type Department Care Team Description 05/12/2012 Notes Only Audiology at [facility] [place] [address] Social History Tobacco Use Types Packs/Day Years Used Date Never Assessed Sex Assigned at Date Recorded Not on file documented as of this encounter Progress Notes Irene Soares MEd - 05/12/2012 3:25 PM EST AUDIOLOGY SECTION MULTIPLE SPINDLE ROUTER OPERATOR - AUDIOLOGY PHONE CONSULT [employer], [place] Patient: Bonnie Wu Date: May 12, 2012 On May 12, 2012 , I spoke twice with Misha South, Principal at the [employer] concerning Bonnie Wu in response to concerns raised when Genna Raad spoke with her school catalytic case operator, Shira Valverde the day before. 1. My first call was to clarify the supports that a Caro Centeradvertising consultant could provide to Bonnie's team, especially regarding her need for the correct FM audio shoes so she can have her system verified.He rudely responded that if we had sent them the information they needed about what her new hearing were going to be and the family had notified them of the appointment yesterday, they would have had the correct audio shoes. I agreed to send him the office note from the 05/11/12 visit and told him that the FM verification was now scheduled for 06/02/12. I faxed the report at 11:54. 2. When I shared his concerns with Genna, she pointed out that a report was sent to the school after the 04/17/12 office visit with the date of the FM verification appointment, the type of her new hearing aids, and the exact audio shoes that needed to be ordered. I called Misha back and he once again rudely said that this report must have arrived during the school vacation and that was why they did not have the equipment. I told him I would fax him the 04/17/12 report (done at 1:39) and he respondedthat he had already ordered the correct audio shoes and they will mail them to Genna before the appointment on 06/02/12 because he did not want to give any equipment to the family to transport. Follow-up activities agreed to were: I shared this information with Genna. Madelyn Mendoza Ed., [place] [address] (direct line) [phone] (office), (fax) [email or web address] documented in this encounter Plan of Treatment Not on filedocumented as of this encounter Visit Diagnoses Not on filedocumented in this encounter Care Teams Geotechnical Engineer Relationship Specialty Start Date End Date Danya Pulido MD PCP - General 03/27/10 [address] [place] [address] documented as of this encounter
--- OUTSIDE RECORDS SUMMARY | 2022-02-16 20:20 | XMS_ITS | Encounter Summary ---
:2000 Author Organization [facility] [place] [address] Care Team Providers Name Role Phone Danya Pulido MD Primary Care Provider Encounter Details Date Type Department Care Team Description 09/11/2016 Telephone [place] [facility] [place] [address] Social History Tobacco Use Types Packs/Day Years Used Date Never Assessed Sex Assigned at Date Recorded Not on file documented as of this encounter Miscellaneous Notes Telephone Encounter - Celeste Rouse - 09/11/2016 7:53 AM EDT I called and spoke with dad to schedule. He agreed to appointment this coming Friday (09/13) @ 2:30pm Telephone Encounter - Celeste Rouse - 09/11/2016 7:53 AM EDT ----- Message from Chelsea Marie sent at 09/10/2016 4:20 PM EDT ----- Contact: ----- Message ----- From: Genna Shankar MEd Sent: 09/10/2016 4:15 PM To: Chelsea Marie Hi, I called her back and it turns out she needs a hearing aid adjustment; her grandma brings her and can only come or fridays. I can make it work in 45 min if we don't have a 90 min appt. Please contact Bonnie at the cell # to schedule this (or forward to who would schedule it). Thanks very much, Genna ----- Message ----- From: Chelsea Marie Sent: 09/10/2016 4:06 PM To: Genna Shankar, [facility] Bonnie Vail called and left a message today asking you to call her back as she has a few questions for you. Thank you, Chelsea documented in this encounter Plan of Treatment Not on filedocumented as of this encounter Visit Diagnoses Not on filedocumented in this encounter Care Teams Museum Registrar Relationship Specialty Start Date End Date Danya Pulido MD PCP - General 03/27/[address] [place] [address] documented as of this encounter
--- OUTSIDE RECORDS SUMMARY | 2022-02-16 20:22 | XMS_ITS | Encounter Summary ---
:2000 Author Organization [facility] Address [address] [place] [address] Care Team Providers Name Role Phone Unknown, Provider Primary Care Provider Encounter Details Date Type Department Care Team Description 08/03/2018 Results Only [facility] Jose Daniel Shane, [address] [place], [place] [id number] (Wo rk) Social History Tobacco Use Types Packs/Day Years Used Date Never Assessed Sex Assigned at Date Recorded Not on file documented as of this encounter Plan of Treatment Not on filedocumented as of this encounter Procedures Procedure Name Priority Date/Time Associated Diagnosis Comme [facility] SURGICAL PATHOLOGY Routine 08/03/2018 23:12 Resul ts for this EDT procedure are i n the results section. documented in this encounter Results SURGICAL PATHOLOGY (08/03/2018 23:12 EDT) Pathology Report: SURGICAL PATHOLOGY REPORT [facility] Reports generated via electronic interface contain jaycee ginal data; LABORATORY however they are lacking the format of the original re port. SERVICES Caution should be taken when reading/interpreting unfo rmatted reports. Name: ? BONNIE WU ? Accession #: ? [id number] ? : ? 2000 (Age: 18) ??F ? Collect Date: ? 08/03/2018 ? Location: ? [facility] ? Receive Date: ? 9 ? Provider: JOSE DANIEL SHANE DO Copy to: MELIDA CANDELARIO MD ? Final Pathologic Diagnosis: A. TONSIL, RIGHT, TONSILLECTOMY: - Reactive lymphoid hyperplasia. - Actinomyces-like microorganisms identified on H & E- stained sections. B. TONSIL, LEFT, TONSILLECTOMY: - Reactive lymphoid hyperplasia. - Actinomyces-like microorganisms identified on H & E- stained sections. Document reviewed and electronically signed by: FABIANO KHOURY MD Report ??Date: 08/05/2018 16:22 By the signature above, the attending physician certif ies that he/she has personally conducted a gross and/or microscopic examin ation of the described specimens and rendered or confirmed the above diagnosi s. Specimen(s) Received: A. ??Right tonsil B. ??Left tonsil Clinical History: Chronic tonsillitis, chronic pharyngitis Gross Description: A. ?Received in formalin labelled with proper p atient identification (initials M, S) and right tonsil is a palatine tonsil (2.5 x 1.9 x 1.6 cm). The mucosa is smooth and glistening with prominent cry pts. ??Serial sections reveal lobular homogeneous t issue without abnormality. ??A underwriting account representative section is submitted as A1. B. ?Received in formalin labelled with proper p atient identification (initials M, S) and left tonsil is a palatine tonsil (2.6 x 1.6 x 1.6 cm). The mucosa is smooth and glistening with prominent cry pts. ??Serial sections reveal lobular homogeneous t issue without abnormality. ??A underwriting account representative section is submitted as B1. HENRY Marion ([facility]) 08/04/2018 9:06 AM End of Report Specimen Performing Organization Address City/State/ZIP Code Phon e Number [facility] [address] [place] [address] SERVICES documented in this encounter Visit Diagnoses Not on filedocumented in this encounter Care Teams Cpht Relationship Specialty Start Date End Date Unknown, Provider, PCP - General 08/03/18 documented as of this encounter
--- OUTSIDE RECORDS SUMMARY | 2022-02-16 20:22 | XMS_ITS | Encounter Summary ---
:2000 Author Organization [facility] Address [address] [place] [address] Care Team Providers Name Role Phone Unknown, Provider Primary Care Provider Encounter Details Date Type Department Care Team Description 01/17/2021 Lab Requisition [facility] Outr Resulting Lab, Pathology & Laboratory Provider [facility] [address] [place] [address] Social History Tobacco Use Types Packs/Day Years Used Date Never Assessed Sex Assigned at Date Recorded Not on file documented as of this encounter Plan of Treatment Not on filedocumented as of this encounter Procedures Procedure Name Priority Date/Time Associated Comments Diagnosis CHLAMYDIA/N. Routine 01/16/2021 14:45 Results for this GONORRHOEAE AMPLIFIED EDT proced ure are in RNA the results section. documented in this encounter Results CHLAMYDIA/N. GONORRHOEAE AMPLIFIED RNA (01/16/2021 14:45 EDT) Pathologist Sig nature Gonococcus Result Negative Negative [facility] Chlamydia Result Negative Negative [facility] Specimen Swab - Entire vagina (body structure) Performing Organization Address City/State/ZIP Code Phon e Number [facility] [address] [place] [address] SERVICES documented in this encounter Visit Diagnoses Not on filedocumented in this encounter Care Teams Stranner Relationship Specialty Start Date End Date Unknown, Provider, PCP - General 08/03/18 documented as of this encounter
--- OUTSIDE RECORDS SUMMARY | 2022-02-16 20:22 | XMS_ITS | Encounter Summary ---
:2000 Author Organization [facility] Address [address] [place] [address] Care Team Providers Name Role Phone Unknown, Provider Primary Care Provider Encounter Details Date Type Department Care Team Description 08/03/2018 Hospital Encounter [facility] Unknown, Provider, [facility] [address] [place] [address] [place] [address] (Work) [phone] Social History Tobacco Use Types Packs/Day Years Used Date Never Assessed Sex Assigned at Date Recorded Not on file documented as of this encounter Discharge Disposition Disposition Code Departure Means Destination Home or Self Senior Care documented in this encounter Plan of Treatment Not on filedocumented as of this encounter Visit Diagnoses Not on filedocumented in this encounter Care Teams Banquet Cook Relationship Specialty Start Date End Date Unknown, Provider, PCP - General 08/03/18 documented as of this encounter
--- OUTSIDE RECORDS SUMMARY | 2022-02-16 20:22 | XMS_ITS | Encounter Summary ---
:2000 Author Organization [facility] Address [address] [place] [address] Care Team Providers Name Role Phone Unknown, Provider Primary Care Provider Encounter Details Date Type Department Care Team Description 05/22/2021 Lab Requisition [facility] Outr Resulting Lab, Pathology & Laboratory Provider [facility] [address] [place] [address] Social History Tobacco Use Types Packs/Day Years Used Date Never Assessed Sex Assigned at Date Recorded Not on file documented as of this encounter Plan of Treatment Not on filedocumented as of this encounter Procedures Procedure Name Priority Date/Time Associated Diagnosis Comme nts RUBELLA IGG Routine 05/22/2021 15:10 Results for this ANTIBODY EST procedure are i n the results section. VARICELLA IGG Routine 05/22/2021 15:10 Results fo r this ANTIBODY EST procedure are i n the results section. documented in this encounter Results VARICELLA IGG ANTIBODY (05/22/2021 15:10 EST) Varicella IgG Ab PositiveComment: See Note [facility] Presence of LABORATORY SERVICES detectable Varicella Zoster virus IgG antibodies. Specimen Blood - Venous blood (substance) Performing Organization Address City/State/ZIP Code Phon e Number [facility] [address] [place] [address] SERVICES RUBELLA IGG ANTIBODY (05/22/2021 15:10 EST) Rubella IgG Ab NegativeComment: See Note [facility] Sample is considered LABORATORY SERVICES negative for IgG antibodies to Rubella virus. A negative result presumes that immunity has not been acquired. If exposure to Rubella virus is suspected despite a negative finding, a second specimen should be collected and tested for Rubella IgG Ab one or two weeks later. Specimen Blood - Venous blood (substance) Performing Organization Address City/State/ZIP Code Phon e Number [facility] [address] [place] [address] SERVICES documented in this encounter Visit Diagnoses Not on filedocumented in this encounter Care Teams Saw Setter Relationship Specialty Start Date End Date Unknown, Provider, PCP - General 08/03/18 documented as of this encounter
--- OUTSIDE RECORDS SUMMARY | 2022-02-16 20:22 | XMS_ITS | Encounter Summary ---
:2000 Author Organization [facility] Address [address] [place] [address] Care Team Providers Name Role Phone Unknown, Provider Primary Care Provider Encounter Details Date Type Department Care Team Description 05/12/2019 Lab Requisition [facility] Alexsander Lozano for other Pathology & MD Cuca general examination Laboratory Medicine [address] [place], [place] [address] [facility] [address] [place], [place] [id number] Social History Tobacco Use Types Packs/Day Years Used Date Never Assessed Sex Assigned at Date Recorded Not on file documented as of this encounter Plan of Treatment Not on filedocumented as of this encounter Procedures Procedure Name Priority Date/Time Associated Diagnosis Comme nts SURGICAL PATHOLOGY Today 05/12/2019 9:34 EST Encounter for o ther Results for this general examination procedur e are in the results section. documented in this encounter Results SURGICAL PATHOLOGY (05/12/2019 9:34 EST) Final Diagnosis A. STOMACH, ANTRUM, BIOPSY: UV MEDICA L Electronically - Gastric antral and transit ional mucosa with mild focal reactive (chemical) gastropathy. CENTER signed by Olga Howard, - Negative for Helicobacter pylori microorganism s on H&E stained sections. LABORATORY Adithya Schulz MD on SERVICES 05/13/2019 at 161 7 B. ESOPHAGUS, GE JUNCTION, BIOPSY: - Gastroesophageal junction mucosa with mild reflux ch anges. - Negative for intestinal metaplasia and dysplasia Clinical History Abdominal pain [facility] Mild gastritis CENTER Esophagitis LABORATORY SERVICES Antrum Bx's GE junction Bx's Attestation By the signature [facility] Electronica lly below, the attending CENTER signed by physician Marlin certifies LABORATORY Adithya Schulz MD on that they have SERVICES 05/13/2019 at 1 617 personally conducted a gross and/or microscopic examination of the described specimens and rendered or confirmed the above diagnosis. Gross Description A. Received in formalin labe lled with proper patient identification (initials M, S) and 1. Antrum Bx's are 2 dumont-brown tissues (0.4 x 0.3 x 0.1 cm and 0.6 x 0.3 x 0.1 cm). Submitted in toto in A1. [facility] B. Received in formalin labe lled with proper patient identification (initials M, S) and 2. GE junction Bx's are 3 white-dumont wispy tissues (0.2 x 0.2 x 0.1 cm to 0.6 x 0.3 x 0.1 cm). Submitted in toto in B1. LABORATO RY SERVICES Li Velanolan 05/13/2019 07:51 Scanned Images [facility] LABORATORY SERVICES Specimen Tissue - Entire esophagus (body structur e) Tissue specimen (specimen) - Entire esop hagus (body structure) Performing Organization Address City/State/ZIP Code Phon e Number [facility] [address] [place] [address] SERVICES documented in this encounter Visit Diagnoses Diagnosis Encounter for other general examination documented in this encounter Care Teams Actuarial Technician Relationship Specialty Start Date End Date Unknown, Provider, PCP - General 08/03/18 documented as of this encounter
--- OUTSIDE RECORDS SUMMARY | 2022-02-16 20:22 | XMS_ITS | Clinical Summary ---
:2001 Author Organization [facility] Address [address] [place] [address] Care Team Providers Name Role Phone Unknown, Provider Primary Care Provider Social History Tobacco Use Types Packs/Day Years Used Date Never Assessed Sex Assigned at Date Recorded Not on file Plan of Treatment Health Maintenance Due Date Last Done Comments COVID-19 Vaccine (#1) 2001 Hepatitis C Screen Completed 05/22/2021 Insurance Payer Benefit Plan Subscriber ID Effective Phone Address Typ e / Group Dates MEDICAID ACO MEDICAID ACO [id number] 2019-Pres [phone] [address] [place] [address], [place] [phone] CRISTIANO WU Personal/Famil Other [phone] [address] ([address]) [place], [place] [address] CRISTIANO WU Personal/Famil Other [phone] [address] (Home) [place], [place] [address] WU,CRISTIANO Personal/Famil Other [phone] [address] (Home) [place], [place] [address] WU,CRISTIANO Personal/Famil Other [phone] [address] (Home) [place], [place] [address] Care Teams Director Of Search Engine Optimization Relationship Specialty Start Date End Date Unknown, Provider, PCP - General 08/03/18
--- OUTSIDE RECORDS SUMMARY | 2022-02-16 20:22 | XMS_ITS | Encounter Summary ---
:2000 Author Organization [facility] Address [address] [place] [address] Care Team Providers Name Role Phone Unknown, Provider Primary Care Provider Encounter Details Date Type Department Care Team Description 05/30/2019 Lab Requisition [facility] Unknown, Provider, Pathology & Laboratory [facility] [address] [facility] [place] [address] Social History Tobacco Use Types Packs/Day Years Used Date Never Assessed Sex Assigned at Date Recorded Not on file documented as of this encounter Plan of Treatment Not on filedocumented as of this encounter Procedures Procedure Name Priority Date/Time Associated Diagnosis Comme nts CELIAC DISEASE Routine 05/28/2019 14:40 Results f or this PANEL EST procedure are i n the results section. documented in this encounter Results CELIAC DISEASE PANEL (05/28/2019 14:40 EST) Tissue <1.2 <4.0 U/mL [facility] Transglutaminase Comment: CENTER Antibody [facility] LABORATORY A negative result may be due to IgA deficiency and does not rule out celiac disease. SERVICES ? Negative: ??<4.0 U/mL ? Weak Positive: ??4.0 - 10.0 U/mL ? Positive: ??>10.0 U/mL Results were obtained with t [employer] Lite R h-tTG IgA SILVANO assay on the [employer] DSX. IgA 139 61 [phone] 348 [facility] mg/dL [facility]ENTER LABORATORY SERVICES Celiac Disease [facility] Interpretation Negative Serology. Celiac di sease unlikely. Approximately 10% of patients with celiac disease are seronegative. Patients who are already adhering to a gluten-free diet may also be seronegative. If fide [address] TER c disease is highly clinical ly suspected, referral to gastroenterology for additional evaluation is recommended. LABORATORY SERVICES Specimen Blood - Venous blood (substance) Performing Organization Address City/State/ZIP Code Phon e Number [facility] [address] [place] [address] SERVICES documented in this encounter Visit Diagnoses Not on filedocumented in this encounter Care Teams Medical Supply Technician Relationship Specialty Start Date End Date Unknown, Provider, PCP - General 08/03/18 documented as of this encounter
--- OUTSIDE RECORDS SUMMARY | 2022-02-16 20:22 | XMS_ITS ---
:2001 Author Organization [facility] Address [address] [place] [address] Care Team Providers Name Role Phone Bertin Flood Unavailable Unavailable PROBLEMS Unknown Problems ALLERGIES No Known Allergies ENCOUNTERS Encounter Location Date Diagnosis [facility] [address] [place] [address] Jan, IMMUNIZATIONS No Known Immunizations SOCIAL HISTORY Never Assessed REASON FOR REFERRAL FUNCTIONAL STATUS PLAN OF CARE VITAL SIGNS MEDICATIONS Unknown Medications PROCEDURES No Known procedures RESULTS No Results REASON FOR VISIT Wound CTR-NEW Insurance Providers [facility] Health Member Patient Patient Patient Patient Patient Subscriber Subscriber Subscriber Group Insurance Plan Plan Plan Plan ID Relationship Address Phone Name Date of ID Name Date of No Type Insurance Insurance Insurance Coverage to Subscriber Address Phone Name Dates MEDICAID EDS MEDICAID self JOSE [id number] [place] [facility] [id number] SELF PAY [address] SELF PAY self JOSE 2000 NO MICHIE NO [place] INSUR[place] [id number] INSURANCE
--- OUTSIDE RECORDS SUMMARY | 2022-02-16 20:22 | XMS_ITS | Encounter Summary ---
:2001 Author Organization [facility] Address [address] [place] [address] Care Team Providers Name Role Phone Unknown, Provider Primary Care Provider Encounter Details Date Type Department Care Team Description 05/04/2021 Lab Requisition [facility] Outr Resulting Lab, Pathology & Laboratory Provider [facility] [address] [place], [place] [address] Social History Tobacco Use Types Packs/Day Years Used Date Never Assessed Sex Assigned at Date Recorded Not on file documented as of this encounter Plan of Treatment Not on filedocumented as of this encounter Procedures Procedure Name Priority Date/Time Associated Diagnosis Comme nts COVID-19 TEST [facility] Today 05/04/2021 13:31 LAB PCR EST COVID-19 TESTING Routine 05/04/2021 13:31 Results for this EST procedure are i n the results section. documented in this encounter Results COVID-19 TEST [facility] LAB PCR (05/04/2021 13:31 EST) Specimen Swab Performing Organization Address City/State/ZIP Code Phon e Number [facility] [address] [place] [address] SERVICES COVID-19 TESTING (05/04/2021 13:31 EST) COVID-19 rt-PCR Negative Negative [facility] Result Comment: CENTER LABORATORY This test has not been FDA c leared or approved. This test has been authorized by FDA under an EUA for use by authorized laboratories. This test has been authorized only for detection of nucleic acid fro SERVICES m 2018-nCo, not for any oth er viruses or pathogens. This test is only authorized for the duration of the declaration that circumstances exist justifying the authorization of emergency use of in vitro d iagnostic tests for detectio n and/or diagnosis of 2019-nCoV under section 564(b)(1) of Act, 21 U.S.C ?? 360bbb-3(b) (1), unless the authorization is terminated or revoked sooner. Negative results do not prec lude 2019-nCoV infection and should not be used as the sole basis for treatment or other patient management decisions. Negative results must be combined with clinical observa tions, patient history, and epidemiological informatio n. Performed on the Blurr Fusion instrument Performing Lab [place] [facility] Lab [facility] SERVICES Specimen Swab Performing Organization Address City/State/ZIP Code Phon e Number [facility] [address] [place] [address] SERVICES documented in this encounter Visit Diagnoses Not on filedocumented in this encounter Care Teams Apparel Fashion Designer Relationship Specialty Start Date End Date Unknown, Provider, PCP - General 08/03/18 documented as of this encounter
--- OUTSIDE RECORDS SUMMARY | 2022-02-16 20:22 | XMS_ITS | Encounter Summary ---
:2001 Author Organization [facility] Address [address] [place] [address] Care Team Providers Name Role Phone Unknown, Provider Primary Care Provider Encounter Details Date Type Department Care Team Description 11/13/2021 Lab Requisition [facility] Outr Resulting Lab, Pathology & Laboratory Provider [facility] [address] [place] [address] Social History Tobacco Use Types Packs/Day Years Used Date Never Assessed Sex Assigned at Date Recorded Not on file documented as of this encounter Plan of Treatment Not on filedocumented as of this encounter Procedures Procedure Name Priority Date/Time Associated Diagnosis Comme nts HERPES SIMPLEX Routine 11/13/2021 13:02 Results f or this VIRUS (HSV) TYPE 1 EDT procedure are in & 2 AB, IGG the results section. documented in this encounter Results (ABNORMAL) HERPES SIMPLEX VIRUS (HSV) TYPE 1 & 2 AB, IGG (11/13/2021 13:02 EDT) HSV Type 1 Ab, IgG Positive Negative [facility] (A)Comment: LABORATORY SERVICES Indicates the presence of detectable IGG Antibody to HSV1 HSV Type 2 Ab, IgG Equivocal Negative [facility] (A)Comment: A LABORATORY SERVICES second sample should be collected and tested no less than 4-6 weeks later Specimen Blood - Venous blood (substance) Performing Organization Address City/State/ZIP Code Phon e Number [facility] [address] [place] [address] SERVICES documented in this encounter Visit Diagnoses Not on filedocumented in this encounter Care Teams Wood Heel Back Liner Relationship Specialty Start Date End Date Unknown, Provider, PCP - General 08/03/18 documented as of this encounter
--- OUTSIDE RECORDS SUMMARY | 2022-02-16 20:22 | XMS_ITS | Encounter Summary ---
:2001 Author Organization [facility] Address [address] [place] [address] Care Team Providers Name Role Phone Unknown, Provider Primary Care Provider Encounter Details Date Type Department Care Team Description 05/22/2021 Lab Requisition [facility] Outr Resulting Lab, Pathology & Laboratory Provider [facility] [address] [place] [address] Social History Tobacco Use Types Packs/Day Years Used Date Never Assessed Sex Assigned at Date Recorded Not on file documented as of this encounter Plan of Treatment Not on filedocumented as of this encounter Procedures Procedure Name Priority Date/Time Associated Comments Diagnosis HIV 1/2 ANTIGEN AND Routine 05/22/2021 15:10 Resu lts for this ANTIBODY, 4TH EST procedure are in GENERATION the results section. documented in this encounter Results HIV 1/2 ANTIGEN AND ANTIBODY, 4TH GENERATION (05/22/2021 15:10 EST) HIV 1 and 2 NegativeComment: If Negative [facility] Antibody/p24 acute HIV-1 LABORATORY Antigen, 4th infection is SERVICES Generation suspected in a high risk patient, submit plasma specimen for HIV-1 RNA quantitation test. Specimen Blood - Venous blood (substance) Narrative [facility] LABORATORY SERVICES - 05/23/2021 10:43 EST Fourth Generation assay performed on the Siemens Centaur XPT. Performing Organization Address City/State/ZIP Code Phon e Number [facility] [address] [place] [address] SERVICES documented in this encounter Visit Diagnoses Not on filedocumented in this encounter Care Teams Video Production Assistant Relationship Specialty Start Date End Date Unknown, Provider, PCP - General 08/03/18 documented as of this encounter
--- OUTSIDE RECORDS SUMMARY | 2022-02-16 20:22 | XMS_ITS | Encounter Summary ---
:2001 Author Organization [facility] Address [address] [place] [address] Care Team Providers Name Role Phone Unknown, Provider Primary Care Provider Encounter Details Date Type Department Care Team Description 05/22/2021 Lab Requisition [facility] Outr Resulting Lab, Pathology & Laboratory Provider [facility] [address] [place] [address] Social History Tobacco Use Types Packs/Day Years Used Date Never Assessed Sex Assigned at Date Recorded Not on file documented as of this encounter Plan of Treatment Not on filedocumented as of this encounter Procedures Procedure Name Priority Date/Time Associated Comments Diagnosis CHLAMYDIA/N. Routine 05/22/2021 16:20 Results for this GONORRHOEAE AMPLIFIED EST proced ure are in RNA the results section. documented in this encounter Results CHLAMYDIA/N. GONORRHOEAE AMPLIFIED RNA (05/22/2021 16:20 EST) Pathologist Sig nature Gonococcus Result Negative Negative [facility]ORY SERVICES Chlamydia Result Negative Negative [facility]OR[facility]ORY SERVICES Specimen Swab - Entire wall of cervix (body struc ture) Performing Organization Address City/State/ZIP Code Phon e Number [facility] [address] [place] [address] SERVICES documented in this encounter Visit Diagnoses Not on filedocumented in this encounter Care Teams Calibration Engineer Relationship Specialty Start Date End Date Unknown, Provider, PCP - General 08/03/18 documented as of this encounter
[2022-02-16 20:34] VITALS: BP 112/56; PULSE 84; RESP 15; TEMP 36.8; O2SAT 98
--- NOTE | 2022-02-16 20:55 | ED.GENADUL_ITS ---
Discharge Plan Disposition Patient Disposition: HOME Condition: Good Discharge Details Clinical Impression: Back pain, Sciatica Primary Care Provider: Danya Pulido V ED Provider: Festus Mauricio Home Meds and New Rx's Prescriptions: New lidocaine [Lidoderm] 5 % adhesive patch,medicated 1 patch Topical Q24H Qty: 15 0RF prednisone 50 mg tablet 50 mg PO DAILY Qty: 5 0RF No Action famotidine 20 mg tablet 20 mg PO DAILY Qty: 60 3RF valacyclovir [Valtrex] 1 gram tablet 1,000 mg PO DAILY Qty: 30 1RF Nexplanon 68 mg implant 1 implant subdermal ONCE Rx Instructions: as a single dose ondansetron HCl 4 mg tablet 8 mg PO Q8H PRN (Reason: nausea and vomiting) Qty: 30 0RF albuterol sulfate [ProAir HFA] 200 PUFF HFA aerosol inhaler 2 puff Inhalation Q4H PRN PRN fluticasone propionate [Flovent HFA] 110 mcg/actuation HFA aerosol inhaler 2 puff INHALATION DAILY Discharge Instructions Instructions: Sciatica (ED), Back Pain (ED) Additional Instructions: At this time your signs and symptoms are clinically consistent with a back sprain. This can cause significant pain and take a fair bit of time to heal. I expect 1 to 2 months for potential resolution. In the meantime do not lift anything greater than 5 pounds for the next 1-2 weeks. Avoid any significant vigorous physical activity. Perform easy gentle regular activities at home without any significant bending or lifting. Please take the steroids as directed. You have been given a prescription for Lidoderm patch. If your insurance does not cover this you can get [id number] Lidoderm patches at 4% which are almost just as effective. Please take the Flexeril as directed but do not take it when driving or operating any vehicles or heavy machinery, swimming, taking long baths, or operating firearms. Please use a heating pad as often as possible on your back. Perform daily gentle stretches on your back. Please continue to take the Tylenol and Motrin. You can take 1000 mg of Tylenol every 6 hours and 600 mg of ibuprofen every 6 hours. If you notice any worsen ing of your symptoms, or any new symptoms such as vomiting, diarrhea, fever, chills, shortness of breath, chest pain, numbness or tingling in your groin or legs, weakness in your legs, loss of control for your bowels or bladder, or fainting , please return immediately to the emergency department for reevaluation. Please follow up with your primary care provider as soon as possible for reassessment and reevaluation. As always, it was a pleasure participating in your medical care today. Stand Alone Forms: Work Release Referrals: Danya Pulido MD [Primary Care Provider] - Medical Decision Making This is a pleasant 21-year-old female who is 2 months who presents today for 2 to 3 days of left-sided back pain and intermittent sharp shooting pain that goes down her left back to her left leg. Does not appear to be brought about focal nevi movement bending or other specific actions. It seems to come on both at rest and with activity. She does admit to lifting her child frequently and this is been worsening her symptoms. She denies any persistent numbness or tingling or pain. She denies any numbness tingling or shooting pain in her leg or back right now, just some mild back soreness. Patient denies any saddle anesthesia, numbness or tingling in the groin, change in sensation when wiping. Patient denies any change in sensation during sexual intercourse, bowel or bladder incontinence, leakage, or retention. Patient denies any weakness in the lower extremities, atypical falls or imbalance. She has pulled her back in the past, but nothing recently. She denies any recent focal heavy weightlifting. Physical exam demonstrates no concerning abnormalities suggestive of cauda equina syndrome, she does have notable spasm of her left lower paraspinal muscles. Negative straight leg raise. I suspect at this time her symptoms appear to be consistent with mild paraspinal muscle spasm causing the achiness, and then potential either very mild intermittent radiculopathy versus mild sciatica. Patient is not breast-feeding. We will give a few Flexeril for home use, we will start the patient on low-dose steroids, recommend continued NSAIDs and Lidoderm patch. No indication for emergent imaging at this time based on exam and physical exam findings and clinical history. Discussed red flags which to return. I have extensively reviewed the treatment plan and discharge instructions with the patient and their family. I have addressed all patient concerns at this time. The patient and family was made aware of what symptoms to monitor for that would warrant a return to the emergency department. Discussed the plan with the patient and family, they demonstrate verbal understanding and agreement with our assessment and plan at this time. The documentation in this chart was dictated using BEETmobile dictation software. Please excuse any dictation errors. HPI General Date/Time Provider Initiated Documentation: 02/16/22 20:29 . HPI Narrative: This is a pleasant 21-year-old female who is 2 months who presents today for 2 to 3 days of left-sided back pain and intermittent sharp shooting pain that goes down her left back to her left leg. Does not appear to be brought about focal nevi movement bending or other specific actions. It seems to come on both at rest and with activity. She does admit to lifting her child frequently and this is been worsening her symptoms. She denies any persistent numbness or tingling or pain. She denies any numbness tingling or shooting pain in her leg or back right now, just some mild back soreness. Pat ient denies any saddle anesthesia, numbness or tingling in the groin, change in sensation when wiping. Patient denies any change in sensation during sexual intercourse, bowel or bladder incontinence, leakage, or retention. Patient denies any weakness in the lower extremities, atypical falls or imbalance. She has pulled her back in the past, but nothing recently. She denies any recent focal heavy weightlifting. Related Data Home Medications Medication Instructions Recorded Confirmed albuterol sulfate 90 mcg/actuation 2 puff inhalation Q4H PRN PRN 08/26/17 02/16/22 aerosol inhaler (ProAir HFA) fluticasone propionate 110 2 puff inhalation DAILY 11/11/20 02/16/22 mcg/actuation HFA aerosol inhaler (Flovent HFA) famotidine 20 mg tablet 20 mg PO DAILY GERD #60 tabs 09/18/21 02/16/22 ondansetron HCl 4 mg tablet 8 mg PO Q8H PRN nausea and 11/15/21 02/16/22 vomiting #30 tabs valacyclovir 1 gram tablet 1,000 mg PO DAILY #30 tabs 11/20/21 02/16/22 (Valtrex) etonogestrel 68 mg subdermal 1 implant subdermal ONCE 01/03/22 02/16/22 implant (Nexplanon) lidocaine 5 % topical patch 1 patch topical Q24H #15 ea 02/16/22 (Lidoderm) prednisone 50 mg tablet 50 mg PO DAILY #5 tabs 02/16/22 Previous Rx's Medication Instructions Recorded famotidine 20 mg tablet 20 mg PO DAILY GERD #60 tabs 09/18/21 ondansetron HCl 4 mg tablet 8 mg PO Q8H PRN nausea and 11/15/21 vomiting #30 tabs valacyclovir 1 gram tablet 1,000 mg PO DAILY #30 tabs 11/20/21 (Valtrex) lidocaine 5 % topical patch 1 patch topical Q24H #15 ea 02/16/22 (Lidoderm) prednisone 50 mg tablet 50 mg PO DAILY #5 tabs 02/16/22 Allergies Allergy/AdvReac Type Severity Reaction Status Date / Time Sulfa (Sulfonamide Allergy Intermediate red and Verified 02/16/22 20:39 Antibiotics) itchy General Stated Complaint: Nk/Back Pain TAMI: 4 Review of Systems All systems reviewed & are unremarkable except as noted in HPI and below PFSH All Active Problems Back pain (Acute) Sciatica (Acute) Routine follow-up (Acute) Current smoker (Acute) Medical History 40 weeks gestation of Anxiety (10/10/17) Asthma Concussion COVID-19 affecting in third trimester COVID-19 virus infection Encounter for contraceptive planning GERD (gastroesophageal reflux disease) Hearing loss Bilateral hearing aids History of anxiety Situational anxiety History of depression History of herpes genitalis History of otitis media History of second hand smoke exposure History of skull fracture Surgical intervention @ 3 years old IUD surveillance Mirena inserted 10/01/18 Left sided sciatica Migraine (09/26/17) without aura per Neuro Migraine headache without aura care and examination of lactating mother Rubella non-immune status, antepartum Sensorineural hearing loss, bilateral (06/01/15) Sensorineural hearing loss, childhood onset Term delivered Uterine contractions Surgical History History of foot surgery History of placement of ear tubes History of tonsillectomy and adenoidectomy [place] teeth extracted Family History Mother Asthma Depression Father Seizure disorder PUD (peptic ulcer disease) Paternal Grandmother PUD (peptic ulcer disease) Diabetes Paternal Uncle Cancer recovered from unknown type Self Depression no meds, has good coping skills, did have counseling at [facility] Maternal Grandfather No problems noted. 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 Date GA/Weeks # Preg Succ Route Wgt Sex Labor Lgth Anesth esia Location Prov Complic Unknown 12/20/21 40 No Yes vaginal 3214.836 g Female 14hrs 59min [facility] Delivery Date: Last Updated by: MAL Salguero Exam Narrative Exam Narrative: 1.Const: Well-nourished, Well-developed, appearing stated age 2.Eyes: PERRL, no conjunctival injection, and symmetrical lids. 3.ENT: Atraumatic external nose and ears. Moist MM. Neck: Symmetric, trachea midline, No thyromegaly. 4.CVS: +S1/S2, No murmurs or gallops. Peripheral pulses 2+ and equal in all extremities. Brisk capillary refill in all extremities. 5.RESP: Unlabored respiratory effort. Clear to auscultation bilaterally. No wheezes rales or rhonchi 6.GI: Soft, Nontender/Nondistended, No hepatosplenomegaly. No guarding or rebound. 7.MSK: Normocephalic/Atraumatic, Extremities w/o deformity or ttp No cyanosis or clubbing, Normal movement of all extremities No midline tenderness to palpation over the CTLS spine. Notable left-sided paraspinal spasm normal ROM in flexion, extension, side bend, and rotation. Patient has +5 out of 5 strength in the lower extremities in dorsiflexion and plantarflexion, knee flexion and extension, hip flexion and extension. Normal strength for dorsiflexion and plantar flexion of the great toe bilaterally. No pain with straight leg raise there is +2 over 2 dorsalis pedis pulses bilaterally. There is normal sensation to the skin with light touch at the foot, knee, and hip. Normal saddle sensation. Good sensation over the deep sural nerve area bilaterally. Rectal exam deferred. Reflexes are +2 over 4 in the patellar reflex bilaterally. +5 out of 5 strength in the medial, ulnar, radial nerve distribution bilaterally in the hands as well as intact light touch sensation to these dermatomes on the hands 8.Skin: Warm, Dry. No rashes or lesions. 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 Sensation grossly intact, no focal neurologic deficits. 10.Psych: (AAO) x3. Appropriate mood and affect Course Vital Signs Vital signs: Vital Signs Temperature 36.8 C 02/16/22 20:34 Pulse 84 02/16/22 20:34 Respiratory Rate 15 02/16/22 20:34 Blood Pressure 112/56 L 02/16/22 20:34 Pulse Oximetry 98 02/16/22 20:34 Temperature 36.8 C 02/16/22 20:34 Pulse 84 02/16/22 20:34 Respiratory Rate 15 02/16/22 20:34 Respiratory Effort 02/16/22 20:46 Blood Pressure 112/56 L 02/16/22 20:34 Blood Pressure Position Sitting 02/16/22 20:34 Pulse Oximetry 98 02/16/22 20:34 Oxygen Delivery Method Room Air 02/16/22 20:34 Oxygen Flow Rate 0 02/16/22 20:34 Pain Level 8 02/16/22 20:45
[2022-02-16 21:10] VITALS: BP 107/59; PULSE 67; RESP 12; O2SAT 100
[2022-02-16] MEDS: Lidocaine 5% Patch 1 PATCH TP (21:14)
[2022-02-16] MEDS: Cyclobenzaprine 10 MG TAB, 3 TABS/BTL PO (21:14)
[2022-02-16] MEDS: predniSONE 20 MG TAB 60 MG PO (21:15)
== END 2022-02-16 21:13 | disposition home or self-care (01) ==
PROVIDERS: Emergency Provider Student in an Organized Health Care Education/Training Program; PCP Family Medicine
DX: M54.32 Sciatica, left side (principal); M79.605 Pain in left leg; J45.909 Unspecified asthma, uncomplicated; Z79.51 Long term (current) use of inhaled steroids; Z86.16 Personal history of COVID-19
CPT/HCPCS: 99283; 99284; J7512

== ENCOUNTER 2022-02-22 15:59 | Outpatient (REF) | payer MEDICAID, SELFPAY ==
[2022-02-22 19:13] LABS: Abs Immature Grans 0.04 10^3/uL (0.0-0.06); Absolute Basophil Count 0.02 10^3/uL (0.0-0.2); Absolute Eosinophil Count 0.06 10^3/uL (0.0-0.7); Absolute Lymphocyte Count 2.25 10^3/uL (1.2-3.4); Absolute Monocyte Count 0.44 10^3/uL (0.1-0.8); Basophils % 0.2; Eosinophils % 0.7; HCT 34.6 % (36.0-46.0); HGB 11.2 g/dL (11.2-15.7); Immature Grans % 0.5; Lymphocytes % 25.8; MCH 25.5 pg (27.0-33.0); MCHC 32.4 % (32.0-36.0); MCV 79 fL (80-95); MPV 12.7 fL (8.0-11.0); Monocytes % 5.1; Neutrophils % 67.7; Platelet Count 240 10^3/uL (130-400); RDW 15.8 % (11.7-14.6); RDW-SD 45.1 fL; WBC 8.71 10^3/uL (4.4-10.8)
[2022-02-22 19:16] LABS: ESR < 1 mm/hr (0-20)
[2022-02-22 19:17] LABS: C-Reactive Protein 0.11 mg/dL (0.0-0.3)
== END 2022-02-22 16:00 | disposition home or self-care (01) ==
LOC: NCHCN 15:59
PROVIDERS: PCP Family Medicine; Visit Provider Nurse Practitioner Family
DX: M79.10 Myalgia, unspecified site (principal)
CPT/HCPCS: 85652; 85025; 86140

== ENCOUNTER 2022-04-23 16:41 | Outpatient (REF) | payer MEDICAID, SELFPAY ==
--- NOTE | 2022-04-23 15:00 | PAPFT_PTH ---
PATIENT: Bonnie Wu [facility] U#:[id number] AGE/SX: 22/F ROOM: RE04/23/[address]: Danya Pulido V : 2000 BED: DIS: 04/23/2022 SPEC #: [id number] RECD: 04/23/22 18:03 STATUS: NATALY SUNSHINE #: [id number] HERBERT: 04/23/22 15:[address]: Danya Pulido V DEPT: [facility] Cytology RECD BY: Ana Headley Tissues: 1 - CX/ENDOCX FOR PAP SMEARS Procedures: PAP THIN PREP/UVM Screening Comments: [id number]
== END 2022-04-23 16:42 | disposition home or self-care (01) ==
LOC: NCHCN 16:41
PROVIDERS: PCP Family Medicine; Visit Provider Family Medicine
DX: Z12.4 Encounter for screening for malignant neoplasm of cervix (principal)
CPT/HCPCS: 88142

== ENCOUNTER 2022-05-07 19:49 | Emergency (ER) | payer MEDICAID, SELFPAY ==
[2022-05-07 19:54] VITALS: BP 99/70; PULSE 133; RESP 20; TEMP 37.3; O2SAT 98
[2022-05-07 20:15] VITALS: BP 116/65; PULSE 123
[2022-05-07 21:12] LABS: COVID-19 PCR Negative (Negative); Influenza A PCR Positive (Negative); Influenza B PCR Negative (Negative); RSV PCR Negative (Negative)
[2022-05-07 21:16] LABS: Source Nasopharynx
--- NOTE | 2022-05-07 21:23 | ED.GENADUL_ITS ---
Discharge Plan Disposition Patient Disposition: Home Discharge Details Clinical Impression: Influenza Primary Care Provider: Danya Pulido V ED Provider: Cristiano Crawford Home Meds and New Rx's Prescriptions: New oseltamivir [Tamiflu] 75 mg capsule 75 mg PO BID 5 Days Qty: 10 0RF Continued famotidine 20 mg tablet 20 mg PO DAILY Qty: 60 3RF valacyclovir [Valtrex] 1 gram tablet 1,000 mg PO DAILY Qty: 30 1RF Nexplanon 68 mg implant 1 implant subdermal ONCE Rx Instructions: as a single dose ondansetron HCl 4 mg tablet 8 mg PO Q8H PRN (Reason: nausea and vomiting) Qty: 30 0RF albuterol sulfate [ProAir HFA] 200 PUFF HFA aerosol inhaler 2 puff Inhalation Q4H PRN PRN lidocaine [Lidoderm] 5 % adhesive patch,medicated 1 patch Topical Q24H Qty: 15 0RF prednisone 50 mg tablet 50 mg PO DAILY Qty: 5 0RF fluticasone propionate [Flovent HFA] 110 mcg/actuation HFA aerosol inhaler 2 puff INHALATION DAILY Discharge Instructions Instructions: Influenza (ED) Additional Instructions: Tamiflu as directed. Rest, plenty of fluids, [id number] medication as directed for symptomatic control. Please watch for new or worsening symptoms and return to the ER for any concerns. Lastly, please contact your primary care provider to make them aware of your ER visit potential need for outpatient reevaluation. Stand Alone Forms: Work Release Medical Decision Making 22-year-old female, current smoker, denies significant past medical history, not vaccinated for the flu or COVID, presents for flulike symptoms over the past 24 hours, took Tylenol and Motrin. Clinically she appears well, nontoxic, afebrile, O2 sat 98% on room air. Plan to obtain flu, COVID, RSV. No clear indication for chest x-ray. Positive. Patient would like to initiate antivirals. Standard discharge and return precautions were provided. Patient understands, is agreeable to this plan, and has no additional questions or concerns upon discharge. This documentation was generated using iSkootation system, please disregard any oddities of phrase or misspellings. Medical Records Medical records reviewed: Yes I reviewed the patient's medical records. Lab Data Lab results reviewed: Yes I reviewed the patient's lab results. Labs: Laboratory Tests Range/Units 05/07/22 20:14 COVID-19 Source Nasopharynx SARS-CoV-2 (PCR) (Negative) Negative Influenza Type A (PCR) (Negative) Positive A Influenza Type B (PCR) (Negative) Negative RSV (PCR) (Negative) Negative HPI General Mode of arrival: ambulatory . Date/Time Provider Initiated Documentation: 05/07/22 19:51 . Limitations to Documentation: no limitations . Information obtained by: patient . History of Present Illness 22 year old F presents to the emergency department with the chief complaint of cough/fever, described as moderate, with intensity rated at 5. Quality is described as aching, and is localized to the back (body wide). Patient reports no radiation. Patient started experiencing this day(s) (1) and it has been constant. No relieving factors improve symptom(s), No exacerbating factors reported . Patient notes cough, fever/chills and headaches. Patient did receive the following treatments prior to arrival, NSAID Related Data Home Medications Medication Instructions Recorded Confirmed albuterol sulfate 90 mcg/actuation 2 puff inhalation Q4H PRN PRN 08/26/17 05/07/22 aerosol inhaler (ProAir HFA) fluticasone propionate 110 2 puff inhalation DAILY 11/11/20 05/07/22 mcg/actuation HFA aerosol inhaler (Flovent HFA) famotidine 20 mg tablet 20 mg PO DAILY GERD #60 tabs 09/18/21 05/07/22 ondansetron HCl 4 mg tablet 8 mg PO Q8H PRN nausea and 11/15/21 05/07/22 vomiting #30 tabs valacyclovir 1 gram tablet 1,000 mg PO DAILY #30 tabs 11/20/21 05/07/22 (Valtrex) etonogestrel 68 mg subdermal 1 implant subdermal ONCE 01/03/22 05/07/22 implant (Nexplanon) lidocaine 5 % topical patch 1 patch topical Q24H #15 ea 02/16/22 05/07/22 (Lidoderm) prednisone 50 mg tablet 50 mg PO DAILY #5 tabs 02/16/22 05/07/22 oseltamivir 75 mg capsule (Tamiflu) 75 mg PO BID 5 days #10 caps 05/07/22 Previous Rx's Medication Instructions Recorded famotidine 20 mg tablet 20 mg PO DAILY GERD #60 tabs 09/18/21 ondansetron HCl 4 mg tablet 8 mg PO Q8H PRN nausea and 11/15/21 vomiting #30 tabs valacyclovir 1 gram tablet 1,000 mg PO DAILY #30 tabs 11/20/21 (Valtrex) lidocaine 5 % topical patch 1 patch topical Q24H #15 ea 02/16/22 (Lidoderm) prednisone 50 mg tablet 50 mg PO DAILY #5 tabs 02/16/22 oseltamivir 75 mg capsule (Tamiflu) 75 mg PO BID 5 days #10 caps 05/07/22 Allergies Allergy/AdvReac Type Severity Reaction Status Date / Time Sulfa (Sulfonamide Allergy Intermediate red and Verified 02/16/22 20:39 Antibiotics) itchy General Stated Complaint: Fever TAMI: 4 Review of Systems Constitutional Constitutional: Reports fever(s) ENT Ears, Nose, Mouth, and Throat: Denies neck pain and Denies sore throat Cardiovascular Cardiovascular: Denies chest pain and Denies dyspnea Respiratory Respiratory: Reports cough and Denies dyspnea Gastrointestinal Gastrointestinal: Denies abdominal pain, Denies nausea and Denies vomiting Genitourinary Genitourinary: Denies dysuria Musculoskeletal Musculoskeletal: Reports myalgias and Denies neck pain Integumentary/Breasts Skin/Breast: Denies rash PFSH All Active Problems Influenza (Acute) Routine follow-up (Acute) Current smoker (Acute) Medical History 40 weeks gestation of Anxiety (10/10/17) Asthma Concussion COVID-19 affecting in third trimester COVID-19 virus infection Encounter for contraceptive planning GERD (gastroesophageal reflux disease) Hearing loss Bilateral hearing aids History of anxiety Situational anxiety History of depression History of herpes genitalis History of otitis media History of second hand smoke exposure History of skull fracture Surgical intervention @ 3 years old IUD surveillance Mirena inserted 10/01/18 Left sided sciatica Migraine (09/26/17) without aura per Neuro Migraine headache without aura care and examination of lactating mother Rubella non-immune status, antepartum Sensorineural hearing loss, bilateral (06/01/15) Sensorineural hearing loss, childhood onset Term delivered Uterine contractions Surgical History History of foot surgery History of placement of ear tubes History of tonsillectomy and adenoidectomy [place] teeth extracted Family History Mother Asthma Depression Father Seizure disorder PUD (peptic ulcer disease) Paternal Grandmother PUD (peptic ulcer disease) Diabetes Paternal Uncle Cancer recovered from unknown type Self Depression no meds, has good coping skills, did have counseling at [facility] Maternal Grandfather No problems noted. 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 Date GA/Weeks # Preg Succ Route Wgt Sex Labor Lgth Anesth esia Location Prov Complic Unknown 12/20/21 40 No Yes vaginal 3214.836 g Female 14hrs 59min [facility] Delivery Date: Last Updated by: MAL Salguero Exam Const General: cooperative, healthy appearing, comfortable and no acute distress Orientation: alert, awake and oriented x3 HENMT Head: normal to inspection, normocephalic and atraumatic Ears: external ears normal, TM's normal bilaterally and EAC's normal General nose exam: nasal discharge clear Mouth: moist mucous membranes Throat: posterior oropharynx normal Eyes General: appearance normal, both eyes and all related structures Conjunctivae: conjunctivae normal Neck Neck: normal visual inspection, full ROM, no lymphadenopathy, no meningeal signs, trachea midline, supple and nontender Resp Effort & Inspection: normal respiratory effort, able to speak in complete sentences and cough Quality of cough: dry Auscultation: clear to auscultation bilaterally Cardio Rate: tachycardic (108) Rhythm: regular rhythm Skin General skin exam: no rashes or lesions noted Neuro General: patient alert, patient awake, moves all extremities and no focal motor deficits Cognition: normal cognition Speech: speech normal Gait: normal gait Sensory Exam: no sensory deficits noted Extrem General: normal to inspection, full ROM, capillary refill normal, no pedal edema and no calf tenderness Psych Appearance: grossly normal Mental Status: mental status grossly normal Course Vital Signs Vital signs: Vital Signs Temperature 37.3 C 05/07/22 19:54 Pulse 133 H 05/07/22 19:54 Respiratory Rate 20 05/07/22 19:54 Blood Pressure 99/70 L 05/07/22 19:54 Pulse Oximetry 98 05/07/22 19:54 Temperature 37.3 C 05/07/22 19:54 Temperature Source Oral 05/07/22 19:54 Pulse 123 H 05/07/22 20:15 Respiratory Rate 20 05/07/22 19:54 Respiratory Effort 05/07/22 20:02 Blood Pressure 116/65 05/07/22 20:15 Blood Pressure Position Sitting 05/07/22 19:54 Pulse Oximetry 98 05/07/22 19:54 Oxygen Delivery Method Room Air 05/07/22 19:54 Oxygen Flow Rate 0 05/07/22 19:54 Pain Level 8 05/07/22 19:54 Comment 05/07/22 20:15 Lab/Test Results Lab/Test Results: Laboratory Tests Range/Units 05/07/22 20:14 COVID-19 Source Nasopharynx SARS-CoV-2 (PCR) (Negative) Negative Influenza Type A (PCR) (Negative) Positive A Influenza Type B (PCR) (Negative) Negative RSV (PCR) (Negative) Negative
[2022-05-07] MEDS: Oseltamivir 75 MG CAP PO (21:38)
== END 2022-05-07 21:40 | disposition home or self-care (01) ==
PROVIDERS: Emergency Provider Physician Assistant; PCP Family Medicine
DX: J10.1 Influenza due to other identified influenza virus with other respiratory manifestations (principal); F17.210 Nicotine dependence, cigarettes, uncomplicated
CPT/HCPCS: 87637; 99283; 99284

== ENCOUNTER 2022-06-25 14:49 | Outpatient (REF) | payer MEDICAID, SELFPAY ==
[2022-06-25 15:39] LABS: HCT 34.8 % (36.0-46.0); HGB 10.9 g/dL (11.2-15.7)
[2022-06-25 16:12] LABS: Glucose 96 mg/dL (74-106); TSH (W/Ref FT4) 1.82 uIU/mL (0.36-3.74)
[2022-06-25 16:58] LABS: Vitamin D 25 Total 17.3 ng/mL (30-100)
== END 2022-06-25 14:50 | disposition home or self-care (01) ==
LOC: NCHCN 14:49
PROVIDERS: PCP Family Medicine; Visit Provider Family Medicine
DX: R53.83 Other fatigue (principal); F32.9 Major depressive disorder, single episode, unspecified
CPT/HCPCS: 82306; 82947; 84443; 85014; 85018

== ENCOUNTER 2022-08-02 18:51 | Emergency (ER) | payer MEDICAID, SELFPAY ==
[2022-08-02 18:57] VITALS: BP 141/93; PULSE 116; RESP 17; TEMP 37.3; O2SAT 100
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
--- NOTE | 2022-08-03 20:38 | NUR.NOTE ---
called asking for covid results, and informed us she had diarrhea for the last few hours-wanted to know if she should come into ER. told her we are advised not to give advice over the phone, told her to drink gatorade. she said she was drinking water and gatorade. told her to come in if she felt she needed to.Nursing Note:
[2022-08-04 00:42] LABS: COVID-19 RT-PCR UVMMC Result Negative (Negative)
== END 2022-08-02 19:31 | disposition home or self-care (01) ==
PROVIDERS: Emergency Provider Physician Assistant; PCP Family Medicine
DX: J06.9 Acute upper respiratory infection, unspecified (principal); J45.909 Unspecified asthma, uncomplicated; R00.0 Tachycardia, unspecified; Z20.822 Contact with and (suspected) exposure to COVID-19; Z79.51 Long term (current) use of inhaled steroids; Z86.16 Personal history of COVID-19; Z28.311 Partially vaccinated for COVID-19
CPT/HCPCS: 99282; U0003

== ENCOUNTER 2022-08-04 00:56 | Emergency (ER) | payer MEDICAID, SELFPAY ==
[2022-08-04 01:02] VITALS: BP 128/83; PULSE 118; RESP 16; TEMP 36.9; O2SAT 98
--- NOTE | 2022-08-04 01:15 | DI.RAD_ITS ---
Exam(s) XR CHEST 2V PA LATERAL EXAM: XR CHEST 2V PA LATERAL CLINICAL HISTORY: left flank pain. TECHNIQUE: 2D digital imaging was performed. COMPARISON: CR CHEST 2 VIEWS PA,LAT from 10/27/2009 FINDINGS: 2 views: Heart size is normal. The mediastinum is not widened. Lungs are clear. No infiltrates nor pleural effusions. IMPRESSION: No acute pulmonary findings. DATA REPOSITORY: RADIATION DOSE DELIVERED:
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
[2022-08-04] MEDS: Ondansetron 4 MG/2 ML VIAL IVP (01:42)
[2022-08-04] MEDS: ACETAMINOPHEN 1,000 MG/100 ML BTL 400 MG IVPB (01:42)
[2022-08-04] MEDS: Normal Saline 1,000 ML 1000 ML IV (01:42)
[2022-08-04 01:53] LABS: Abs Immature Grans 0.02 10^3/uL (0.0-0.06); Absolute Basophil Count 0.01 10^3/uL (0.0-0.2); Absolute Eosinophil Count 0.06 10^3/uL (0.0-0.7); Absolute Lymphocyte Count 0.95 10^3/uL (1.2-3.4); Absolute Monocyte Count 0.42 10^3/uL (0.1-0.8); Basophils % 0.1; Eosinophils % 0.8; HCT 40.2 % (36.0-46.0); HGB 12.9 g/dL (11.2-15.7); Immature Grans % 0.3; Lymphocytes % 12.6; MCH 24.9 pg (27.0-33.0); MCHC 32.1 % (32.0-36.0); MCV 78 fL (80-95); MPV 12.1 fL (8.0-11.0); Monocytes % 5.6; Neutrophils % 80.6; Platelet Count 192 10^3/uL (130-400); RBC 5.18 10^6/uL (3.93-5.22); RDW 14.3 % (11.7-14.6); RDW-SD 40.2 fL; WBC 7.56 10^3/uL (4.4-10.8)
[2022-08-04 01:56] LABS: Bilirubin Negative (Negative); Blood Negative (Negative); Clarity Sl Cloudy (Clear); Glucose Negative (Negative); Ketones Negative (Negative); Leukocyte Esterase Negative (Negative); Nitrite Negative (Negative); Specific Gravity >= 1.030 (1.005-1.025); Urobilinogen 0.2 mg/dL (Up to 0.2)
[2022-08-04 02:09] LABS: ALT 13 U/L (14-59); AST 13 U/L (15-37); Albumin 3.9 g/dL (3.4-5.0); Alkaline Phosphatase 70 U/L (46-116); Anion Gap 1.1 mmol/L (3-11); BUN 11 mg/dL (7-18); Bilirubin, Total 0.4 mg/dL (0.2-1.0); CO2 25.9 mmol/L (21.0-32.0); CREATININE 0.7 mg/dL (0.55-1.02); Calcium 8.8 mg/dL (8.5-10.1); Chloride 103 mmol/L (98-107); Estimated GFR 126.11 (mL/min/1.73m2); Glucose 106 mg/dL (74-106); Potassium 3.3 mmol/L (3.5-5.1); Sodium 130 mmol/L (136-145); Total Protein 7.4 g/dL (6.4-8.2)
--- NOTE | 2022-08-04 02:30 | DI.CT_ITS ---
Exam(s) CT ABDOMEN PELVIS W EXAM: CT ABDOMEN PELVIS W CLINICAL HISTORY: left flank pain, diarrhea. TECHNIQUE: Imaging Protocol: Axial computed tomography images with coronal and sagittal reformatted images were created and reviewed CONTRAST MATERIAL: Intravenous: Omnipaque-350 100cc Oral: None COMPARISON: CT CT ABDOMEN PELVIS W from 05/04/2019 FINDINGS: VISUALIZED LUNG BASES: No nodules nor pleural effusions evident. ABDOMEN: There is no ascites. LIVER: There are no focal hepatic lesions evident. No dilated intrahepatic ducts. GALLBLADDER/BILIARY: No obvious gallbladder pathology. CBD is not dilated. PANCREAS: No evidence of pancreatic mass nor dilatation of the pancreatic duct. SPLEEN: Spleen spleen is enlarged. No intrasplenic lesions. Splenic and portal veins are patent. ADRENALS: There are no significant adrenal masses. KIDNEYS:No cysts evident. No solid renal masses. No calculi nor hydronephrosis.. ABDOMINAL AORTA: Abdominal aorta is not enlarged. LYMPH NODES:There is no retroperitoneal nor paraaortic adenopathy. ABDOMINAL WALL: No evidence of significant anterior abdominal wall nor inguinal hernia. GI: There is no evidence of bowel obstruction, free air, nor abscess. PELVIS: GI: No evidence of appendicitis.No evidence of sigmoid diverticulitis. LYMPH NODES: There is no intrapelvic nor inguinal adenopathy. REPRODUCTIVE: Uterus and right adnexa unremarkable. There is a cyst in the left ovary which measures 3.8 x 2.9 cm. No free fluid. Previously present IUD in the uterus has been removed. URINARY BLADDER: No calculi nor obvious masses evident OSSEOUS: No fractures and no significant osseous lesions. IMPRESSION: 1. There is a 3.8 x 2.9 cm cyst in the left ovary. Appears unilocular. No other adnexal findings an d no free fluid. IUD in the uterus no longer seen, as was evident on CT scan of 05/04/2019. 2. Splenomegaly noted. No obvious adenopathy. Correlation with mononucleosis testing recommended. RADIATION DOSE DELIVERED: 844.38mGy.cm Total DLP DATA REPOSITORY: All CT scans at this facility are submitted to the National Radiology Data Registry (NRDR) Dose Index Registry (DIR) with the [employer] (A[employer]). RADIATION OPTIMIZATION: All CT scans at this facility use at least one of these dose optimization te chniques: automated exposure control; mA and/or kV adjustment per patient size (includes targeted exa ms where dose is matched to clinical indication); or iterative reconstruction.
--- NOTE | 2022-08-04 02:43 | DI.VRAD_ITS ---
PROCEDURE INFORMATION: Exam: XR Chest Exam date and time: 08/04/2022 2:03 AM Age: 22 years old Clinical indication: Other: Pain TECHNIQUE: Imaging protocol: Radiologic exam of the chest. Views: 2 views. COMPARISON: CT CHEST/ABD/PEL W 10/27/2018 11:35 AM FINDINGS: Lungs: Unremarkable. No consolidation. Pleural spaces: Unremarkable. No pleural effusion. No pneumothorax. Heart/Mediastinum: Unremarkable. No cardiomegaly. Bones/joints: Unremarkable. Other findings: A IMPRESSION: A a Dictated and Authenticated by: Antony Baxter MD. Ordering:PESDRAS White MD
[2022-08-04] MEDS: Omnipaque 350 MG/ML 100 ML BTL IJ (02:53)
[2022-08-04] MEDS: Normal Saline - Diluent 50 ML VIAL IJ (02:54)
--- NOTE | 2022-08-04 03:14 | DI.VRAD_ITS ---
PROCEDURE INFORMATION: Exam: CT Abdomen And Pelvis With Contrast Exam date and time: 08/04/2022 2:54 AM Age: 22 years old Clinical indication: Other: Diarrhea, left flank pain TECHNIQUE: Imaging protocol: Computed tomography of the abdomen and pelvis with contrast. Contrast material: 350; Contrast volume: 100 ml; Contrast route: INTRAVENOUS (IV); COMPARISON: CT ABDOMEN PELVIS W 05/04/2019 12:49 PM FINDINGS: Liver: Normal. No mass. Gallbladder and bile ducts: Normal. No calcified stones. No ductal dilation. Pancreas: Normal. No ductal dilation. Spleen: Splenomegaly, clinically correlate. Adrenal glands: Normal. No mass. Kidneys and ureters: Normal. No hydronephrosis. Stomach and bowel: Unremarkable. No obstruction. No mucosal thickening. Appendix: No evidence of appendicitis. Intraperitoneal space: Unremarkable. No free air. No significant fluid collection. Vasculature: Unremarkable. No abdominal aortic aneurysm. Lymph nodes: Unremarkable. No enlarged lymph nodes. Urinary bladder: Unremarkable as visualized. Reproductive: 3.6 cm left ovarian cyst. Bones/joints: Unremarkable. No acute fracture. Soft tissues: Unremarkable. IMPRESSION: 3.6 cm left ovarian cyst. Dictated and Authenticated by: Antony Baxter MD. Ordering:JOSE ENRIQUE White MD
[2022-08-04] MEDS: LORazepam 2 MG/ML VIAL 1 MG IVP (03:15)
[2022-08-04 03:21] VITALS: BP 111/68; PULSE 102; RESP 16; O2SAT 98
--- NOTE | 2022-08-04 17:06 | NUR.NOTE ---
Nursing Note: Patient notified via telephone that her covid results came back negative
== END 2022-08-04 04:04 | disposition home or self-care (01) ==
PROVIDERS: Emergency Provider Emergency Medicine; PCP Family Medicine
DX: N83.202 Unspecified ovarian cyst, left side (principal); R00.0 Tachycardia, unspecified; J45.909 Unspecified asthma, uncomplicated; Z86.16 Personal history of COVID-19; Z79.51 Long term (current) use of inhaled steroids
CPT/HCPCS: 80053; 96361; 96365; 96375; 99285; 71046; 74177; 81003; 85025; 99284; J0131; J2060; J2405; J3490

== ENCOUNTER 2022-08-06 17:10 | Outpatient (CLI) | payer MEDICAID, SELFPAY ==
[2022-08-06 16:33] LABS: Mono Screening Negative (Negative)
== END 2022-08-06 17:11 | disposition home or self-care (01) ==
LOC: LBO 17:10
PROVIDERS: PCP Family Medicine; Visit Provider Family Medicine
DX: R16.1 Splenomegaly, not elsewhere classified (principal)
CPT/HCPCS: 36415; 86308

== ENCOUNTER 2022-08-29 01:25 | Outpatient (CLI) | payer MEDICAID, SELFPAY ==
--- NOTE | 2022-08-29 | DI.US_ITS ---
Exam(s) US ABDOMEN LIMITED EXAM: US ABDOMEN LIMITED CLINICAL HISTORY: SPLENOMEGALY R16.1 TECHNIQUE: Ultrasound abdomen performed using standard protocol. COMPARISON: US US ABDOMEN LIMITED from 06/04/[address] ABDOMEN PELVIS W from 08/04/2022 FINDINGS: SPLEEN: The spleen measures 13.6 cm. It is homogeneous. There is normal blood flow. No splenic mas s is seen. IMPRESSION: Mild splenomegaly. DATA REPOSITORY:
== END 2022-08-29 01:45 ==
LOC: DI 01:25
PROVIDERS: PCP Family Medicine; Visit Provider Family Medicine
DX: R16.1 Splenomegaly, not elsewhere classified (principal)
CPT/HCPCS: 76705

== ENCOUNTER 2022-08-29 01:26 | Outpatient (CLI) | payer MEDICAID, SELFPAY ==
--- NOTE | 2022-08-29 07:15 | DI.US_ITS ---
Exam(s) US PELVIS TRANSVAGINAL EXAM: US PELVIS TRANSVAGINAL CLINICAL HISTORY: Check ovarian cyst,n83.209. TECHNIQUE: Transabdominal and transvaginal pelvic ultrasound was performed using standard protocol. COMPARISON: US US OB VELIA WEIGHT from 12/12/[address] ABDOMEN PELVIS W from 08/04/2022 FINDINGS: UTERUS: Position: Anteverted. Size: 7.6 long by 3.0 AP by 5.1 transverse cm Endometrium: 0.3 cm. Normal for patient's menstrual status. Myometrium: Unremarkable. Cervix: Unremarkable. OVARIES: Right: 3.6 x 3.0 x 2.2 cm Cyst or mass: No suspicious cystic or solid masses. The largest follicular cyst measures 2.1 cm. Left: 3.0 x 2.3 x 1.7 cm Cyst or mass: No suspicious cystic or solid masses. The largest follicular cyst measures 1.9 cm. Th ere has been resolution of the large left ovarian cysts seen on the CT scan from 08/04/2022. DOPPLER: Color: Symmetric and uniform flow to both ovaries. CUL-DE-SAC: Free fluid: None. Other: None. IMPRESSION: 1. Normal-appearing uterus with endometrial stripe within normal limits. 2. Unremarkable bilateral ovaries. DATA REPOSITORY:
== END 2022-08-29 01:46 ==
LOC: DI 01:26
PROVIDERS: PCP Family Medicine; Visit Provider Obstetrics & Gynecology
DX: N83.201 Unspecified ovarian cyst, right side (principal); N83.202 Unspecified ovarian cyst, left side
CPT/HCPCS: 76830; 76856

== ENCOUNTER 2022-09-24 11:22 | Emergency (ER) | payer MEDICAID, SELFPAY ==
[2022-09-24 11:27] VITALS: BP 105/57; PULSE 130; RESP 18; TEMP 37.5; O2SAT 99
--- NOTE | 2022-09-24 11:30 | RT.EKG_ITS ---
APPROVED REPORT Exam: Resting ECG Reason for Exam: tachy Patient Location: E HR:97 bpm ECG Measurements Heart Rate 97 AXIS [place] 152 P 66 QRSd 85 QRS 56 QT 323 T -8 QTc 412 Conclusion Sinus rhythm...normal P axis, V-rate 60- 99
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
[2022-09-24] MEDS: Ketorolac 15 MG/ML VIAL IVP (11:53)
[2022-09-24] MEDS: diphenhydrAMINE 50 MG/ML VIAL 25 MG IVP (11:54)
[2022-09-24] MEDS: Metoclopramide 10 MG/2 ML VIAL IVP (11:54)
[2022-09-24] MEDS: Normal Saline 1,000 ML 1000 ML IV ×2 (11:56→13:23)
[2022-09-24 11:58] LABS: Abs Immature Grans 0.02 10^3/uL (0.0-0.06); Absolute Basophil Count 0.01 10^3/uL (0.0-0.2); Absolute Lymphocyte Count 0.29 10^3/uL (1.2-3.4); Absolute Monocyte Count 0.23 10^3/uL (0.1-0.8); Absolute Neutrophil Count 3.73 10^3/uL (1.2-6.7); Basophils % 0.2; HCT 37.7 % (36.0-46.0); HGB 12.4 g/dL (11.2-15.7); Immature Grans % 0.5; Lymphocytes % 6.8; MCH 25.4 pg (27.0-33.0); MCHC 32.9 % (32.0-36.0); MCV 77 fL (80-95); MPV 11.8 fL (8.0-11.0); Monocytes % 5.4; Neutrophils % 87.1; Platelet Count 195 10^3/uL (130-400); RBC 4.89 10^6/uL (3.93-5.22); RDW 14.2 % (11.7-14.6); RDW-SD 39.6 fL; WBC 4.28 10^3/uL (4.4-10.8)
[2022-09-24 12:00] LABS: Bilirubin Negative (Negative); Blood Negative (Negative); Clarity Clear (Clear); Glucose Negative (Negative); Ketones Negative (Negative); Leukocyte Esterase Trace (Negative); Nitrite Negative (Negative); pH 5.5 (5-8)
[2022-09-24 12:05] LABS: Bacteria Few HPF (Negative); C & S Indicated? No/Sq. Contamination; Casts Negative LPF (Negative); Crystals Negative HPF (Negative); Epithelial Cells Many HPF (Negative); Mucus Negative (Negative); RBC 0-2 HPF (0-2)
[2022-09-24 12:14] LABS: ALT 15 U/L (14-59); AST 15 U/L (15-37); Albumin 3.9 g/dL (3.4-5.0); Alkaline Phosphatase 65 U/L (46-116); Anion Gap 10.3 mmol/L (3-11); BUN 9 mg/dL (7-18); Bilirubin, Total 0.6 mg/dL (0.2-1.0); CO2 26.7 mmol/L (21.0-32.0); CREATININE 0.8 mg/dL (0.55-1.02); Calcium 8.5 mg/dL (8.5-10.1); Chloride 99 mmol/L (98-107); Estimated GFR 107.44 (mL/min/1.73m2); Glucose 120 mg/dL (74-106); Lipase 16 U/L (16-77); Magnesium 1.6 mg/dL (1.8-2.4); Potassium 3.3 mmol/L (3.5-5.1); Sodium 136 mmol/L (136-145)
[2022-09-24 12:16] LABS: HCG Qual (Serum) Negative
[2022-09-24] MEDS: MAGNESIUM SULFATE 1 GM/100 ML BAG IVPB (12:28)
[2022-09-24 12:38] LABS: COVID-19 PCR Negative (Negative); Influenza A PCR Negative (Negative); Influenza B PCR Negative (Negative); RSV PCR Negative (Negative)
[2022-09-24 12:43] LABS: Source Nasopharynx
[2022-09-24 13:24] VITALS: BP 106/58; PULSE 100; RESP 16; O2SAT 99
[2022-09-24 13:36] VITALS: BP 108/53; PULSE 98
== END 2022-09-24 13:39 | disposition home or self-care (01) ==
PROVIDERS: Emergency Provider Student in an Organized Health Care Education/Training Program; PCP Family Medicine
DX: R11.2 Nausea with vomiting, unspecified (principal); R19.7 Diarrhea, unspecified; E86.0 Dehydration; E87.6 Hypokalemia; E83.42 Hypomagnesemia; A08.4 Viral intestinal infection, unspecified; R51.9 Headache, unspecified
CPT/HCPCS: 80053; 83690; 87637; 93005; 96361; 96365; 96375; 99284; 81003; 81015; 83735; 84703; 85025; 93010; J1200; J1885; J2765; J3475

== ENCOUNTER 2022-10-02 15:24 | Outpatient (REF) | payer MEDICAID, SELFPAY ==
[2022-10-02 16:46] LABS: COMMENT (LAB VIEW ONLY) 112.85 mg/dL; Microalb ug/mg Crea 18.6 ug/mg Cr
[2022-10-02 17:29] LABS: Bacteria Few HPF (Negative); C & S Indicated? No/Sq. Contamination; Casts Negative LPF (Negative); Crystals Negative HPF (Negative); Epithelial Cells Moderate HPF (Negative); Mucus Trace (Negative); RBC 20-50 HPF (0-2); WBC 0-2 HPF (0-5)
== END 2022-10-02 15:25 | disposition home or self-care (01) ==
LOC: NCHCN 15:24
PROVIDERS: PCP Family Medicine; Visit Provider Nurse Practitioner Family
DX: R10.9 Unspecified abdominal pain (principal)
CPT/HCPCS: 81015; 82043; 82570

== ENCOUNTER 2022-11-18 03:28 | Outpatient (CLI) | payer MEDICAID, SELFPAY ==
--- NOTE | 2022-11-18 09:13 | DI.RAD_ITS ---
Exam(s) XR SHOULDER RT COMPLETE 2+V EXAM: XR SHOULDER RT COMPLETE 2+V CLINICAL HISTORY: RT SHOULDER PAIN, M25.511. TECHNIQUE: 2D digital imaging was performed. Five views. COMPARISON: No exams were available for comparison FINDINGS: BONES: No acute fracture is present. No bony destructive lesion is seen. JOINTS: No dislocation present. SOFT TISSUE: Normal. IMPRESSION: Unremarkable radiographs of the right shoulder. DATA REPOSITORY: RADIATION DOSE DELIVERED:
== END 2022-11-18 03:48 ==
LOC: DI 03:28
PROVIDERS: PCP Family Medicine; Visit Provider Nurse Practitioner Family
DX: M25.511 Pain in right shoulder (principal)
CPT/HCPCS: 73030

== ENCOUNTER 2022-12-13 22:11 | Emergency (ER) | payer MEDICAID, SELFPAY ==
[2022-12-13 22:16] VITALS: BP 115/61; PULSE 94; RESP 18; TEMP 37.1; O2SAT 99
[2022-12-13 22:40] VITALS: RESP 18
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
[2022-12-13] MEDS: CLINDAMYCIN 300 MG/50 ML BAG 100 MG IVPB (23:17)
--- NOTE | 2022-12-13 23:45 | W.ED.FU ---
Date of service: 12/13/22 Time of Service: 23:45 Follow Up Plan: After discharge the patient requested pain medication. I have ordered a gram of acetaminophen and 400 mg of ibuprofen for her pain
[2022-12-13] MEDS: Acetaminophen 500 MG TAB 1000 MG PO (23:48)
[2022-12-13] MEDS: Ibuprofen 400 MG TAB PO (23:49)
[2022-12-14 00:25] VITALS: BP 113/66; PULSE 65; RESP 18; TEMP 37.2; O2SAT 96
== END 2022-12-14 00:26 | disposition home or self-care (01) ==
PROVIDERS: Emergency Provider Emergency Medicine Emergency Medical Services; PCP Family Medicine
DX: S61.532A Puncture wound without foreign body of left wrist, initial encounter (principal); R06.02 Shortness of breath; B96.89 Other specified bacterial agents as the cause of diseases classified elsewhere; X58.XXXA Exposure to other specified factors, initial encounter
CPT/HCPCS: 96374; 99283; 87070; 87205; 99282

== ENCOUNTER 2022-12-31 17:45 | Outpatient (REF) | payer MEDICAID, SELFPAY ==
[2022-12-31 18:51] LABS: HCT 35.8 % (36.0-46.0); HGB 11.7 g/dL (11.2-15.7)
[2022-12-31 19:34] LABS: Ferritin 2 ng/mL (8-252)
== END 2022-12-31 17:46 | disposition home or self-care (01) ==
LOC: NCHCN 17:45
PROVIDERS: PCP Family Medicine; Visit Provider Family Medicine
DX: D64.9 Anemia, unspecified (principal)
CPT/HCPCS: 82728; 85014; 85018

== ENCOUNTER 2023-04-06 18:52 | Emergency (ER) | payer MEDICAID, SELFPAY ==
[2023-04-06 18:58] VITALS: BP 129/82; PULSE 92; RESP 18; TEMP 37.1; O2SAT 99
--- NOTE | 2023-04-06 19:15 | DI.RAD_ITS ---
Exam(s) XR CHEST 2V PA LATERAL EXAM: XR CHEST 2V PA LATERAL CLINICAL HISTORY: cough. TECHNIQUE: 2D digital imaging was performed. COMPARISON: CR,XR XR CHEST 2V PA LATERAL from 08/04/2022 FINDINGS: 2 views: Heart size is normal. The mediastinum is not widened. Lungs are clear. No infiltrates nor pleural effusions. IMPRESSION: No acute pulmonary findings. DATA REPOSITORY: RADIATION DOSE DELIVERED:
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
[2023-04-06 20:06] VITALS: BP 123/64; PULSE 83; RESP 18; TEMP 36.9; O2SAT 98
--- NOTE | 2023-04-06 20:08 | DI.VRAD_ITS ---
PROCEDURE INFORMATION: Exam: XR Chest Exam date and time: 04/06/2023 7:27 PM Age: 23 years old Clinical indication: Patient HX: Cough for 3 weeks TECHNIQUE: Imaging protocol: Radiologic exam of the chest. Views: 2 views. COMPARISON: CR XR CHEST 2V PA LATERAL 08/04/2022 2:03 AM FINDINGS: Lungs: Minor central interstitial prominence is similar to prior. No airspace consolidation. Pleural spaces: No pleural effusion. No pneumothorax. Heart/Mediastinum: No cardiomegaly. Bones/joints: No acute fracture. IMPRESSION: Interstitial disease suggesting bronchitis. Dictated and Authenticated by: Ruthy Hussein MD. Ordering:TYLOR Truong MD
== END 2023-04-06 20:16 | disposition home or self-care (01) ==
PROVIDERS: Emergency Provider Nurse Practitioner Acute Care; PCP Family Medicine
DX: J01.90 Acute sinusitis, unspecified (principal)
CPT/HCPCS: 81025; 99283; 71046

== ENCOUNTER 2023-04-09 08:56 | Emergency (ER) | payer MEDICAID, SELFPAY ==
[2023-04-09 09:14] VITALS: BP 116/70; PULSE 71; RESP 18; TEMP 36.7; O2SAT 99
--- NOTE | 2023-04-09 09:30 | DI.RAD_ITS ---
Exam(s) XR CHEST 2V PA LATERAL EXAM: XR CHEST 2V PA LATERAL CLINICAL HISTORY: right chest pain after fall. TECHNIQUE: 2D digital imaging was performed. COMPARISON: CR,XR XR CHEST 2V PA LATERAL from 04/06/2023 FINDINGS: 2 views: Heart size is normal. The mediastinum is not widened. Lungs are clear. No infiltrates nor pleural effusions. IMPRESSION: No acute pulmonary findings. DATA REPOSITORY: RADIATION DOSE DELIVERED:
--- NOTE | 2023-04-09 09:30 | DI.RAD_ITS ---
Exam(s) XR ANKLE RT COMPLETE EXAM: XR ANKLE RT COMPLETE CLINICAL HISTORY: lateral ankle pain post fall. TECHNIQUE: 2D digital imaging was performed. COMPARISON: No exams were available for comparison FINDINGS: 3 views No evidence of fracture nor widening of the ankle mortise. Talar dome unremarkable. Malleoli unrema rkable. Bone density normal. No osseous lesions. No tarsal coalition. No radiopaque foreign body. IMPRESSION: No significant osseous findings in the ankle. DATA REPOSITORY: RADIATION DOSE DELIVERED:
--- NOTE | 2023-04-09 09:30 | DI.RAD_ITS ---
Exam(s) XR LUMBAR SPINE COMPLETE EXAM: XR LUMBAR SPINE COMPLETE CLINICAL HISTORY: back pain post fall. TECHNIQUE: 2D digital imaging was performed. COMPARISON: CR XR LUMBAR SPINE COMPLETE from 09/15/2019 FINDINGS: Five views: No evidence of fracture, listhesis, or pars defects. No disc space narrowing. No facet arthropathy. Bone density normal. No osseous lesions. No scoliosis. SI joints unremarkable. IMPRESSION: No significant osseous findings in the lumbosacral spinal column. DATA REPOSITORY: RADIATION DOSE DELIVERED:
--- NOTE | 2023-04-09 09:30 | DI.RAD_ITS ---
Exam(s) XR PELVIS AP EXAM: XR PELVIS AP CLINICAL HISTORY: right SI pain post fall. TECHNIQUE: 2D digital imaging was performed. COMPARISON: No exams were available for comparison FINDINGS: Single AP view. No evidence of pelvic nor hip fracture. No hip joint space narrowing. No incidental osseous lesions . SI joints unremarkable IMPRESSION: No acute osseous findings in the pelvis and hips. DATA REPOSITORY: RADIATION DOSE DELIVERED:
[2023-04-09 09:34] LABS: Bilirubin Negative (Negative); Blood Negative (Negative); Clarity Sl Cloudy (Clear); Glucose Negative (Negative); Ketones Negative (Negative); Leukocyte Esterase Negative (Negative); Nitrite Negative (Negative); Specific Gravity 1.025 (1.005-1.025); Urobilinogen 0.2 mg/dL (Up to 0.2)
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
[2023-04-09 10:45] VITALS: BP 113/77; PULSE 63; RESP 18; O2SAT 98
== END 2023-04-09 10:47 | disposition home or self-care (01) ==
PROVIDERS: Emergency Provider Physician Assistant; PCP Family Medicine
DX: S70.01XA Contusion of right hip, initial encounter (principal); S30.0XXA Contusion of lower back and pelvis, initial encounter; S93.401A Sprain of unspecified ligament of right ankle, initial encounter; W10.8XXA Fall (on) (from) other stairs and steps, initial encounter; Y93.01 Activity, walking, marching and hiking; Y92.89 Other specified places as the place of occurrence of the external cause
CPT/HCPCS: 81025; 99283; 71046; 72110; 72170; 73610; 81003

== ENCOUNTER 2023-05-28 03:12 | Outpatient (CLI) | payer MEDICAID, SELFPAY ==
[2023-05-28 14:02] LABS: TSH (W/Ref FT4) 4.87 uIU/mL (0.36-3.74)
[2023-05-28 14:17] LABS: FREE T4 0.92 ng/dL (0.76-1.46)
== END 2023-05-28 03:13 | disposition home or self-care (01) ==
LOC: LBO 03:12
PROVIDERS: PCP Family Medicine; Visit Provider Obstetrics & Gynecology
DX: R63.5 Abnormal weight gain (principal)
CPT/HCPCS: 36415; 84439; 84443

== ENCOUNTER 2023-06-28 17:15 | Emergency (ER) | payer MEDICAID, SELFPAY ==
[2023-06-28 17:19] VITALS: BP 130/65; PULSE 95; RESP 17; TEMP 37; O2SAT 98
--- NOTE | 2023-06-28 17:30 | DI.RAD_ITS ---
Exam(s) XR SHOULDER RT COMPLETE 2+V EXAM: XR SHOULDER RT COMPLETE 2+V CLINICAL HISTORY: weeks of right shoulder pain. TECHNIQUE: 2D digital imaging was performed. COMPARISON: CR XR SHOULDER RT COMPLETE 2+V from 11/18/2022 FINDINGS: Five views. No evidence of fracture or dislocation or abnormal soft tissue calcifications. Subacromial space yaya ears unremarkable. Glenohumeral and AC joints appear unremarkable. Bone density normal. No osseous lesions. IMPRESSION: No acute osseous findings in the shoulder. No soft tissue calcifications evident. DATA REPOSITORY: RADIATION DOSE DELIVERED:
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
[2023-06-28] MEDS: Dexamethasone 10 MG/ML VIAL PO (18:23)
--- NOTE | 2023-06-28 18:51 | DI.VRAD_ITS ---
PROCEDURE INFORMATION: Exam: XR Right Shoulder Exam date and time: 06/28/2023 6:11 PM Age: 23 years old Clinical indication: Right; Patient HX: Weeks of R shoulder pain TECHNIQUE: Imaging protocol: Radiologic exam of the right shoulder. Views: 2 or more views. COMPARISON: CR XR SHOULDER RT COMPLETE 2+V 11/18/2022 9:06 AM FINDINGS: Bones/joints: No acute fracture or subluxation. No significant degenerative changes are seen. Soft tissues: Normal. IMPRESSION: No acute bony pathology. Dictated and Authenticated by: Ruthy Hussein MD. Ordering:JOSE ENRIQUE White MD
== END 2023-06-28 19:16 | disposition home or self-care (01) ==
PROVIDERS: Emergency Provider Emergency Medicine; PCP Family Medicine
DX: M25.511 Pain in right shoulder (principal)
CPT/HCPCS: 99283; 73030; J1100

== ENCOUNTER 2023-07-04 09:21 | Outpatient (REF) | payer MEDICAID, SELFPAY | END 2023-07-04 09:22 | disposition home or self-care (01) | LOC: LBN 09:21 | PROVIDERS: PCP Family Medicine; Visit Provider Obstetrics & Gynecology | DX: N89.8 Other specified noninflammatory disorders of vagina (principal) | CPT/HCPCS: 87480; 87510; 87660 ==

== ENCOUNTER 2023-07-23 16:30 | Emergency (ER) | payer MEDICAID, SELFPAY ==
[2023-07-23 16:32] VITALS: BP 132/70; PULSE 83; RESP 16; TEMP 36.6; O2SAT 99
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
[2023-07-23] MEDS: Cyclobenzaprine 10 MG TAB PO (17:01)
[2023-07-23] MEDS: Lidocaine 5% Patch 1 PATCH TP (17:01)
[2023-07-23] MEDS: Acetaminophen 500 MG TAB 1000 MG PO (17:01)
[2023-07-23] MEDS: Ketorolac 30 MG/ML VIAL IM (17:01)
== END 2023-07-23 17:15 | disposition home or self-care (01) ==
PROVIDERS: Emergency Provider Physician Assistant; PCP Family Medicine
DX: M25.511 Pain in right shoulder (principal); S43.401A Unspecified sprain of right shoulder joint, initial encounter; W22.8XXA Striking against or struck by other objects, initial encounter; R20.2 Paresthesia of skin; Y99.0 Civilian activity done for income or pay
CPT/HCPCS: 99283; J1885

== ENCOUNTER → 2023-08-12 03:49 | Outpatient (CLI) | payer MEDICAID, SELFPAY ==
--- NOTE | 2023-08-12 06:45 | DI.MRI_ITS ---
Exam(s) MR UPPER JOINT RT WO EXAM: MR UPPER JOINT RT WO CLINICAL HISTORY: R SHOULDER PAIN,SLAP TEAR,[id number]. TECHNIQUE: Multiplanar multisequence MRI was performed. COMPARISON: Plain films 28 June 2023 FINDINGS: BONES: There is no fracture or contusion pattern. JOINTS:The acromioclavicular joint is normal. The glenohumeral joint is normal. TENDONS: Supraspinatus: Unremarkable. Infraspinatus: Unremarkable. Subscapularis: Unremarkable. Teres Minor: Unremarkable. Biceps and Nelson: Unremarkable. MUSCLES: Unremarkable. GLENOID LABRUM: Unremarkable on this noncontrast examination. SOFT TISSUES: Unremarkable. OTHER: Subacromial and subdeltoid bursae shows minimal fluid. Small amount of fluid seen between cor acoacromial ligament and supraspinatus. . IMPRESSION: No evidence of rotator cuff tear. No visible labral tear. DATA REPOSITORY:
== END ==
PROVIDERS: PCP Family Medicine; Visit Provider Student in an Organized Health Care Education/Training Program
DX: M25.511 Pain in right shoulder (principal); M25.411 Effusion, right shoulder; S43.431A Superior glenoid labrum lesion of right shoulder, initial encounter
CPT/HCPCS: 73221

== ENCOUNTER 2023-09-01 07:51 | Emergency (ER) | payer MEDICAID, SELFPAY ==
[2023-09-01 08:05] VITALS: BP 135/79; PULSE 79; RESP 14; TEMP 36.7; O2SAT 99
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
[2023-09-01] MEDS: Inhaler, Assist Device 1 EACH MC (09:10)
[2023-09-01] MEDS: Albuterol HFA 8 GM 60 PUFF INH IH (09:10)
== END 2023-09-01 09:11 | disposition home or self-care (01) ==
PROVIDERS: Emergency Provider Registered Nurse Emergency; PCP Family Medicine
DX: J06.9 Acute upper respiratory infection, unspecified (principal); R05.1 Acute cough; R07.0 Pain in throat; H92.01 Otalgia, right ear; Z87.09 Personal history of other diseases of the respiratory system
CPT/HCPCS: 87880; 99282; 99283

== ENCOUNTER 2023-10-19 14:04 | Emergency (ER) | payer MEDICAID, SELFPAY ==
[2023-10-19 14:20] VITALS: BP 116/70; PULSE 109; RESP 16; TEMP 36.7; O2SAT 99
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
[2023-10-19] MEDS: Acetaminophen 325 MG TAB 650 MG PO (15:10)
[2023-10-19] MEDS: Dexamethasone 10 MG/ML VIAL PO (15:11)
[2023-10-19 15:38] VITALS: BP 141/83; PULSE 81; RESP 18; TEMP 37.2; O2SAT 98
--- NOTE | 2023-10-19 16:00 | DI.CT_ITS ---
Exam(s) CT NECK W EXAM: CT NECK W CLINICAL HISTORY: hoarse voice, sore throat, left lat neck pain. TECHNIQUE: Imaging Protocol: Axial computed tomography images with coronal and sagittal reformatted images were created and reviewed CONTRAST MATERIAL: Intravenous: Omnipaque 350 Contrast volume:100 ml contrast COMPARISON: No exams were available for comparison FINDINGS: Parotids: Normal. Submandibular glands: Normal. Thyroid gland: Normal. Lymph nodes: There are scattered lymph nodes seen along the level one to level three all measuring le ss than 8 mm in short axis diameter which are physiologic in nature. Carotids arteries: No significant stenosis or dissection. Vertebral arteries: No significant stenosis or dissection. Soft tissues: The floor the mouth is unremarkable. The tonsils and adenoids are mildly prominent. N o abscess visible.. The epiglottis and vocal cords are within normal limits. Lungs: Images through both lung apices are unremarkable. Bones: Craniotomy defect right occipital bone. Visualized portions of the brain and orbits: Unremarkable. Sinuses and mastoids: Clear. IMPRESSION: Mildly prominent tonsils and adenoids. No evidence of airway compromise. No evidence of abscess. RADIATION DOSE DELIVERED: Total DLP DATA REPOSITORY: All CT scans at this facility are submitted to the National Radiology Data Registry (NRDR) Dose Index Registry (DIR) with the [employer] (A[employer]). RADIATION OPTIMIZATION: All CT scans at this facility use at least one of these dose optimization te chniques: automated exposure control; mA and/or kV adjustment per patient size (includes targeted exa ms where dose is matched to clinical indication); or iterative reconstruction.
[2023-10-19] MEDS: Omnipaque 350 MG/ML 100 ML BTL IJ (16:15)
[2023-10-19] MEDS: Normal Saline - Diluent 50 ML VIAL IJ (16:16)
[2023-10-19 16:32] LABS: Abs Immature Grans 0.05 10^3/uL (0.0-0.06); Absolute Basophil Count 0.03 10^3/uL (0.0-0.2); Absolute Eosinophil Count 0.07 10^3/uL (0.0-0.7); Absolute Lymphocyte Count 0.94 10^3/uL (1.2-3.4); Absolute Monocyte Count 0.39 10^3/uL (0.1-0.8); Absolute Neutrophil Count 6.95 10^3/uL (1.2-6.7); Basophils % 0.4 %; Eosinophils % 0.8 %; HCT 37.5 % (36.0-46.0); HGB 12.3 g/dL (11.2-15.7); Immature Grans % 0.6 %; Lymphocytes % 11.2 %; MCHC 32.8 % (32.0-36.0); MCV 82 fL (80-95); MPV 12.1 fL (8.0-11.0); Monocytes % 4.6 %; Neutrophils % 82.4 %; Platelet Count 185 10^3/uL (130-400); RBC 4.56 10^6/uL (3.93-5.22); RDW 12.2 % (11.7-14.6); RDW-SD 36.8 fL; WBC 8.43 10^3/uL (4.4-10.8)
[2023-10-19 16:50] LABS: ALT 18 U/L (14-59); AST 12 U/L (15-37); Albumin 3.4 g/dL (3.4-5.0); Alkaline Phosphatase 75 U/L (46-116); Anion Gap 8.4 mmol/L (3-11); BUN 9 mg/dL (7-18); Bilirubin, Total 0.4 mg/dL (0.2-1.0); CO2 25.6 mmol/L (21.0-32.0); CREATININE 0.8 mg/dL (0.55-1.02); Calcium 8.4 mg/dL (8.5-10.1); Chloride 105 mmol/L (98-107); Estimated GFR 106.77 (mL/min/1.73m2); Glucose 91 mg/dL (74-106); Potassium 3.6 mmol/L (3.5-5.1); Sodium 139 mmol/L (136-145); Total Protein 6.9 g/dL (6.4-8.2)
[2023-10-19 17:31] VITALS: BP 116/76; PULSE 74; RESP 18; O2SAT 97
--- NOTE | 2023-10-19 17:44 | DI.VRAD_ITS ---
PROCEDURE INFORMATION: Exam: CT Neck With Contrast Exam date and time: 10/19/2023 4:35 PM Age: 23 years old Clinical indication: Other: Hoarse voice, sore throat, left lat neck pain TECHNIQUE: Imaging protocol: Computed tomography of the neck with contrast. Radiation optimization: All CT scans at this facility use at least one of these dose optimization techniques: automated exposure control; mA and/or kV adjustment per patient size (includes targeted exams where dose is matched to clinical indication); or iterative reconstruction. Contrast material: OMNI 350; Contrast volume: 100 ml; Contrast route: INTRAVENOUS (IV); COMPARISON: MR UPPER JOINT RT WO 08/12/2023 11:01 AM FINDINGS: Salivary glands: Normal. Glands are normal in size. Pharynx: The adenoidal tissues are quite prominent. Tonsils within normal limits. No evidence for abscess. Prevertebral and retropharyngeal spaces: Unremarkable. Larynx: Unremarkable. Epiglottis is normal. Thyroid: Normal. No enlarged or calcified nodules. Trachea: Visualized trachea is unremarkable. Thymus: There may be some residual thymic tissue in the anterior mediastinum. Lungs: Unremarkable as visualized. Lymph nodes: There is lymphoid hyperplasia at the tongue base. There is shotty submandibular adenopathy. Bones/joints: Status post right suboccipital craniotomy change. Soft tissues: Unremarkable. No significant soft tissue swelling. IMPRESSION: Adenoiditis and lymphoid hyperplasia at the tongue base. No evidence for airway compromise. Dictated and Authenticated by: Nadege Eric MD. Ordering:JOSE ENRIQUE White MD
[2023-10-19 18:01] VITALS: BP 125/81; PULSE 97; RESP 18; O2SAT 97
== END 2023-10-19 18:14 | disposition home or self-care (01) ==
PROVIDERS: Emergency Provider Emergency Medicine; PCP Family Medicine
DX: J02.9 Acute pharyngitis, unspecified (principal); R09.A2 Foreign body sensation, throat
CPT/HCPCS: 70491; 80053; 81025; 87880; 99285; 85025; 99283; J1100; J3490

== ENCOUNTER 2023-10-31 17:18 | Emergency (ER) | payer MEDICAID, SELFPAY ==
--- NOTE | 2023-10-31 17:15 | RT.EKG_ITS ---
APPROVED REPORT Exam: Resting ECG Reason for Exam: Chest Pain Patient Location: E HR:97 bpm ECG Measurements Heart Rate 97 AXIS ID 138 P 39 QRSd 80 QRS 15 QT 316 T -10 QTc 401 Conclusion Sinus rhythm...normal P axis, V-rate 60- 99 Nonspecific T abnormalities, inferior leads...T <-0.10mV, II III aVF
[2023-10-31 17:24] VITALS: BP 135/82; PULSE 101; RESP 16; TEMP 36; O2SAT 97
[2023-10-31 17:29] VITALS: BP 135/82; PULSE 101; RESP 16; TEMP 36; O2SAT 97
--- NOTE | 2023-10-31 17:45 | DI.RAD_ITS ---
Exam(s) XR CHEST 2V PA LATERAL EXAM: XR CHEST 2V PA LATERAL CLINICAL HISTORY: cough with sputum TECHNIQUE: 2D digital imaging was performed of the chest. Two images were obtained. PA and lateral views were obtained. COMPARISON: CR XR CHEST 2V PA LATERAL from 04/09/2023 FINDINGS: MEDIASTINUM: Normal. HEART: Normal. PULMONARY VASCULATURE: Normal. LUNGS: Clear. PLEURAL SPACE: No pleural effusion or pneumothorax. BONE:Within normal limits for the patient's age. OTHER FINDINGS:Normal. IMPRESSION: No acute pulmonary findings. DATA REPOSITORY: RADIATION DOSE DELIVERED:
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
--- NOTE | 2023-10-31 18:39 | DI.VRAD_ITS ---
PROCEDURE INFORMATION: Exam: XR Chest Exam date and time: 10/31/2023 6:16 PM Age: 23 years old Clinical indication: Other: Cough with sputum TECHNIQUE: Imaging protocol: Radiologic exam of the chest. Views: 2 views. COMPARISON: CR XR CHEST 2V PA LATERAL 04/09/2023 9:56 AM FINDINGS: Lungs: Unremarkable. No consolidation. Pleural spaces: Unremarkable. No pleural effusion. No pneumothorax. Heart/Mediastinum: Unremarkable. No cardiomegaly. Bones/joints: Minor mid to lower thoracic dextroscoliosis. IMPRESSION: No acute findings. Dictated and Authenticated by: Rony Leos MD. Ordering:MARVA Coello MD
[2023-10-31 18:44] LABS: COVID-19 PCR Negative (Negative); Influenza A PCR Negative (Negative); Influenza B PCR Negative (Negative); RSV PCR Negative (Negative)
[2023-10-31 18:45] LABS: Source NASOPHARYNX
== END 2023-10-31 19:24 | disposition home or self-care (01) ==
PROVIDERS: Emergency Provider Nurse Practitioner Family; PCP Family Medicine
DX: J20.8 Acute bronchitis due to other specified organisms (principal); R07.89 Other chest pain; R05.1 Acute cough
CPT/HCPCS: 81025; 87637; 93005; 99283; 71046; 93010

== ENCOUNTER 2023-12-22 17:54 | Emergency (ER) | payer MEDICAID, SELFPAY ==
--- NOTE | 2023-12-22 17:45 | RT.EKG_ITS ---
APPROVED REPORT Exam: Resting ECG Reason for Exam: Chest pain Patient Location: E HR:117 bpm ECG Measurements Heart Rate 117 AXIS [place] 136 P 53 QRSd 78 QRS 44 QT 287 T -10 QTc 400 Conclusion Sinus tachycardia 117 normal axis no stemi
[2023-12-22 18:00] VITALS: BP 115/79; PULSE 111; RESP 18; TEMP 36.8; O2SAT 96
[2023-12-22 18:09] VITALS: PULSE 107
[2023-12-22 18:10] VITALS: PULSE 121
[2023-12-22 19:29] VITALS: RESP 18
--- NOTE | 2023-12-22 19:30 | DI.RAD_ITS ---
Exam(s) XR CHEST 2V PA LATERAL EXAM: XR CHEST 2V PA LATERAL CLINICAL HISTORY: PAIN TECHNIQUE: 2D digital imaging was performed. Two views. COMPARISON: CR,XR XR CHEST 2V PA LATERAL from 10/31/2023 FINDINGS: HEART: Normal size. Aorta: Not dilated. PULMONARY VASCULATURE: Normal. MEDIASTINUM: Unremarkable. LUNGS: Clear. PLEURAL SPACE: No pleural effusion or pneumothorax. BONE:Unremarkable for age. SOFT TISSUES: Unremarkable. IMPRESSION: No acute abnormality. DATA REPOSITORY: RADIATION DOSE DELIVERED:
[2023-12-22 19:37] VITALS: BP 111/59; PULSE 92; RESP 18; O2SAT 99
[2023-12-22] MEDS: ALPRAZolam 0.25 MG TAB PO (19:50)
[2023-12-22] MEDS: Hyoscyamine 0.125 MG SL/ORAL/CHEW PO (19:50)
[2023-12-22] MEDS: Ondansetron O.D.T. 4 MG TABEF PO (19:50)
[2023-12-22 20:16] LABS: Bilirubin Negative (Negative); Blood Negative (Negative); Clarity Clear (Clear); Glucose Negative (Negative); Ketones Negative (Negative); Leukocyte Esterase Negative (Negative); Nitrite Negative (Negative); Specific Gravity >= 1.030 (1.005-1.025); Urobilinogen 0.2 mg/dL (Up to 0.2); pH 5.5 (5-8)
[2023-12-22 21:18] VITALS: BP 116/69; PULSE 61; RESP 15; O2SAT 99
--- NOTE | 2023-12-22 21:59 | DI.VRAD_ITS ---
PROCEDURE INFORMATION: Exam: XR Chest Exam date and time: 12/22/2023 8:51 PM Age: 23 years old Clinical indication: Other: Chest pain TECHNIQUE: Imaging protocol: Radiologic exam of the chest. Views: 2 views. COMPARISON: CR XR CHEST 2V PA LATERAL 10/31/2023 6:16 PM FINDINGS: Lungs: Unremarkable. No consolidation. Pleural spaces: Unremarkable. No pleural effusion. No pneumothorax. Heart/Mediastinum: Unremarkable. No cardiomegaly. Bones/joints: Unremarkable. IMPRESSION: No acute findings. Dictated and Authenticated by: Valente Victor MD. Ordering:[facility] Pepe Sandoval MD
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
== END 2023-12-22 21:20 | disposition home or self-care (01) ==
PROVIDERS: Emergency Provider Emergency Medicine; PCP Family Medicine
DX: R10.31 Right lower quadrant pain (principal); R00.0 Tachycardia, unspecified; F17.210 Nicotine dependence, cigarettes, uncomplicated; F17.290 Nicotine dependence, other tobacco product, uncomplicated
CPT/HCPCS: 81025; 93005; 99285; 71046; 81003; 93010; 99284; J3490

== ENCOUNTER 2024-01-04 16:19 | Emergency (ER) | payer MEDICAID, SELFPAY ==
[2024-01-04 16:22] VITALS: BP 116/74; PULSE 78; RESP 10; TEMP 36.6; O2SAT 98
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
[2024-01-04 17:14] VITALS: BP 110/68; PULSE 80; RESP 18; O2SAT 98
[2024-01-04] MEDS: Amox. 875/Clav. 125, 2 TABS/BTL 1 TAB PO (17:15)
== END 2024-01-04 17:17 | disposition home or self-care (01) ==
PROVIDERS: Emergency Provider Emergency Medicine; PCP Family Medicine
DX: T23.061A Burn of unspecified degree of back of right hand, initial encounter (principal); T31.0 Burns involving less than 10% of body surface; F17.210 Nicotine dependence, cigarettes, uncomplicated; F17.290 Nicotine dependence, other tobacco product, uncomplicated; W29.2XXA Contact with other powered household machinery, initial encounter; Y93.G3 Activity, cooking and baking
CPT/HCPCS: 99283

== ENCOUNTER 2024-02-15 19:03 | Emergency (ER) | payer MEDICAID, SELFPAY ==
[2024-02-15 19:05] VITALS: BP 154/72; PULSE 133; RESP 17; TEMP 36.4; O2SAT 100
[2024-02-15 19:33] VITALS: PULSE 107; O2SAT 98
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
[2024-02-15 20:09] VITALS: BP 124/69; PULSE 93; RESP 15; TEMP 36.9; O2SAT 100
[2024-02-15] MEDS: Acetaminophen 500 MG TAB 1000 MG PO (20:09)
== END 2024-02-15 20:09 | disposition home or self-care (01) ==
PROVIDERS: Emergency Provider Physician Assistant; PCP Family Medicine
DX: R10.32 Left lower quadrant pain (principal); N93.8 Other specified abnormal uterine and vaginal bleeding
CPT/HCPCS: 81025; 99282; 99283

== ENCOUNTER 2024-02-20 00:33 | Outpatient (CLI) | payer MEDICAID, SELFPAY ==
--- NOTE | 2024-02-20 | DI.US_ITS ---
Exam(s) US PELVIS TRANSVAGINAL EXAM: US PELVIS TRANSVAGINAL CLINICAL HISTORY: LLQ PAIN, BLEEDING. TECHNIQUE: Transabdominal and transvaginal pelvic ultrasound was performed using standard protocol. COMPARISON: US US PELVIS TRANSVAGINAL from 08/29/2022 FINDINGS: UTERUS: Position: Anteverted. Size: 7.2 long by 3.3 AP by 3.9 transverse cm Endometrium: 0.6 cm. Normal for patient's menstrual status. There is a small amount of fluid seen in the endometrial canal. Myometrium: Unremarkable. Cervix: Unremarkable. OVARIES: Right: 2.6 x 1.7 x 1.6 cm Cyst or mass: No suspicious cystic or solid masses. Left: 2.0 x 1.3 x 1.7 cm Cyst or mass: No suspicious cystic or solid masses. DOPPLER: Color: Symmetric and uniform flow to both ovaries. CUL-DE-SAC: Free fluid: None. Other: None. IMPRESSION: 1. Normal-appearing uterus with endometrial stripe within normal limits. 2. There is a trace amount of fluid seen within the endometrial canal. 3. Unremarkable bilateral ovaries. DATA REPOSITORY:
== END 2024-02-20 00:53 ==
LOC: DI 00:33
PROVIDERS: PCP Family Medicine; Visit Provider Physician Assistant
DX: R10.32 Left lower quadrant pain (principal)
CPT/HCPCS: 76830; 76856

== ENCOUNTER 2024-04-18 16:24 | Emergency (ER) | payer MEDICAID, SELFPAY ==
[2024-04-18 16:25] VITALS: BP 125/84; PULSE 90; RESP 16; TEMP 36.6; O2SAT 100
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
--- NOTE | 2024-04-18 17:20 | DI.RAD_ITS ---
Exam(s) XR KNEE LT 4V AP,LAT,RELL,PAT EXAM: XR KNEE LT 4V AP,LAT,RELL,PAT h CLINICAL HISTORY: impact to L knee, onset friday. TECHNIQUE: 2D digital imaging was performed. COMPARISON: No exams were available for comparison FINDINGS: Four views No evidence of fracture or joint effusion. No joint space narrowing. Bone density normal. No osseo us lesions. No patellar displacement. IMPRESSION: No acute osseous findings in the left knee. No obvious joint effusion. DATA REPOSITORY: RADIATION DOSE DELIVERED:
[2024-04-18 17:36] VITALS: RESP 18
== END 2024-04-18 18:04 | disposition home or self-care (01) ==
PROVIDERS: Emergency Provider Physician Assistant; PCP Family Medicine
DX: S80.02XA Contusion of left knee, initial encounter (principal); W01.0XXA Fall on same level from slipping, tripping and stumbling without subsequent striking against object, initial encounter; Y93.01 Activity, walking, marching and hiking; Y92.89 Other specified places as the place of occurrence of the external cause
CPT/HCPCS: 99283; 73564

== ENCOUNTER 2024-05-31 15:20 | Outpatient (CLI) | payer MEDICAID, SELFPAY ==
--- NOTE | 2024-05-31 | DI.RAD_ITS ---
Exam(s) XR SHOULDER RT COMPLETE 2+V EXAM: XR SHOULDER RT COMPLETE 2+V CLINICAL HISTORY: PAIN RT SHOULDER, [id number].S/P FALL. TECHNIQUE: 2D digital imaging was performed of the right shoulder. Five images were obtained. AP, Grashey, Y-view and axillary views were obtained. COMPARISON: CR,XR XR SHOULDER RT COMPLETE 2+V from 06/28/2023 FINDINGS: BONES: No acute fracture is present. No bony destructive lesion is seen. JOINTS: No dislocation present. The acromioclavicular and glenohumeral joints are well maintained. SOFT TISSUE: Normal. IMPRESSION: Unremarkable radiographs of the right shoulder. DATA REPOSITORY: RADIATION DOSE DELIVERED:
== END 2024-05-31 15:40 ==
PROVIDERS: PCP Family Medicine; Visit Provider Nurse Practitioner Family
DX: M25.511 Pain in right shoulder (principal)
CPT/HCPCS: 73030

== ENCOUNTER 2024-06-12 11:32 | Emergency (ER) | payer MEDICAID, SELFPAY ==
[2024-06-12] VITALS (25 sets, daily range): BP systolic 110–134; BP diastolic 55–85; PULSE 52–106; RESP 14–26; TEMP 36.1; O2SAT 97–100
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
[2024-06-12 12:13] LABS: Bilirubin Negative (Negative); Blood Negative (Negative); Clarity Clear (Clear); Glucose Negative (Negative); Ketones Negative (Negative); Leukocyte Esterase Trace (Negative); Nitrite Negative (Negative); Urobilinogen 0.2 mg/dL (Up to 0.2); pH 7.5 (5-8)
[2024-06-12 12:24] LABS: Abs Immature Grans 0.01 10^3/uL (0.0-0.06); Absolute Basophil Count 0.02 10^3/uL (0.0-0.2); Absolute Eosinophil Count 0.05 10^3/uL (0.0-0.7); Absolute Lymphocyte Count 1.95 10^3/uL (1.2-3.4); Absolute Monocyte Count 0.32 10^3/uL (0.1-0.8); Absolute Neutrophil Count 3.26 10^3/uL (1.2-6.7); Basophils % 0.4 %; Eosinophils % 0.9 %; HCT 41.5 % (36.0-46.0); HGB 13.8 g/dL (11.2-15.7); Immature Grans % 0.2 %; Lymphocytes % 34.8 %; MCH 26.8 pg (27.0-33.0); MCHC 33.3 % (32.0-36.0); MCV 81 fL (80-95); MPV 11.7 fL (8.0-11.0); Monocytes % 5.7 %; Platelet Count 247 10^3/uL (130-400); RBC 5.15 10^6/uL (3.93-5.22); RDW-SD 34.8 fL; WBC 5.61 10^3/uL (4.4-10.8)
[2024-06-12 12:28] LABS: Bacteria Few HPF (Negative); C & S Indicated? No; Casts 0-2 Fine Granular LPF (Negative); Crystals Negative HPF (Negative); Epithelial Cells Many HPF (Negative); Mucus Trace (Negative); Other Cells Rare Renal (Negative); RBC Negative HPF (0-2)
[2024-06-12] MEDS: Normal Saline 500 ML IV (12:30)
[2024-06-12] MEDS: Ondansetron 4 MG/2 ML VIAL IVP (12:30)
[2024-06-12 12:39] LABS: ALT 26 U/L (14-59); AST 15 U/L (15-37); Albumin 3.6 g/dL (3.4-5.0); Alkaline Phosphatase 84 U/L (46-116); Anion Gap 5.2 mmol/L (3-11); BUN 15 mg/dL (7-18); Bilirubin, Total 0.45 mg/dL (0.2-1.0); CO2 28.8 mmol/L (21.0-32.0); CREATININE 0.8 mg/dL (0.55-1.02); Calcium 9.4 mg/dL (8.5-10.1); Chloride 106 mmol/L (98-107); Estimated GFR 106.11 (mL/min/1.73m2); Glucose 117 mg/dL (74-106); Lipase 24 U/L (<78); Potassium 4.1 mmol/L (3.5-5.1); Sodium 140 mmol/L (136-145); Total Protein 7.5 g/dL (6.4-8.2)
[2024-06-12 12:44] LABS: HCG Qual (Serum) Negative
[2024-06-12] MEDS: Ketorolac 15 MG/ML VIAL IVP (12:55)
[2024-06-12] MEDS: Omnipaque 350 MG/ML 100 ML BTL 75 ML IJ (13:23)
--- NOTE | 2024-06-12 13:35 | DI.CT_ITS ---
Exam(s) CT ABDOMEN PELVIS W EXAM: CT ABDOMEN PELVIS W CLINICAL HISTORY: Right Flank pain. TECHNIQUE: Imaging Protocol: Axial computed tomography images with coronal and sagittal reformatted images were created and reviewed CONTRAST MATERIAL: Intravenous: Omnipaque 350 Contrast volume:75 ml Oral: no COMPARISON: CT CT ABDOMEN PELVIS W from 08/04/2022 FINDINGS: ABDOMEN and PELVIS: Lung Bases: No acute findings. Liver: Normal density. No suspicious mass. Gallbladder and biliary tract: No radiodense calculus. No wall thickening or pericholecystic fluid. No biliary dilation. Pancreas: Normal density. No abnormal calcifications or inflammatory process. No evidence of mass. Spleen: Normal. Kidneys: Normal size, contour and axis. No radiodense stones. No obstructive uropathy. No suspicious masses seen. Adrenal glands: No masses seen. Vasculature: Abdominal aorta non-dilated. Soft tissues: Unremarkable. Bladder: No gross wall thickening. No calculi.No focal mass. Bowel: No obstruction. No bowel wall thickening. Appendix normal. Moderate quantity of stool. Peritoneal cavity: No ascites. No focal collection. No mesenteric inflammatory response. No free air . Bones: Unremarkable for age. Reproductive organs: Unremarkable. Lymph nodes: No pathologically enlarged lymph nodes. IMPRESSION:: No acute abnormality in the abdomen or pelvis. RADIATION DOSE DELIVERED: Total DLP DATA REPOSITORY: All CT scans at this facility are submitted to the National Radiology Data Registry (NRDR) Dose Index Registry (DIR) with the [employer] (ACR). RADIATION OPTIMIZATION: All CT scans at this facility use at least one of these dose optimization te chniques: automated exposure control; mA and/or kV adjustment per patient size (includes targeted exa ms where dose is matched to clinical indication); or iterative reconstruction.
--- NOTE | 2024-06-12 13:37 | DI.VRAD_ITS ---
PROCEDURE INFORMATION: Exam: CT Abdomen And Pelvis With Contrast Exam date and time: 06/12/2024 1:03 PM Age: 24 years old Clinical indication: Abdominal pain; Right; RT flank pain TECHNIQUE: Imaging protocol: Computed tomography of the abdomen and pelvis with contrast. Radiation optimization: All CT scans at this facility use at least one of these dose optimization techniques: automated exposure control; mA and/or kV adjustment per patient size (includes targeted exams where dose is matched to clinical indication); or iterative reconstruction. Contrast material: OMNI 350; Contrast volume: 75 ml; Contrast route: INTRAVENOUS (IV); COMPARISON: CT ABDOMEN PELVIS W 08/04/2022 2:54 AM FINDINGS: Diaphragm: A small hiatal hernia is present. Liver: Normal. No mass. Gallbladder and biliary ducts: Normal. No calcified stones. No ductal dilation. Pancreas: Normal. No ductal dilation. Spleen: Normal. No splenomegaly. Adrenal glands: Normal. No mass. Kidneys and ureters: Normal. No hydronephrosis. Stomach and bowel: Unremarkable. No obstruction. No mucosal thickening. Appendix: No evidence of appendicitis. Intraperitoneal space: Unremarkable. No free air. No significant fluid collection. Vasculature: Unremarkable. No abdominal aortic aneurysm. Lymph nodes: Unremarkable. No enlarged lymph nodes. Urinary bladder: Unremarkable as visualized. Reproductive: Unremarkable as visualized. Bones/joints: Unremarkable. No acute fracture. Soft tissues: Unremarkable. IMPRESSION: No acute intra-abdominal process. Dictated and Authenticated by: Terrence Alvarado MD. Orderin Bety Walton MD
[2024-06-12] MEDS: Ondansetron O.D.T. 4 MG TABEF, 3 TABS/BTL PO (13:59)
== END 2024-06-12 14:04 | disposition home or self-care (01) ==
PROVIDERS: Emergency Provider Registered Nurse Emergency; PCP Family Medicine
DX: R10.31 Right lower quadrant pain (principal); R11.10 Vomiting, unspecified; F17.290 Nicotine dependence, other tobacco product, uncomplicated
CPT/HCPCS: 80053; 83690; 96374; 96375; 99285; 74177; 81003; 81015; 84703; 85025; J1885; J2405; J3490

== ENCOUNTER 2024-07-12 04:17 | Outpatient (CLI) | payer MEDICAID, SELFPAY ==
[2024-07-14 09:57] LABS: C-Peptide 4.5 ng/mL (1.1 - 4.4)
[2024-07-14 10:56] LABS: Insulin 18.3 uIU/mL (<29.0)
[2024-07-16 16:11] LABS: Proinsulin, P 13 pmol/L (3.6-22)
== END 2024-07-12 04:18 | disposition home or self-care (01) ==
LOC: LBO 04:17
PROVIDERS: PCP Family Medicine; Visit Provider Family Medicine
DX: E16.2 Hypoglycemia, unspecified (principal)
CPT/HCPCS: 36415; 83036; 83525; 84206; 84681

== ENCOUNTER 2024-09-28 16:07 | Outpatient (REF) | payer MEDICAID, SELFPAY ==
--- NOTE | 2024-09-28 15:50 | PAPFT_PTH ---
PATIENT: Bonnie Wu LOC: [facility] U#:[id number] AGE/SX: 24/F ROOM: RE09/28/[address]: Jennifer Richardson DO : 2000 BED: DIS: 09/28/2024 SPEC #: [id number] RECD: 09/28/24 18:17 STATUS: NATALY REQ #: [id number] HERBERT: 09/28/24 15:[address]: Jennifer Richardson DEPT: [facility] Cytology RECD BY: Ana Headley ENTERED: 09/28/24 18:17 SP TYPE: PAPFT OTHR DR: Danya Pulido V Tissues: 1 - CX/ENDOCX FOR PAP SMEARS Procedures: PAP THIN PREP/[facility] Screening Comments: [id number] (CHLAMYDIA/GC)
[2024-09-29 11:28] LABS: Chlamydia Result Negative (Negative); GC Result Negative (Negative)
== END 2024-09-28 16:08 | disposition home or self-care (01) ==
LOC: LBN 16:07
PROVIDERS: PCP Family Medicine; Visit Provider Obstetrics & Gynecology
DX: Z12.4 Encounter for screening for malignant neoplasm of cervix (principal); Z11.3 Encounter for screening for infections with a predominantly sexual mode of transmission
CPT/HCPCS: 87491; 87591; 88142

== ENCOUNTER 2024-10-25 19:30 | Emergency (ER) | payer MEDICAID, SELFPAY ==
[2024-10-25 20:07] VITALS: BP 127/86; PULSE 97; RESP 16; TEMP 36.6; O2SAT 98
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
[2024-10-25] MEDS: Acetaminophen 500 MG TAB 1000 MG PO (20:33)
[2024-10-25] MEDS: Clindamycin 150 MG CAP, 12 CAPS/BTL 450 MG PO (20:33)
[2024-10-25] MEDS: Ketorolac 30 MG/ML VIAL IM (20:34)
[2024-10-25 20:38] VITALS: BP 127/86; PULSE 97; RESP 16; TEMP 36.6; O2SAT 98
== END 2024-10-25 20:39 | disposition home or self-care (01) ==
PROVIDERS: Emergency Provider Student in an Organized Health Care Education/Training Program; PCP Family Medicine
DX: K13.0 Diseases of lips (principal)
CPT/HCPCS: 99283; 99284; 96372; J1885

== ENCOUNTER 2024-11-02 18:40 | Emergency (ER) | payer MEDICAID, SELFPAY ==
[2024-11-02 18:41] VITALS: BP 126/80; PULSE 112; RESP 18; TEMP 36.4; O2SAT 97
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
== END 2024-11-02 23:21 | disposition home or self-care (01) ==
PROVIDERS: Emergency Provider Physician Assistant; PCP Family Medicine
DX: S30.1XXA Contusion of abdominal wall, initial encounter (principal); V86.55XA Driver of 3- or 4- wheeled all-terrain vehicle (ATV) injured in nontraffic accident, initial encounter
CPT/HCPCS: 99284; 99283; 81025; 71250; 73562; 73030; 73080

== ENCOUNTER 2024-12-03 17:06 | Emergency (ER) | payer MEDICAID, SELFPAY ==
[2024-12-03 17:06] VITALS: BP 105/63; PULSE 85; RESP 16; TEMP 36.8; O2SAT 98
[2024-12-03 17:17] VITALS: BP 105/63; PULSE 85; RESP 16; TEMP 36.8; O2SAT 98
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
== END 2024-12-03 17:58 | disposition home or self-care (01) ==
PROVIDERS: Emergency Provider Physician Assistant; PCP Family Medicine
DX: H66.91 Otitis media, unspecified, right ear (principal)
CPT/HCPCS: 99283 ×2

== ENCOUNTER 2025-01-08 14:47 | Emergency (ER) | payer MEDICAID, SELFPAY ==
[2025-01-08 14:48] VITALS: BP 108/73; PULSE 109; RESP 16; TEMP 36.7; O2SAT 97
[2025-01-08 15:00] VITALS: BP 108/73; PULSE 109; RESP 16; TEMP 36.7; O2SAT 97
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
--- NOTE | 2025-01-08 15:15 | DI.CT_ITS ---
Exam(s) CT ABDOMEN PELVIS W EXAM: CT ABDOMEN PELVIS W CLINICAL HISTORY: lower abdominal pain. TECHNIQUE: Imaging Protocol: Axial computed tomography images with coronal and sagittal reformatted images were created and reviewed CONTRAST MATERIAL: Intravenous: Omnipaque 350 Contrast volume:75 ml Oral: no COMPARISON: CT CT CHEST WO from 11/02/2024 FINDINGS: ABDOMEN and PELVIS: Lung Bases: No acute findings. Liver: Normal density. No suspicious mass. Gallbladder and biliary tract: No radiodense calculus. No wall thickening or pericholecystic fluid. No biliary dilation. Pancreas: Normal density. No abnormal calcifications or inflammatory process. No evidence of mass. Spleen: Normal. Kidneys: Normal size, contour and axis. No radiodense stones. No obstructive uropathy. No suspicious masses seen. Adrenal glands: No masses seen. Vasculature: Abdominal aorta non-dilated. Soft tissues: Unremarkable. Bladder: Empty. Not well evaluated. Bowel: No obstruction. No bowel wall thickening. Appendix normal. Moderate quantity of stool. Peritoneal cavity: No ascites. No focal collection. No mesenteric inflammatory response. No free air. Bones: Unremarkable for age. Reproductive organs: Unremarkable. Lymph nodes: No pathologically enlarged lymph nodes. IMPRESSION:: No acute abnormality in the abdomen or pelvis. The preliminary [facility] report was reviewed. RADIATION DOSE DELIVERED: Total DLP DATA REPOSITORY: All CT scans at this facility are submitted to the National Radiology Data Registry (NRDR) Dose Index Registry (DIR) with the [employer] (ACR). RADIATION OPTIMIZATION: All CT scans at this facility use at least one of these dose optimization techniques: automated exposure control; mA and/or kV adjustment per patient size (includes targeted exams where dose is matched to clinical indication); or iterative reconstruction.
[2025-01-08 15:41] LABS: Glucose Negative (Negative)
[2025-01-08 15:42] LABS: C & S Indicated? No; RBC Negative HPF (0-2); WBC 0-2 HPF (0-5)
[2025-01-08 15:53] LABS: Abs Immature Grans 0.03 10^3/uL (0.0-0.06); HCT 41.2 % (36.0-46.0); HGB 13.7 g/dL (11.2-15.7); Immature Grans % 0.4 %; MCH 27.4 pg (27.0-33.0); MCHC 33.3 % (32.0-36.0); MCV 82 fL (80-95); MPV 11.8 fL (8.0-11.0); Platelet Count 253 10^3/uL (130-400); RBC 5.00 10^6/uL (3.93-5.22); RDW 11.8 % (11.7-14.6); RDW-SD 34.8 fL; WBC 7.57 10^3/uL (4.4-10.8)
[2025-01-08] MEDS: Omnipaque 350 MG/ML 100 ML BTL IJ (15:55)
[2025-01-08] MEDS: Normal Saline - Diluent 50 ML VIAL IJ (15:55)
[2025-01-08 16:08] LABS: ALT 19 U/L (14-59); AST 20 U/L (15-37); Albumin 3.9 g/dL (3.4-5.0); Alkaline Phosphatase 81 U/L (46-116); Anion Gap 6.3 mmol/L (3-11); BUN 16 mg/dL (7-18); Bilirubin, Total 0.3 mg/dL (0.2-1.0); CO2 30.7 mmol/L (21.0-32.0); Calcium 9.3 mg/dL (8.5-10.1); Chloride 102 mmol/L (98-107); Estimated GFR 124.55 (mL/min/1.73m2); Glucose 91 mg/dL (74-106); Lipase 27 U/L (<78); Magnesium 1.9 mg/dL (1.8-2.4); Potassium 4.2 mmol/L (3.5-5.1); Sodium 139 mmol/L (136-145); Total Protein 7.4 g/dL (6.4-8.2)
--- NOTE | 2025-01-08 16:09 | DI.[facility]_ITS ---
PROCEDURE INFORMATION: Exam: CT Abdomen And Pelvis With Contrast Exam date and time: 01/08/2025 3:53 PM Age: 24 years old Clinical indication: Localized; Lower abdominal pain TECHNIQUE: Imaging protocol: Computed tomography of the abdomen and pelvis with contrast. COMPARISON: CT ABDOMEN PELVIS W 06/12/2024 1:03 PM FINDINGS: Liver: Normal. No mass. Gallbladder and biliary ducts: Gallbladder contracted. Pancreas: Normal. No ductal dilation. Spleen: Normal. No splenomegaly. Adrenal glands: Normal. No mass. Kidneys and ureters: Normal. No hydronephrosis. Stomach and bowel: Unremarkable. No obstruction. No mucosal thickening. Appendix: The appendix is well seen, within normal limits. Intraperitoneal space: Unremarkable. No free air. No significant fluid collection. Vasculature: Unremarkable. No abdominal aortic aneurysm. Lymph nodes: Unremarkable. No enlarged lymph nodes. Urinary bladder: Bladder is empty. Reproductive: Unremarkable as visualized. Bones/joints: Unremarkable. No acute fracture. Soft tissues: Unremarkable. IMPRESSION: No acute abnormality seen to account for symptoms. Dictated and Authenticated by: Nadege Eric MD. Orderin Buddy Andrade MD
[2025-01-08] MEDS: Normal Saline 1,000 ML 1000 ML IV (16:12)
[2025-01-08 16:13] VITALS: BP 118/63; PULSE 82; RESP 16; O2SAT 99
[2025-01-08] MEDS: Ketorolac 15 MG/ML VIAL IVP (18:30)
[2025-01-08 18:34] VITALS: BP 109/63; PULSE 80; RESP 16; O2SAT 100
== END 2025-01-08 20:00 | disposition home or self-care (01) ==
PROVIDERS: Emergency Provider Emergency Medicine Emergency Medical Services; PCP Family Medicine
DX: R10.9 Unspecified abdominal pain (principal)
CPT/HCPCS: 36415; 80053; 81025; 83690; 96361; 96374; 99285; 74177; 81003; 81015; 83735; 85025; 99284; J1885; J3490

== ENCOUNTER 2025-01-25 20:13 | Emergency (ER) | payer MEDICAID, SELFPAY ==
[2025-01-25 20:23] VITALS: BP 108/72; PULSE 73; RESP 16; TEMP 36.8; O2SAT 98
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
[2025-01-25] MEDS: Acetaminophen 500 MG TAB 1000 MG PO (22:18)
[2025-01-25] MEDS: Ibuprofen 600 MG TAB PO (22:18)
[2025-01-25 22:55] LABS: COVID-19 PCR Negative (Negative); RSV PCR Negative (Negative)
[2025-01-25] MEDS: Dexamethasone 10 MG/ML VIAL PO (23:25)
== END 2025-01-25 23:28 | disposition home or self-care (01) ==
PROVIDERS: Emergency Provider Emergency Medicine; PCP Family Medicine
DX: J02.9 Acute pharyngitis, unspecified; H92.03 Otalgia, bilateral
CPT/HCPCS: 99283 ×2; 87637; J1100

== ENCOUNTER 2025-03-02 09:33 | Outpatient (REF) | payer MEDICAID, SELFPAY ==
[2025-03-04 13:40] LABS: Helicobacter pylori Ag, Feces Negative (Negative)
== END 2025-03-02 09:34 | disposition home or self-care (01) ==
LOC: NCHCN 09:33
PROVIDERS: PCP Family Medicine; Visit Provider Family Medicine
DX: K21.9 Gastro-esophageal reflux disease without esophagitis (principal)
CPT/HCPCS: 87338

== ENCOUNTER 2025-03-26 07:09 | Emergency (ER) | payer MEDICAID, SELFPAY ==
[2025-03-26 07:13] VITALS: BP 127/79; PULSE 117; RESP 16; TEMP 36.9; O2SAT 100
[2025-03-26 07:16] VITALS: BP 127/79; PULSE 117; RESP 16; TEMP 36.9; O2SAT 100
[2025-03-26 07:32] VITALS: BP 118/77; PULSE 98; RESP 18; O2SAT 99
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
[2025-03-26] MEDS: Acetaminophen 500 MG TAB 1000 MG PO (07:43)
[2025-03-26] MEDS: Ketorolac 30 MG/ML VIAL IM (07:43)
[2025-03-26] MEDS: Dexamethasone 10 MG/ML VIAL IM (07:43)
[2025-03-26 08:09] LABS: COVID-19 PCR Negative (Negative); RSV PCR Negative (Negative)
[2025-03-26 08:29] VITALS: BP 115/64; PULSE 90; RESP 18; O2SAT 98
--- NOTE | 2025-03-28 16:40 | W.ED.FU ---
Follow Up Plan: Received strep throat culture from date of service 03/26/2025. Throat culture positive for strep group through C. Reviewed chart. Given symptoms, plan to initiate treatment penicillin 500 twice daily x 10 days. Called preferred phone number listed and no answer. Voicemail full. Plan to notify PCP office.
--- NOTE | 2025-03-30 11:52 | W.ED.FU ---
Date of service: 03/30/25 Time of Service: 11:52 Follow Up Plan: I reached out to this patient by cell phone to discuss her positive strep culture, was able to discuss this result with the patient by phone, and sent a prescription for penicillin, 500 mg twice daily to her preferred pharmacy. She will complete a 10-day course and understands that she needs to take all this medication till it is gone, even if she starts to feel better. The patient and opportunity to have all questions answered and will follow-up with their PCP. Chanda Peralta MD
== END 2025-03-26 09:01 | disposition home or self-care (01) ==
PROVIDERS: Emergency Provider Student in an Organized Health Care Education/Training Program; PCP Family Medicine
DX: J04.0 Acute laryngitis (principal)
CPT/HCPCS: 99283; 99284; 96372; 87880; 87637; 87081; J1100; J1885

== ENCOUNTER 2025-04-06 19:32 | Emergency (ER) | payer MEDICAID, SELFPAY ==
[2025-04-06 19:34] VITALS: BP 123/65; PULSE 157; RESP 18; TEMP 36; O2SAT 97
[2025-04-06 20:40] VITALS: BP 123/65; PULSE 157; RESP 18; TEMP 36; O2SAT 97
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
[2025-04-06 21:11] LABS: Abs Immature Grans 0.04 10^3/uL (0.0-0.06); HCT 38.4 % (36.0-46.0); HGB 13.0 g/dL (11.2-15.7); Immature Grans % 0.4 %; MCH 27.4 pg (27.0-33.0); MCHC 33.9 % (32.0-36.0); MCV 81 fL (80-95); MPV 11.4 fL (8.0-11.0); Platelet Count 219 10^3/uL (130-400); RBC 4.74 10^6/uL (3.93-5.22); RDW 11.8 % (11.7-14.6); RDW-SD 34.4 fL; WBC 9.73 10^3/uL (4.4-10.8)
[2025-04-06] MEDS: Normal Saline 1,000 ML 1000 ML IV (21:22)
[2025-04-06] MEDS: Pantoprazole 40 MG VIAL IVP (21:23)
[2025-04-06] MEDS: Ondansetron 4 MG/2 ML VIAL IVP (21:23)
[2025-04-06 21:26] LABS: Lipase 30 U/L (<53)
[2025-04-06 21:27] LABS: Magnesium 1.9 mg/dL (1.6-2.6)
[2025-04-06 21:28] LABS: ALT 11 U/L (10-49); AST 16 U/L (<34); Albumin 4.4 g/dL (3.2-5.0); Alkaline Phosphatase 68 U/L (46-116); Anion Gap 9.7 mmol/L (3-11); BUN 22 mg/dL (9-23); Bilirubin, Total 0.90 mg/dL (0.2-1.2); CO2 23.3 mmol/L (20.0-31.0); Calcium 8.4 mg/dL (8.3-10.6); Chloride 109 mmol/L (98-107); Glucose 97 mg/dL (74-106); Potassium 3.5 mmol/L (3.5-5.1); Sodium 142 mmol/L (136-145); Total Protein 7.2 g/dL (5.7-8.2)
[2025-04-06 21:38] LABS: Glucose Negative (Negative)
[2025-04-06 22:38] LABS: COVID-19 PCR Negative (Negative); RSV PCR Negative (Negative)
[2025-04-07] MEDS: Omnipaque 350 MG/ML 100 ML BTL IJ (00:31)
[2025-04-07] MEDS: Normal Saline Flush 10 ML SYR IVP (00:31)
[2025-04-07] MEDS: Normal Saline - Diluent 50 ML VIAL IJ (00:31)
--- NOTE | 2025-04-07 00:32 | DI.CT_ITS ---
Exam(s) CT ABDOMEN PELVIS W EXAM: CT ABDOMEN PELVIS W CLINICAL HISTORY: RUQ and epigastric pain TECHNIQUE: Imaging Protocol: Axial computed tomography images with coronal and sagittal reformatted images were created and reviewed. CONTRAST MATERIAL: Intravenous: Omnipaque 350 Contrast volume:100 mL Oral: No COMPARISON: CT CT ABDOMEN PELVIS W from 08/04/[address] ABDOMEN PELVIS W from 01/08/2025 FINDINGS: ABDOMEN: Lung Bases: No acute abnormality. Liver: Normal density. No measurable mass. Portal, Superior Mesenteric, and Splenic Veins: Unremarkable. Gallbladder and Biliary Tract: No radiodense calculus or dilation. Bladder is less than 4 cm in diameter. Pancreas: Normal density, no abnormal calcifications or inflammatory process. Spleen: Normal. Adrenals: No masses seen. Kidneys: Normal size, contour and axis. No radiodense stones or obstructive uropathy. No masses seen. Abdominal Aorta: Abdominal portion non-dilated. Bowel: No obstruction or bowel wall thickening. Appendix is unremarkable. Peritoneal Cavity: No ascites, collection or mesenteric inflammatory response. No free air. Lymph Nodes: Within normal limits. Bones: Within normal limits for the patient's age. Soft Tissues: Unremarkable. PELVIS: Bladder: Symmetric distention, no gross wall thickening. Reproductive Organs: Unremarkable as visualized. Lymph Nodes: Within normal limits. Bones: Within normal limits for the patient's age. IMPRESSION: 1. There is no evidence of cholelithiasis or biliary ductal dilatation. The gallbladder is less than 4 cm in diameter. No pericholecystic fluid is seen. There is continued concern for gallbladder pathology, gallbladder ultrasound may be obtained. 2. Normal appendix. 3. There is no evidence of nephrolithiasis or hydronephrosis. 4. There are mildly enlarged lymph nodes seen in the mesentery which can be seen with mesenteric adenitis. Please correlate clinically. 5. The preliminary [facility] report was reviewed. RADIATION DOSE DELIVERED: 886.55mGy.cm Total DLP DATA REPOSITORY: All CT scans at this facility are submitted to the National Radiology Data Registry (NRDR) Dose Index Registry (DIR) with the [employer] (ACR). RADIATION OPTIMIZATION: All CT scans at this facility use at least one of these dose optimization techniques: automated exposure control; mA and/or kV adjustment per patient size (includes targeted exams where dose is matched to clinical indication); or iterative reconstruction.
--- NOTE | 2025-04-07 00:51 | DI.[facility]_ITS ---
PROCEDURE INFORMATION: Exam: CT Abdomen And Pelvis With Contrast Exam date and time: 04/07/2025 12:19 AM Age: 25 years old Clinical indication: Abdominal pain; Ruq and epigastric pain TECHNIQUE: Imaging protocol: Computed tomography of the abdomen and pelvis with contrast. Radiation optimization: All CT scans at this facility use at least one of these dose optimization techniques: automated exposure control; mA and/or kV adjustment per patient size (includes targeted exams where dose is matched to clinical indication); or iterative reconstruction. Contrast material: [id number]; Contrast volume: 100 ml; Contrast route: INTRAVENOUS (IV); COMPARISON: CT ABDOMEN PELVIS W 01/08/2025 3:53 PM FINDINGS: Lungs: Lung bases clear. Liver: Normal appearing liver. Gallbladder and biliary ducts: Prominent gallbladder distention. No calcified gallstones. No biliary dilatation. Pancreas: Normal appearing pancreas. Spleen: Normal appearing spleen. Adrenal glands: Normal appearing adrenal glands. Kidneys and ureters: Normal appearing kidneys. No hydronephrosis. Stomach and bowel: No oral contrast. Stomach partially decompressed. No small bowel dilatation to suggest obstruction. Normal-appearing fecal material throughout the proximal colon. Sigmoid colon relatively well evacuated. Normal-appearing fecal material in the rectum. No evidence of diverticulitis or colitis. Appendix: Normal appendix. Intraperitoneal space: Trace fluid in the deep pelvis, nonspecific. No free air. Vasculature: Normal caliber abdominal aorta. Lymph nodes: Scattered mildly prominent mediastinal lymph nodes, nonspecific. Urinary bladder: Normal appearing urinary bladder. Reproductive: Normal-appearing anteverted uterus. Circular radiolucent foreign body in the vagina suspicious for a cervical cap. Normal-sized ovaries. Bones/joints: No acute fracture seen among the bones of the abdomen or pelvis. Soft tissues: No significant ventral or inguinal hernia. IMPRESSION: 1. Distended gallbladder. No calcified gallstones or biliary dilatation. If there is clinical concern for acute cholecystitis in a patient with right upper quadrant pain, further evaluation by ultrasound would be recommended. 2. No acute bowel pathology demonstrated. 3. Scattered mildly prominent mesenteric lymph nodes. Although nonspecific, reactive nodes or mesenteric adenitis could have this appearance. Dictated and Authenticated by: Tomas Cortes MD. Orderin Guillermina Segura MD
[2025-04-07 01:37] VITALS: BP 128/70; PULSE 103; RESP 15; O2SAT 98
[2025-04-07 01:42] VITALS: BP 128/70; PULSE 103; RESP 15; O2SAT 98
== END 2025-04-07 01:43 | disposition home or self-care (01) ==
PROVIDERS: Emergency Provider Physician Assistant; PCP Family Medicine
DX: K82.8 Other specified diseases of gallbladder (principal); R10.13 Epigastric pain
CPT/HCPCS: 36415; 80053; 83690; 87637; 96361; 96374; 96375; 99284; 74177; 81003; 83735; 85025; J2405; J2470; J3490

== ENCOUNTER → 2025-04-07 09:49 | Outpatient (CLI) | payer MEDICAID, SELFPAY ==
--- NOTE | 2025-04-07 09:45 | DI.US_ITS ---
Exam(s) US ABDOMEN LIMITED EXAM: US ABDOMEN LIMITED CLINICAL HISTORY: enlarged gallbladder, abd pain, R10.9 TECHNIQUE: Ultrasound abdomen performed using standard protocol. COMPARISON: US US PELVIS TRANSVAGINAL from 02/20/[address] ABDOMEN PELVIS W from 04/07/2025 FINDINGS: There is no ascites evident. LIVER: There are no hepatic lesions evident nor dilatation of intrahepatic ducts. GALLBLADDER/BILIARY: There is some mild sludge in the gallbladder lumen but no gallstones. There is no gallbladder wall edema nor pericholecystic fluid. The common hepatic duct isnot dilated, measuring 3mm at the level of sascha hepatis. PANCREAS: There is no evidence of pancreatic mass nor dilatation of the pancreatic duct. RIGHT KIDNEY:No evidence of solid mass, calculus, nor hydronephrosis. No cortical cysts evident. IMPRESSION: 1. No evidence of cholelithiasis nor dilatation of the biliary tree. Mild sludge noted in the gallbladder lumen. No evidence of acute cholecystitis. 2. No other significant ultrasound findings in the right upper quadrant. 3. There is no ascites. DATA REPOSITORY:
== END ==
LOC: DI 09:49
PROVIDERS: PCP Family Medicine; Visit Provider Emergency Medicine
DX: R10.9 Unspecified abdominal pain (principal)
CPT/HCPCS: 76705